=== PATIENT | female | born 1945 | race Caucasian/White ===

== ENCOUNTER 2016-10-05 10:35 | Inpatient (IN) | payer MEDICARE ==
[~2016-10-05] VITALS: Ht 160 cm; Wt 117.1 kg
[~2016-10-05 10:35] MED LIST: /ALEN70TA OR; /PANT40TA OR; /WARF25TA OR; AVAP300T OR; BABY81CH OR; BENADRYL CREAM TOP; CALCIUM OR; DEPA500T OR; DICL25TA OR; LASI40TA OR; LIPI10TA OR; MULTIVIT OR; NORT25CA2 OR; OMEGA OIL OR; PAIN325T OR; PERC5TAB8 OR; PERC7.5T8 OR; SYNT137T OR; VITAMIN D50000 UNT OR; ZINC OR; nasocort; renexa OR; vitamin B 12 OR; vitamin C OR
[2016-10-05] MEDS ORDERED: ACETAMINOPHEN 325 MG TAB As Ordered ONE ×2 (11:28→18:37)
[2016-10-05 11:49] LABS: BASO % 0.3 % (0.0-1.0); EOS % 0.2 % (0.0-3.0); LARGE UNSTAINED CELL # 0.2 K/mm3 (0.0-0.4); LARGE UNSTAINED CELL % 1.8 % (0.0-4.0); LYMPH # 0.8 K/mm3 (1.5-4.5); LYMPH % 5.6 % (24.0-44.0); MEAN CORPUSCULAR HGB CONC 32.8 g/dl (32.0-36.5); MEAN CORPUSCULAR VOLUME 94.4 fl (80.0-96.0); MONO # 0.9 K/mm3 (0.0-0.8); MONO % 8.6 % (0.0-5.0); NEUTROPHILS # 9.1 K/mm3 (1.8-7.7); NEUTROPHILS % 83.5 % (36.0-66.0); PLATELET COUNT, AUTOMATED 195 k/mm3 (150-450); RED CELL DISTRIBUTION WIDTH 14.9 % (11.5-14.5); WHITE BLOOD COUNT 10.9 K/mm3 (4.0-10.0)
[2016-10-05 12:02] LABS: ALBUMIN 3.4 GM/DL (3.2-5.2); ALBUMIN/GLOBULIN RATIO 1.03 (1.00-1.93); BILIRUBIN,DIRECT 0.2 MG/DL (0.0-0.2); BILIRUBIN,TOTAL 0.7 MG/DL (0.2-1.0); CALCIUM LEVEL 8.3 MG/DL (8.8-10.2); CREATININE FOR GFR 1.12 MG/DL (0.55-1.02); GLOMERULAR FILTRATION RATE 50.9 (>39); POTASSIUM SERUM 3.5 MEQ/L (3.5-5.1); TOTAL PROTEIN 6.7 GM/DL (6.4-8.2)
[2016-10-05] MEDS ORDERED: IPRATROPIUM 0.5MG/ALBUTEROL 2.5MG INH SOL UD 3ML (DUONEB)(J7620) As Ordered ONE (12:10)
--- NOTE | 2016-10-05 12:34 | ECGEPIP ---
Stationary ECG Study [facility] - ED Test Date: 2016-10-05 Pat Name: LORE VALERIO Department: Room: - Gender: F Survey Cad Technician: [facility] : 1945 Requested By: ADRIAN Mendez Order Number: [id number] Reading MD: Drew Moreno Measurements Intervals [place] Rate: 89 P: 48 MS: 136 QRS: 132 QRSD: 99 T: 30 QT: 368 QTc: 449 Interpretive Statements SINUS RHYTHM RAD PATTERN CONSISTENT WITH PULMONARY DISEASE RIGHT VENTRICULAR HYPERTROPHY ST DEVIATION AND MODERATE T-WAVE ABNORMALITY, CONSIDER ANTERIOR ISCHEMIA Electronically Signed On 10-05-2016 12:34:37 EST by Drew Moreno
--- NOTE | 2016-10-05 12:36 | REP ---
Clinical: Acute abdominal pain. Comparison: 02/08/2007. Findings: Lung bases suggest cardiomegaly with chronic pulmonary vascular congestion small bilateral atelectasis and nodular consolidations cannot be excluded. Liver, spleen, pancreas, gallbladder, and bilateral adrenal glands are normal for noncontrast evaluation. The kidneys demonstrate symmetric likely chronic perinephric stranding without hydroureternephrosis or nephrolithiasis. The enteric system is without obstruction or acute inflammatory process. Few sigmoid diverticula noted without acute diverticulitis. Pelvis demonstrates normal bladder and evidence for prior hysterectomy. No pelvic fluid or ascites. No free air. No adenopathy. No mass lesion. Atherosclerotic changes of the aorta and branch vessels noted without aneurysm. Musculoskeletal structures demonstrate age-related degenerative changes without focal osseous abnormality. Impression: 1. Lung bases suggest cardiomegaly with chronic pulmonary vascular congestion and subtle basilar atelectasis. 2. Bilateral perinephric stranding likely chronic and less likely pyelonephritis. 3. No acute intra-abdominal or pelvic pathology otherwise noted. Signed by Kalyan Rodriges MD 10/05/2016 12:27 P
--- NOTE | 2016-10-05 12:37 | REP ---
Clinical: Fever and chest pain. Technique: AP and lateral. Comparison: 03/01/2016. Findings: Cardiomegaly and pulmonary vascular congestion appreciated. Bibasilar atelectasis and possible small layering pleural effusions cannot be excluded. No pneumothorax. Skeletal structures intact. Impression: Cardiomegaly and pulmonary vascular congestion. Cannot exclude basilar atelectasis. Signed by Kalyan Rodriges MD 10/05/2016 12:29 P
--- NOTE | 2016-10-05 12:44 | REP ---
CT HEAD WITHOUT CONTRAST: HISTORY: Trauma. Areas of decreased attentuation are present in the periventricular and subcortical white matter. This represents small vessel ischemic disease. There is no intraparenchymal hemorrhage, mass, or midline shift. The ventricular system and cortical sulci are dilated consistent with minimal volume loss. There is no extracerebral collection. There is no fracture. Mucosal thickening is present in the ethmoid, sphenoid, and right maxillary sinuses. IMPRESSION: 1. Small vessel ischemic disease. 2. Minimal volume loss. Signed by Javier Velasquez MD 10/05/2016 12:51 P
--- NOTE | 2016-10-05 12:47 | REP ---
CT CERVICAL SPINE WITHOUT CONTRAST: HISTORY: Trauma. There is no acute fracture or subluxation. Disc bulges are present at the C4-5 and C5-6 levels. A disc bulge with associated osteophyte formation is present at the C6-7 level. There is minimal narrowing of the spinal canal. Uncinate process and/or facet hypertrophy are present at the C5-6 and C6-7 levels. These findings produce minimal narrowing of the neural foramina. The C6-7 intervertebral disc is decreased in height consistent with disc degeneration. Osteophytes are present on C5-7. IMPRESSION: 1. There is no acute fracture or subluxation. 2. There is cervical spondylosis at the C4-5 through C6-7 levels. Signed by Javier Velasquez MD 10/05/2016 12:51 P
[2016-10-05] MEDS ORDERED: ASPIRIN 325 MG TAB As Ordered ONE (13:58)
[2016-10-05] MEDS ORDERED: ASPI1TAB PO (14:43)
[2016-10-05] MEDS ORDERED: IRBE75TA5 PO (14:43)
[2016-10-05] MEDS ORDERED: LIPI10TA PO (14:43)
[2016-10-05] MEDS ORDERED: PANT40TA2 PO (14:43)
[2016-10-05] MEDS ORDERED: FURO40TA2 PO (14:43)
[2016-10-05] MEDS ORDERED: DIVA500T9 PO (14:43)
[2016-10-05] MEDS ORDERED: LEVO137T2 PO (14:43)
[2016-10-05] MEDS ORDERED: CARV6.25 PO (14:43)
[2016-10-05] MEDS ORDERED: ISOS120T4 PO (14:43)
[2016-10-05] MEDS ORDERED: VITMTA PO (14:50)
[2016-10-05] MEDS ORDERED: DRIS50002 PO (14:50)
[2016-10-05] MEDS ORDERED: ACET-654 PO (14:50)
[2016-10-05] MEDS ORDERED: VITA10006 PO (14:50)
[2016-10-05] MEDS ORDERED: OMEG100011 PO (14:50)
[2016-10-05] MEDS ORDERED: RANO5TAB PO (14:50)
[2016-10-05] MEDS ORDERED: POTA10CA PO (14:50)
[2016-10-05] MEDS ORDERED: BUTATAB6 PO (14:50)
[2016-10-05] MEDS ORDERED: PRED5TA PO (14:50)
[2016-10-05] MEDS ORDERED: NASA1SPR (14:50)
[2016-10-05] MEDS ORDERED: TRAM50TA2 PO (14:50)
[2016-10-05] MEDS ORDERED: RANE1000 PO (14:50)
--- NOTE | 2016-10-05 14:57 | HPEPDOC ---
Medical History and Physical Date of Admission 10/05/16 History and Physical ATTENDING: Dr. Pettit PCP: Dr Posada. CC: Found at side of bed. HPI: 71yoF with a past medical history significant for HTN, CAD, pulmonary fibrosis, SOFY who was last known to have spoken to family at 5 PM yesterday. Today she was found beside her bed by her building construction ironworker. She was confused and lethargic. "incoherent" per her family. Per the pt she has had nausea, vomitting and diarrhea on and off since Monday. Was taking her medications until yesterday. felt weak, dizzy, feverish, chills. Not eating or drinking much yesterday. Pt states she fell getting OOB this AM. Pt states she currently feels chest tightness and SOB. Reports abdominal discomfort, nausea. She reports pain in Rt hip and ankle. Denies any DOMINGUEZ, cough, palpitations, or changes in bladder habits. Upon presentation to the hospital the patient was found to have , thus the hospitalist team was consulted. PMHx: CAD- Dr Benjamin HTN hypothyroid Pulmonary fibrosis- Prednisone/Home O2 6L NC. 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 ROS: As noted in HPI, otherwise 11pt ROS of systems reviewed and unremarkable PE: GEN: 71yoF, appears stated age. Well-nourished, well developed. No acute distress. Alert and oriented x 3. lethargic but responsive. HEENT: Normocephalic, atraumatic. Pupils are equal, round, and reactive to light. Extraocular movements are intact. No nystagmus appreciated. Sclera are nonicteric. Conjunctiva without injection. Nose midline. Nasal turbinates without bogginess. EACs both patent BL. TMs both visualized and dickens with good cone of light, no bulging or erythema. No facial asymmetry. Moist mucous membranes. Wears dentures. Pharynx pink and moist, no cobblestoning. Neck supple , trachea midline. No lymphadenopathy or thyromegaly appreciated. CHEST: Regular rate and rhythm, +S1, +S2 LUNGS: Decreased BS bilaterally. No wheezes, rales, or rhonchi. Breathing appears symmetric and easy. Patient is speaking in full sentences. No accessory muscle use. ABD: Round, soft, mild tenderness RUQ/LUQ, non-distended. +Bowel sounds throughout. No rebound or guarding. No costovertebral angle tenderness. EXT: Pulses 2+ bilaterally dorsalis pedis and radial. No lower extremity edema appreciated. Mild TTP over Rt hip joint and Rt ankle joint. SKIN: [place], dry, warm. Capillary refill <2sec. No rashes. NEURO: Alert and oriented x 3. Cranial nerves III-XII are intact. No focal deficits appreciated. CXR:CM, pulmonary vascular congestion, cannot exclude atelectasis CT: C spine no acute fracture. CT Head No acute changes. CT A&P : 1. Lung bases suggest cardiomegaly with chronic pulmonary vascular congestion and subtle basilar atelectasis. 2. Bilateral perinephric stranding likely chronic and less likely pyelonephritis. 3. No acute intra-abdominal or pelvic pathology otherwise noted. EKG: SR/SA possible RVH, ST-T abn 82 bpm. BLOOD CULTURES: x 2 pending UC pending A&P: 71yoF with a past medical history significant for HTN, CAD, pulmonary fibrosis, SOFY who was last known to have spoken to family at 5 PM yesterday. Today she was found beside her bed by her building construction ironworker. She was confused and lethargic. "incoherent" per her family. Per the pt she has had nausea, vomitting and diarrhea on and off since Monday. The patient will be admitted to PCU for at least [address] Pettit's service. Pt is discussed with Dr Mast. Fever/vomiting/diarrhea. BC/UC/Rapid flu/GI panel pending. Recheck LA at 6pm. IVF at 80cc/hr. IV Zofran prn. IV Cipro/Flagyl pending further results. CAD/CP/SOB/Elevated troponin. Dr Benjamin to follow pt. He is aware and will see Pt tonight. ASA/Ranexa BID/Statin/Coreg with hold parameters/Imdur. H/O Fall- Rt hip pain/Rt ankle pain. XR requested Rt hip and ankle. Pending at this time. ASHWIN. SCr baseline 0.6-0.9. 1.12. IVF, monitor. Hold Lasix/KCL/ARB. HTN. As above Hold ARB/Lasix. Coreg with hold parameters. Hypothyroid. supplement. Pulmonary fibrosis. Prednisone/Home O2 6LNC. Currently 8LNC. SOFY/BIPAP with home settings. HLD. Statin. GERD. PPI. DVT prophylaxis. The patient is a Full code. Vital Signs 145/92 86 28 103.1 998LPM Laboratory Data Labs 24H Laboratory Tests 2 10/05/16 11:24: Lactic Acid (Sepsis) 2.7*H 10/05/16 11:25: Aspartate Amino Transf (AST/SGOT) 28, Alanine Aminotransferase (ALT/SGPT) 17, Alkaline Phosphatase 45, Total Bilirubin 0.7, Direct Bilirubin 0.2, Albumin 3.4 , Albumin/Globulin Ratio 1.03, Anion Gap 10, White Blood Count 10.9H, Red Blood Count 5.11, Hemoglobin 15.8, Hematocrit 48.2H, Mean Corpuscular Volume 94.4, Mean Corpuscular Hemoglobin 31.0, Mean Corpuscular Hemoglobin Concent 32.8, Red Cell Distribution Width 14.9H, Platelet Count 195, Neutrophils (%) (Auto) 83.5H , Lymphocytes (%) (Auto) 5.6L, Monocytes (%) (Auto) 8.6H, Eosinophils (%) (Auto ) 0.2, Basophils (%) (Auto) 0.3, Neutrophils # (Auto) 9.1H, Lymphocytes # (Auto ) 0.8L, Monocytes # (Auto) 0.9H, Eosinophils # (Auto) 0.0, Basophils # (Auto) 0.0, Calcium Level 8.3L, Glomerular Filtration Rate 50.9, Large Unclassified Cells # 0.2, Large Unclassified Cells % 1.8, Lipase 98, Total Protein 6.7, Troponin I 1.27H, Valproic Acid (Depakene) Level 11.8L 10/05/16 12:50: Urine Amorphous Sediment , Urine Appearance HAZY, Urine Color RYNE, Urine pH 5.0, Urine Specific [place] 1.022, Urine Protein 3+H, Urine Glucose (UA) NEGATIVE, Urine Ketones TRACEH, Urine Urobilinogen 0.2, Urine Bilirubin NEGATIVE , Urine Leukocyte Esterase NEGATIVE, Urine Bacteria (Auto) NEGATIVE, Urine Blood NEGATIVE, Urine Calcium Carbonate Cryst(Auto) , Urine Calcium Oxalate Cryst (Auto) , Urine Calcium Phosphate Radha (Auto) , Urine Cellular Casts , Urine Cystine Crystals , Urine Granular Casts (Auto) , Urine Hyaline Casts (Auto ) 0, Urine Leucine Crystals , Urine Mucus (Auto) SMALL, Urine Nitrite NEGATIVE, Urine Oval Fat Bodies (Auto) , Urine RBC (Auto) 1, Urine Renal Epithelial Cells , Urine Sperm (Auto) , Urine Squamous Epithelial Cells 0, Urine Transitional Epithelial Cells , Urine Trichomonas (Auto) , Urine Triple Phosphate Cryst (Auto ) , Urine Tyrosine Crystals , Urine Uric Acid Crystals (Auto) , Urine WBC (Auto ) 2, Urine Waxy Casts (Auto) , Urine Yeast-Like Cells (Auto) CBC/BMP Laboratory Tests 10/05/16 11:25 Red Blood Count 5.11, Mean Corpuscular Volume 94.4, Mean Corpuscular Hemoglobin 31.0, Mean Corpuscular Hemoglobin Concent 32.8, Red Cell Distribution Width 14.9 H, Neutrophils (%) (Auto) 83.5 H, Lymphocytes (%) (Auto) 5.6 L, Monocytes ( %) (Auto) 8.6 H, Eosinophils (%) (Auto) 0.2, Basophils (%) (Auto) 0.3, Neutrophils # (Auto) 9.1 H, Lymphocytes # (Auto) 0.8 L, Monocytes # (Auto) 0.9 H , Eosinophils # (Auto) 0.0, Basophils # (Auto) 0.0 Microbiology Microbiology 10/05/16 Blood Culture, Received Pending 10/05/16 Blood Culture, Received Pending 10/05/16 Urine Culture, Received Pending Home Medications Scheduled (Nasacort Allergy 24Hr) 55 Mcg/Act Spr 55 MCG NA DAILY Ascorbic Acid (Vitamin C) 1,000 Mg Tab 1,000 MG PO DAILY Aspirin (Aspirin 81) 81 Mg Tab 81 MG PO DAILY Atorvastatin Calcium (Lipitor) 10 Mg Tab 10 MG PO DAILY Carvedilol (Carvedilol) 6.25 Mg Tab 6.25 MG PO BID Divalproex Sodium (Divalproex Sodium ER) 500 Mg Tab 1,000 MG PO QHS Furosemide (Furosemide) 40 Mg Tab 40 MG PO DAILY Irbesartan (Irbesartan) 75 Mg Tab 75 MG PO DAILY Isosorbide Mononitrate (Isosorbide Mononitrate ER) 120 Mg Tab 120 MG PO DAILY Levothyroxine Sodium (Synthroid) 137 Mcg Tab 137 MCG PO DAILY Multivitamins *[facility] STOCKED* (Thera M Plus *[facility] STOCKED*) 1 Tab Tab 1 TAB PO DAILY Clyde 3 Polyunsat Fatty Acids (Clyde 3 1000 mg) 1 Cap Cap 1 CAP PO DAILY Pantoprazole Sodium (Pantoprazole Sodium) 40 Mg Tab 40 MG PO BID Potassium Chloride (Klor-Con M10) 10 Meq Tabcr 10 MEQ PO DAILY Prednisone (Prednisone) 5 Mg Tab 15 MG PO DAILY Ranolazine (Ranexa) 500 Mg Carol 500 MG PO QPM Ranolazine (Ranexa) 1,000 Mg Tab 1,000 MG PO QAM Vitamin D (Drisdol) 50,000 Unit Cap 50,000 UNIT PO 2XW Scheduled PRN Acetamin/Butalbital/Caffeine (Butalbital/Acetaminophen/ 50-325-40 mg) 1 Ea Tab 1 EA PO PRN MIGRAINE Acetaminophen (Acetaminophen) 325 Mg Tab 650 MG PO Q4H PRN PRN PAIN Tramadol HCl (Tramadol HCl) 50 Mg Tab 50 MG PO Q8H PRN PRN PAIN Allergies Coded Allergies: SEAFOOD (Verified Allergy, Severe, THROAT TINGLES, DYSPNEA, 11/30/11) Celecoxib (Verified Allergy, Intermediate, RASH, 11/26/12) Gabapentin (Verified Allergy, Intermediate, RASH, BLISTERS, 11/26/12) Sulfa Drugs (Verified Allergy, Intermediate, RASH, 11/26/12) Sulfa Drugs Cross Reactors (Verified Allergy, Intermediate, RASH, 11/26/12) Leflunomide (Verified Adverse Reaction, Mild, UPSET STOMACH, 11/26/12) Carolyn Paredes Oct 05, 2016 14:57
[2016-10-05] MEDS: NS 1,000 ML IV SCH ×2 (14:59→23:38)
[2016-10-05] MEDS ORDERED: ONDANSETRON 4MG/2ML VIAL (J2405) IV PRN (15:00)
--- NOTE | 2016-10-05 16:38 | REP ---
Clinical: Pain. Technique: AP, lateral, bilateral oblique views of the right ankle. Findings: Osteopenia and age-related arthritic degenerative changes are appreciated. No acute fracture or dislocation. No significant soft tissue swelling. Impression: Osteopenia and age-related degenerative changes. No acute fracture or dislocation. Signed by Kalyan Rodriges MD 10/05/2016 04:30 P
--- NOTE | 2016-10-05 16:52 | REP ---
RIGHT HIP: Two views of the right hip are performed. There is no acute fracture or dislocation. There is mild joint space narrowing, subchondral sclerosis and spurring. IMPRESSION: Mild degenerative changes. No acute fracture or dislocation. Signed by Riley Rowan MD 10/06/2016 09:51 A
--- NOTE | 2016-10-05 18:19 | ECGEPIP ---
Stationary ECG Study [facility] - ED Test Date: 2016-10-05 Pat Name: LORE VALERIO Department: Room: - Gender: F [employer] Specialist: [facility] : 1945 Requested By: ADRIAN Mendez Order Number: [id number] Reading MD: Drew Moreno Measurements Intervals [place] Rate: 82 P: 32 [place]: 140 QRS: 131 QRSD: 100 T: 26 QT: 389 QTc: 454 Interpretive Statements SINUS RHYTHM WITH SINUS ARRHYTHMIA RAD RIGHT VENTRICULAR HYPERTROPHY PATTERN CONSISTENT WITH PULMONARY DISEASE NSTTW ABNORMALITIES SIMILAR TO 09/25/16 Electronically Signed On 10-05-2016 18:19:20 EST by Drew Moreno
[2016-10-05] MEDS ORDERED: CIPROFLOXACIN/D5W 400 MG/200 ML BAG (J0744) As Ordered ONE (18:31)
[2016-10-05] MEDS: CIPROFLOXACIN 400 MG in APPROPRIATE DILUENT 1 EA IV SCH (19:00)
[2016-10-05] MEDS ORDERED: traMADol 50 MG TAB As Ordered ONE (20:03)
[2016-10-05] MEDS: DIVALPROEX 500MG *ER* TAB PO SCH (21:00)
[2016-10-05 23:15] VITALS: BP 124/77
[2016-10-05] MEDS ORDERED: PANTOPRAZOLE 40MG TAB (PROTONIX) As Ordered ONE (23:20)
[2016-10-05] MEDS ORDERED: DIVALPROEX 250 MG TAB As Ordered ONE (23:21)
[2016-10-05] MEDS ORDERED: CARVedilol 6.25 MG TAB As Ordered ONE (23:21)
[2016-10-05] MEDS ORDERED: metroNIDAZOLE/NACL 500MG(5MG/ML)100 ML BAG (S0030) As Ordered ONE (23:23)
[2016-10-05] MEDS: CARVedilol 6.25 MG TAB PO SCH (23:30)
[2016-10-05] MEDS: PANTOPRAZOLE 40MG TAB (PROTONIX) PO SCH (23:31)
[2016-10-05] MEDS: metroNIDAZOLE 500 MG in APPROPRIATE DILUENT 1 EA IV SCH (23:42)
[2016-10-05 23:54] VITALS: PULSE 77
[2016-10-05] MEDS: RANOLAZINE 500 MG ER TAB PO SCH (23:54)
[2016-10-06] VITALS (7 sets, daily range): BP systolic 100–125; BP diastolic 58–71; O2SAT 97
[2016-10-06] MEDS ORDERED: ACETAMINOPHEN 325 MG TAB As Ordered ONE (03:43)
[2016-10-06] MEDS: ACETAMINOPHEN TAB 650MG DOSE (2X325MG) PO PRN ×2 (03:48→08:51)
[2016-10-06] MEDS ORDERED: traMADol 50 MG TAB As Ordered ONE ×3 (04:21→20:23)
[2016-10-06] MEDS ORDERED: metroNIDAZOLE/NACL 500MG(5MG/ML)100 ML BAG (S0030) As Ordered ONE ×3 (04:21→20:23)
[2016-10-06] MEDS: traMADol 50 MG TAB PO PRN ×3 (04:26→20:45)
[2016-10-06] MEDS: metroNIDAZOLE 500 MG in APPROPRIATE DILUENT 1 EA IV SCH ×3 (04:27→20:45)
[2016-10-06] MEDS ORDERED: CIPROFLOXACIN/D5W 400 MG/200 ML BAG (J0744) As Ordered ONE ×2 (06:31→18:57)
[2016-10-06] MEDS: LEVOTHYROXINE 0.137 MG TAB (137MCG) PO SCH (06:34)
[2016-10-06] MEDS: CIPROFLOXACIN 400 MG in APPROPRIATE DILUENT 1 EA IV SCH ×2 (06:35→18:59)
[2016-10-06 07:42] LABS: BASO % 0.2 % (0.0-1.0); EOS % 0.5 % (0.0-3.0); LARGE UNSTAINED CELL # 0.2 K/mm3 (0.0-0.4); LARGE UNSTAINED CELL % 2.3 % (0.0-4.0); LYMPH # 0.9 K/mm3 (1.5-4.5); LYMPH % 8.2 % (24.0-44.0); MEAN CORPUSCULAR HEMOGLOBIN 31.2 pg (27.0-33.0); MEAN CORPUSCULAR HGB CONC 32.4 g/dl (32.0-36.5); MEAN CORPUSCULAR VOLUME 96.2 fl (80.0-96.0); MONO # 0.8 K/mm3 (0.0-0.8); MONO % 9.6 % (0.0-5.0); NEUTROPHILS # 6.5 K/mm3 (1.8-7.7); NEUTROPHILS % 79.1 % (36.0-66.0); PLATELET COUNT, AUTOMATED 152 k/mm3 (150-450); RED CELL DISTRIBUTION WIDTH 14.8 % (11.5-14.5); WHITE BLOOD COUNT 8.2 K/mm3 (4.0-10.0)
[2016-10-06] MEDS ORDERED: ACETAMINOPHEN TAB 650MG DOSE (2X325MG) As Ordered ONE (08:44)
[2016-10-06] MEDS: RANOLAZINE 500 MG ER TAB PO SCH ×2 (08:49→20:44)
[2016-10-06] MEDS: predniSONE 5 MG TAB PO SCH (08:49)
[2016-10-06] MEDS: ATORVASTATIN 10 MG TAB PO SCH (08:49)
[2016-10-06] MEDS: PANTOPRAZOLE 40MG TAB (PROTONIX) PO SCH ×2 (08:49→20:44)
[2016-10-06] MEDS: ASPIRIN 81 MG ENTERIC TAB PO SCH (08:49)
[2016-10-06] MEDS: ISOSORBIDE MON. (IMDUR) 60 MG XR TAB PO SCH (08:50)
[2016-10-06] MEDS: CARVedilol 6.25 MG TAB PO SCH ×2 (08:50→20:46)
[2016-10-06 08:57] LABS: ALBUMIN 2.7 GM/DL (3.2-5.2); BILIRUBIN,TOTAL 0.6 MG/DL (0.2-1.0); CALCIUM LEVEL 7.8 MG/DL (8.8-10.2); CREATININE FOR GFR 1.22 MG/DL (0.55-1.02); GLOMERULAR FILTRATION RATE 46.1 (>39); POTASSIUM SERUM 3.7 MEQ/L (3.5-5.1); TOTAL PROTEIN 5.4 GM/DL (6.4-8.2)
[2016-10-06] MEDS ORDERED: IPRATROPIUM 0.5MG/ALBUTEROL 2.5MG INH SOL UD 3ML (DUONEB)(J7620) As Ordered ONE ×2 (14:34→20:51)
[2016-10-06] MEDS: IPRATROPIUM 0.5MG/ALBUTEROL 2.5MG INH SOL UD 3ML (DUONEB)(J7620) NEB PRN (14:40)
--- NOTE | 2016-10-06 17:42 | IPN ---
DATE: 10/06/2016 Patient seen and examined. Admitted overnight. Currently comfortable. Denies any chest pain but was having chest pain prior to admission. Respiration at baseline. No further episode of diarrhea. Mild epigastric discomfort. Tolerating oral. Is hungry. Requesting diet to be advanced. VITAL SIGNS: Temperature 98.6, pulse 68, respirations 18, blood pressure 118/67, pulse oximetry 93% on 4 liters nasal cannula. LABORATORY DATA: WBC 8.2, hemoglobin and hematocrit 13.8/42.6, platelets 152. Chemistry: Sodium 140, potassium 3.7, chloride 103, bicarbonate 26, BUN 25, creatinine 1.22. Cardiac enzymes: Initial troponin 1.27, 0.75, 0.44, 0.28. PHYSICAL EXAMINATION: GENERAL: Patient awake, alert, oriented times three, responsive. HEENT: Normocephalic, atraumatic. Pupils equal, round, and reactive to light. Extraocular movements intact. PULMONARY: Decreased breath sounds bilateral. No wheezes, rales, or rhonchi. Speaks in full sentences. CARDIAC: Regular rate and rhythm. Normal S1, S2. ABDOMEN: Soft. Mild epigastric tenderness. Obese. Positive bowel sounds. EXTREMITIES: No edema, bilateral lower extremities. Able to move bilateral upper and lower extremities. NEUROLOGIC: No focal deficit. Cranial nerves II-XII grossly intact. ASSESSMENT AND PLAN: This is a 71-year-old female patient with underlying medical history of hypertension, coronary artery disease, pulmonary fibrosis, chronic hypoxic respiratory failure on oxygen during the day and continuous positive airway pressure (CPAP) at night, obstructive sleep apnea (SOFY), hypothyroidism, gastroesophageal reflux disease (GERD), dyslipidemia, admitted with syncope. Found down on the ground with loss of consciousness with recent nausea, vomiting, diarrhea since Monday. 1. Syncope with metabolic encephalopathy, likely secondary to underlying infection. Patient was febrile. Currently back to baseline. Will get physical therapy and check orthostatic vital signs. Intravenous (IV) hydration has been given. Continue treatment for underlying infection, as mentioned below. 2. Sepsis, likely secondary to gastrointestinal (GI) sources. CT scan of the abdomen appreciated. Patient's nausea, vomiting, and diarrhea have improved. Followup GI panel. Continue Cipro and Flagyl. Iv hydration has been given. Advance diet as tolerated. 3. Full x-rays and imaging have been appreciated. Likely secondary to hypovolemia due to nausea, vomiting, and diarrhea. IV hydration has been given. X-ray has been negative for any fracture. CT head is also done. Will get physical therapy and followup orthostatic vital signs. 4. Elevated cardiac enzymes, likely demand ischemia. Dr. Benjamin from cardiology has been consulted. Given IV hydration, serial cardiac enzymes done. Followup telemetry. Continue aspirin, statin, beta blockers, and Imdur. Followup cardiology recommendations and discuss with Dr. Benjamin in regard to the need for transfer for cardiac catheterization. As per Dr. Benjamin, likely source of elevation troponin is mild cardiac injury due to hypovolemia. Given the current situation, hypovolemia is corrected. Cardiac enzymes improved. No urgency for transfer for cardiac catheterization. 5. Acute kidney injury (ASHWIN). Baseline creatinine 0.6-0.9. Currently mild elevation. IV fluids for hydration. Followup BUN and creatinine. Withholding Lasix, angiotensin receptor blockers (ARBs), and potassium chloride. 6. History of congestive heart failure. Patient currently hypovolemic. Lasix has been on hold. IV hydration has been given overnight. Will stop IV hydration given the patient tolerating oral. Once patient's blood pressure improved, will consider restarting Lasix. 7. Hypertension. Withholding ARBs and Lasix. Continue Coreg and Imdur with holding parameter. 8. Hypothyroidism. Continue current medication. 9. Pulmonary fibrosis. Continue prednisone. On home oxygen. Will continue on 4 liters via nasal cannula right now. 10. SOFY. Continue home bilevel positive airway pressure (BiPAP). Will continue to monitor. 11. Dyslipidemia. Continue statin. 12. GI prophylaxis. Patient on chronic steroid. Will continue proton pump inhibitor (PPI). 13. Deep vein thrombosis (DVT) prophylaxis. Will put the patient on heparin subcutaneous. DISPOSITION: Pending clinical improvement.
[2016-10-06] MEDS ORDERED: PANTOPRAZOLE 40MG TAB (PROTONIX) As Ordered ONE (20:23)
[2016-10-06] MEDS ORDERED: HEPARIN SOD (PORCINE) 5000 UNITS/ML VIAL As Ordered ONE (20:23)
[2016-10-06] MEDS ORDERED: CARVedilol 6.25 MG TAB As Ordered ONE (20:23)
[2016-10-06] MEDS: DIVALPROEX 500MG *ER* TAB PO SCH (20:44)
[2016-10-06] MEDS: HEPARIN SOD (PORCINE) 5000 UNITS/ML VIAL SQ SCH (20:45)
[2016-10-06] MEDS: IPRATROPIUM 0.5MG/ALBUTEROL 2.5MG INH SOL UD 3ML (DUONEB)(J7620) NEB SCH (20:52)
[2016-10-07] VITALS (12 sets, daily range): BP systolic 110–153; BP diastolic 51–81
[2016-10-07] MEDS ORDERED: metroNIDAZOLE/NACL 500MG(5MG/ML)100 ML BAG (S0030) As Ordered ONE ×2 (04:15→11:45)
[2016-10-07] MEDS: metroNIDAZOLE 500 MG in APPROPRIATE DILUENT 1 EA IV SCH ×3 (04:17→19:23)
[2016-10-07] MEDS ORDERED: CIPROFLOXACIN/D5W 400 MG/200 ML BAG (J0744) As Ordered ONE (05:43)
[2016-10-07] MEDS ORDERED: traMADol 50 MG TAB As Ordered ONE (05:43)
[2016-10-07] MEDS: LEVOTHYROXINE 0.137 MG TAB (137MCG) PO SCH (05:50)
[2016-10-07] MEDS: traMADol 50 MG TAB PO PRN ×2 (05:50→16:34)
[2016-10-07] MEDS: CIPROFLOXACIN 400 MG in APPROPRIATE DILUENT 1 EA IV SCH ×2 (06:00→17:56)
[2016-10-07] MEDS ORDERED: IPRATROPIUM 0.5MG/ALBUTEROL 2.5MG INH SOL UD 3ML (DUONEB)(J7620) As Ordered ONE ×2 (06:09→09:35)
[2016-10-07] MEDS: IPRATROPIUM 0.5MG/ALBUTEROL 2.5MG INH SOL UD 3ML (DUONEB)(J7620) NEB SCH ×3 (06:10→21:18)
[2016-10-07 06:36] LABS: ALBUMIN 2.8 GM/DL (3.2-5.2); ALBUMIN/GLOBULIN RATIO 0.9 (1.00-1.93); BILIRUBIN,TOTAL 0.5 MG/DL (0.2-1.0); CALCIUM LEVEL 8.3 MG/DL (8.8-10.2); CREATININE FOR GFR 1.03 MG/DL (0.55-1.02); GLOMERULAR FILTRATION RATE 56.1 (>39); POTASSIUM SERUM 4.4 MEQ/L (3.5-5.1); TOTAL PROTEIN 5.9 GM/DL (6.4-8.2)
[2016-10-07 06:37] LABS: BASO % 0.4 % (0.0-1.0); EOS % 0.4 % (0.0-3.0); LARGE UNSTAINED CELL # 0.4 K/mm3 (0.0-0.4); LARGE UNSTAINED CELL % 5.3 % (0.0-4.0); LYMPH # 1.1 K/mm3 (1.5-4.5); LYMPH % 15.4 % (24.0-44.0); MEAN CORPUSCULAR HEMOGLOBIN 31.3 pg (27.0-33.0); MEAN CORPUSCULAR HGB CONC 32.6 g/dl (32.0-36.5); MEAN CORPUSCULAR VOLUME 96.3 fl (80.0-96.0); MONO # 0.7 K/mm3 (0.0-0.8); MONO % 9.9 % (0.0-5.0); NEUTROPHILS % 68.7 % (36.0-66.0); PLATELET COUNT, AUTOMATED 164 k/mm3 (150-450); RED CELL DISTRIBUTION WIDTH 14.3 % (11.5-14.5); WHITE BLOOD COUNT 7.3 K/mm3 (4.0-10.0)
[2016-10-07] MEDS ORDERED: LR 1,000 ML IV SCH (07:00)
[2016-10-07] MEDS ORDERED: ACETAMINOPHEN TAB 650MG DOSE (2X325MG) As Ordered ONE (09:23)
[2016-10-07] MEDS: RANOLAZINE 500 MG ER TAB PO SCH ×2 (09:31→21:18)
[2016-10-07] MEDS: ATORVASTATIN 10 MG TAB PO SCH (09:31)
[2016-10-07] MEDS: PANTOPRAZOLE 40MG TAB (PROTONIX) PO SCH ×2 (09:31→21:24)
[2016-10-07] MEDS: predniSONE 5 MG TAB PO SCH (09:32)
[2016-10-07] MEDS: ISOSORBIDE MON. (IMDUR) 60 MG XR TAB PO SCH (09:32)
[2016-10-07] MEDS: CARVedilol 6.25 MG TAB PO SCH ×2 (09:32→21:19)
[2016-10-07] MEDS: ASPIRIN 81 MG ENTERIC TAB PO SCH (09:32)
[2016-10-07] MEDS: HEPARIN SOD (PORCINE) 5000 UNITS/ML VIAL SQ SCH ×2 (09:33→21:18)
[2016-10-07] MEDS: ACETAMINOPHEN TAB 650MG DOSE (2X325MG) PO PRN ×2 (09:34→21:24)
[2016-10-07] MEDS: IPRATROPIUM 0.5MG/ALBUTEROL 2.5MG INH SOL UD 3ML (DUONEB)(J7620) NEB PRN ×2 (09:38→16:32)
--- NOTE | 2016-10-07 12:23 | EDDOCDS ---
Physician Documentation [facility] Name: Sandrine Franco Age: 71 yrs Sex: Female : 1945 Arrival Date: 10/05/2016 Time: 10:35 Bed Admit Hold Private MD: Gaurav Posada H. Disposition: 10/05/16 14:00 Hospitalization ordered by Ani Mast for Inpatient Admission. Preliminary diagnosis are Non-ST elevation (NSTEMI) myocardial infarction, Fever, unspecified, Vomiting, Diarrhea, unspecified. - Bed requested for PCU. - Status is Inpatient Admission. dy - Condition is Stable. - Problem is new. - Symptoms are unchanged. Historical: - Allergies: SULFA (SULFONAMIDES); SHELLFISH; - Home Meds: 1. home O2 6 L 2. isosorbide mononitrate 60 mg Oral Tb24 1 tab once daily 3. carvedilol 6.25 mg oral tab 1 tab 2 times per day 4. amlodipine 5 mg Oral tab 1 tab once daily 5. Lipitor 10 mg Oral tab 1 tab once daily 6. Avapro 300 mg Oral tab 1 tab once daily 7. Protonix 40 mg Oral grps 1 packet once daily 8. levothyroxine 137 mcg Oral tab 1 tab once daily 9. Lasix 80 mg Oral tab 1 tab once daily 10. diclofenac sodium 50 mg oral TbEC 1 tab 2 times per day 11. nortriptyline 50 mg Oral cap 1 cap nightly 12. divalproex 500 mg oral TbEC 2 tabs once daily 13. aspirin 81 mg Oral chew 1 tab once daily 14. benzonatate 100 mg oral cap 1 cap as needed 15. Nasacort 55 mcg Nasal spra 16. Butalbital Compound 50-325-40 mg Oral cap 1 cap as needed 17. Tylenol 325 mg Oral tab as needed 18. Vitamin C 1,000 mg Oral cpER 19. multivitamin Oral cap 20. CoQ-10 30 mg oral cap 21. omega-3 fatty acids 300 mg oral cap - PMHx: pulmonary fibrosis; Hypercholesterolemia; Hypertension; CAD; - PSHx: Hysterectomy; Knee surgery- Left; Knee surgery- Right; Cataract Surgery- Bilateral; Shoulder Arthroscopy- Right; - Social history: Smoking status: Patient states was never smoker of tobacco. No barriers to communication noted, The patient speaks fluent [place], Speaks appropriately for age. - Family history: No immediate family members are acutely ill. - : The pt / caregiver states he / she is not on anticoagulants. Home medication list is obtained from the patient. - Exposure Risk Screening:: None identified. Vital Signs: 10/05 11:02 BP 129 / 79 (auto/); hs1 11:02 Pulse 92 MON; Resp 30; Pulse Ox 90% 6 lpm ; hs1 11:15 Temp 103.1(R); tmm1 11:16 Pulse 92 MON; Pulse Ox 95% 8 lpm ; hs1 11:17 BP 147 / 66 (auto/); hs1 11:31 Pulse 88 MON; Pulse Ox 99% ; hs1 11:32 BP 164 / 81 (auto/); hs1 11:46 Pulse 86 MON; Resp 28; Pulse Ox 99% 8 lpm ; hs1 11:47 BP 145 / 92 (auto/); hs1 12:47 BP 156 / 75 (auto/); hs1 12:47 Pulse 82 MON; Resp 28; Pulse Ox 94% ; hs1 13:40 Temp 101.8(R); hs1 14:05 Pulse 80 MON; Resp 20; Pulse Ox 95% 4 lpm ; hs1 14:06 BP 125 / 94 (auto/); hs1 14:23 Pulse 80 MON; Pulse Ox 93% ; hs1 14:23 BP 123 / 59 (auto/); hs1 14:53 BP 134 / 70 (auto/); hs1 14:53 Pulse 86 MON; Pulse Ox 94% ; hs1 15:10 BP 157 / 65 (auto/); hs1 15:11 Pulse 78 MON; Pulse Ox 90% ; hs1 15:45 Pulse 78 MON; Pulse Ox 99% ; cf2 15:47 Pulse 78 MON; Pulse Ox 99% ; cf2 16:10 BP 117 / 65 (auto/); hs1 16:11 Pulse 78 MON; Pulse Ox 94% ; hs1 16:14 BP 117 / 65; Pulse 80; Resp 28; Temp 97.7(O); Pulse Ox 95% 4 lpm ; Pain 9/10; hs1 16:40 BP 126 / 64 (auto/); hs1 16:41 Pulse 78 MON; Pulse Ox 92% ; hs1 17:10 BP 133 / 81 (auto/); hs1 17:11 Pulse 78 MON; Pulse Ox 94% ; hs1 17:40 BP 124 / 71 (auto/); hs1 17:41 Pulse 78 MON; Pulse Ox 96% ; hs1 18:10 BP 122 / 61 (auto/); hs1 18:10 Pulse 80 MON; Resp 18; Pulse Ox 95% ; hs1 21:00 Pulse 70 MON; Pulse Ox 94% ; cf2 21:12 Pulse 64 MON; Pulse Ox 96% ; cf2 21:21 Pulse 64 MON; Pulse Ox 96% ; cf2 21:26 Pulse 68 MON; Pulse Ox 97% ; cf2 21:32 Pulse 66 MON; Pulse Ox 96% ; cf2 21:47 BP 158 / 78 (auto/); cf2 21:48 Pulse 62 MON; Pulse Ox 96% ; cf2 21:52 Pulse 62 MON; Pulse Ox 95% ; cf2 21:55 Pulse 62 MON; Pulse Ox 95% ; cf2 21:59 Pulse 62 MON; Pulse Ox 96% ; cf2 22:03 Pulse 64 MON; Pulse Ox 97% ; cf2 MDM: 11:02 IV Saline Lock ordered. br1 11:02 Orthostatic VS ordered. br1 11:02 Operations Support Specialist/Pulse Ox/q 30 min VS ordered. br1 11:03 CBC with Diff Ordered. EDMS 11:03 BMP Ordered. EDMS 11:03 Liver Profile Ordered. EDMS 11:03 Lipase Ordered. EDMS 11:03 Troponin Ordered. EDMS 11:03 ECG WITH READING ER PHYS+CARDIAG ordered. EDMS 11:25 -Blood Culture (Adults Only), peripheral from different site, or from device/port/PICC br1 etc. if present ordered. 11:26 Acetaminophen Tablet 650 mg PO once ordered. br1 11:26 Lactic Acid (Rowan tube on ice) Ordered. EDMS 11:26 -Blood Culture Ordered. EDMS 11:30 VALPROIC ACID (DEPAKOTE) Ordered. EDMS 11:50 -Blood Culture (Adults Only), peripheral from different site, or from device/port/PICC lbd etc. if present complete. 11:52 BLOOD CULTURES Ordered. EDMS 11:59 NS 0.9% 1000 ml IV at 150 mL/hr continuous ordered. br1 11:59 Albuterol-Ipratropium 3 ml Inhalation once ordered. br1 11:59 Call Respiratory ordered. br1 12:00 CBC with Diff Reviewed. br1 12:01 Call Respiratory complete. lbd 12:01 CT Head Without Contrast Ordered. EDMS 12:01 CT Spine,Cervical W/o Contrast Ordered. EDMS 12:01 Chest, 2 View (pa\E\lat) Ordered. EDMS 12:01 Straight cath ordered. br1 12:01 CT ABD & PELVIS: No Contrast Ordered. EDMS 12:02 Oxygen at 4L/Min NC or Home dosage ordered. br1 12:02 Urinalysis Ordered. EDMS 12:02 Urine Culture Ordered. EDMS 12:33 Financial registration complete. mm15 13:11 BMP Reviewed. br1 13:11 Troponin Reviewed. br1 13:11 Lactic Acid (Rowan tube on ice) Reviewed. br1 13:11 VALPROIC ACID (DEPAKOTE) Reviewed. br1 13:11 Urinalysis Reviewed. br1 13:11 Liver Profile Reviewed. br1 13:11 Lipase Reviewed. br1 13:11 EKG-ADULT Reviewed. br1 13:11 CT Head Without Contrast Reviewed. br1 13:11 CT Spine,Cervical W/o Contrast Reviewed. br1 13:11 Chest, 2 View (pa\E\lat) Reviewed. br1 13:11 CT ABD & PELVIS: No Contrast Reviewed. br1 13:13 Misc. Nursing Order ordered. br1 13:13 ECG WITH READING ER PHYS+CARDIAG ordered. EDMS 13:13 BED REQUEST+ADM ordered. EDMS 13:56 Aspirin 325 mg PO once ordered. br1 14:30 [facility] Payment Agreement was scanned into [employer] and attached to record. mm15 14:34 Admission / Observation Status ordered. EDMS 14:52 Hip, Ap,Lat Ordered. EDMS 14:52 Ankle, complete Ordered. EDMS 14:54 INFLUENZA A&B RAPID ANTIGEN Ordered. EDMS 14:54 GASTROINTESTINAL (GI) PANEL Ordered. EDMS 15:01 CARDIAC MARKER PANEL Ordered. EDMS 15:14 T-Sheet-- Draft Copy was scanned into [employer] and attached to record. gb 19:05 NS 0.9% 1000 ml IV at 80 mL/hr continuous ordered. hs1 19:05 Ciprofloxacin 400 mg IVPB at 200 mL/hr once over 60 mins ordered. hs1 19:05 Acetaminophen Tablet 650 mg PO once ordered. hs1 19:32 CBC WITH DIFFERENTIAL Ordered. EDMS 19:32 COMPLETE COMPHRENSIVE METABOLI Ordered. EDMS 19:32 CARDIAC MARKER PANEL Ordered. EDMS 19:32 CARDIAC MARKER PANEL Ordered. EDMS 20:12 traMADol 50 mg PO once; admission orders ordered. cf2 10/06 10:51 CARDIAC DIET - DASH ordered. EDMS 14:52 PCR was scanned into [employer] and attached to record. gb 17:13 PHYSICAL THERAPY EVAL & TREAT ordered. EDMS 19:30 CBC WITH DIFFERENTIAL Ordered. EDMS 19:31 COMPLETE COMPHRENSIVE METABOLI Ordered. EDMS 21:34 MAGNESIUM LEVEL Ordered. EDMS 10/07 06:58 ECHOCARD,DOPPLER/COLOR FLOW ordered. EDMS Administered Medications: 10/05 11:31 Drug: Acetaminophen 650 mg [acetaminophen 325 mg tablet (2 tabs)] Route: PO; hs1 12:22 Drug: Albuterol-Ipratropium 3 ml [ipratropium-albuterol 0.5 mg-3 mg(2.5 mg base)/3 mL kt1 nebulization soln (3 mL)] Route: Inhalation; 12:30 Drug: NS 0.9% 1000 ml [sodium chloride 0.9 % intravenous solution] Route: IV; Rate: 150 hs1 mL/hr; Site: left antecubital; 14:04 Drug: Aspirin 325 mg [aspirin 325 mg tablet (1 tabs)] Route: PO; hs1 19:06 Drug: NS 0.9% 1000 ml [sodium chloride 0.9 % intravenous solution] Route: IV; Rate: 80 hs1 mL/hr; Site: left antecubital; 19:06 Drug: Ciprofloxacin 400 mg [ciprofloxacin 400 mg/200 mL in 5 % dextrose intravenous hs1 piggyback] Route: IVPB; Rate: 200 mL/hr; Infused Over: 60 mins; Site: left antecubital; 19:06 Drug: Acetaminophen 650 mg [acetaminophen 325 mg tablet (2 tabs)] Route: PO; hs1 20:12 Drug: traMADol 50 mg [tramadol 50 mg tablet (1 tabs)] Route: PO; cf2 Signatures: Dispatcher [employer] EDMS Promise Jackman, Ekg Monitor Tech Unit Ericka Velásquez, Ekg Monitor Tech Unit deg Prabha Connors RN RN mcp Barnhardt, Gloria, Franklin Garcia RN RN dy Roggie, Brian, MD MD br1 Bita Roberts RN RN hs1 Erick Virk mm15 Mable Hooper,RN RN cf2 Daina Higginbotham kt1 The chart was reviewed and I authenticate all verbal orders and agree with the evaluation and treatment provided.Corrections: (The following items were deleted from the chart) 11:30 11:26 VALPROIC ACID (DEPAKOTE)+LAB ordered. EDMS EDMS 13:52 13:51 GASTROINTESTINAL (GI) PANEL+RUBEN ordered. EDMS EDMS 14:54 14:54 GASTROINTESTINAL (GI) PANEL ordered. EDMS EDMS 14:54 14:54 GASTROINTESTINAL (GI) PANEL ordered. EDMS EDMS 17:48 15:01 LACTIC ACID LEVEL, LACTATE ordered. EDMS EDMS 10/06 10:51 10/05 15:10 OTHER CUSTOM DIETS ordered. EDMS EDMS 10/06 21:34 19:31 MAGNESIUM LEVEL ordered. EDMS EDMS 10/07 07:54 10/06 09:53 ECHOCARD,DOPPLER/COLOR FLOW ordered. EDMS EDMS 10/07 10:33 10/05 13:53 GASTROINTESTINAL (GI) PANEL ordered. EDMS EDMS Attachments: 14:30 [facility] Payment Agreement mm15 15:14 T-Sheet-- Draft Copy gb MTDD
--- NOTE | 2016-10-07 12:24 | EDDOCDS ---
Nurse's Notes [facility] Name: Lore Franco Age: 71 yrs Sex: Female : 1945 Arrival Date: 10/05/2016 Time: 10:35 Bed Admit Hold Private MD: Gaurav Posada H. Diagnosis: Non-ST elevation (NSTEMI) myocardial infarction;Fever, unspecified;Vomiting;Diarrhea, unspecified Presentation: 10/05 10:44 Presenting complaint: EMS states: found after fallen out of bed. Unknown down time. hs1 Patient states to EMS she also has been having diarrhea. Patient states no control over bowels. Patient covered in fecal matter and currently is being cleaned at this time. Adult Sepsis Screening: The patient does not have new or worsening altered mentation. Patient has a respiratory rate of greater than or equal to 22 (1 point). Systolic blood pressure is greater than 100. Patient has a qSOFA score of 1- Negative Sepsis Screen. Suicide/Homicide risk assessment- the patient denies having any suicidal and/or homicidal ideations and does not present with any other emotional, behavioral or mental health complaints. Status: Patient is not a office services representative or dependent. Transition of care: patient was not received from another setting of care. 10:44 Method Of Arrival: Walkin/Carried/Asstd hs1 10:44 Acuity: YIN Level 2 hs1 10:57 Care prior to arrival: See EMS report. Medications administered prior to arrival: hs1 Zofran 4 mg, IV fluids 200 mL IV initiated. Oxygen administered by EMS. Triage Assessment: 10:52 General: Appears in no apparent distress, Behavior is cooperative. Pain: Location: hs1 everywhere. Neurological: Level of Consciousness is awake, confused. Cardiovascular: Rhythm is sinus rhythm. Respiratory: Airway is patent Respiratory effort is even, labored. GI: Abdomen is non- distended obese, Stools are reported to be loose, Last BM was October 05, 2016. Derm: Skin is pink, warm & dry. normal. Historical: - Allergies: SULFA (SULFONAMIDES); SHELLFISH; - Home Meds: 1. home O2 6 L 2. isosorbide mononitrate 60 mg Oral Tb24 1 tab once daily 3. carvedilol 6.25 mg oral tab 1 tab 2 times per day 4. amlodipine 5 mg Oral tab 1 tab once daily 5. Lipitor 10 mg Oral tab 1 tab once daily 6. Avapro 300 mg Oral tab 1 tab once daily 7. Protonix 40 mg Oral grps 1 packet once daily 8. levothyroxine 137 mcg Oral tab 1 tab once daily 9. Lasix 80 mg Oral tab 1 tab once daily 10. diclofenac sodium 50 mg oral TbEC 1 tab 2 times per day 11. nortriptyline 50 mg Oral cap 1 cap nightly 12. divalproex 500 mg oral TbEC 2 tabs once daily 13. aspirin 81 mg Oral chew 1 tab once daily 14. benzonatate 100 mg oral cap 1 cap as needed 15. Nasacort 55 mcg Nasal spra 16. Butalbital Compound 50-325-40 mg Oral cap 1 cap as needed 17. Tylenol 325 mg Oral tab as needed 18. Vitamin C 1,000 mg Oral cpER 19. multivitamin Oral cap 20. CoQ-10 30 mg oral cap 21. omega-3 fatty acids 300 mg oral cap - PMHx: pulmonary fibrosis; Hypercholesterolemia; Hypertension; CAD; - PSHx: Hysterectomy; Knee surgery- Left; Knee surgery- Right; Cataract Surgery- Bilateral; Shoulder Arthroscopy- Right; - Social history: Smoking status: Patient states was never smoker of tobacco. No barriers to communication noted, The patient speaks fluent Pashto, Speaks appropriately for age. - Family history: No immediate family members are acutely ill. - : The pt / caregiver states he / she is not on anticoagulants. Home medication list is obtained from the patient. - Exposure Risk Screening:: None identified. Screenin:54 Screening information is obtained from the patient. Fall risk: At risk due to prior hs1 history of falls, The following interventions are performed due to a positive Fall Risk Screen: Fall Risk is added to Special Handling on the patient Summary Screen. A Fall Risk Bracelet was applied to the patient. Side Rails are placed in the up position. A Call [place] is given with instruction to call for help when getting out of bed. Assistance ADL's: requires no assistance with activities of daily living. Abuse/DV Screen: The patient / caregiver reports he/she is: not in a situation that causes fear, pain or injury. Nutritional screening: No deficits noted. Advance Directives: There is no active DNR order. home support is adequate. Assessment: 10:58 General: Appears uncomfortable, Behavior is appropriate for age, cooperative. Pain: hs1 Location: back, buttocks and abdomen. Neurological: Level of Consciousness is awake, alert, obeys commands. Respiratory: Airway is patent Respiratory effort is labored, Respiratory pattern is regular, symmetrical. GI: Abdomen is non- distended obese. Derm: excoriated bottom and abdominal folds. Patient has bruising noted to right hip area. 11:50 General: Appears in no apparent distress, Behavior is cooperative. Neurological: Level hs1 of Consciousness is awake, alert, obeys commands. Cardiovascular: Rhythm is sinus rhythm. Respiratory: Airway is patent Respiratory effort is labored, Respiratory pattern is regular, symmetrical. Derm: Skin is normal. 12:30 General: Appears ill, Behavior is cooperative. Neurological: Level of Consciousness is hs1 obeys commands. Respiratory: Airway is patent Respiratory effort is labored, Respiratory pattern is regular, symmetrical. GI: Abdomen is non- distended obese. Derm: Skin is pink, warm & dry. normal. 13:28 General: Appears ill, Behavior is cooperative, quiet. General: Appears Behavior is hs1 drowsy. Neurological: Level of Consciousness is obeys commands. Respiratory: Respiratory effort is labored, Respiratory pattern is regular. Derm: Skin is pink, warm & dry. normal. 14:04 General: Appears in no apparent distress, Behavior is appropriate for age, cooperative. hs1 Neurological: Level of Consciousness is awake, alert. Respiratory: Airway is patent Respiratory effort is even, labored, Respiratory pattern is regular, symmetrical. GI: Abdomen is non- distended obese. Derm: Skin is pink, warm & dry. normal. 15:20 General: Patient assisted with bedpan at this time. Patient unable to urinate and hs1 states uncomfortable sitting on cabrera. Family present with patient and comforting to her. No other needs known at present. . 16:15 Pain: Location: back Pain currently is 9 out of 10 on a pain scale. Quality of pain is hs1 described as aching, dull. Neurological: Level of Consciousness is awake, alert, obeys commands. Cardiovascular: Rhythm is sinus rhythm No ectopy. Respiratory: Airway is patent Respiratory effort is labored, Respiratory pattern is regular, symmetrical. Derm: Skin is pink, warm & dry. normal. 16:48 General: Appears in no apparent distress, Behavior is cooperative, drowsy. hs1 Neurological: Level of Consciousness is alert, obeys commands. GI: Abdomen is non- distended obese. Derm: Skin is normal. 17:50 General: Appears in no apparent distress, Behavior is appropriate for age, cooperative. hs1 Pain: Location: back Pain currently is 6 out of 10 on a pain scale. Respiratory: Airway is patent Respiratory effort is labored, Respiratory pattern is regular, symmetrical. Derm: Skin is pink, warm & dry. normal. 18:58 General: Appears in no apparent distress, Behavior is appropriate for age, cooperative. hs1 Pain: Location: back Pain currently is 8 out of 10 on a pain scale. Respiratory: Airway is patent Respiratory effort is even, unlabored, Respiratory pattern is regular, symmetrical, Breath sounds are diminished bilaterally. Derm: Skin is pink, warm & dry. normal. Vital Signs: 11:02 BP 129 / 79 (auto/); hs1 11:02 Pulse 92 MON; Resp 30; Pulse Ox 90% 6 lpm ; hs1 11:15 Temp 103.1(R); tmm1 11:16 Pulse 92 MON; Pulse Ox 95% 8 lpm ; hs1 11:17 BP 147 / 66 (auto/); hs1 11:31 Pulse 88 MON; Pulse Ox 99% ; hs1 11:32 BP 164 / 81 (auto/); hs1 11:46 Pulse 86 MON; Resp 28; Pulse Ox 99% 8 lpm ; hs1 11:47 BP 145 / 92 (auto/); hs1 12:47 BP 156 / 75 (auto/); hs1 12:47 Pulse 82 MON; Resp 28; Pulse Ox 94% ; hs1 13:40 Temp 101.8(R); hs1 14:05 Pulse 80 MON; Resp 20; Pulse Ox 95% 4 lpm ; hs1 14:06 BP 125 / 94 (auto/); hs1 14:23 Pulse 80 MON; Pulse Ox 93% ; hs1 14:23 BP 123 / 59 (auto/); hs1 14:53 BP 134 / 70 (auto/); hs1 14:53 Pulse 86 MON; Pulse Ox 94% ; hs1 15:10 BP 157 / 65 (auto/); hs1 15:11 Pulse 78 MON; Pulse Ox 90% ; hs1 15:45 Pulse 78 MON; Pulse Ox 99% ; cf2 15:47 Pulse 78 MON; Pulse Ox 99% ; cf2 16:10 BP 117 / 65 (auto/); hs1 16:11 Pulse 78 MON; Pulse Ox 94% ; hs1 16:14 BP 117 / 65; Pulse 80; Resp 28; Temp 97.7(O); Pulse Ox 95% 4 lpm ; Pain 9/10; hs1 16:40 BP 126 / 64 (auto/); hs1 16:41 Pulse 78 MON; Pulse Ox 92% ; hs1 17:10 BP 133 / 81 (auto/); hs1 17:11 Pulse 78 MON; Pulse Ox 94% ; hs1 17:40 BP 124 / 71 (auto/); hs1 17:41 Pulse 78 MON; Pulse Ox 96% ; hs1 18:10 BP 122 / 61 (auto/); hs1 18:10 Pulse 80 MON; Resp 18; Pulse Ox 95% ; hs1 21:00 Pulse 70 MON; Pulse Ox 94% ; cf2 21:12 Pulse 64 MON; Pulse Ox 96% ; cf2 21:21 Pulse 64 MON; Pulse Ox 96% ; cf2 21:26 Pulse 68 MON; Pulse Ox 97% ; cf2 21:32 Pulse 66 MON; Pulse Ox 96% ; cf2 21:47 BP 158 / 78 (auto/); cf2 21:48 Pulse 62 MON; Pulse Ox 96% ; cf2 21:52 Pulse 62 MON; Pulse Ox 95% ; cf2 21:55 Pulse 62 MON; Pulse Ox 95% ; cf2 21:59 Pulse 62 MON; Pulse Ox 96% ; cf2 22:03 Pulse 64 MON; Pulse Ox 97% ; cf2 Vitals: 11:49 Log In Time N/A - ambulance arrival. hs1 ED Course: 10:36 Patient visited by Katie Joseph Reg. lg 10:36 Gaurav Posada is Private Physician. lg 10:36 Patient moved to Waiting lg 10:38 Patient moved to [facility] 10:40 Patient visited by Wesley Angeles PCA. jrd 10:45 Triage Initiated hs1 10:57 Maintain field IV. Dressing intact. Gauge & site: 20 gauge in right hand. hs1 10:59 The patient / caregiver is instructed regarding the plan of care and ED course. Patient hs1 has correct armband on for positive identification. Placed in gown. Bed in low position. Call light in reach. Side rails up X2. sail lay out worker on. Pulse ox on. NIBP on. Cleaned of incontinence. Linen changed. Patients excoriated areas cleaned and cream placed on at this time. Patient very sore in her folds of her buttocks. 11:15 Patient visited by Bita Roberts RN. hs1 11:27 Lactic Acid (Rowan tube on ice) Sent. hs1 11:27 Troponin Sent. hs1 11:27 Lipase Sent. hs1 11:27 Liver Profile Sent. hs1 11:27 CBC with Diff Sent. hs1 11:27 -Blood Culture Sent. hs1 11:32 EKG done. (by ED staff). Reviewed by Adrian Early MD. tmm1 11:41 Adrian Early MD is Attending Physician. br1 11:47 Patient visited by Bita Roberts RN. hs1 11:59 Patient visited by Adrian Early MD. br1 12:47 EKG-ADULT Returned. EDMS 12:52 CT ABD & PELVIS: No Contrast Returned. EDMS 12:52 Chest, 2 View (pa\E\lat) Returned. EDMS 12:52 CT Head Without Contrast Returned. EDMS 12:52 CT Spine,Cervical W/o Contrast Returned. EDMS 12:57 Patient visited by Bita Roberts RN. hs1 12:57 Urine Culture Sent. hs1 12:57 Urinalysis Sent. hs1 13:28 Patient visited by Bita Roberts RN. hs1 13:34 CT Head Without Contrast Returned. EDMS 13:34 CT Spine,Cervical W/o Contrast Returned. EDMS 14:00 Ani Mast is Hospitalizing Provider. br1 14:06 Patient visited by Bita Roberts RN. hs1 14:30 [facility] [place] Agreement was scanned into Playteau and attached to record. mm15 15:14 T-Sheet-- Draft Copy was scanned into Playteau and attached to record. gb 17:25 Ankle, complete Returned. EDMS 17:25 Hip, Ap,Lat Returned. EDMS 19:02 EKG-ADULT Returned. EDMS 19:34 Patient moved to Admit Hold sls1 20:09 Mable Hooper,RN is Primary Nurse. cf2 20:09 Patient visited by Mable Hooper,IMELDA. cf2 20:15 Patient visited by Mable Hooper,IMELDA. cf2 20:48 Missed attempts: 20 gauge right upper arm x2. mb9 20:49 Inserted saline lock: 22 gauge in left forearm and blood collected. The patient mb9 tolerated the procedure well. 20:51 Inserted saline lock: 20 gauge in right antecubital area. jo3 21:45 Patient visited by Mable Hooper,IMELDA. cf2 22:05 Patient moved to 20 sls1 22:05 Patient moved to Admit Hold sls1 22:37 Patient visited by Mable Hooper,IMELDA. cf2 22:38 Patient visited by Mable Hooper,IMELDA. cf2 10/06 14:52 PCR was scanned into Playteau and attached to record. gb Administered Medications: 10/05 11:31 Drug: Acetaminophen 650 mg [acetaminophen 325 mg tablet (2 tabs)] Route: PO; hs1 12:22 Drug: Albuterol-Ipratropium 3 ml [ipratropium-albuterol 0.5 mg-3 mg(2.5 mg base)/3 mL kt1 nebulization soln (3 mL)] Route: Inhalation; 12:30 Drug: NS 0.9% 1000 ml [sodium chloride 0.9 % intravenous solution] Route: IV; Rate: 150 hs1 mL/hr; Site: left antecubital; 14:04 Drug: Aspirin 325 mg [aspirin 325 mg tablet (1 tabs)] Route: PO; hs1 19:06 Drug: NS 0.9% 1000 ml [sodium chloride 0.9 % intravenous solution] Route: IV; Rate: 80 hs1 mL/hr; Site: left antecubital; 19:06 Drug: Ciprofloxacin 400 mg [ciprofloxacin 400 mg/200 mL in 5 % dextrose intravenous hs1 piggyback] Route: IVPB; Rate: 200 mL/hr; Infused Over: 60 mins; Site: left antecubital; 19:06 Drug: Acetaminophen 650 mg [acetaminophen 325 mg tablet (2 tabs)] Route: PO; hs1 20:12 Drug: traMADol 50 mg [tramadol 50 mg tablet (1 tabs)] Route: PO; cf2 RT: 12:31 Initial Med Neb Given as ordered Patient was instructed and evaluated on procedure kt1 Patient tolerated procedure well without adverse effect. Respiratory: Breath sounds are diminished bilaterally. Order Results: Lab Order: CBC with Diff; SPEC'M 10/05/16 11:25 Test: WHITE BLOOD COUNT; Value: 10.9; Range: 4.0-10.0; Abnormal: Above high normal; Units: K/mm3; Status: F Test: RED BLOOD COUNT; Value: 5.11; Range: 4.00-5.40; Units: M/mm3; Status: F Test: HEMOGLOBIN; Value: 15.8; Range: 12.0-16.0; Units: g/dl; Status: F Test: HEMATOCRIT; Value: 48.2; Range: 36.0-47.0; Abnormal: Above high normal; Units: %; Status: F Test: MEAN CORPUSCULAR VOLUME; Value: 94.4; Range: 80.0-96.0; Units: fl; Status: F Test: MEAN CORPUSCULAR HEMOGLOBIN; Value: 31.0; Range: 27.0-33.0; Units: pg; Status: F Test: MEAN CORPUSCULAR HGB CONC; Value: 32.8; Range: 32.0-36.5; Units: g/dl; Status: F Test: RED CELL DISTRIBUTION WIDTH; Value: 14.9; Range: 11.5-14.5; Abnormal: Above high normal; Units: %; Status: F Test: PLATELET COUNT, AUTOMATED; Value: 195; Range: 150-450; Units: k/mm3; Status: F Test: NEUTROPHILS %; Value: 83.5; Range: 36.0-66.0; Abnormal: Above high normal; Units: %; Status: F Test: LYMPH %; Value: 5.6; Range: 24.0-44.0; Abnormal: Below low normal; Units: %; Status: F Test: MONO %; Value: 8.6; Range: 0.0-5.0; Abnormal: Above high normal; Units: %; Status: F Test: EOS %; Value: 0.2; Range: 0.0-3.0; Units: %; Status: F Test: BASO %; Value: 0.3; Range: 0.0-1.0; Units: %; Status: F Test: LARGE UNSTAINED CELL %; Value: 1.8; Range: 0.0-4.0; Units: %; Status: F Test: NEUTROPHILS #; Value: 9.1; Range: 1.8-7.7; Abnormal: Above high normal; Units: K/mm3; Status: F Test: LYMPH #; Value: 0.8; Range: 1.5-4.5; Abnormal: Below low normal; Units: K/mm3; Status: F Test: MONO #; Value: 0.9; Range: 0.0-0.8; Abnormal: Above high normal; Units: K/mm3; Status: F Test: EOS #; Value: 0.0; Range: 0.0-0.50; Units: K/mm3; Status: F Test: BASO #; Value: 0.0; Range: 0.0-0.2; Units: K/mm3; Status: F Test: LARGE UNSTAINED CELL #; Value: 0.2; Range: 0.0-0.4; Units: K/mm3; Status: F Lab Order: [facility]; [facility] 10/05/16 11:25 Test: GLUCOSE, FASTING; Value: 121; Range: 83-110; Abnormal: Above high normal; Units: MG/DL; Status: F Test: BLOOD UREA NITROGEN; Value: 18; Range: 7-18; Units: MG/DL; Status: F Test: CREATININE FOR GFR; Value: 1.12; Range: 0.55-1.02; Abnormal: Above high normal; Units: MG/DL; Status: F Test: GLOMERULAR FILTRATION RATE; Value: 50.9; Range: >39; Status: F Test: SODIUM LEVEL; Value: 140; Range: 136-145; Units: MEQ/L; Status: F Test: POTASSIUM SERUM; Value: 3.5; Range: 3.5-5.1; Units: MEQ/L; Status: F Test: CHLORIDE LEVEL; Value: 100; Range: 98-107; Units: MEQ/L; Status: F Test: CARBON DIOXIDE LEVEL; Value: 30; Range: 21-32; Units: MEQ/L; Status: F Test: ANION GAP; Value: 10; Range: 8-16; Units: MEQ/L; Status: F Test: CALCIUM LEVEL; Value: 8.3; Range: 8.8-10.2; Abnormal: Below low normal; Units: MG/DL; Status: F Test Note: ; Units are mL/min/1.73 m2 Chronic Kidney Disease Staging per NKF: Stage I & II GFR >=60 Normal to Mildly Decreased Stage III GFR 30-59 Moderately Decreased Stage IV GFR 15-29 Severely Decreased Stage V GFR <15 Very Little GFR Left ESRD GFR <15 on PAN HELPER Lab Order: Liver Profile; [facility]' 10/05/16 11:25 Test: AST/SGOT; Value: 28; Range: 15-37; Units: U/L; Status: F Test: ALT/SGPT; Value: 17; Range: 12-78; Units: U/L; Status: F Test: ALKALINE PHOSPHATASE; Value: 45; Range: 45-117; Units: U/L; Status: F Test: BILIRUBIN,TOTAL; Value: 0.7; Range: 0.2-1.0; Units: MG/DL; Status: F Test: BILIRUBIN,DIRECT; Value: 0.2; Range: 0.0-0.2; Units: MG/DL; Status: F Test: TOTAL PROTEIN; Value: 6.7; Range: 6.4-8.2; Units: GM/DL; Status: F Test: ALBUMIN; Value: 3.4; Range: 3.2-5.2; Units: GM/DL; Status: F Test: ALBUMIN/GLOBULIN RATIO; Value: 1.03; Range: 1.00-1.93; Status: F Lab Order: Lipase; [facility] 10/05/16 11:25 Test: LIPASE; Value: 98; Range: 73-393; Units: U/L; Status: F Lab Order: Troponin; [facility] 10/05/16 11:25 Test: TROPONIN I; Value: 1.27; Range: < 0.10; Abnormal: Above high normal; Units: NG/ML; Status: F Test Note: ; Troponin I Reference Interval for [employer] LOCI: 99th Percentile= 0.00-0.045 ng/ml Risk Stratification: <= 0.10 ng/ml Decreased Risk for Adverse Clinical Events. 0.10-1.50 ng/ml Increased Risk for Adverse Clinical Events. Evaluation of additional criterion and/or repeat testing in 2-6 hours is suggested to rule out myocardial damage. >= 1.50 ng/ml Indicative of Myocardial Injury. Lab Order: -Blood Culture; SPEC'M 10/05/16 11:24 Test: BLOOD CULTURE; Value: No growth after 24 hours . All specimens observed; Status: F Test: BLOOD CULTURE; Value: for 5 days. Results final at that time.; Status: F Test: BLOOD CULTURE; Value: No Growth after 48 hours. All Specimens observed; Status: F Test: BLOOD CULTURE; Value: for 7 days. Results final at that time.; Status: F Lab Order: Lactic Acid (Rowan tube on ice); SPEC'M 10/05/16 11:24 Test: LACTIC ACID SEPSIS PROTOCOL; Value: 2.7; Range: 0.4-2.0; Abnormal: Above upper panic limits; Units: MMOL/L; Status: F Lab Order: VALPROIC ACID (DEPAKOTE); SPEC'M 10/05/16 11:25 Test: VALPROIC ACID (DEPAKOTE); Value: 11.8; Range: 50.0-100.0; Abnormal: Below low normal; Units: UG/ML; Status: F Lab Order: BLOOD CULTURES; SPEC'M 10/05/16 12:50 Test: BLOOD CULTURE; Value: No growth after 24 hours . All specimens observed; Status: F Test: BLOOD CULTURE; Value: for 7 days. Results final at that time.; Status: F Lab Order: Urinalysis; SPEC'M 10/05/16 12:50 Test: APPEARANCE, URINE; Value: HAZY; Range: CLEAR; Status: F Test: COLOR, URINE; Value: RYNE; Range: YELLOW; Status: F Test: PH,URINE; Value: 5.0; Range: 5.0-9.0; Units: UNITS; Status: F Test: SPECIFIC GRAVITY URINE AUTO; Value: 1.022; Range: 1.002-1.035; Status: F Test: PROTEIN, URINE AUTO; Value: 3+; Range: NEGATIVE; Abnormal: Above high normal; Units: mg/dL; Status: F Test: GLUCOSE, URINE (UA) AUTO; Value: NEGATIVE; Range: NEGATIVE; Units: mg/dL; Status: F Test: KETONE, URINE AUTO; Value: TRACE; Range: NEGATIVE; Abnormal: Above high normal; Units: mg/dL; Status: F Test: UROBILINOGEN, URINE AUTO; Value: 0.2; Range: 0.0-2.0; Units: mg/dL; Status: F Test: BILIRUBIN, URINE AUTO; Value: NEGATIVE; Range: NEGATIVE; Status: F Test: NITRITE, URINE AUTO; Value: NEGATIVE; Range: NEGATIVE; Status: F Test: LEUKOCYTE ESTERASE, URINE AUTO; Value: NEGATIVE; Range: NEGATIVE; Status: F Test: BLOOD, URINE BLOOD; Value: NEGATIVE; Range: NEGATIVE; Status: F Test: WBC, URINE AUTO; Value: 2; Range: 0-3; Units: /HPF; Status: F Test: RBC, URINE AUTO; Value: 1; Range: 0-3; Units: /HPF; Status: F Test: BACTERIA, URINE AUTO; Value: NEGATIVE; Range: NEGATIVE; Status: F Test: SQUAMOUS EPITHELIAL CELL UR AU; Value: 0; Range: 0-6; Units: /HPF; Status: F Test: MUCUS, URINE; Value: SMALL; Range: NEGATIVE; Status: F Test: HYALINE CAST, URINE AUTO; Value: 0; Range: 0-1; Units: /LPF; Status: F Lab Order: Urine Culture; SPEC'M 10/05/16 12:50 Test: URINE CULTURE; Value: <EXTERNAL COMMENT eCWMed> FULL REPORT IN LAB NOTES (eCW and Medent).; Status: F Test: URINE CULTURE; Value: URINE CULTURE RESULT NO GROWTH; Status: F Lab Order: INFLUENZA A&B RAPID ANTIGEN; SPEC'M 10/05/16 20:21 Test: INFLUENZA A RAPID SCR by ICA; Value: INFLUENZA A RESULTS NEGATIVE; Status: F Test: INFLUENZA A RAPID SCR by ICA; Value: Comments:; Status: F Test: INFLUENZA B RAPID SCR by ICA; Value: INFLUENZA B RESULTS NEGATIVE; Status: F Test Note: ; The Influenza test is a direct rapid immunoassay for the qualitative detection of Influenza viral antigen. Cell culture (Viral Culture) testing should be considered to confirm NEGATIVE results and to assist in detecting other viruses that can provide similar clinical symptoms. Please contact the lab within 24 hours ([phone] if confirmatory testing is desired. Lab Order: CARDIAC MARKER PANEL; SPEC'M 10/05/16 17:55 Test: CPK CREATINE PHOSPHOKINASE; Value: 439; Range: 26-192; Abnormal: Above high normal; Units: U/L; Status: F Test: CK-MB VALUE MASS; Value: 3.6; Range: 0.0-3.6; Units: NG/ML; Status: F Test: MB/CK RELATIVE INDEX; Value: 0.82; Range: < OR =4; Status: F Test: TROPONIN I; Value: 0.75; Range: < 0.10; Abnormal: High; Units: NG/ML; Status: F Test Note: ; DIAGNOSIS CRITERIA MMB ng/ml Relative Index (RI) NON-AMI < or = 5 N/A [place]AN [place]ONE > 5 < or = 4 AMI > 5 > 4 Lab Order: CBC WITH DIFFERENTIAL; [facility] 07:22 Test: WHITE BLOOD COUNT; Value: 8.2; Range: 4.0-10.0; Units: K/mm3; Status: F Test: RED BLOOD COUNT; Value: 4.43; Range: 4.00-5.40; Units: M/mm3; Status: F Test: HEMOGLOBIN; Value: 13.8; Range: 12.0-16.0; Abnormal: Delta; Units: g/dl; Status: F Test: HEMATOCRIT; Value: 42.6; Range: 36.0-47.0; Units: %; Status: F Test: MEAN CORPUSCULAR VOLUME; Value: 96.2; Range: 80.0-96.0; Abnormal: Above high normal; Units: fl; Status: F Test: MEAN CORPUSCULAR HEMOGLOBIN; Value: 31.2; Range: 27.0-33.0; Units: pg; Status: F Test: MEAN CORPUSCULAR HGB CONC; Value: 32.4; Range: 32.0-36.5; Units: g/dl; Status: F Test: RED CELL DISTRIBUTION WIDTH; Value: 14.8; Range: 11.5-14.5; Abnormal: Above high normal; Units: %; Status: F Test: PLATELET COUNT, AUTOMATED; Value: 152; Range: 150-450; Units: k/mm3; Status: F Test: NEUTROPHILS %; Value: 79.1; Range: 36.0-66.0; Abnormal: Above high normal; Units: %; Status: F Test: LYMPH %; Value: 8.2; Range: 24.0-44.0; Abnormal: Below low normal; Units: %; Status: F Test: MONO %; Value: 9.6; Range: 0.0-5.0; Abnormal: Above high normal; Units: %; Status: F Test: EOS %; Value: 0.5; Range: 0.0-3.0; Units: %; Status: F Test: BASO %; Value: 0.2; Range: 0.0-1.0; Units: %; Status: F Test: LARGE UNSTAINED CELL %; Value: 2.3; Range: 0.0-4.0; Units: %; Status: F Test: NEUTROPHILS #; Value: 6.5; Range: 1.8-7.7; Units: K/mm3; Status: F Test: LYMPH #; Value: 0.9; Range: 1.5-4.5; Abnormal: Below low normal; Units: K/mm3; Status: F Test: MONO #; Value: 0.8; Range: 0.0-0.8; Units: K/mm3; Status: F Test: EOS #; Value: 0.0; Range: 0.0-0.50; Units: K/mm3; Status: F Test: BASO #; Value: 0.0; Range: 0.0-0.2; Units: K/mm3; Status: F Test: LARGE UNSTAINED CELL #; Value: 0.2; Range: 0.0-0.4; Units: K/mm3; Status: F Lab Order: COMPLETE COMPHRENSIVE METABOLI; SPEC'M 10/06/16 07:22 Test: GLUCOSE, FASTING; Value: 135; Range: 83-110; Abnormal: Above high normal; Units: MG/DL; Status: F Test: BLOOD UREA NITROGEN; Value: 25; Range: 7-18; Abnormal: Above high normal; Units: MG/DL; Status: F Test: CREATININE FOR GFR; Value: 1.22; Range: 0.55-1.02; Abnormal: Above high normal; Units: MG/DL; Status: F Test: GLOMERULAR FILTRATION RATE; Value: 46.1; Range: >39; Status: F Test: SODIUM LEVEL; Value: 140; Range: 136-145; Units: MEQ/L; Status: F Test: POTASSIUM SERUM; Value: 3.7; Range: 3.5-5.1; Units: MEQ/L; Status: F Test: CHLORIDE LEVEL; Value: 103; Range: 98-107; Units: MEQ/L; Status: F Test: CARBON DIOXIDE LEVEL; Value: 26; Range: 21-32; Units: MEQ/L; Status: F Test: ANION GAP; Value: 11; Range: 8-16; Units: MEQ/L; Status: F Test: CALCIUM LEVEL; Value: 7.8; Range: 8.8-10.2; Abnormal: Below low normal; Units: MG/DL; Status: F Test: AST/SGOT; Value: 23; Range: 15-37; Units: U/L; Status: F Test: ALT/SGPT; Value: 17; Range: 12-78; Units: U/L; Status: F Test: ALKALINE PHOSPHATASE; Value: 40; Range: 45-117; Abnormal: Below low normal; Units: U/L; Status: F Test: BILIRUBIN,TOTAL; Value: 0.6; Range: 0.2-1.0; Units: MG/DL; Status: F Test: TOTAL PROTEIN; Value: 5.4; Range: 6.4-8.2; Abnormal: Below low normal; Units: GM/DL; Status: F Test: ALBUMIN; Value: 2.7; Range: 3.2-5.2; Units: GM/DL; Status: F Test: ALBUMIN/GLOBULIN RATIO; Value: 1.00; Range: 1.00-1.93; Status: F Test Note: ; Units are mL/min/1.73 m2 Chronic Kidney Disease Staging per NKF: Stage I & II GFR >=60 Normal to Mildly Decreased Stage III GFR 30-59 Moderately Decreased Stage IV GFR 15-29 Severely Decreased Stage V GFR <15 Very Little GFR Left ESRD GFR <15 on PAN HELPER Lab Order: CARDIAC MARKER PANEL; SPEC10/06/16 02:06 Test: CPK CREATINE PHOSPHOKINASE; Value: 411; Range: 26-192; Abnormal: Above high normal; Units: U/L; Status: F Test: CK-MB VALUE MASS; Value: 3.8; Range: 0.0-3.6; Abnormal: Above high normal; Units: NG/ML; Status: F Test: MB/CK RELATIVE INDEX; Value: 0.92; Range: < OR =4; Status: F Test: TROPONIN I; Value: 0.44; Range: < 0.10; Abnormal: High; Units: NG/ML; Status: F Test Note: ; DIAGNOSIS CRITERIA MMB ng/ml Relative Index (RI) NON-AMI < or = 5 N/A [place] > 5 < or = 4 AMI > 5 > 4 Lab Order: CARDIAC MARKER PANEL; [facility]10/06/16 10:30 Test: CPK CREATINE PHOSPHOKINASE; Value: 339; Range: 26-192; Abnormal: Above high normal; Units: U/L; Status: F Test: CK-MB VALUE MASS; Value: 2.4; Range: 0.0-3.6; Units: NG/ML; Status: F Test: MB/CK RELATIVE INDEX; Value: 0.70; Range: < OR =4; Status: F Test: TROPONIN I; Value: 0.28; Range: < 0.10; Abnormal: High; Units: NG/ML; Status: F Test Note: ; DIAGNOSIS CRITERIA MMB ng/ml Relative Index (RI) NON-AMI < or = 5 N/A [place] > 5 < or = 4 AMI > 5 > 4 Lab Order: CBC WITH DIFFERENTIAL; [facility]10/07/16 06:10 Test: WHITE BLOOD COUNT; Value: 7.3; Range: 4.0-10.0; Units: K/mm3; Status: F Test: RED BLOOD COUNT; Value: 4.45; Range: 4.00-5.40; Units: M/mm3; Status: F Test: HEMOGLOBIN; Value: 13.9; Range: 12.0-16.0; Units: g/dl; Status: F Test: HEMATOCRIT; Value: 42.8; Range: 36.0-47.0; Units: %; Status: F Test: MEAN CORPUSCULAR VOLUME; Value: 96.3; Range: 80.0-96.0; Abnormal: Above high normal; Units: fl; Status: F Test: MEAN CORPUSCULAR HEMOGLOBIN; Value: 31.3; Range: 27.0-33.0; Units: pg; Status: F Test: MEAN CORPUSCULAR HGB CONC; Value: 32.6; Range: 32.0-36.5; Units: g/dl; Status: F Test: RED CELL DISTRIBUTION WIDTH; Value: 14.3; Range: 11.5-14.5; Units: %; Status: F Test: PLATELET COUNT, AUTOMATED; Value: 164; Range: 150-450; Units: k/mm3; Status: F Test: NEUTROPHILS %; Value: 68.7; Range: 36.0-66.0; Abnormal: Above high normal; Units: %; Status: F Test: LYMPH %; Value: 15.4; Range: 24.0-44.0; Abnormal: Below low normal; Units: %; Status: F Test: MONO %; Value: 9.9; Range: 0.0-5.0; Abnormal: Above high normal; Units: %; Status: F Test: EOS %; Value: 0.4; Range: 0.0-3.0; Units: %; Status: F Test: BASO %; Value: 0.4; Range: 0.0-1.0; Units: %; Status: F Test: LARGE UNSTAINED CELL %; Value: 5.3; Range: 0.0-4.0; Abnormal: Above high normal; Units: %; Status: F Test: NEUTROPHILS #; Value: 5.0; Range: 1.8-7.7; Units: K/mm3; Status: F Test: LYMPH #; Value: 1.1; Range: 1.5-4.5; Abnormal: Below low normal; Units: K/mm3; Status: F Test: MONO #; Value: 0.7; Range: 0.0-0.8; Units: K/mm3; Status: F Test: EOS #; Value: 0.0; Range: 0.0-0.50; Units: K/mm3; Status: F Test: BASO #; Value: 0.0; Range: 0.0-0.2; Units: K/mm3; Status: F Test: LARGE UNSTAINED CELL #; Value: 0.4; Range: 0.0-0.4; Units: K/mm3; Status: F Lab Order: COMPLETE COMPHRENSIVE METABOLI; SPEC'M 10/07/16 06:10 Test: GLUCOSE, FASTING; Value: 123; Range: 83-110; Abnormal: Above high normal; Units: MG/DL; Status: F Test: BLOOD UREA NITROGEN; Value: 22; Range: 7-18; Abnormal: Above high normal; Units: MG/DL; Status: F Test: CREATININE FOR GFR; Value: 1.03; Range: 0.55-1.02; Abnormal: Above high normal; Units: MG/DL; Status: F Test: GLOMERULAR FILTRATION RATE; Value: 56.1; Range: >39; Status: F Test: SODIUM LEVEL; Value: 140; Range: 136-145; Units: MEQ/L; Status: F Test: POTASSIUM SERUM; Value: 4.4; Range: 3.5-5.1; Units: MEQ/L; Status: F Test: CHLORIDE LEVEL; Value: 103; Range: 98-107; Units: MEQ/L; Status: F Test: CARBON DIOXIDE LEVEL; Value: 26; Range: 21-32; Units: MEQ/L; Status: F Test: ANION GAP; Value: 11; Range: 8-16; Units: MEQ/L; Status: F Test: CALCIUM LEVEL; Value: 8.3; Range: 8.8-10.2; Abnormal: Below low normal; Units: MG/DL; Status: F Test: AST/SGOT; Value: 19; Range: 15-37; Units: U/L; Status: F Test: ALT/SGPT; Value: 17; Range: 12-78; Units: U/L; Status: F Test: ALKALINE PHOSPHATASE; Value: 41; Range: 45-117; Abnormal: Below low normal; Units: U/L; Status: F Test: BILIRUBIN,TOTAL; Value: 0.5; Range: 0.2-1.0; Units: MG/DL; Status: F Test: TOTAL PROTEIN; Value: 5.9; Range: 6.4-8.2; Abnormal: Below low normal; Units: GM/DL; Status: F Test: ALBUMIN; Value: 2.8; Range: 3.2-5.2; Abnormal: Below low normal; Units: GM/DL; Status: F Test: ALBUMIN/GLOBULIN RATIO; Value: 0.90; Range: 1.00-1.93; Abnormal: Below low normal; Status: F Test Note: ; Units are mL/min/1.73 m2 Chronic Kidney Disease Staging per NKF: Stage I & II GFR >=60 Normal to Mildly Decreased Stage III GFR 30-59 Moderately Decreased Stage IV GFR 15-29 Severely Decreased Stage V GFR <15 Very Little GFR Left ESRD GFR <15 on PAN HELPER Lab Order: MAGNESIUM LEVEL; [facility] 10/07/16 06:10 Test: MAGNESIUM LEVEL; Value: 2.0; Range: 1.8-2.4; Units: MG/DL; Status: F Radiology Order: EKG-ADULT Test: EKG-ADULT REASON FOR EXAMINATION: dysrhythmia; Stationary ECG Study; [facility] - ED; ; Test Date: 2016-10-05; Pat Name: LORE FRANCO Department:; Room: -; Gender: F 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; : 1945 Requested By: ADRIAN Mendez; Order Number: [id number] Reading MD: Drew Moreno; Measurements; Intervals [place]; Rate: 89 P: 48; IN: 136 QRS: 132; QRSD: 99 T: 30; QT: 368; QTc: 449; Interpretive Statements; SINUS RHYTHM; RAD; PATTERN CONSISTENT WITH PULMONARY DISEASE; RIGHT VENTRICULAR HYPERTROPHY; ST DEVIATION AND MODERATE T-WAVE ABNORMALITY, CONSIDER ANTERIOR ISCHEMIA; ; Electronically Signed On 10-05-2016 12:34:37 EST by Drew Moreno; Radiology Order: CT Head Without Contrast Test: CT Head Without Contrast REASON FOR EXAMINATION: Trauma; CT HEAD WITHOUT CONTRAST:; ; HISTORY: Trauma.; ; Areas of decreased attentuation are present in the periventricular and; subcortical white matter. This represents small vessel ischemic disease. There; is no intraparenchymal hemorrhage, mass, or midline shift. The ventricular; system and cortical sulci are dilated consistent with minimal volume loss. There; is no extracerebral collection. There is no fracture. Mucosal thickening is; present in the ethmoid, sphenoid, and right maxillary sinuses.; ; IMPRESSION:; ; 1. Small vessel ischemic disease.; ; 2. Minimal volume loss.; ; ; Signed by; Javier Velasquez MD 10/05/2016 12:51 P; Radiology Order: CT Spine,Cervical W/o Contrast Test: CT Spine,Cervical W/o Contrast REASON FOR EXAMINATION: Trauma; CT CERVICAL SPINE WITHOUT CONTRAST:; ; HISTORY: Trauma.; ; There is no acute fracture or subluxation. Disc bulges are present at the C4-5; and C5-6 levels. A disc bulge with associated osteophyte formation is present at; the C6-7 level. There is minimal narrowing of the spinal canal. Uncinate; process and/or facet hypertrophy are present at the C5-6 and C6-7 levels. These; findings produce minimal narrowing of the neural foramina. The C6-7; intervertebral disc is decreased in height consistent with disc degeneration.; Osteophytes are present on C5-7.; ; IMPRESSION:; ; 1. There is no acute fracture or subluxation.; ; 2. There is cervical spondylosis at the C4-5 through C6-7 levels.; ; ; Signed by; Javier Velasquez MD 10/05/2016 12:51 P; Radiology Order: Chest, 2 View (pa\E\lat) Test: Chest, 2 View (pa\E\lat) REASON FOR EXAMINATION: fever;Chest Pain; Clinical: Fever and chest pain.; ; Technique: AP and lateral.; ; Comparison: 03/01/2016.; ; Findings:; Cardiomegaly and pulmonary vascular congestion appreciated. Bibasilar; atelectasis and possible small layering pleural effusions cannot be excluded. No; pneumothorax. Skeletal structures intact.; ; Impression:; Cardiomegaly and pulmonary vascular congestion.; Cannot exclude basilar atelectasis.; ; ; Signed by; Kalyan Rodriges MD 10/05/2016 12:29 P; Radiology Order: CT ABD & PELVIS: No Contrast Test: CT ABD & PELVIS: No Contrast REASON FOR EXAMINATION: Abdomen Pain; Clinical: Acute abdominal pain.; ; Comparison: 02/08/2007.; ; Findings:; Lung bases suggest cardiomegaly with chronic pulmonary vascular congestion small; bilateral atelectasis and nodular consolidations cannot be excluded.; ; Liver, spleen, pancreas, gallbladder, and bilateral adrenal glands are normal for; noncontrast evaluation. The kidneys demonstrate symmetric likely chronic; perinephric stranding without hydroureternephrosis or nephrolithiasis. The; enteric system is without obstruction or acute inflammatory process. Few sigmoid; diverticula noted without acute diverticulitis. Pelvis demonstrates normal; bladder and evidence for prior hysterectomy. No pelvic fluid or ascites. No; free air. No adenopathy. No mass lesion. Atherosclerotic changes of the aorta; and branch vessels noted without aneurysm. Musculoskeletal structures; demonstrate age-related degenerative changes without focal osseous abnormality.; ; Impression:; 1. Lung bases suggest cardiomegaly with chronic pulmonary vascular congestion; and subtle basilar atelectasis.; 2. Bilateral perinephric stranding likely chronic and less likely; pyelonephritis.; 3. 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[employer]; : 1945 Requested By: ADRIAN Mendez; Order Number: [id number] Reading MD: Drew Moreno; Measurements; Intervals [place]; Rate: 82 P: 32; IN: 140 QRS: 131; QRSD: 100 T: 26; QT: 389; QTc: 454; Interpretive Statements; SINUS RHYTHM WITH SINUS ARRHYTHMIA; RAD; RIGHT VENTRICULAR HYPERTROPHY; PATTERN CONSISTENT WITH PULMONARY DISEASE; NSTTW ABNORMALITIES; SIMILAR TO 09/25/16; Electronically Signed On 10-05-2016 18:19:20 EST by Drew Moreno; Radiology Order: Hip, Ap,Lat Test: Hip, Ap,Lat REASON FOR EXAMINATION: Rt hip pain; RIGHT HIP:; ; Two views of the right hip are performed. There is no acute fracture or; dislocation. There is mild joint space narrowing, subchondral sclerosis and; spurring.; ; IMPRESSION:; ; Mild degenerative changes. No acute fracture or dislocation.; ; ; Signed by; Riley Rowan MD 10/06/2016 09:51 A; Radiology Order: Ankle, complete Test: Ankle, complete REASON FOR EXAMINATION: ankle pain; Clinical: Pain.; ; Technique: AP, lateral, bilateral oblique views of the right ankle.; ; Findings:; Osteopenia and age-related arthritic degenerative changes are appreciated. No; acute fracture or dislocation. No significant soft tissue swelling.; ; Impression:; Osteopenia and age-related degenerative changes. No acute fracture or; dislocation.; ; ; Signed by; Kalyan Rodriges MD 10/05/2016 04:30 P; Outcome: 14:00 Decision to Hospitalize by Provider. br1 16:14 CT Study completed. hs1 10/07 12:22 Patient left the ED. dy Signatures: Dispatcher [employer] EDMS Prabha Connors, RN RN mcp Aleta Gooden, Reg Reg gb Katie Joseph, Reg Reg lg Franklin Duarte RN RN dy [place], Kristin kt1 Radha Julian RN RN Adrian Krueger MD MD br1 Bita Roberts RN RN hs1 Kathrin Hill RN RN sls1 Radha Ashton, PHARMACY TECHNICIAN PER DIEM PHARMACY TECHNICIAN PER DIEM tmm1 Erick Virk mm15 Wesley Angeles, PHARMACY TECHNICIAN PER DIEM PHARMACY TECHNICIAN PER DIEM jrd Glenn Carpio,RN RN mb9 Mable HooperRN RN cf2 Corrections: (The following items were deleted from the chart) 10/05 10:54 10:47 General: Appears in no apparent distress, Behavior is appropriate for age, hs1 cooperative, hs1 11:07 10:38 BP 151 / 77 Sitting Auto R Arm Regular; Pulse 75bpm; Resp 18bpm; Pulse Ox 97% RA; hs1 Temp 97.0F Oral; 90.72 kg Reported; Height 5 ft. 10 in. Reported; BMI: 28.7; Pain 8/10; jrd 11:07 10:44 Adult Sepsis Screening: The patient does not have new or worsening altered hs1 mentation. Patient's respiratory rate is less than 22. Systolic blood pressure is greater than 100. Patient has a qSOFA score of 0- Negative Sepsis Screen. hs1 11: 10:38 Log In Time: October 05, 2016 at 10:34 jrd jrd 11: 10:44 Acuity: YIN Level 3 hs1 hs1 11:27 VALPROIC ACID (DEPAKOTE)+LAB sent. hs1 EDMS MTDD
--- NOTE | 2016-10-07 15:25 | CR ---
DATE OF CONSULTATION: 10/05/2016 CARDIOLOGY CONSULTATION: REASON FOR THE CONSULTATION: Abnormal serum troponin. REFERRING PROVIDER: Dr. Mast/RIANNA Morgan FAMILY PROVIDER: Dr. Gaurav Posada CRM CONSULTANT: Dr. Vishnu Sánchez HISTORY OF PRESENT ILLNESS: 71-year-old woman, well known by the office, has been doing well from a cardiac point of view, with a history of nonrestrictive coronary artery disease (CAD), hypertension, hyperlipidemia, obesity and sleep apnea, hypothyroidism, pulmonary fibrosis, gastroesophageal reflux disease (GERD). For about 2 days prior to coming into the hospital, she developed gastrointestinal (GI) symptoms with nausea, vomiting, diarrhea, and abdominal discomfort. Last night, she woke up during the night and she could not remember when and she passed out. This morning, Brittany was delivering a medication for her and, upon checking, she was not responding. For this reason, the manager of loss prevention operations of her building was called and she was found to be on the floor, incoherent and confused, and also lethargic. She stated that she has not been drinking or eating for about 2 days. She also has not been taking her medications. She was brought to the emergency room (ER) for further evaluation. Upon arrival, her vital signs were stable. She was found to have an abnormal serum troponin, and a cardiology consult was called. When I saw Mrs. Sandrine Franco in the ER, she was in supine in bed in no acute distress at rest. She stated she feels better but she continued to have abdominal discomfort. She was started on intravenous (IV) fluids. Her blood pressure has been stable. She denies any chest pain. She has no cough or hemoptysis or fever. She has no focal manifestation. She has a past medical history positive, as mentioned above, for coronary artery disease, nonrestrictive; hypertension; hyperlipidemia; obesity and sleep apnea; pulmonary fibrosis; hypothyroidism; GERD. There is no history of atrial fibrillation, CVA, cardiomyopathy, sudden cardiac . There is no history of kidney disease. PAST SURGICAL HISTORY: Is positive for bilateral knee surgery, bilateral cataract extraction, right shoulder surgery, and hysterectomy. CURRENT MEDICATIONS: - aspirin 81 mg by mouth daily - atorvastatin 10 mg by mouth daily - isosorbide mononitrate 120 mg by mouth daily - prednisone 15 mg by mouth daily - Ranexa 1000 mg in the morning and 500 mg in the evening - levothyroxine 137 mcg by mouth daily - carvedilol 6.25 mg by mouth twice a day - Depakote ER 1000 mg by mouth at hour of sleep - Protonix 40 mg by mouth twice a day - metronidazole 500 mg IV every 8 hours - tramadol as needed for pain 50 mg every 8 hours - ciprofloxacin 400 mg IV every 12 hours - Tylenol 650 mg every 4 hours as needed for mild pain or fever - ondansetron 4 mg IV every 6 hours as needed for nausea or vomiting - normal saline at 80 mL an hour FAMILY HISTORY: Noncontributory. SOCIAL HISTORY: Patient is a , and she lives currently alone. 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 She does not smoke. There is no report of ethyl alcohol (EtOH) abuse. She has two grown-up children, and they are very supportive. ALLERGIES: Patient allergic to CELECOXIB, GABAPENTIN, LEFLUNOMIDE, SEAFOOD, SULFA DRUGS. ADVANCE DIRECTIVES: Patient is a FULL CODE. ON PHYSICAL EXAMINATION: Patient is alert and oriented, in no acute distress at rest. Earlier today in the ER, her vital signs revealed blood pressure reported to be 145/92; and the last blood pressure reported in the ER was 124/77 with a pulse of 84, respirations 18, and her temperature is 98.9 degrees Fahrenheit with an oxygen saturation of 94% on 4 liters nasal cannula. EXAMINATION OF THE HEAD, EARS, EYES, NOSE, AND THROAT: Atraumatic. NECK: Is supple. No jugular venous distention (JVD). The lungs were clear bilaterally on auscultation without any wheezing, rhonchi, or rales. The heart examination revealed normal S1 and S2 without gallops. The point of maximal impulse (PMI) is not displaced. There is no rub. I could not appreciate any murmurs. ABDOMEN: Is soft but tender at deep palpation. EXTREMITIES: Revealed no pedal edema. NEUROLOGICAL: Examination grossly is negative for focal deficit. LABS: Her BMP revealed a sodium of 140, potassium 3.5, chloride 100, CO2 of 30, BUN 18, creatinine 1.12, GFR 50.9, fasting glucose 121, calcium 8.3. Liver enzymes revealed a total bilirubin of 0.7, direct bilirubin 0.2, AST 28, ALT 17, alkaline phosphatase 45, total protein 6.7, albumin 3.4, and serum lipase 98. Troponin I was 1.27, then decreased to 0.75. Serum lactic acid was 2.7 and upon repeating it about 4 hours later, it was 1.7. Serum valproic acid was 11.8. CBC revealed a WBC of 10.9, hemoglobin of 15.8, hematocrit of 48.2, and platelets 195,000. CT of the head revealed small vessel ischemic disease and minimal volume loss; otherwise, unremarkable. Chest x-ray revealed cardiomegaly and pulmonary vascular congestion and possible minimal pleural effusion. Cervical spine CT revealed no acute fracture or subluxation but cervical spondylosis at the level of C4-C5 to C6-C7. Abdominal and pelvic CT revealed cardiomegaly, chronic pulmonary vascular congestion, and subtle basilar atelectasis. No acute intra-abdominal pathology noted. X-ray of the right hip revealed mild degenerative disease but no fracture or dislocation. X-ray of the right ankle revealed osteopenia but no fracture or dislocation. EKG on admission revealed normal sinus rhythm at 89 beats per minute, right axis deviation, nonspecific ST-T abnormalities, incomplete right bundle branch block. Pattern consistent with pulmonary disease. Repeat EKG done about 2 hours later did not reveal any significant changes. IMPRESSION: Abnormal serum troponin in this 71-year-old woman with above medical problems. This is probably related to demand ischemia. Patient was probably hypotensive and was feeling dizzy when she passed out. I do not believe there was any tachy- or bradyarrhythmias. Her serum troponin was mildly elevated but is trending down. We will continue current management. Her blood pressure remains stable in the hospital. Currently, on IV fluids and stool workup as well as septic workup is pending. Her gastrointestinal symptoms are most likely related to the gastroenteritis. She does have other family members with the same problem and, according to some of them present in the room, her case was more severe. It was a pleasure to participate in the care of Mrs. Sandrine Franco for her underlying cardiac condition. I will continue to monitor along with you while in the hospital. Please do not hesitate to call if any question. MANAN
[2016-10-07] MEDS: ADVAIR DISKUS 500/50 INH PWD INH SCH ×2 (21:00→22:15)
[2016-10-07] MEDS: DIVALPROEX 500MG *ER* TAB PO SCH (21:24)
[2016-10-08] VITALS (7 sets, daily range): BP systolic 122–158; BP diastolic 67–84
[2016-10-08] MEDS: IPRATROPIUM 0.5MG/ALBUTEROL 2.5MG INH SOL UD 3ML (DUONEB)(J7620) NEB SCH ×4 (02:19→19:55)
[2016-10-08] MEDS: metroNIDAZOLE 500 MG in APPROPRIATE DILUENT 1 EA IV SCH (04:54)
[2016-10-08] MEDS: LEVOTHYROXINE 0.137 MG TAB (137MCG) PO SCH (05:00)
[2016-10-08 05:20] LABS: BASO % 0.5 % (0.0-1.0); EOS % 0.7 % (0.0-3.0); LARGE UNSTAINED CELL # 0.2 K/mm3 (0.0-0.4); LARGE UNSTAINED CELL % 3.2 % (0.0-4.0); LYMPH # 1.7 K/mm3 (1.5-4.5); LYMPH % 26.4 % (24.0-44.0); MEAN CORPUSCULAR HGB CONC 32.3 g/dl (32.0-36.5); MEAN CORPUSCULAR VOLUME 96.1 fl (80.0-96.0); MONO # 0.6 K/mm3 (0.0-0.8); MONO % 9.4 % (0.0-5.0); NEUTROPHILS # 3.5 K/mm3 (1.8-7.7); NEUTROPHILS % 59.8 % (36.0-66.0); PLATELET COUNT, AUTOMATED 169 k/mm3 (150-450); RED CELL DISTRIBUTION WIDTH 14.3 % (11.5-14.5); WHITE BLOOD COUNT 5.8 K/mm3 (4.0-10.0)
[2016-10-08 05:29] LABS: ALBUMIN 2.7 GM/DL (3.2-5.2); ALBUMIN/GLOBULIN RATIO 0.96 (1.00-1.93); ALKALINE PHOSPHATASE 42 U/L (45-117); ALT/SGPT 19 U/L (12-78); ANION GAP 8 MEQ/L (8-16); AST/SGOT 16 U/L (15-37); BILIRUBIN,TOTAL 0.4 MG/DL (0.2-1.0); BLOOD UREA NITROGEN 19 MG/DL (7-18); CALCIUM LEVEL 8.1 MG/DL (8.8-10.2); CARBON DIOXIDE LEVEL 31 MEQ/L (21-32); CHLORIDE LEVEL 101 MEQ/L (98-107); CREATININE FOR GFR 0.91 MG/DL (0.55-1.02); GLOMERULAR FILTRATION RATE > 60.0 (>39); GLUCOSE, FASTING 107 MG/DL (83-110); MAGNESIUM LEVEL 1.9 MG/DL (1.8-2.4); POTASSIUM SERUM 4.3 MEQ/L (3.5-5.1); SODIUM LEVEL 140 MEQ/L (136-145); TOTAL PROTEIN 5.5 GM/DL (6.4-8.2)
[2016-10-08] MEDS: CIPROFLOXACIN 400 MG in APPROPRIATE DILUENT 1 EA IV SCH (06:20)
[2016-10-08] MEDS: ADVAIR DISKUS 500/50 INH PWD INH SCH ×2 (08:07→19:55)
[2016-10-08] MEDS: RANOLAZINE 500 MG ER TAB PO SCH ×2 (08:31→22:08)
[2016-10-08] MEDS: predniSONE 5 MG TAB PO SCH (08:32)
[2016-10-08] MEDS: ISOSORBIDE MON. (IMDUR) 60 MG XR TAB PO SCH (08:32)
[2016-10-08] MEDS: ASPIRIN 81 MG ENTERIC TAB PO SCH (08:32)
[2016-10-08] MEDS: traMADol 50 MG TAB PO PRN ×2 (08:33→17:19)
[2016-10-08] MEDS: FUROSEMIDE 40 MG TAB PO SCH (08:33)
[2016-10-08] MEDS: PANTOPRAZOLE 40MG TAB (PROTONIX) PO SCH ×2 (08:33→20:18)
[2016-10-08] MEDS: CARVedilol 6.25 MG TAB PO SCH ×2 (08:33→20:18)
[2016-10-08] MEDS: ATORVASTATIN 10 MG TAB PO SCH (08:33)
[2016-10-08] MEDS: HEPARIN SOD (PORCINE) 5000 UNITS/ML VIAL SQ SCH ×2 (08:34→20:18)
--- NOTE | 2016-10-08 09:21 | IPN ---
DATE OF SERVICE: 10/07/2016 The patient seen and examined. Denies any chest pain, pressure, discomfort. Denies no further diarrhea, nausea, or vomiting. Tolerating oral. Mild dyspnea. Mild wheeze. VITAL SIGNS: Temperature 97, pulse 76, respiration 22, blood pressure 140/70, pulse oximetry 96% on 4 liters nasal cannula. Initially, this morning, orthostatic positive. Currently, orthostatic negative. LABORATORY: WBC 7.3, hemoglobin and hematocrit 13.9/42.8, platelets 164. Sodium 140, potassium 4.4, chloride 103, bicarbonate 26, BUN 22, creatinine 1.02. PHYSICAL EXAMINATION: GENERAL: The patient awake, alert, oriented times three, responsive. HEENT: Normocephalic, atraumatic. Pupils equal, round, and reactive to light. PULMONARY: Decreasing breath sounds bilateral. Bilateral wheeze. No rales or rhonchi. Speaks in full sentences. CARDIAC: Regular rate and rhythm. Normal S1, S2. ABDOMEN: Soft. Nontender. Obese. Positive bowel sounds. EXTREMITIES: No edema bilateral lower extremities. Able to move bilateral upper and lower extremities. NEUROLOGIC: No focal deficits. Cranial nerves II-XII grossly intact. ASSESSMENT AND PLAN: This is a 71-year-old female patient with underlying medical history of hypertension, coronary arterial disease, pulmonary fibrosis, chronic hypoxic respiratory failure on oxygen at home during the day and continuous positive airway pressure (CPAP) at night, obstructive sleep apnea (SOFY), hypothyroidism, gastroesophageal reflux disease (GERD), dyslipidemia, admitted with syncope. Found down on the ground with loss of consciousness with recent nausea, vomiting, diarrhea since Monday on the day of admission. PROBLEMS: 1. Syncope with metabolic encephalopathy, likely secondary to underlying infection. The patient was febrile. Currently, back to baseline. Will get physical therapy. Physical therapy (PT). Orthostatic initially was positive. Currently, negative. Intravenous (IV) hydration was initially given. Treatment for underlying infection, as mentioned below. 2. Sepsis, likely secondary to gastrointestinal (GI) source . CT scan of the abdomen appreciated. The patient's nausea, vomiting, and diarrhea has resolved. Followup GI panel. The patient is not having much bowel movement. Continue Cipro and Flagyl. IV hydration initially provided. Advance diet as tolerating diet. Imaging studies appreciated. Likely, the patient hypovolemic due to nausea, vomiting, and diarrhea. 3. Fall. Radiological image appreciated. Likely secondary to hypovolemia due to nausea, vomiting, and diarrhea. IV hydration provided. Orthostatic initially positive. Currently, negative. No fractures appreciated. Head CT negative. Will get physical therapy. 4. Elevated cardiac enzymes, likely demand ischemia. Dr. Benjamin, cardiology, has been consulted. Cardiac enzymes trending down. Telemetry monitoring. IV fluids initially given. Continue aspirin, statin, beta blockers, and Imdur, given the patient's pressure has stabilized. Followup cardiology recommendation, as per Dr. Benjamin. No need for transfer for cardiac catheterization. Followup cardiology recommendation. 5. Acute kidney injury. Baseline creatinine 0.6-0.9. Currently, returning to baseline. IV fluids initially given. Withholding angiotensin receptor blockers (ARBs). Lasix initially on hold. Currently, continue Lasix. 6. History of congestive heart failure. The patient currently euvolemic. Lasix restarted. . IV hydration initially provided. Currently, stopped. Monitor blood pressure. 7. Hypertension. Withholding ARBs. Continue Lasix, Coreg, and Imdur. Will restart ARBs once the patient's condition improves. 8. Hypothyroidism. Continue current medication. 9. Pulmonary fibrosis. Continue prednisone. Oxygen (O2) supplementation 4 liters via nasal cannula. 10. Obstructive sleep apnea (SOFY). Bilateral positive airway pressure (BiPAP) at night. Continue to monitor. 11. Dyslipidemia. Continue statin. 12. Gastrointestinal (GI) prophylaxis. Continue proton pump inhibitor (PPI). 13. Deep vein thrombosis (DVT) prophylaxis. Heparin subcutaneous. DISPOSITION PLANNING: Pending physical therapy, echocardiogram, clinical improvement.
[2016-10-08] MEDS ORDERED: MIRALAX *UNIT DOSE* 17GM PACKET PO ONE (11:00)
--- NOTE | 2016-10-08 11:17 | REP ---
Clinical: Shortness of breath. Technique: PA and lateral. Comparison: 10/05/2016. Findings: Stable cardiomegaly. CHF and pulmonary vascular congestion with bibasilar infiltrates and small pleural reactions noted. No pneumothorax. Skeletal structures stable. Impression: Cardiomegaly with pulmonary venous congestion including bibasilar infiltrate/atelectasis and small pleural reactions. Findings appears similar to prior examination. Signed by Kalyan Rodriges MD 10/08/2016 11:09 A
[2016-10-08] MEDS ORDERED: FUROSEMIDE 20 MG/2 ML VIAL (J1940) IV ONE (11:30)
[2016-10-08] MEDS: SENOKOT S TAB PO SCH ×2 (11:30→20:18)
[2016-10-08] MEDS: metroNIDAZOLE (FLAGYL) 500 MG TAB PO SCH ×2 (14:18→22:08)
[2016-10-08] MEDS: CIPROFLOXACIN 500 MG TAB PO SCH (17:52)
[2016-10-08] MEDS: DIVALPROEX 500MG *ER* TAB PO SCH (20:18)
[2016-10-08] MEDS: guaiFENesin ER 600 MG TAB PO SCH (20:18)
[2016-10-09] MEDS: IPRATROPIUM 0.5MG/ALBUTEROL 2.5MG INH SOL UD 3ML (DUONEB)(J7620) NEB SCH ×4 (00:33→19:44)
[2016-10-09 05:30] LABS: BASO % 0.4 % (0.0-1.0); EOS % 0.7 % (0.0-3.0); LARGE UNSTAINED CELL # 0.2 K/mm3 (0.0-0.4); LARGE UNSTAINED CELL % 3.4 % (0.0-4.0); LYMPH # 1.8 K/mm3 (1.5-4.5); LYMPH % 27.3 % (24.0-44.0); MEAN CORPUSCULAR HEMOGLOBIN 31.2 pg (27.0-33.0); MEAN CORPUSCULAR HGB CONC 32.7 g/dl (32.0-36.5); MEAN CORPUSCULAR VOLUME 95.2 fl (80.0-96.0); MONO # 0.6 K/mm3 (0.0-0.8); MONO % 10.2 % (0.0-5.0); NEUTROPHILS # 3.4 K/mm3 (1.8-7.7); PLATELET COUNT, AUTOMATED 189 k/mm3 (150-450); RED CELL DISTRIBUTION WIDTH 14.3 % (11.5-14.5); WHITE BLOOD COUNT 5.8 K/mm3 (4.0-10.0)
[2016-10-09 05:44] LABS: ALBUMIN 2.8 GM/DL (3.2-5.2); ALBUMIN/GLOBULIN RATIO 0.97 (1.00-1.93); ALKALINE PHOSPHATASE 42 U/L (45-117); ALT/SGPT 19 U/L (12-78); ANION GAP 8 MEQ/L (8-16); AST/SGOT 19 U/L (15-37); BILIRUBIN,TOTAL 0.4 MG/DL (0.2-1.0); BLOOD UREA NITROGEN 19 MG/DL (7-18); CALCIUM LEVEL 8.5 MG/DL (8.8-10.2); CARBON DIOXIDE LEVEL 35 MEQ/L (21-32); CHLORIDE LEVEL 100 MEQ/L (98-107); CREATININE FOR GFR 0.93 MG/DL (0.55-1.02); GLOMERULAR FILTRATION RATE > 60.0 (>39); GLUCOSE, FASTING 91 MG/DL (83-110); MAGNESIUM LEVEL 1.7 MG/DL (1.8-2.4); POTASSIUM SERUM 4.1 MEQ/L (3.5-5.1); SODIUM LEVEL 143 MEQ/L (136-145); TOTAL PROTEIN 5.7 GM/DL (6.4-8.2)
[2016-10-09 06:03] VITALS: BP 148/76
[2016-10-09] MEDS: LEVOTHYROXINE 0.137 MG TAB (137MCG) PO SCH (06:22)
[2016-10-09] MEDS: metroNIDAZOLE (FLAGYL) 500 MG TAB PO SCH ×3 (06:22→21:04)
[2016-10-09] MEDS: CIPROFLOXACIN 500 MG TAB PO SCH ×2 (06:22→16:53)
[2016-10-09] MEDS: traMADol 50 MG TAB PO PRN ×2 (06:26→16:53)
[2016-10-09 07:59] VITALS: BP 155/83
[2016-10-09] MEDS: IRBESARTAN 75MG TABLET PO SCH (09:00)
[2016-10-09] MEDS: ADVAIR DISKUS 500/50 INH PWD INH SCH ×2 (09:23→19:44)
[2016-10-09] MEDS: HEPARIN SOD (PORCINE) 5000 UNITS/ML VIAL SQ SCH ×2 (09:57→21:05)
[2016-10-09] MEDS: predniSONE 5 MG TAB PO SCH (09:57)
[2016-10-09] MEDS: ASPIRIN 81 MG ENTERIC TAB PO SCH (09:58)
[2016-10-09] MEDS: SENOKOT S TAB PO SCH ×3 (09:58→21:05)
[2016-10-09] MEDS: guaiFENesin ER 600 MG TAB PO SCH ×2 (09:58→21:05)
[2016-10-09] MEDS: ATORVASTATIN 10 MG TAB PO SCH (09:58)
[2016-10-09] MEDS: FUROSEMIDE 40 MG TAB PO SCH (09:58)
[2016-10-09] MEDS: PANTOPRAZOLE 40MG TAB (PROTONIX) PO SCH ×2 (09:58→21:05)
[2016-10-09] MEDS: CARVedilol 6.25 MG TAB PO SCH ×2 (09:58→21:05)
[2016-10-09] MEDS: ISOSORBIDE MON. (IMDUR) 60 MG XR TAB PO SCH (09:58)
[2016-10-09] MEDS: RANOLAZINE 500 MG ER TAB PO SCH ×2 (10:01→21:04)
[2016-10-09 12:00] VITALS: BP 113/67
--- NOTE | 2016-10-09 13:23 | EDDOCDS ---
Nurse's Notes [facility] Name: Lore Franco Age: 71 yrs Sex: Female : 1945 Arrival Date: 10/05/2016 Time: 10:35 Bed Admit Hold Private MD: Gaurav Posada H. Diagnosis: Non-ST elevation (NSTEMI) myocardial infarction;Fever, unspecified;Vomiting;Diarrhea, unspecified Presentation: 10/05 10:44 Presenting complaint: EMS states: found after fallen out of bed. Unknown down time. hs1 Patient states to EMS she also has been having diarrhea. Patient states no control over bowels. Patient covered in fecal matter and currently is being cleaned at this time. Adult Sepsis Screening: The patient does not have new or worsening altered mentation. Patient has a respiratory rate of greater than or equal to 22 (1 point). Systolic blood pressure is greater than 100. Patient has a qSOFA score of 1- Negative Sepsis Screen. Suicide/Homicide risk assessment- the patient denies having any suicidal and/or homicidal ideations and does not present with any other emotional, behavioral or mental health complaints. Status: Patient is not a director of employer services or dependent. Transition of care: patient was not received from another setting of care. 10:44 Method Of Arrival: Walkin/Carried/Asstd hs1 10:44 Acuity: YIN Level 2 hs1 10:57 Care prior to arrival: See EMS report. Medications administered prior to arrival: hs1 Zofran 4 mg, IV fluids 200 mL IV initiated. Oxygen administered by EMS. Triage Assessment: 10:52 General: Appears in no apparent distress, Behavior is cooperative. Pain: Location: hs1 everywhere. Neurological: Level of Consciousness is awake, confused. Cardiovascular: Rhythm is sinus rhythm. Respiratory: Airway is patent Respiratory effort is even, labored. GI: Abdomen is non- distended obese, Stools are reported to be loose, Last BM was October 05, 2016. Derm: Skin is pink, warm & dry. normal. Historical: - Allergies: SULFA (SULFONAMIDES); SHELLFISH; - Home Meds: 1. home O2 6 L 2. isosorbide mononitrate 60 mg Oral Tb24 1 tab once daily 3. carvedilol 6.25 mg oral tab 1 tab 2 times per day 4. amlodipine 5 mg Oral tab 1 tab once daily 5. Lipitor 10 mg Oral tab 1 tab once daily 6. Avapro 300 mg Oral tab 1 tab once daily 7. Protonix 40 mg Oral grps 1 packet once daily 8. levothyroxine 137 mcg Oral tab 1 tab once daily 9. Lasix 80 mg Oral tab 1 tab once daily 10. diclofenac sodium 50 mg oral TbEC 1 tab 2 times per day 11. nortriptyline 50 mg Oral cap 1 cap nightly 12. divalproex 500 mg oral TbEC 2 tabs once daily 13. aspirin 81 mg Oral chew 1 tab once daily 14. benzonatate 100 mg oral cap 1 cap as needed 15. Nasacort 55 mcg Nasal spra 16. Butalbital Compound 50-325-40 mg Oral cap 1 cap as needed 17. Tylenol 325 mg Oral tab as needed 18. Vitamin C 1,000 mg Oral cpER 19. multivitamin Oral cap 20. CoQ-10 30 mg oral cap 21. omega-3 fatty acids 300 mg oral cap - PMHx: pulmonary fibrosis; Hypercholesterolemia; Hypertension; CAD; - PSHx: Hysterectomy; Knee surgery- Left; Knee surgery- Right; Cataract Surgery- Bilateral; Shoulder Arthroscopy- Right; - Social history: Smoking status: Patient states was never smoker of tobacco. No barriers to communication noted, The patient speaks fluent [place], Speaks appropriately for age. - Family history: No immediate family members are acutely ill. - : The pt / caregiver states he / she is not on anticoagulants. Home medication list is obtained from the patient. - Exposure Risk Screening:: None identified. Screenin:54 Screening information is obtained from the patient. Fall risk: At risk due to prior hs1 history of falls, The following interventions are performed due to a positive Fall Risk Screen: Fall Risk is added to Special Handling on the patient Summary Screen. A Fall Risk Bracelet was applied to the patient. Side Rails are placed in the up position. A Call [place] is given with instruction to call for help when getting out of bed. Assistance ADL's: requires no assistance with activities of daily living. Abuse/DV Screen: The patient / caregiver reports he/she is: not in a situation that causes fear, pain or injury. Nutritional screening: No deficits noted. Advance Directives: There is no active DNR order. home support is adequate. Assessment: 10:58 General: Appears uncomfortable, Behavior is appropriate for age, cooperative. Pain: hs1 Location: back, buttocks and abdomen. Neurological: Level of Consciousness is awake, alert, obeys commands. Respiratory: Airway is patent Respiratory effort is labored, Respiratory pattern is regular, symmetrical. GI: Abdomen is non- distended obese. Derm: excoriated bottom and abdominal folds. Patient has bruising noted to right hip area. 11:50 General: Appears in no apparent distress, Behavior is cooperative. Neurological: Level hs1 of Consciousness is awake, alert, obeys commands. Cardiovascular: Rhythm is sinus rhythm. Respiratory: Airway is patent Respiratory effort is labored, Respiratory pattern is regular, symmetrical. Derm: Skin is normal. 12:30 General: Appears ill, Behavior is cooperative. Neurological: Level of Consciousness is hs1 obeys commands. Respiratory: Airway is patent Respiratory effort is labored, Respiratory pattern is regular, symmetrical. GI: Abdomen is non- distended obese. Derm: Skin is pink, warm & dry. normal. 13:28 General: Appears ill, Behavior is cooperative, quiet. General: Appears Behavior is hs1 drowsy. Neurological: Level of Consciousness is obeys commands. Respiratory: Respiratory effort is labored, Respiratory pattern is regular. Derm: Skin is pink, warm & dry. normal. 14:04 General: Appears in no apparent distress, Behavior is appropriate for age, cooperative. hs1 Neurological: Level of Consciousness is awake, alert. Respiratory: Airway is patent Respiratory effort is even, labored, Respiratory pattern is regular, symmetrical. GI: Abdomen is non- distended obese. Derm: Skin is pink, warm & dry. normal. 15:20 General: Patient assisted with bedpan at this time. Patient unable to urinate and hs1 states uncomfortable sitting on cabrera. Family present with patient and comforting to her. No other needs known at present. . 16:15 Pain: Location: back Pain currently is 9 out of 10 on a pain scale. Quality of pain is hs1 described as aching, dull. Neurological: Level of Consciousness is awake, alert, obeys commands. Cardiovascular: Rhythm is sinus rhythm No ectopy. Respiratory: Airway is patent Respiratory effort is labored, Respiratory pattern is regular, symmetrical. Derm: Skin is pink, warm & dry. normal. 16:48 General: Appears in no apparent distress, Behavior is cooperative, drowsy. hs1 Neurological: Level of Consciousness is alert, obeys commands. GI: Abdomen is non- distended obese. Derm: Skin is normal. 17:50 General: Appears in no apparent distress, Behavior is appropriate for age, cooperative. hs1 Pain: Location: back Pain currently is 6 out of 10 on a pain scale. Respiratory: Airway is patent Respiratory effort is labored, Respiratory pattern is regular, symmetrical. Derm: Skin is pink, warm & dry. normal. 18:58 General: Appears in no apparent distress, Behavior is appropriate for age, cooperative. hs1 Pain: Location: back Pain currently is 8 out of 10 on a pain scale. Respiratory: Airway is patent Respiratory effort is even, unlabored, Respiratory pattern is regular, symmetrical, Breath sounds are diminished bilaterally. Derm: Skin is pink, warm & dry. normal. Vital Signs: 11:02 BP 129 / 79 (auto/); hs1 11:02 Pulse 92 MON; Resp 30; Pulse Ox 90% 6 lpm ; hs1 11:15 Temp 103.1(R); tmm1 11:16 Pulse 92 MON; Pulse Ox 95% 8 lpm ; hs1 11:17 BP 147 / 66 (auto/); hs1 11:31 Pulse 88 MON; Pulse Ox 99% ; hs1 11:32 BP 164 / 81 (auto/); hs1 11:46 Pulse 86 MON; Resp 28; Pulse Ox 99% 8 lpm ; hs1 11:47 BP 145 / 92 (auto/); hs1 12:47 BP 156 / 75 (auto/); hs1 12:47 Pulse 82 MON; Resp 28; Pulse Ox 94% ; hs1 13:40 Temp 101.8(R); hs1 14:05 Pulse 80 MON; Resp 20; Pulse Ox 95% 4 lpm ; hs1 14:06 BP 125 / 94 (auto/); hs1 14:23 Pulse 80 MON; Pulse Ox 93% ; hs1 14:23 BP 123 / 59 (auto/); hs1 14:53 BP 134 / 70 (auto/); hs1 14:53 Pulse 86 MON; Pulse Ox 94% ; hs1 15:10 BP 157 / 65 (auto/); hs1 15:11 Pulse 78 MON; Pulse Ox 90% ; hs1 15:45 Pulse 78 MON; Pulse Ox 99% ; cf2 15:47 Pulse 78 MON; Pulse Ox 99% ; cf2 16:10 BP 117 / 65 (auto/); hs1 16:11 Pulse 78 MON; Pulse Ox 94% ; hs1 16:14 BP 117 / 65; Pulse 80; Resp 28; Temp 97.7(O); Pulse Ox 95% 4 lpm ; Pain 9/10; hs1 16:40 BP 126 / 64 (auto/); hs1 16:41 Pulse 78 MON; Pulse Ox 92% ; hs1 17:10 BP 133 / 81 (auto/); hs1 17:11 Pulse 78 MON; Pulse Ox 94% ; hs1 17:40 BP 124 / 71 (auto/); hs1 17:41 Pulse 78 MON; Pulse Ox 96% ; hs1 18:10 BP 122 / 61 (auto/); hs1 18:10 Pulse 80 MON; Resp 18; Pulse Ox 95% ; hs1 21:00 Pulse 70 MON; Pulse Ox 94% ; cf2 21:12 Pulse 64 MON; Pulse Ox 96% ; cf2 21:21 Pulse 64 MON; Pulse Ox 96% ; cf2 21:26 Pulse 68 MON; Pulse Ox 97% ; cf2 21:32 Pulse 66 MON; Pulse Ox 96% ; cf2 21:47 BP 158 / 78 (auto/); cf2 21:48 Pulse 62 MON; Pulse Ox 96% ; cf2 21:52 Pulse 62 MON; Pulse Ox 95% ; cf2 21:55 Pulse 62 MON; Pulse Ox 95% ; cf2 21:59 Pulse 62 MON; Pulse Ox 96% ; cf2 22:03 Pulse 64 MON; Pulse Ox 97% ; cf2 Vitals: 11:49 Log In Time N/A - ambulance arrival. hs1 ED Course: 10:36 Patient visited by Katie Joseph Reg. lg 10:36 Gaurav Posada is Private Physician. lg 10:36 Patient moved to Waiting lg 10:38 Patient moved to [facility] 10:40 Patient visited by Wesley Angeles PCA. jrd 10:45 Triage Initiated hs1 10:57 Maintain field IV. Dressing intact. Gauge & site: 20 gauge in right hand. hs1 10:59 The patient / caregiver is instructed regarding the plan of care and ED course. Patient hs1 has correct armband on for positive identification. Placed in gown. Bed in low position. Call light in reach. Side rails up X2. groundwater monitoring technician on. Pulse ox on. NIBP on. Cleaned of incontinence. Linen changed. Patients excoriated areas cleaned and cream placed on at this time. Patient very sore in her folds of her buttocks. 11:15 Patient visited by Bita Roberts RN. hs1 11:27 Lactic Acid (Rowan tube on ice) Sent. hs1 11:27 Troponin Sent. hs1 11:27 Lipase Sent. hs1 11:27 Liver Profile Sent. hs1 11:27 CBC with Diff Sent. hs1 11:27 -Blood Culture Sent. hs1 11:32 EKG done. (by ED staff). Reviewed by Adrian Early MD. tmm1 11:41 Adrian Early MD is Attending Physician. br1 11:47 Patient visited by Bita Roberts RN. hs1 11:59 Patient visited by Adrian Early MD. br1 12:47 EKG-ADULT Returned. EDMS 12:52 CT ABD & PELVIS: No Contrast Returned. EDMS 12:52 Chest, 2 View (pa\E\lat) Returned. EDMS 12:52 CT Head Without Contrast Returned. EDMS 12:52 CT Spine,Cervical W/o Contrast Returned. EDMS 12:57 Patient visited by Bita Roberts RN. hs1 12:57 Urine Culture Sent. hs1 12:57 Urinalysis Sent. hs1 13:28 Patient visited by Bita Roberts RN. hs1 13:34 CT Head Without Contrast Returned. EDMS 13:34 CT Spine,Cervical W/o Contrast Returned. EDMS 14:00 Ani Mast is Hospitalizing Provider. br1 14:06 Patient visited by Bita Roberts RN. hs1 14:30 [facility] was scanned into IForem and attached to record. mm15 15:14 T-Sheet-- Draft Copy was scanned into IForem and attached to record. gb 17:25 Ankle, complete Returned. EDMS 17:25 Hip, Ap,Lat Returned. EDMS 19:02 EKG-ADULT Returned. EDMS 19:34 Patient moved to Admit Hold sls1 20:09 Mable Hooper,RN is Primary Nurse. cf2 20:09 Patient visited by Mable Hooper,IMELDA. cf2 20:15 Patient visited by Mable Hooper,IMELDA. cf2 20:48 Missed attempts: 20 gauge right upper arm x2. mb9 20:49 Inserted saline lock: 22 gauge in left forearm and blood collected. The patient mb9 tolerated the procedure well. 20:51 Inserted saline lock: 20 gauge in right antecubital area. jo3 21:45 Patient visited by Mable Hooper,IMELDA. cf2 22:05 Patient moved to 20 sls1 22:05 Patient moved to Admit Hold sls1 22:37 Patient visited by Mable Hooper,IMELDA. cf2 22:38 Patient visited by Mable Hooper,IMELDA. cf2 10/06 14:52 PCR was scanned into IForem and attached to record. gb 10/07 13:33 ECG/EKG was scanned into IForem and attached to record. gb 13:33 Radiology Report was scanned into IForem and attached to record. gb 13:34 Trend VS was scanned into IForem and attached to record. gb Administered Medications: 10/05 11:31 Drug: Acetaminophen 650 mg [acetaminophen 325 mg tablet (2 tabs)] Route: PO; hs1 12:22 Drug: Albuterol-Ipratropium 3 ml [ipratropium-albuterol 0.5 mg-3 mg(2.5 mg base)/3 mL kt1 nebulization soln (3 mL)] Route: Inhalation; 12:30 Drug: NS 0.9% 1000 ml [sodium chloride 0.9 % intravenous solution] Route: IV; Rate: 150 hs1 mL/hr; Site: left antecubital; 14:04 Drug: Aspirin 325 mg [aspirin 325 mg tablet (1 tabs)] Route: PO; hs1 19:06 Drug: NS 0.9% 1000 ml [sodium chloride 0.9 % intravenous solution] Route: IV; Rate: 80 hs1 mL/hr; Site: left antecubital; 19:06 Drug: Ciprofloxacin 400 mg [ciprofloxacin 400 mg/200 mL in 5 % dextrose intravenous hs1 piggyback] Route: IVPB; Rate: 200 mL/hr; Infused Over: 60 mins; Site: left antecubital; 19:06 Drug: Acetaminophen 650 mg [acetaminophen 325 mg tablet (2 tabs)] Route: PO; hs1 20:12 Drug: traMADol 50 mg [tramadol 50 mg tablet (1 tabs)] Route: PO; cf2 Attachments: 13:34 Trend VS gb RT: 10/05 12:31 Initial Med Neb Given as ordered Patient was instructed and evaluated on procedure kt1 Patient tolerated procedure well without adverse effect. Respiratory: Breath sounds are diminished bilaterally. Order Results: Lab Order: CBC with Diff; SPEC'M 10/05/16 11:25 Test: WHITE BLOOD COUNT; Value: 10.9; Range: 4.0-10.0; Abnormal: Above high normal; Units: K/mm3; Status: F Test: RED BLOOD COUNT; Value: 5.11; Range: 4.00-5.40; Units: M/mm3; Status: F Test: HEMOGLOBIN; Value: 15.8; Range: 12.0-16.0; Units: g/dl; Status: F Test: HEMATOCRIT; Value: 48.2; Range: 36.0-47.0; Abnormal: Above high normal; Units: %; Status: F Test: MEAN CORPUSCULAR VOLUME; Value: 94.4; Range: 80.0-96.0; Units: fl; Status: F Test: MEAN CORPUSCULAR HEMOGLOBIN; Value: 31.0; Range: 27.0-33.0; Units: pg; Status: F Test: MEAN CORPUSCULAR HGB CONC; Value: 32.8; Range: 32.0-36.5; Units: g/dl; Status: F Test: RED CELL DISTRIBUTION WIDTH; Value: 14.9; Range: 11.5-14.5; Abnormal: Above high normal; Units: %; Status: F Test: PLATELET COUNT, AUTOMATED; Value: 195; Range: 150-450; Units: k/mm3; Status: F Test: NEUTROPHILS %; Value: 83.5; Range: 36.0-66.0; Abnormal: Above high normal; Units: %; Status: F Test: LYMPH %; Value: 5.6; Range: 24.0-44.0; Abnormal: Below low normal; Units: %; Status: F Test: MONO %; Value: 8.6; Range: 0.0-5.0; Abnormal: Above high normal; Units: %; Status: F Test: EOS %; Value: 0.2; Range: 0.0-3.0; Units: %; Status: F Test: BASO %; Value: 0.3; Range: 0.0-1.0; Units: %; Status: F Test: LARGE UNSTAINED CELL %; Value: 1.8; Range: 0.0-4.0; Units: %; Status: F Test: NEUTROPHILS #; Value: 9.1; Range: 1.8-7.7; Abnormal: Above high normal; Units: K/mm3; Status: F Test: LYMPH #; Value: 0.8; Range: 1.5-4.5; Abnormal: Below low normal; Units: K/mm3; Status: F Test: MONO #; Value: 0.9; Range: 0.0-0.8; Abnormal: Above high normal; Units: K/mm3; Status: F Test: EOS #; Value: 0.0; Range: 0.0-0.50; Units: K/mm3; Status: F Test: BASO #; Value: 0.0; Range: 0.0-0.2; Units: K/mm3; Status: F Test: LARGE UNSTAINED CELL #; Value: 0.2; Range: 0.0-0.4; Units: K/mm3; Status: F Lab Order: [facility]; [facility] 10/05/16 11:25 Test: GLUCOSE, FASTING; Value: 121; Range: 83-110; Abnormal: Above high normal; Units: MG/DL; Status: F Test: BLOOD UREA NITROGEN; Value: 18; Range: 7-18; Units: MG/DL; Status: F Test: CREATININE FOR GFR; Value: 1.12; Range: 0.55-1.02; Abnormal: Above high normal; Units: MG/DL; Status: F Test: GLOMERULAR FILTRATION RATE; Value: 50.9; Range: >39; Status: F Test: SODIUM LEVEL; Value: 140; Range: 136-145; Units: MEQ/L; Status: F Test: POTASSIUM SERUM; Value: 3.5; Range: 3.5-5.1; Units: MEQ/L; Status: F Test: CHLORIDE LEVEL; Value: 100; Range: 98-107; Units: MEQ/L; Status: F Test: CARBON DIOXIDE LEVEL; Value: 30; Range: 21-32; Units: MEQ/L; Status: F Test: ANION GAP; Value: 10; Range: 8-16; Units: MEQ/L; Status: F Test: CALCIUM LEVEL; Value: 8.3; Range: 8.8-10.2; Abnormal: Below low normal; Units: MG/DL; Status: F Test Note: ; Units are mL/min/1.73 m2 Chronic Kidney Disease Staging per NKF: Stage I & II GFR >=60 Normal to Mildly Decreased Stage III GFR 30-59 Moderately Decreased Stage IV GFR 15-29 Severely Decreased Stage V GFR <15 Very Little GFR Left ESRD GFR <15 on ACCESS MANAGER Lab Order: Liver Profile; 10/05/16 11:25 Test: AST/SGOT; Value: 28; Range: 15-37; Units: U/L; Status: F Test: ALT/SGPT; Value: 17; Range: 12-78; Units: U/L; Status: F Test: ALKALINE PHOSPHATASE; Value: 45; Range: 45-117; Units: U/L; Status: F Test: BILIRUBIN,TOTAL; Value: 0.7; Range: 0.2-1.0; Units: MG/DL; Status: F Test: BILIRUBIN,DIRECT; Value: 0.2; Range: 0.0-0.2; Units: MG/DL; Status: F Test: TOTAL PROTEIN; Value: 6.7; Range: 6.4-8.2; Units: GM/DL; Status: F Test: ALBUMIN; Value: 3.4; Range: 3.2-5.2; Units: GM/DL; Status: F Test: ALBUMIN/GLOBULIN RATIO; Value: 1.03; Range: 1.00-1.93; Status: F Lab Order: Lipase; 10/05/16 11:25 Test: LIPASE; Value: 98; Range: 73-393; Units: U/L; Status: F Lab Order: Troponin; 10/05/16 11:25 Test: TROPONIN I; Value: 1.27; Range: < 0.10; Abnormal: Above high normal; Units: NG/ML; Status: F Test Note: ; Troponin I Reference Interval for Siemens Sherman LOCI: 99th Percentile= 0.00-0.045 ng/ml Risk Stratification: <= 0.10 ng/ml Decreased Risk for Adverse Clinical Events. 0.10-1.50 ng/ml Increased Risk for Adverse Clinical Events. Evaluation of additional criterion and/or repeat testing in 2-6 hours is suggested to rule out myocardial damage. >= 1.50 ng/ml Indicative of Myocardial Injury. Lab Order: -Blood Culture; [facility] 10/05/16 11:24 Test: BLOOD CULTURE; Value: No growth after 24 hours . All specimens observed; Status: F Test: BLOOD CULTURE; Value: for 5 days. Results final at that time.; Status: F Test: BLOOD CULTURE; Value: No Growth after 48 hours. All Specimens observed; Status: F Test: BLOOD CULTURE; Value: for 7 days. Results final at that time.; Status: F Lab Order: Lactic Acid (Rowan tube on ice); [facility] 10/05/16 11:24 Test: LACTIC ACID SEPSIS PROTOCOL; Value: 2.7; Range: 0.4-2.0; Abnormal: Above upper panic limits; Units: MMOL/L; Status: F Lab Order: VALPROIC ACID (DEPAKOTE); [facility] 10/05/16 11:25 Test: VALPROIC ACID (DEPAKOTE); Value: 11.8; Range: 50.0-100.0; Abnormal: Below low normal; Units: UG/ML; Status: F Lab Order: BLOOD CULTURES; [facility]' 10/05/16 12:50 Test: BLOOD CULTURE; Value: No growth after 24 hours . All specimens observed; Status: F Test: BLOOD CULTURE; Value: for 7 days. Results final at that time.; Status: F Lab Order: Urinalysis; [facility] 10/05/16 12:50 Test: APPEARANCE, URINE; Value: HAZY; Range: CLEAR; Status: F Test: COLOR, URINE; Value: RYNE; Range: YELLOW; Status: F Test: PH,URINE; Value: 5.0; Range: 5.0-9.0; Units: UNITS; Status: F Test: SPECIFIC GRAVITY URINE AUTO; Value: 1.022; Range: 1.002-1.035; Status: F Test: PROTEIN, URINE AUTO; Value: 3+; Range: NEGATIVE; Abnormal: Above high normal; Units: mg/dL; Status: F Test: GLUCOSE, URINE (UA) AUTO; Value: NEGATIVE; Range: NEGATIVE; Units: mg/dL; Status: F Test: KETONE, URINE AUTO; Value: TRACE; Range: NEGATIVE; Abnormal: Above high normal; Units: mg/dL; Status: F Test: UROBILINOGEN, URINE AUTO; Value: 0.2; Range: 0.0-2.0; Units: mg/dL; Status: F Test: BILIRUBIN, URINE AUTO; Value: NEGATIVE; Range: NEGATIVE; Status: F Test: NITRITE, URINE AUTO; Value: NEGATIVE; Range: NEGATIVE; Status: F Test: LEUKOCYTE ESTERASE, URINE AUTO; Value: NEGATIVE; Range: NEGATIVE; Status: F Test: BLOOD, URINE BLOOD; Value: NEGATIVE; Range: NEGATIVE; Status: F Test: WBC, URINE AUTO; Value: 2; Range: 0-3; Units: /HPF; Status: F Test: RBC, URINE AUTO; Value: 1; Range: 0-3; Units: /HPF; Status: F Test: BACTERIA, URINE AUTO; Value: NEGATIVE; Range: NEGATIVE; Status: F Test: SQUAMOUS EPITHELIAL CELL UR AU; Value: 0; Range: 0-6; Units: /HPF; Status: F Test: MUCUS, URINE; Value: SMALL; Range: NEGATIVE; Status: F Test: HYALINE CAST, URINE AUTO; Value: 0; Range: 0-1; Units: /LPF; Status: F Lab Order: Urine Culture; SPEC'M 10/05/16 12:50 Test: URINE CULTURE; Value: <EXTERNAL COMMENT eCWMed> FULL REPORT IN LAB NOTES (eCW and Medent).; Status: F Test: URINE CULTURE; Value: URINE CULTURE RESULT NO GROWTH; Status: F Lab Order: INFLUENZA A&B RAPID ANTIGEN; SPEC'M 10/05/16 20:21 Test: INFLUENZA A RAPID SCR by ICA; Value: INFLUENZA A RESULTS NEGATIVE; Status: F Test: INFLUENZA A RAPID SCR by ICA; Value: Comments:; Status: F Test: INFLUENZA B RAPID SCR by ICA; Value: INFLUENZA B RESULTS NEGATIVE; Status: F Test Note: ; The Influenza test is a direct rapid immunoassay for the qualitative detection of Influenza viral antigen. Cell culture (Viral Culture) testing should be considered to confirm NEGATIVE results and to assist in detecting other viruses that can provide similar clinical symptoms. Please contact the lab within 24 hours [phone] if confirmatory testing is desired. Lab Order: CARDIAC MARKER PANEL; [facility] 10/05/16 17:55 Test: CPK CREATINE PHOSPHOKINASE; Value: 439; Range: 26-192; Abnormal: Above high normal; Units: U/L; Status: F Test: CK-MB VALUE MASS; Value: 3.6; Range: 0.0-3.6; Units: NG/ML; Status: F Test: MB/CK RELATIVE INDEX; Value: 0.82; Range: < OR =4; Status: F Test: TROPONIN I; Value: 0.75; Range: < 0.10; Abnormal: High; Units: NG/ML; Status: F Test Note: ; DIAGNOSIS CRITERIA MMB ng/ml Relative Index (RI) NON-AMI < or = 5 N/A ROWAN ZONE > 5 < or = 4 AMI > 5 > 4 Lab Order: CBC WITH DIFFERENTIAL; [facility] 10/06/16 07:22 Test: WHITE BLOOD COUNT; Value: 8.2; Range: 4.0-10.0; Units: K/mm3; Status: F Test: RED BLOOD COUNT; Value: 4.43; Range: 4.00-5.40; Units: M/mm3; Status: F Test: HEMOGLOBIN; Value: 13.8; Range: 12.0-16.0; Abnormal: Delta; Units: g/dl; Status: F Test: HEMATOCRIT; Value: 42.6; Range: 36.0-47.0; Units: %; Status: F Test: MEAN CORPUSCULAR VOLUME; Value: 96.2; Range: 80.0-96.0; Abnormal: Above high normal; Units: fl; Status: F Test: MEAN CORPUSCULAR HEMOGLOBIN; Value: 31.2; Range: 27.0-33.0; Units: pg; Status: F Test: MEAN CORPUSCULAR HGB CONC; Value: 32.4; Range: 32.0-36.5; Units: g/dl; Status: F Test: RED CELL DISTRIBUTION WIDTH; Value: 14.8; Range: 11.5-14.5; Abnormal: Above high normal; Units: %; Status: F Test: PLATELET COUNT, AUTOMATED; Value: 152; Range: 150-450; Units: k/mm3; Status: F Test: NEUTROPHILS %; Value: 79.1; Range: 36.0-66.0; Abnormal: Above high normal; Units: %; Status: F Test: LYMPH %; Value: 8.2; Range: 24.0-44.0; Abnormal: Below low normal; Units: %; Status: F Test: MONO %; Value: 9.6; Range: 0.0-5.0; Abnormal: Above high normal; Units: %; Status: F Test: EOS %; Value: 0.5; Range: 0.0-3.0; Units: %; Status: F Test: BASO %; Value: 0.2; Range: 0.0-1.0; Units: %; Status: F Test: LARGE UNSTAINED CELL %; Value: 2.3; Range: 0.0-4.0; Units: %; Status: F Test: NEUTROPHILS #; Value: 6.5; Range: 1.8-7.7; Units: K/mm3; Status: F Test: LYMPH #; Value: 0.9; Range: 1.5-4.5; Abnormal: Below low normal; Units: K/mm3; Status: F Test: MONO #; Value: 0.8; Range: 0.0-0.8; Units: K/mm3; Status: F Test: EOS #; Value: 0.0; Range: 0.0-0.50; Units: K/mm3; Status: F Test: BASO #; Value: 0.0; Range: 0.0-0.2; Units: K/mm3; Status: F Test: LARGE UNSTAINED CELL #; Value: 0.2; Range: 0.0-0.4; Units: K/mm3; Status: F Lab Order: COMPLETE COMPHRENSIVE METABOLI; SPEC'M 10/06/16 07:22 Test: GLUCOSE, FASTING; Value: 135; Range: 83-110; Abnormal: Above high normal; Units: MG/DL; Status: F Test: BLOOD UREA NITROGEN; Value: 25; Range: 7-18; Abnormal: Above high normal; Units: MG/DL; Status: F Test: CREATININE FOR GFR; Value: 1.22; Range: 0.55-1.02; Abnormal: Above high normal; Units: MG/DL; Status: F Test: GLOMERULAR FILTRATION RATE; Value: 46.1; Range: >39; Status: F Test: SODIUM LEVEL; Value: 140; Range: 136-145; Units: MEQ/L; Status: F Test: POTASSIUM SERUM; Value: 3.7; Range: 3.5-5.1; Units: MEQ/L; Status: F Test: CHLORIDE LEVEL; Value: 103; Range: 98-107; Units: MEQ/L; Status: F Test: CARBON DIOXIDE LEVEL; Value: 26; Range: 21-32; Units: MEQ/L; Status: F Test: ANION GAP; Value: 11; Range: 8-16; Units: MEQ/L; Status: F Test: CALCIUM LEVEL; Value: 7.8; Range: 8.8-10.2; Abnormal: Below low normal; Units: MG/DL; Status: F Test: AST/SGOT; Value: 23; Range: 15-37; Units: U/L; Status: F Test: ALT/SGPT; Value: 17; Range: 12-78; Units: U/L; Status: F Test: ALKALINE PHOSPHATASE; Value: 40; Range: 45-117; Abnormal: Below low normal; Units: U/L; Status: F Test: BILIRUBIN,TOTAL; Value: 0.6; Range: 0.2-1.0; Units: MG/DL; Status: F Test: TOTAL PROTEIN; Value: 5.4; Range: 6.4-8.2; Abnormal: Below low normal; Units: GM/DL; Status: F Test: ALBUMIN; Value: 2.7; Range: 3.2-5.2; Units: GM/DL; Status: F Test: ALBUMIN/GLOBULIN RATIO; Value: 1.00; Range: 1.00-1.93; Status: F Test Note: ; Units are mL/min/1.73 m2 Chronic Kidney Disease Staging per NKF: Stage I & II GFR >=60 Normal to Mildly Decreased Stage III GFR 30-59 Moderately Decreased Stage IV GFR 15-29 Severely Decreased Stage V GFR <15 Very Little GFR Left ESRD GFR <15 on ACCESS MANAGER Lab Order: CARDIAC MARKER PANEL; SPEC'M 10/06/16 02:06 Test: CPK CREATINE PHOSPHOKINASE; Value: 411; Range: 26-192; Abnormal: Above high normal; Units: U/L; Status: F Test: CK-MB VALUE MASS; Value: 3.8; Range: 0.0-3.6; Abnormal: Above high normal; Units: NG/ML; Status: F Test: MB/CK RELATIVE INDEX; Value: 0.92; Range: < OR =4; Status: F Test: TROPONIN I; Value: 0.44; Range: < 0.10; Abnormal: High; Units: NG/ML; Status: F Test Note: ; DIAGNOSIS CRITERIA MMB ng/ml Relative Index (RI) NON-AMI < or = 5 N/A [place] > 5 < or = 4 AMI > 5 > 4 Lab Order: CARDIAC MARKER PANEL; [facility]10[facility]06[facility]16 10:30 Test: CPK CREATINE PHOSPHOKINASE; Value: 339; Range: 26-192; Abnormal: Above high normal; Units: U/L; Status: F Test: CK-MB VALUE MASS; Value: 2.4; Range: 0.0-3.6; Units: NG/ML; Status: F Test: MB/CK RELATIVE INDEX; Value: 0.70; Range: < OR =4; Status: F Test: TROPONIN I; Value: 0.28; Range: < 0.10; Abnormal: High; Units: NG/ML; Status: F Test Note: ; DIAGNOSIS CRITERIA MMB ng/ml Relative Index (RI) NON-AMI < or = 5 N/A [place] > 5 < or = 4 AMI > 5 > 4 Lab Order: CBC WITH DIFFERENTIAL; SPEC10/07/16 06:10 Test: WHITE BLOOD COUNT; Value: 7.3; Range: 4.0-10.0; Units: K/mm3; Status: F Test: RED BLOOD COUNT; Value: 4.45; Range: 4.00-5.40; Units: M/mm3; Status: F Test: HEMOGLOBIN; Value: 13.9; Range: 12.0-16.0; Units: g/dl; Status: F Test: HEMATOCRIT; Value: 42.8; Range: 36.0-47.0; Units: %; Status: F Test: MEAN CORPUSCULAR VOLUME; Value: 96.3; Range: 80.0-96.0; Abnormal: Above high normal; Units: fl; Status: F Test: MEAN CORPUSCULAR HEMOGLOBIN; Value: 31.3; Range: 27.0-33.0; Units: pg; Status: F Test: MEAN CORPUSCULAR HGB CONC; Value: 32.6; Range: 32.0-36.5; Units: g/dl; Status: F Test: RED CELL DISTRIBUTION WIDTH; Value: 14.3; Range: 11.5-14.5; Units: %; Status: F Test: PLATELET COUNT, AUTOMATED; Value: 164; Range: 150-450; Units: k/mm3; Status: F Test: NEUTROPHILS %; Value: 68.7; Range: 36.0-66.0; Abnormal: Above high normal; Units: %; Status: F Test: LYMPH %; Value: 15.4; Range: 24.0-44.0; Abnormal: Below low normal; Units: %; Status: F Test: MONO %; Value: 9.9; Range: 0.0-5.0; Abnormal: Above high normal; Units: %; Status: F Test: EOS %; Value: 0.4; Range: 0.0-3.0; Units: %; Status: F Test: BASO %; Value: 0.4; Range: 0.0-1.0; Units: %; Status: F Test: LARGE UNSTAINED CELL %; Value: 5.3; Range: 0.0-4.0; Abnormal: Above high normal; Units: %; Status: F Test: NEUTROPHILS #; Value: 5.0; Range: 1.8-7.7; Units: K/mm3; Status: F Test: LYMPH #; Value: 1.1; Range: 1.5-4.5; Abnormal: Below low normal; Units: K/mm3; Status: F Test: MONO #; Value: 0.7; Range: 0.0-0.8; Units: K/mm3; Status: F Test: EOS #; Value: 0.0; Range: 0.0-0.50; Units: K/mm3; Status: F Test: BASO #; Value: 0.0; Range: 0.0-0.2; Units: K/mm3; Status: F Test: LARGE UNSTAINED CELL #; Value: 0.4; Range: 0.0-0.4; Units: K/mm3; Status: F Lab Order: COMPLETE COMPHRENSIVE METABOLI; SPEC'M 10/07/16 06:10 Test: GLUCOSE, FASTING; Value: 123; Range: 83-110; Abnormal: Above high normal; Units: MG/DL; Status: F Test: BLOOD UREA NITROGEN; Value: 22; Range: 7-18; Abnormal: Above high normal; Units: MG/DL; Status: F Test: CREATININE FOR GFR; Value: 1.03; Range: 0.55-1.02; Abnormal: Above high normal; Units: MG/DL; Status: F Test: GLOMERULAR FILTRATION RATE; Value: 56.1; Range: >39; Status: F Test: SODIUM LEVEL; Value: 140; Range: 136-145; Units: MEQ/L; Status: F Test: POTASSIUM SERUM; Value: 4.4; Range: 3.5-5.1; Units: MEQ/L; Status: F Test: CHLORIDE LEVEL; Value: 103; Range: 98-107; Units: MEQ/L; Status: F Test: CARBON DIOXIDE LEVEL; Value: 26; Range: 21-32; Units: MEQ/L; Status: F Test: ANION GAP; Value: 11; Range: 8-16; Units: MEQ/L; Status: F Test: CALCIUM LEVEL; Value: 8.3; Range: 8.8-10.2; Abnormal: Below low normal; Units: MG/DL; Status: F Test: AST/SGOT; Value: 19; Range: 15-37; Units: U/L; Status: F Test: ALT/SGPT; Value: 17; Range: 12-78; Units: U/L; Status: F Test: ALKALINE PHOSPHATASE; Value: 41; Range: 45-117; Abnormal: Below low normal; Units: U/L; Status: F Test: BILIRUBIN,TOTAL; Value: 0.5; Range: 0.2-1.0; Units: MG/DL; Status: F Test: TOTAL PROTEIN; Value: 5.9; Range: 6.4-8.2; Abnormal: Below low normal; Units: GM/DL; Status: F Test: ALBUMIN; Value: 2.8; Range: 3.2-5.2; Abnormal: Below low normal; Units: GM/DL; Status: F Test: ALBUMIN/GLOBULIN RATIO; Value: 0.90; Range: 1.00-1.93; Abnormal: Below low normal; Status: F Test Note: ; Units are mL/min/1.73 m2 Chronic Kidney Disease Staging per NKF: Stage I & II GFR >=60 Normal to Mildly Decreased Stage III GFR 30-59 Moderately Decreased Stage IV GFR 15-29 Severely Decreased Stage V GFR <15 Very Little GFR Left ESRD GFR <15 on ACCESS MANAGER Lab Order: MAGNESIUM LEVEL; SPEC'M 10/07/16 06:10 Test: MAGNESIUM LEVEL; Value: 2.0; Range: 1.8-2.4; Units: MG/DL; Status: F Radiology Order: EKG-ADULT Test: EKG-ADULT REASON FOR EXAMINATION: dysrhythmia; Stationary ECG Study; [facility] - ED; ; Test Date: 2016-10-05; Pat Name: LORE FRANCO Department:; Room: -; 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; : 1945 Requested By: ADRIAN Mendez; Order Number: [id number] Reading MD: Drew Moreno; Measurements; Intervals [place]; Rate: 89 P: 48; NC: 136 QRS: 132; QRSD: 99 T: 30; QT: 368; QTc: 449; Interpretive Statements; SINUS RHYTHM; RAD; PATTERN CONSISTENT WITH PULMONARY DISEASE; RIGHT VENTRICULAR HYPERTROPHY; ST DEVIATION AND MODERATE T-WAVE ABNORMALITY, CONSIDER ANTERIOR ISCHEMIA; ; Electronically Signed On 10-05-2016 12:34:37 EST by Drew Moreno; Radiology Order: CT Head Without Contrast Test: CT Head Without Contrast REASON FOR EXAMINATION: Trauma; CT HEAD WITHOUT CONTRAST:; ; HISTORY: Trauma.; ; Areas of decreased attentuation are present in the periventricular and; subcortical white matter. This represents small vessel ischemic disease. There; is no intraparenchymal hemorrhage, mass, or midline shift. The ventricular; system and cortical sulci are dilated consistent with minimal volume loss. There; is no extracerebral collection. There is no fracture. Mucosal thickening is; present in the ethmoid, sphenoid, and right maxillary sinuses.; ; IMPRESSION:; ; 1. Small vessel ischemic disease.; ; 2. Minimal volume loss.; ; ; Signed by; Javier Velasquez MD 10/05/2016 12:51 P; Radiology Order: CT Spine,Cervical W/o Contrast Test: CT Spine,Cervical W/o Contrast REASON FOR EXAMINATION: Trauma; CT CERVICAL SPINE WITHOUT CONTRAST:; ; HISTORY: Trauma.; ; There is no acute fracture or subluxation. Disc bulges are present at the C4-5; and C5-6 levels. A disc bulge with associated osteophyte formation is present at; the C6-7 level. There is minimal narrowing of the spinal canal. Uncinate; process and/or facet hypertrophy are present at the C5-6 and C6-7 levels. These; findings produce minimal narrowing of the neural foramina. The C6-7; intervertebral disc is decreased in height consistent with disc degeneration.; Osteophytes are present on C5-7.; ; IMPRESSION:; ; 1. There is no acute fracture or subluxation.; ; 2. There is cervical spondylosis at the C4-5 through C6-7 levels.; ; ; Signed by; Javier Velasquez MD 10/05/2016 12:51 P; Radiology Order: Chest, 2 View (pa\E\lat) Test: Chest, 2 View (pa\E\lat) REASON FOR EXAMINATION: fever;Chest Pain; Clinical: Fever and chest pain.; ; Technique: AP and lateral.; ; Comparison: 03/01/2016.; ; Findings:; Cardiomegaly and pulmonary vascular congestion appreciated. Bibasilar; atelectasis and possible small layering pleural effusions cannot be excluded. No; pneumothorax. Skeletal structures intact.; ; Impression:; Cardiomegaly and pulmonary vascular congestion.; Cannot exclude basilar atelectasis.; ; ; Signed by; Kalyan Rodriges MD 10/05/2016 12:29 P; Radiology Order: CT ABD & PELVIS: No Contrast Test: CT ABD & PELVIS: No Contrast REASON FOR EXAMINATION: Abdomen Pain; Clinical: Acute abdominal pain.; ; Comparison: 02/08/2007.; ; Findings:; Lung bases suggest cardiomegaly with chronic pulmonary vascular congestion small; bilateral atelectasis and nodular consolidations cannot be excluded.; ; Liver, spleen, pancreas, gallbladder, and bilateral adrenal glands are normal for; noncontrast evaluation. The kidneys demonstrate symmetric likely chronic; perinephric stranding without hydroureternephrosis or nephrolithiasis. The; enteric system is without obstruction or acute inflammatory process. Few sigmoid; diverticula noted without acute diverticulitis. Pelvis demonstrates normal; bladder and evidence for prior hysterectomy. No pelvic fluid or ascites. No; free air. No adenopathy. No mass lesion. Atherosclerotic changes of the aorta; and branch vessels noted without aneurysm. Musculoskeletal structures; demonstrate age-related degenerative changes without focal osseous abnormality.; ; Impression:; 1. Lung bases suggest cardiomegaly with chronic pulmonary vascular congestion; and subtle basilar atelectasis.; 2. Bilateral perinephric stranding likely chronic and less likely; pyelonephritis.; 3. 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 There is no acute fracture or; dislocation. There is mild joint space narrowing, subchondral sclerosis and; spurring.; ; IMPRESSION:; ; Mild degenerative changes. No acute fracture or dislocation.; ; ; Signed by; Riley Rowan MD 10/06/2016 09:51 A; Radiology Order: Ankle, complete Test: Ankle, complete REASON FOR EXAMINATION: ankle pain; Clinical: Pain.; ; Technique: AP, lateral, bilateral oblique views of the right ankle.; ; Findings:; Osteopenia and age-related arthritic degenerative changes are appreciated. No; acute fracture or dislocation. No significant soft tissue swelling.; ; Impression:; Osteopenia and age-related degenerative changes. No acute fracture or; dislocation.; ; ; Signed by; Kalyan Rodriges MD 10/05/2016 04:30 P; Outcome: 14:00 Decision to Hospitalize by Provider. br1 16:14 CT Study completed. hs1 10/07 12:22 Patient left the ED. dy Signatures: Dispatcher [employer] EDMS Prabha Connors, RN RN mcp Aleta Gooden, Reg Reg gb Katie Joseph, Reg Reg lg Franklin Duarte, RN RN Daina Hand kt1 Radha JulianRN RN jo3 Adrian Early MD MD br1 Bita Roberts RN IMELDA hs1 Kathrin Hill RN RN sls1 Radha Ashton, HIDE CLEANER HIDE CLEANER tmm1 Erick Virk mm15 Wesley Angeles, HIDE CLEANER HIDE CLEANER jrd Glenn Carpio,RN RN mb9 Mable Hooper,RN RN cf2 Corrections: (The following items were deleted from the chart) 10/05 10:54 10:47 General: Appears in no apparent distress, Behavior is appropriate for age, hs1 cooperative, hs1 11:07 10:38 BP 151 / 77 Sitting Auto R Arm Regular; Pulse 75bpm; Resp 18bpm; Pulse Ox 97% RA; hs1 Temp 97.0F Oral; 90.72 kg Reported; Height 5 ft. 10 in. Reported; BMI: 28.7; Pain 8/10; jrd 11:07 10:44 Adult Sepsis Screening: The patient does not have new or worsening altered hs1 mentation. Patient's respiratory rate is less than 22. Systolic blood pressure is greater than 100. Patient has a qSOFA score of 0- Negative Sepsis Screen. hs1 11:08 10:38 Log In Time: October 05, 2016 at 10:34 jrd jrd 11: 10:44 Acuity: YIN Level 3 hs1 hs1 11:30 11:27 VALPROIC ACID (DEPAKOTE)+LAB sent. hs1 EDMS Chart Complete MTDD
--- NOTE | 2016-10-09 13:23 | EDDOCDS ---
Physician Documentation [facility] Name: Sandrine Franco Age: 71 yrs Sex: Female : 1945 Arrival Date: 10/05/2016 Time: 10:35 Bed Admit Hold Private MD: Gaurav Posada H. Disposition: 10/05/16 14:00 Hospitalization ordered by Ani Mast for Inpatient Admission. Preliminary diagnosis are Non-ST elevation (NSTEMI) myocardial infarction, Fever, unspecified, Vomiting, Diarrhea, unspecified. - Bed requested for PCU. - Status is Inpatient Admission. dy - Condition is Stable. - Problem is new. - Symptoms are unchanged. Historical: - Allergies: SULFA (SULFONAMIDES); SHELLFISH; - Home Meds: 1. home O2 6 L 2. isosorbide mononitrate 60 mg Oral Tb24 1 tab once daily 3. carvedilol 6.25 mg oral tab 1 tab 2 times per day 4. amlodipine 5 mg Oral tab 1 tab once daily 5. Lipitor 10 mg Oral tab 1 tab once daily 6. Avapro 300 mg Oral tab 1 tab once daily 7. Protonix 40 mg Oral grps 1 packet once daily 8. levothyroxine 137 mcg Oral tab 1 tab once daily 9. Lasix 80 mg Oral tab 1 tab once daily 10. diclofenac sodium 50 mg oral TbEC 1 tab 2 times per day 11. nortriptyline 50 mg Oral cap 1 cap nightly 12. divalproex 500 mg oral TbEC 2 tabs once daily 13. aspirin 81 mg Oral chew 1 tab once daily 14. benzonatate 100 mg oral cap 1 cap as needed 15. Nasacort 55 mcg Nasal spra 16. Butalbital Compound 50-325-40 mg Oral cap 1 cap as needed 17. Tylenol 325 mg Oral tab as needed 18. Vitamin C 1,000 mg Oral cpER 19. multivitamin Oral cap 20. CoQ-10 30 mg oral cap 21. omega-3 fatty acids 300 mg oral cap - PMHx: pulmonary fibrosis; Hypercholesterolemia; Hypertension; CAD; - PSHx: Hysterectomy; Knee surgery- Left; Knee surgery- Right; Cataract Surgery- Bilateral; Shoulder Arthroscopy- Right; - Social history: Smoking status: Patient states was never smoker of tobacco. No barriers to communication noted, The patient speaks fluent Belgian, Speaks appropriately for age. - Family history: No immediate family members are acutely ill. - : The pt / caregiver states he / she is not on anticoagulants. Home medication list is obtained from the patient. - Exposure Risk Screening:: None identified. Vital Signs: 10/05 11:02 BP 129 / 79 (auto/); hs1 11:02 Pulse 92 MON; Resp 30; Pulse Ox 90% 6 lpm ; hs1 11:15 Temp 103.1(R); tmm1 11:16 Pulse 92 MON; Pulse Ox 95% 8 lpm ; hs1 11:17 BP 147 / 66 (auto/); hs1 11:31 Pulse 88 MON; Pulse Ox 99% ; hs1 11:32 BP 164 / 81 (auto/); hs1 11:46 Pulse 86 MON; Resp 28; Pulse Ox 99% 8 lpm ; hs1 11:47 BP 145 / 92 (auto/); hs1 12:47 BP 156 / 75 (auto/); hs1 12:47 Pulse 82 MON; Resp 28; Pulse Ox 94% ; hs1 13:40 Temp 101.8(R); hs1 14:05 Pulse 80 MON; Resp 20; Pulse Ox 95% 4 lpm ; hs1 14:06 BP 125 / 94 (auto/); hs1 14:23 Pulse 80 MON; Pulse Ox 93% ; hs1 14:23 BP 123 / 59 (auto/); hs1 14:53 BP 134 / 70 (auto/); hs1 14:53 Pulse 86 MON; Pulse Ox 94% ; hs1 15:10 BP 157 / 65 (auto/); hs1 15:11 Pulse 78 MON; Pulse Ox 90% ; hs1 15:45 Pulse 78 MON; Pulse Ox 99% ; cf2 15:47 Pulse 78 MON; Pulse Ox 99% ; cf2 16:10 BP 117 / 65 (auto/); hs1 16:11 Pulse 78 MON; Pulse Ox 94% ; hs1 16:14 BP 117 / 65; Pulse 80; Resp 28; Temp 97.7(O); Pulse Ox 95% 4 lpm ; Pain 9/10; hs1 16:40 BP 126 / 64 (auto/); hs1 16:41 Pulse 78 MON; Pulse Ox 92% ; hs1 17:10 BP 133 / 81 (auto/); hs1 17:11 Pulse 78 MON; Pulse Ox 94% ; hs1 17:40 BP 124 / 71 (auto/); hs1 17:41 Pulse 78 MON; Pulse Ox 96% ; hs1 18:10 BP 122 / 61 (auto/); hs1 18:10 Pulse 80 MON; Resp 18; Pulse Ox 95% ; hs1 21:00 Pulse 70 MON; Pulse Ox 94% ; cf2 21:12 Pulse 64 MON; Pulse Ox 96% ; cf2 21:21 Pulse 64 MON; Pulse Ox 96% ; cf2 21:26 Pulse 68 MON; Pulse Ox 97% ; cf2 21:32 Pulse 66 MON; Pulse Ox 96% ; cf2 21:47 BP 158 / 78 (auto/); cf2 21:48 Pulse 62 MON; Pulse Ox 96% ; cf2 21:52 Pulse 62 MON; Pulse Ox 95% ; cf2 21:55 Pulse 62 MON; Pulse Ox 95% ; cf2 21:59 Pulse 62 MON; Pulse Ox 96% ; cf2 22:03 Pulse 64 MON; Pulse Ox 97% ; cf2 MDM: 11:02 IV Saline Lock ordered. br1 11:02 Orthostatic VS ordered. br1 11:02 Copyright Clerk/Pulse Ox/q 30 min VS ordered. br1 11:03 CBC with Diff Ordered. EDMS 11:03 BMP Ordered. EDMS 11:03 Liver Profile Ordered. EDMS 11:03 Lipase Ordered. EDMS 11:03 Troponin Ordered. EDMS 11:03 ECG WITH READING ER PHYS+CARDIAG ordered. EDMS 11:25 -Blood Culture (Adults Only), peripheral from different site, or from device/port/PICC br1 etc. if present ordered. 11:26 Acetaminophen Tablet 650 mg PO once ordered. br1 11:26 Lactic Acid (Rowan tube on ice) Ordered. EDMS 11:26 -Blood Culture Ordered. EDMS 11:30 VALPROIC ACID (DEPAKOTE) Ordered. EDMS 11:50 -Blood Culture (Adults Only), peripheral from different site, or from device/port/PICC lbd etc. if present complete. 11:52 BLOOD CULTURES Ordered. EDMS 11:59 NS 0.9% 1000 ml IV at 150 mL/hr continuous ordered. br1 11:59 Albuterol-Ipratropium 3 ml Inhalation once ordered. br1 11:59 Call Respiratory ordered. br1 12:00 CBC with Diff Reviewed. br1 12:01 Call Respiratory complete. lbd 12:01 CT Head Without Contrast Ordered. EDMS 12:01 CT Spine,Cervical W/o Contrast Ordered. EDMS 12:01 Chest, 2 View (pa\E\lat) Ordered. EDMS 12:01 Straight cath ordered. br1 12:01 CT ABD & PELVIS: No Contrast Ordered. EDMS 12:02 Oxygen at 4L/Min NC or Home dosage ordered. br1 12:02 Urinalysis Ordered. EDMS 12:02 Urine Culture Ordered. EDMS 12:33 Financial registration complete. mm15 13:11 BMP Reviewed. br1 13:11 Troponin Reviewed. br1 13:11 Lactic Acid (Rowan tube on ice) Reviewed. br1 13:11 VALPROIC ACID (DEPAKOTE) Reviewed. br1 13:11 Urinalysis Reviewed. br1 13:11 Liver Profile Reviewed. br1 13:11 Lipase Reviewed. br1 13:11 EKG-ADULT Reviewed. br1 13:11 CT Head Without Contrast Reviewed. br1 13:11 CT Spine,Cervical W/o Contrast Reviewed. br1 13:11 Chest, 2 View (pa\E\lat) Reviewed. br1 13:11 CT ABD & PELVIS: No Contrast Reviewed. br1 13:13 Misc. Nursing Order ordered. br1 13:13 ECG WITH READING ER PHYS+CARDIAG ordered. EDMS 13:13 BED REQUEST+ADM ordered. EDMS 13:56 Aspirin 325 mg PO once ordered. br1 14:30 [facility] [place] Payment Agreement was scanned into [employer] and attached to record. mm15 14:34 Admission / Observation Status ordered. EDMS 14:52 Hip, Ap,Lat Ordered. EDMS 14:52 Ankle, complete Ordered. EDMS 14:54 INFLUENZA A&B RAPID ANTIGEN Ordered. EDMS 14:54 GASTROINTESTINAL (GI) PANEL Ordered. EDMS 15:01 CARDIAC MARKER PANEL Ordered. EDMS 15:14 T-Sheet-- Draft Copy was scanned into [employer] and attached to record. gb 19:05 NS 0.9% 1000 ml IV at 80 mL/hr continuous ordered. hs1 19:05 Ciprofloxacin 400 mg IVPB at 200 mL/hr once over 60 mins ordered. hs1 19:05 Acetaminophen Tablet 650 mg PO once ordered. hs1 19:32 CBC WITH DIFFERENTIAL Ordered. EDMS 19:32 COMPLETE COMPHRENSIVE METABOLI Ordered. EDMS 19:32 CARDIAC MARKER PANEL Ordered. EDMS 19:32 CARDIAC MARKER PANEL Ordered. EDMS 20:12 traMADol 50 mg PO once; admission orders ordered. cf2 10/06 10:51 CARDIAC DIET - DASH ordered. EDMS 14:52 PCR was scanned into [employer] and attached to record. gb 17:13 PHYSICAL THERAPY EVAL & TREAT ordered. EDMS 19:30 CBC WITH DIFFERENTIAL Ordered. EDMS 19:31 COMPLETE COMPHRENSIVE METABOLI Ordered. EDMS 21:34 MAGNESIUM LEVEL Ordered. EDMS 02 06:58 ECHOCARD,DOPPLER/COLOR FLOW ordered. EDMS 13:33 ECG/EKG was scanned into [employer] and attached to record. gb 13:33 Radiology Report was scanned into [employer] and attached to record. gb 13:34 Trend VS was scanned into [employer] and attached to record. gb Administered Medications: 10/05 11:31 Drug: Acetaminophen 650 mg [acetaminophen 325 mg tablet (2 tabs)] Route: PO; hs1 12:22 Drug: Albuterol-Ipratropium 3 ml [ipratropium-albuterol 0.5 mg-3 mg(2.5 mg base)/3 mL kt1 nebulization soln (3 mL)] Route: Inhalation; 12:30 Drug: NS 0.9% 1000 ml [sodium chloride 0.9 % intravenous solution] Route: IV; Rate: 150 hs1 mL/hr; Site: left antecubital; 14:04 Drug: Aspirin 325 mg [aspirin 325 mg tablet (1 tabs)] Route: PO; hs1 19:06 Drug: NS 0.9% 1000 ml [sodium chloride 0.9 % intravenous solution] Route: IV; Rate: 80 hs1 mL/hr; Site: left antecubital; 19:06 Drug: Ciprofloxacin 400 mg [ciprofloxacin 400 mg/200 mL in 5 % dextrose intravenous hs1 piggyback] Route: IVPB; Rate: 200 mL/hr; Infused Over: 60 mins; Site: left antecubital; 19:06 Drug: Acetaminophen 650 mg [acetaminophen 325 mg tablet (2 tabs)] Route: PO; hs1 20:12 Drug: traMADol 50 mg [tramadol 50 mg tablet (1 tabs)] Route: PO; cf2 Signatures: Dispatcher [employer] EDMS Promise Jackman, [employer] lbd Ericka Aceves, [employer] deg Prabha Connors, RN RN Aleta Steele, Binu Reg gb Franklin Duarte, RN RN Duane Nunez MD MD br1 Bita Roberts RN RN hs1 Erick Virk mm15 Mable Hooper,RN RN cf2 Daina Higginbotham kt1 The chart was reviewed and I authenticate all verbal orders and agree with the evaluation and treatment provided.Corrections: (The following items were deleted from the chart) 11:30 11:26 VALPROIC ACID (DEPAKOTE)+LAB ordered. EDMS EDMS 13:52 13:51 GASTROINTESTINAL (GI) PANEL+RUBEN ordered. EDMS EDMS 14:54 14:54 GASTROINTESTINAL (GI) PANEL ordered. EDMS EDMS 14:54 14:54 GASTROINTESTINAL (GI) PANEL ordered. EDMS EDMS 17:48 15:01 LACTIC ACID LEVEL, LACTATE ordered. EDMS EDMS 10/06 10:51 10/05 15:10 OTHER CUSTOM DIETS ordered. EDMS EDMS 10/06 21:34 19:31 MAGNESIUM LEVEL ordered. EDMS EDMS 10/07 07:54 10/06 09:53 ECHOCARD,DOPPLER/COLOR FLOW ordered. EDMS EDMS 10/07 10:33 10/05 13:53 GASTROINTESTINAL (GI) PANEL ordered. EDMS EDMS Attachments: 14:30 [facility] Payment Agreement mm15 15:14 T-Sheet-- Draft Copy gb 10/07 13:33 ECG/EKG gb Chart Complete MTDD
--- NOTE | 2016-10-09 15:28 | ECHO ---
DATE OF SERVICE: 10/07/2016 REFERRING PROVIDER: Dr. Pettit PATIENT LOCATION: Room 3215 REASON FOR ECHOCARDIOGRAM: Syncope. 2D MEASUREMENTS: IVS: 1.3 cm LV: 3.1 cm LVPW: 1.3 cm LA: 3.9 cm Aorta: 2.8 cm DOPPLER MEASUREMENTS: Peak velocity across the aortic valve: 1.3 m/s Peak velocity across the LVOT: 0.91 m/s Mitral E: 0.59 Mitral A: 0.7 with a ratio of 0.8 Maximum tricuspid valve velocity: 4.5 m/s 2D COMMENTS: 1. Normal left ventricular size, with mildly increased left ventricular wall thickness. Left ventricular systolic function is normal with a left ventricular ejection fraction (LVEF) estimated at 60-65%. 2. Subjectively, the left atrium appeared to be mildly enlarged. The right atrium and the right ventricle also appeared to be enlarged. The right ventricular free wall was hypokinetic. 3. The atrial septum appeared to be normal without evidence of defect or shunt. 4. Normal aortic root. 5. Trace pericardial effusion noted posteriorly, no evidence of cardiac tamponade. 6. Mildly calcified aortic valve with normal leaflet excursion. Mildly calcified mitral annulus with normal anterior mitral valve leaflet motion. Normal tricuspid valve and pulmonic valve. The proximal pulmonary artery branches appeared to be mildly enlarged. DOPPLER: It detects mild mitral regurgitation and severe tricuspid regurgitation as well as moderate pulmonic regurgitation. The calculated pulmonary artery systolic pressure was more than 18 mmHg. Abnormal relaxation pattern was noted across the mitral valve leaflets as well as the mitral valve annulus, consistent with a delayed relaxation. IMPRESSION: 1. Normal global left ventricular systolic function with mild concentric left ventricular hypertrophy. There are features of left ventricular diastolic dysfunction, grade 1. 2. Aortic valve sclerosis without stenosis or aortic regurgitation. 3. Mitral annulus calcification with probably mildly enlarged left atrium. Mild mitral regurgitation was detected. 4. Severe tricuspid regurgitation with severe pulmonary artery hypertension and dilated right heart chambers. Not mentioned above, a D-shaped ventricular septum was noted in both systole and diastole, consistent with severe pulmonary hypertension. 5. Moderate pulmonic regurgitation. 6. Trace pericardial effusion noted posteriorly. [facility]
[2016-10-09 15:47] VITALS: BP 150/71
[2016-10-09 19:38] VITALS: BP 135/75
[2016-10-09] MEDS: DIVALPROEX 500MG *ER* TAB PO SCH (21:04)
[2016-10-09 23:22] VITALS: BP 113/57
[2016-10-10] MEDS: IPRATROPIUM 0.5MG/ALBUTEROL 2.5MG INH SOL UD 3ML (DUONEB)(J7620) NEB SCH ×2 (01:28→07:46)
[2016-10-10 05:23] VITALS: BP 116/56
[2016-10-10] MEDS: metroNIDAZOLE (FLAGYL) 500 MG TAB PO SCH (05:29)
[2016-10-10] MEDS: CIPROFLOXACIN 500 MG TAB PO SCH (05:29)
[2016-10-10] MEDS: LEVOTHYROXINE 0.137 MG TAB (137MCG) PO SCH (05:29)
[2016-10-10 05:32] LABS: BASO % 0.6 % (0.0-1.0); EOS % 0.8 % (0.0-3.0); LARGE UNSTAINED CELL # 0.3 K/mm3 (0.0-0.4); LARGE UNSTAINED CELL % 4.8 % (0.0-4.0); LYMPH # 2.3 K/mm3 (1.5-4.5); LYMPH % 28.8 % (24.0-44.0); MEAN CORPUSCULAR HEMOGLOBIN 31.8 pg (27.0-33.0); MEAN CORPUSCULAR HGB CONC 33.3 g/dl (32.0-36.5); MEAN CORPUSCULAR VOLUME 95.6 fl (80.0-96.0); MONO # 0.6 K/mm3 (0.0-0.8); MONO % 9.4 % (0.0-5.0); NEUTROPHILS # 3.8 K/mm3 (1.8-7.7); NEUTROPHILS % 55.7 % (36.0-66.0); PLATELET COUNT, AUTOMATED 196 k/mm3 (150-450); RED CELL DISTRIBUTION WIDTH 14.4 % (11.5-14.5); WHITE BLOOD COUNT 6.8 K/mm3 (4.0-10.0)
[2016-10-10 05:54] LABS: ALBUMIN 2.9 GM/DL (3.2-5.2); ALBUMIN/GLOBULIN RATIO 1.12 (1.00-1.93); ALKALINE PHOSPHATASE 39 U/L (45-117); ALT/SGPT 18 U/L (12-78); ANION GAP 9 MEQ/L (8-16); AST/SGOT 14 U/L (15-37); BILIRUBIN,TOTAL 0.4 MG/DL (0.2-1.0); BLOOD UREA NITROGEN 18 MG/DL (7-18); CALCIUM LEVEL 8.3 MG/DL (8.8-10.2); CARBON DIOXIDE LEVEL 36 MEQ/L (21-32); CHLORIDE LEVEL 99 MEQ/L (98-107); CREATININE FOR GFR 0.95 MG/DL (0.55-1.02); GLOMERULAR FILTRATION RATE > 60.0 (>39); GLUCOSE, FASTING 91 MG/DL (83-110); MAGNESIUM LEVEL 1.6 MG/DL (1.8-2.4); POTASSIUM SERUM 3.8 MEQ/L (3.5-5.1); SODIUM LEVEL 144 MEQ/L (136-145); TOTAL PROTEIN 5.5 GM/DL (6.4-8.2)
[2016-10-10] MEDS: ADVAIR DISKUS 500/50 INH PWD INH SCH (07:46)
[2016-10-10 08:00] VITALS: BP 120/55
[2016-10-10] MEDS: HEPARIN SOD (PORCINE) 5000 UNITS/ML VIAL SQ SCH (08:29)
[2016-10-10] MEDS: ISOSORBIDE MON. (IMDUR) 60 MG XR TAB PO SCH (08:30)
[2016-10-10] MEDS: guaiFENesin ER 600 MG TAB PO SCH (08:31)
[2016-10-10] MEDS: ASPIRIN 81 MG ENTERIC TAB PO SCH (08:31)
[2016-10-10] MEDS: ATORVASTATIN 10 MG TAB PO SCH (08:31)
[2016-10-10] MEDS: traMADol 50 MG TAB PO PRN (08:31)
[2016-10-10] MEDS: PANTOPRAZOLE 40MG TAB (PROTONIX) PO SCH (08:31)
[2016-10-10] MEDS: predniSONE 5 MG TAB PO SCH (08:31)
[2016-10-10] MEDS: CARVedilol 6.25 MG TAB PO SCH (08:32)
[2016-10-10] MEDS: FUROSEMIDE 40 MG TAB PO SCH (08:32)
[2016-10-10 08:35] VITALS: BP 120/55
[2016-10-10] MEDS: RANOLAZINE 500 MG ER TAB PO SCH (08:35)
[2016-10-10] MEDS: IRBESARTAN 75MG TABLET PO SCH (08:35)
[2016-10-10] MEDS: SENOKOT S TAB PO SCH (08:36)
--- NOTE | 2016-10-10 09:05 | IPN ---
DATE: 10/08/2016 The patient seen and examined. No acute events overnight. Does report mild dyspnea. Denies any fevers, chills, chest pain, pressure, or discomfort. No further episodes of diarrhea, nausea, or vomiting. VITAL SIGNS: Temperature 97.5, pulse 68, respiration 20, blood pressure 131/69, pulse oximetry 93% on two liters nasal cannula. LABORATORY: WBC 5.8, hemoglobin and hematocrit 12.8/39.6, platelets 169. Chemistry: Sodium 140, potassium 4.3, chloride 101, bicarbonate 31, BUN 19, creatinine 0.91. Chest x-ray: Cardiomegaly with pulmonary vascular venous congestion, bibasilar infiltrates versus atelectasis with small pleural reaction. Findings appear to be similar to prior exams. PHYSICAL EXAMINATION: GENERAL: The patient awake, alert, oriented times three, responsive, ambulating with walker. HEENT: Normocephalic, atraumatic. Pupils equal, round, and reactive. PULMONARY: Bilateral rhonchi, minimal wheeze, diminished breath sounds bilateral. Speaks in full sentences. CARDIAC: Regular rate and rhythm, normal S1, S2. ABDOMEN: Soft, nontender, obese. Positive bowel sounds. EXTREMITIES: No edema bilateral lower extremities, able to move bilateral upper and lower extremities. NEUROLOGIC: No focal deficits. Cranial nerves II-XII grossly intact. ASSESSMENT AND PLAN: This is a 71-year-old female patient with underlying medical history of hypertension, coronary arterial disease, pulmonary fibrosis, chronic hypoxic respiratory failure on oxygen at home during the day, chronic hypoxic respiratory failure on oxygen at home during the day and continuous positive airway pressure (CPAP) at night, obstructive sleep apnea (SOFY), hypothyroidism, gastroesophageal reflux disease (GERD), dyslipidemia, admitted with syncope, found down on the ground with loss of consciousness, recent nausea, vomiting, diarrhea for a couple days since Monday before admission. PROBLEMS: 1. Syncope with metabolic encephalopathy, likely secondary to underlying infection. Patient was febrile initially, currently back to baseline. Appreciate physical therapy's assistance. Orthostatic initially was positive, currently negative. Intravenous (IV) fluids initially provided, currently stopped. Treatment for infection, as mentioned below. 2. Sepsis, secondary to gastrointestinal (GI) source, likely gastroenteritis. CT scan of the abdomen appreciated. The patient with nausea, vomiting, and diarrhea has resolved. Unable to get GI panel given patient is quite constipated at this time. Patient continue Cipro and Flagyl, switched to oral hydration, IV hydration initially given. Tolerating diet. Imaging studies appreciated. 3. Constipation. Bowel regimen is provided. Patient passing gas. 4. Fall. Radiological image appreciated. Likely secondary to hypovolemia due to nausea, vomiting, and diarrhea. IV hydration provided. Orthostatic initially positive, currently negative. No fractures appreciated on imaging. CT head negative. Physical therapy appreciated. 5. Elevated cardiac enzymes, likely demand ischemia. Dr. Benjamin, cardiology, has been consulted. Cardiac enzymes trending down. Telemetry appreciated. IV fluids. Echocardiogram appreciated with severe pulmonary hypertension. Continue aspirin, beta blockers, and Imdur. Lasix has been added. Followup cardiology recommendation. No need for transfer for catheterization as per Dr. Benjamin. 6. Acute kidney injury. Baseline creatinine 0.6-0.9, currently returning to baseline. IV fluids initially given. Holding angiotensin receptor blockers (ARBs). Lasix has been restarted. 7. History of congestive heart failure (CHF). The patient currently is mildly fluid overloaded. Lasix restarted. IV hydration initially provided, currently stopped. Monitor blood pressure. 8. Hypertension. Holding ARBs. Continue Lasix, Coreg, and Imdur. Will restart ARBs prior to discharge. 9. Hypothyroidism. Continue home medication. 10. Pulmonary fibrosis. Continue prednisone, oxygen (O2) supplementation via nasal cannula. 11. Obstructive sleep apnea (SOFY). Continue bilateral positive airway pressure (BiPAP) at night. Continue to monitor. 12. Dyslipidemia. Continue statin. 13. Gastrointestinal (GI) prophylaxis. Continue proton pump inhibitor (PPI). Gastrointestinal prophylaxis given patient is on chronic steroids. 14. Deep vein thrombosis (DVT) prophylaxis. Heparin subcutaneous. DISPOSITION PLANNING: Pending clinical improvement, likely to discharge over the next two days, and physical therapy.
[2016-10-10] MEDS ORDERED: CIPR500T89 PO (10:18)
[2016-10-10] MEDS ORDERED: SENN1TAB2 PO (10:18)
[2016-10-10] MEDS ORDERED: MUCI600T34 PO (10:18)
[2016-10-10] MEDS ORDERED: FLAG500T PO (10:18)
[2016-10-10] MEDS ORDERED: MAG SULF 1GM/100ML (MAG RUN) 1 GM in APPROPRIATE DILUENT 1 EA IV ONE (11:00)
[2016-10-10 12:00] VITALS: BP 104/86
--- NOTE | 2016-10-10 17:27 | IPN ---
DATE: 10/09/2016 SUBJECTIVE: The patient is seen and examined. Reported improved respiration. Denies any chest pain, pressure, discomfort. Denies any nausea, vomiting or diarrhea. VITAL SIGNS: Temperature 97, pulse 63, respirations 20, blood pressure 150/71, pulse oximetry 97% on four liters nasal cannula. LABORATORY DATA: WBC 5.8, hemoglobin and hematocrit 13.1 over 40, platelets 189. Chemistry: Sodium 143, potassium 4.1, chloride 100, bicarbonate 35, BUN 19, creatinine 0.93, magnesium 1.7. OBJECTIVE: GENERAL: Patient awake, alert, and oriented times three, in no acute distress. HEENT: Normocephalic, atraumatic. Pupils equal, round, and reactive to light. PULMONARY: Decreased breath sounds bilaterally. Mild wheeze. No rales, rhonchi. Speaks in full sentences. Able to ambulate with a walker. CARDIAC: Regular rate and rhythm. Normal S1, S2. ABDOMEN: Soft, nontender, obese. Positive bowel sounds. EXTREMITIES: No edema bilateral lower extremities. Able to move bilateral upper and lower extremities. NEUROLOGIC: No focal deficit. ASSESSMENT AND PLAN: This is a 71-year-old female patient with underlying medical history of hypertension, coronary arterial disease, pulmonary fibrosis, chronic hypoxic respiratory failure on oxygen at home during the day and continuous positive airway pressure (CPAP) at night, obstructive sleep apnea, hypothyroidism, gastroesophageal reflux disease (GERD), dyslipidemia, admitted for syncope, found to be down on the floor with loss of consciousness, with recent nausea, vomiting, diarrhea that started the Monday before the day of admission. 1. Syncope with metabolic encephalopathy, likely secondary to underlying infection. Patient was febrile. Currently back to baseline. Physical therapy (PT) appreciated. Orthostatic was initially positive, currently negative. Intravenous (IV) fluid hydration initially provided. Treatment for underlying infection as mentioned below. 2. Sepsis likely secondary to gastroenteritis. CT scan of the abdomen appreciated. The patient's nausea, vomiting and diarrhea has resolved already. Gastrointestinal (GI) panel unable to obtain given the patient has no more diarrhea. Cipro and Flagyl, IV hydration initially provided. Tolerating diet. Likely hypovolemic due to nausea and vomiting and diarrhea. Currently euvolemic. 3. Fall. Radiological imaging appreciated. Likely secondary to hypovolemia. PT, IV hydration initially provided. Orthostatic initially positive, currently negative. No fracture. Continue physical therapy. 4. Elevated cardiac enzymes, likely demand ischemia. Dr. Benjamin, cardiology, has been consulted. Cardiac enzymes trending down. Telemetry, echocardiograms appreciated. IV fluids initially given. Continue aspirin, statin, beta mark, Imdur, and Lasix has been restarted given the patient is currently euvolemic. Followup cardiology recommendation. 5. Acute kidney injury. Baseline creatinine 0.6 to 0.9. Currently returning to baseline. IV fluids initially given. Angiotensin II receptor blockers (ARB) have been on hold. Lasix is restarted. 6. History of congestive heart failure. Patient currently euvolemic. Lasix restarted. Given additional dose of Lasix yesterday, given patient mildly fluid overloaded. Continue to monitor. Strict intake and output, daily weight. 7. Hypertension. Withholding ARB. Continue Coreg, Lasix, Imdur. Will restart ARB. 8. Hypothyroidism. Continue current medication. 9. Pulmonary fibrosis. Prednisone, oxygen supplementation four liters via nasal cannula. 10. Obstructive sleep apnea. Continue bilevel positive airway pressure (BiPAP) at night. Continue to monitor. 11. Dyslipidemia. Continue statin. 12. Gastrointestinal (GI) prophylaxis. Proton pump inhibitor (PPI) given patient on chronic steroids. 13. Deep venous thrombosis (DVT) prophylaxis. Heparin subcutaneous. DISPOSITION PLANNING: Pending physical therapy, clinical improvement, likely discharge within the next 24 hours.
--- NOTE | 2016-10-11 14:51 | DSES ---
DATE OF ADMISSION: 10/05/2016 DATE OF DISCHARGE: 10/10/2016 CARDIOLOGY: Dr. Benjamin PRIMARY CARE PROVIDER: Dr. Posada FINAL DIAGNOSES: 1. Syncope with metabolic encephalopathy, orthostatic positive. 2. Sepsis secondary to gastroenteritis. 3. Elevated cardiac enzymes due to demand ischemia. 4. Acute kidney injury (ASHWIN). 5. History of congestive heart failure. 6. Hypertension. 7. Hypothyroidism. 8. Pulmonary fibrosis. 9. Obstructive sleep apnea. 10. Dyslipidemia. HISTORY OF PRESENT ILLNESS: This is a 71-year-old female patient with underlying medical history of hypertension, coronary artery disease, pulmonary fibrosis, obstructive sleep apnea, was last known to have spoke to family at around 5:00 p.m. the day prior to admission. Today, the patient was found at the bedside of her bed by the commercial green building architect and she was confused, lethargic, and incoherent as per family. Per patient, she was having nausea, vomiting, and diarrhea on-and-off since Monday on the week of admission and was taking her medications up until yesterday. The patient felt weak, dizzy, feverish and chilled, not eating or drinking much. Patient stated that she fell getting out of bed in the morning of admission. She did report right hip and ankle pain. Denies any headache, coughing, palpitations, change in bowel habits. Patient was subsequently admitted for further workup which included syncope workup. Patient was admitted to the hospital. CT scan of the head, abdomen, cervical spine, x-ray of the hip and ankles were done as well as the chest. Cultures were sent. Respiratory panel was sent. Influenza was sent. Sputum culture was sent. The patient was started on Cipro an Flagyl for possible gastroenteritis. Cardiac enzymes were done. Telemetry monitoring was done. Orthostatic initially was mildly positive. Cardiac enzymes and troponin mildly elevated with mild lactic acidosis. Patient was given IV hydration. Cardiology, Dr. Benjamin, has been consulted. Echocardiogram was done. As per Dr. Benjamin, likely elevated troponin secondary to demand ischemia and hypotension. Patient does not have any chest pain. Kidney function progressively improved with IV hydration. IV hydration was initially stopped. The patient's diet was advanced. The patient's home blood pressure medication was restarted. Additional Lasix was given for positive fluid overload. Physical therapy was done. Patient's home oxygen and bilevel positive airway pressure (BiPAP) was continued. The patient's condition progressively improved, currently feels comfortable, tolerating oral, almost back to baseline, ready for discharge for further care as outpatient. VITAL SIGNS: Temperature 96.8, pulse 60, respiratory rate 20, blood pressure 104/86, pulse oximetry 96% on three liters nasal cannula. LABORATORY DATA: WBC 6.8, hemoglobin and hematocrit 13.2/39.8, platelets 196. Chemistry: Sodium 144, potassium 3.8, chloride 99, bicarbonate 36, BUN 18, creatinine 0.95. DISCHARGE MEDICATIONS: - Cipro 500 mg by mouth twice a day for two more days - Mucinex 600 mg by mouth twice a day, #30 tablets were prescribed - Flagyl 500 mg by mouth every eight hours, #6 tablets prescribed - Senna 8.6/50 mg one tablet by mouth daily The patient's home medication that were continued: - acetaminophen butalbital and caffeine as needed - acetaminophen 650 mg by mouth every four hours as needed - vitamin C 1000 mg by mouth daily - aspirin 81 mg by mouth daily - Lipitor 10 mg by mouth daily - Coreg 6.25 mg by mouth twice a day - Depakote 1000 mg by mouth at bedtime - Lasix 40 mg by mouth daily - irbesartan 75 mg by mouth daily - isosorbide mononitrate 120 mg by mouth daily - Synthroid 137 mcg by mouth daily - multivitamin one tablet by mouth daily - Nasacort 55 mcg intranasal daily - omega-3 fatty acid one tablet by mouth daily - Protonix 40 mg by mouth twice a day - potassium chloride 10 mEq by mouth daily - prednisone 50 mg by mouth daily - Ranexa 500 mg by mouth every evening and 1000 mg by mouth every morning - tramadol 50 mg by mouth every eight hours as needed - vitamin D 50,000 units by mouth every two weeks DISCHARGE INSTRUCTIONS: The patient is instructed to followup with primary care provider in seven days and launch engineer in 1-2 weeks. Return to the hospital if symptoms return. Home healthcare referral offered but patient refused.
== END 2016-10-10 12:59 | disposition home or self-care (01) | DRG 871 ==
LOC: M ED 10:35 → M ED INP 14:31 → M PCU 10-07 12:07
PROVIDERS: ADMIT Internal Medicine; ATTEND Hospitalist
DX: A41.9 Sepsis, unspecified organism (principal); G93.41 Metabolic encephalopathy; N17.9 Acute kidney failure, unspecified; J96.11 Chronic respiratory failure with hypoxia; I24.8 Other forms of acute ischemic heart disease; R11.10 Vomiting, unspecified; R07.9 Chest pain, unspecified; I25.10 Atherosclerotic heart disease of native coronary artery without angina pectoris; K52.9 Noninfective gastroenteritis and colitis, unspecified; E66.9 Obesity, unspecified; Z90.710 Acquired absence of both cervix and uterus; I10 Essential (primary) hypertension; K21.9 Gastro-esophageal reflux disease without esophagitis; G47.33 Obstructive sleep apnea (adult) (pediatric); E78.5 Hyperlipidemia, unspecified; E03.9 Hypothyroidism, unspecified; J84.10 Pulmonary fibrosis, unspecified; Z79.899 Other long term (current) drug therapy; Z79.82 Long term (current) use of aspirin; Z79.52 Long term (current) use of systemic steroids; Z99.89 Dependence on other enabling machines and devices; Z81.8 Family history of other mental and behavioral disorders; Z82.49 Family history of ischemic heart disease and other diseases of the circulatory system; Z99.81 Dependence on supplemental oxygen; Z88.2 Allergy status to sulfonamides; Z91.013 Allergy to seafood; Z88.8 Allergy status to other drugs, medicaments and biological substances

== ENCOUNTER → 2016-10-26 | Outpatient (REF) | payer MEDICARE ==
[~2016-10-26] MED LIST changes: +ACET-654 PO; +ASPI1TAB PO; +BUTATAB6 PO; +CARV6.25 PO; +CIPR500T89 PO; +DIVA500T9 PO; +DRIS50002 PO; +FLAG500T PO; +FURO40TA2 PO; +IRBE75TA5 PO; +ISOS120T4 PO; +LEVO137T2 PO; +LIPI10TA PO; +MUCI600T34 PO; +NASA1SPR; +OMEG100011 PO; +PANT40TA2 PO; +POTA10CA PO; +PRED5TA PO; +RANE1000 PO; +RANO5TAB PO; +SENN1TAB2 PO; +TRAM50TA2 PO; +VITA10006 PO; +VITMTA PO
[2016-10-26 13:27] LABS: MEAN CORPUSCULAR HEMOGLOBIN 31.4 pg (27.0-33.0); MEAN CORPUSCULAR HGB CONC 31.5 g/dl (32.0-36.5); MEAN CORPUSCULAR VOLUME 99.4 fl (80.0-96.0); RED CELL DISTRIBUTION WIDTH 14.1 % (11.5-14.5); WHITE BLOOD COUNT 10.3 K/mm3 (4.0-10.0)
[2016-10-26 13:39] LABS: ALBUMIN 3.6 GM/DL (3.2-5.2); ALBUMIN/GLOBULIN RATIO 1.57 (1.00-1.93); BILIRUBIN,TOTAL 0.6 MG/DL (0.2-1.0); CALCIUM LEVEL 8.4 MG/DL (8.8-10.2); CREATININE FOR GFR 1.02 MG/DL (0.55-1.02); GLOMERULAR FILTRATION RATE 56.7 (>39); POTASSIUM SERUM 4.8 MEQ/L (3.5-5.1); TOTAL PROTEIN 5.9 GM/DL (6.4-8.2)
== END ==
LOC: M LABDRWAD 12:23
PROVIDERS: ATTEND Internal Medicine
DX: J84.10 Pulmonary fibrosis, unspecified (principal); A09 Infectious gastroenteritis and colitis, unspecified; E03.9 Hypothyroidism, unspecified

== ENCOUNTER → 2016-11-16 | Outpatient (REF) | payer MEDICARE ==
[2016-11-16 19:12] LABS: CREATININE FOR GFR 1.06 MG/DL (0.55-1.02); GLOMERULAR FILTRATION RATE 54.2 (>39)
== END ==
LOC: M LAB REF 16:56
PROVIDERS: ATTEND Internal Medicine Pulmonary Disease
DX: J84.112 Idiopathic pulmonary fibrosis (principal)

== ENCOUNTER 2016-12-15 13:37 | Inpatient (IN) | payer MEDICARE ==
[~2016-12-15] VITALS: Ht 157.5 cm; Wt 125.0 kg
[2016-12-15] MEDS ORDERED: HYDR-3713 PO ×2 (13:55→19:11)
[2016-12-15] MEDS ORDERED: MORPHINE 4 MG/ML 1ML SYRINGE IV ONE (14:45)
[2016-12-15 15:31] LABS: BASO % 0.2 % (0.0-1.0); EOS % 0.3 % (0.0-3.0); LARGE UNSTAINED CELL # 0.2 K/mm3 (0.0-0.4); LARGE UNSTAINED CELL % 1.8 % (0.0-4.0); LYMPH # 1.3 K/mm3 (1.5-4.5); LYMPH % 14.1 % (24.0-44.0); MEAN CORPUSCULAR HEMOGLOBIN 31.6 pg (27.0-33.0); MEAN CORPUSCULAR HGB CONC 32.1 g/dl (32.0-36.5); MEAN CORPUSCULAR VOLUME 98.3 fl (80.0-96.0); MONO # 0.6 K/mm3 (0.0-0.8); MONO % 6.5 % (0.0-5.0); NEUTROPHILS % 77.2 % (36.0-66.0); PLATELET COUNT, AUTOMATED 247 k/mm3 (150-450); RED CELL DISTRIBUTION WIDTH 14.9 % (11.5-14.5)
[2016-12-15 15:56] LABS: ANION GAP 9 MEQ/L (8-16); BLOOD UREA NITROGEN 19 MG/DL (7-18); CALCIUM LEVEL 8.4 MG/DL (8.8-10.2); CARBON DIOXIDE LEVEL 32 MEQ/L (21-32); CHLORIDE LEVEL 99 MEQ/L (98-107); CREATININE FOR GFR 0.99 MG/DL (0.55-1.02); GLOMERULAR FILTRATION RATE 58.7 (>39); GLUCOSE, FASTING 118 MG/DL (83-110); POTASSIUM SERUM 4.9 MEQ/L (3.5-5.1); SODIUM LEVEL 140 MEQ/L (136-145)
[2016-12-15] MEDS ORDERED: fentaNYL 100 MCG/2 ML INJECTION (J3010) IV ONE (16:45)
[2016-12-15] MEDS ORDERED: KETOROLAC 30 MG/ML VIAL (J1885) IV ONE (16:45)
[2016-12-15] MEDS ORDERED: TYLE500T78 PO (19:11)
[2016-12-15] MEDS ORDERED: LEVO150T42 PO (19:11)
[2016-12-15] MEDS ORDERED: TRAM50TA2 PO (19:11)
[2016-12-15] MEDS ORDERED: PRED10TA PO (19:11)
[2016-12-15] MEDS ORDERED: RANO5TAB PO ×2 (19:11)
[2016-12-15] MEDS ORDERED: BENZ200C44 PO (19:11)
[2016-12-15] MEDS ORDERED: ALBU17IN INH (19:11)
[2016-12-15] MEDS ORDERED: METO25TA PO (19:11)
[2016-12-15] MEDS ORDERED: FIORICET TAB PO PRN (19:15)
[2016-12-15] MEDS ORDERED: ACETAMINOPHEN TAB 650MG DOSE (2X325MG) PO PRN (19:15)
[2016-12-15] MEDS ORDERED: ALBUTEROL 90 MCG/ACT 8GM HFA INHALER INH PRN (19:15)
[2016-12-15] MEDS ORDERED: BENZONATATE 100 MG CAP PO PRN (19:15)
[2016-12-15] MEDS ORDERED: FUROSEMIDE 40 MG/4 ML VIAL (J1940) IV ONE (20:00)
--- NOTE | 2016-12-15 20:40 | HPEPDOC ---
General Date of Admission Dec 15, 2016 at 19:12 Chief Complaint The patient is a 71-year-old female Presented to the ER with complaints of generalized weakness and fatigue after she had fallen 10 days ago. History of Present Illness Patient is a 71 year old female with a PMHx of Pulmonary fibrosis (on prednisone), CHF CAD, HTN, DLP, Hypothyroidism, SOFY on BIPAP, GERD, Chronic Headache, Allergic Rhinitis, Obesity and Osteoarthritis who presented to the ER after she had fallen 10 days ago. Patient came into the ER now because she had been feeling generalized weakness / fatigue and inability to ambulate. Patient noted that over the course of 3 months she has syncopized 3 times. She noted that this first time was on 09/2016 and she was found to be dehydrated. On 10/2016 she had lightheadedness and fell at home, but never sought medical attention. 10 days ago she was ambulating when she began to have lightheadedness / dizziness and had collapsed. She awoke on the ground and was not sure how long she was down for. There was no other witnesses to the event. She denies any loss of control of her bowel or bladder. Denied any tongue biting. She denied any chest pain, shortness of breath, cough, nausea / vomiting or pain. She did report having a head trauma, but no pain after that. Patient denies any fever / chills, dysuria or focal neurological deficits Home Medications Scheduled Ascorbic Acid (Vitamin C) 1,000 Mg Tab, 1,000 MG PO DAILY, (Reported) Aspirin (Aspirin 81) 81 Mg Tab, 81 MG PO QHS, (Reported) Atorvastatin Calcium (Lipitor) 10 Mg Tab, 10 MG PO DAILY, (Reported) Carvedilol (Carvedilol) 6.25 Mg Tab, 6.25 MG PO BID, (Reported) Divalproex Sodium (Divalproex Sodium ER) 500 Mg Tab, 1,000 MG PO QHS, (Reported) Irbesartan (Irbesartan) 75 Mg Tab, 75 MG PO DAILY, (Reported) Isosorbide Mononitrate (Isosorbide Mononitrate ER) 120 Mg Tab, 60 MG PO DAILY, ( Reported) PATIENT STATES HER MD TOLD HER SHE DOESN'T NEED TO TAKE ANYMORE BUT SHE IS TAPERING DOWN Levothyroxine Sodium (Levoxyl) 150 Mcg Tab, 150 MCG PO DAILY, (Reported) Multivitamins *[facility] STOCKED* (Thera M Plus *[facility] STOCKED*) 1 Tab Tab, 1 TAB PO DAILY, (Reported) [place] 3 Polyunsat Fatty Acids ([place] 3 1000 mg) 1 Cap Cap, 1 CAP PO DAILY, ( Reported) Pantoprazole Sodium (Pantoprazole Sodium) 40 Mg Tab, 40 MG PO BID, (Reported) Prednisone (Prednisone) 10 Mg Tab, 10 MG PO DAILY, (Reported) Ranolazine (Ranexa) 500 Mg Carol, 1,000 MG PO QAM, (Reported) Ranolazine (Ranexa) 500 Mg Carol, 500 MG PO QHS, (Reported) Vitamin D (Drisdol) 50,000 Unit Cap, 50,000 UNIT PO 2XW, (Reported) SUN & THURS Scheduled PRN (Nasacort Allergy 24Hr) 55 Mcg/Act Spr, 2 SPRAYS NA DAILY PRN for ALLERGIES, ( Reported) Acetamin/Butalbital/Caffeine (Butalbital/Acetaminophen/ 50-325-40 mg) 1 Ea Tab, 1 EA PO PRN PRN for MIGRAINE, (Reported) Acetaminophen (Tylenol Extra Strength) 500 Mg Tab, 1,000 MG PO Q6H PRN for PAIN, (Reported) Acetaminophen/Hydrocodone (Hydrocodone/Acetaminophen 5-325 mg) 1 Tab Tab, 1 TAB PO TID PRN for PAIN, (Reported) Albuterol Sulfate (Ventolin Hfa) 200 Puff/8 Gm Aers, 2 PUFF INH QID PRN for SHORTNESS OF BREATH, (Reported) Benzonatate (Benzonatate) 200 Mg Cap, 200 MG PO TID PRN for COUGH, (Reported) Furosemide (Furosemide) 40 Mg Tab, 40 MG PO DAILY PRN for SWELLING, (Reported) Metolazone (Metolazone) 2.5 Mg Tab, 2.5 MG PO DAILY PRN for WITH LASIX, ( Reported) Potassium Chloride (Klor-Con M10) 10 Meq Tabcr, 10 MEQ PO DAILY PRN for WITH LASIX, (Reported) Tramadol HCl (Tramadol HCl) 50 Mg Tab, 50 MG PO Q8H PRN for PAIN, (Reported) Allergies Coded Allergies: SEAFOOD (Verified Allergy, Severe, THROAT TINGLES, DYSPNEA, 11/30/11) Celecoxib (Verified Allergy, Intermediate, RASH, 11/26/12) Gabapentin (Verified Allergy, Intermediate, RASH, BLISTERS, 11/26/12) Sulfa Drugs (Verified Allergy, Intermediate, RASH, 11/26/12) Sulfa Drugs Cross Reactors (Verified Allergy, Intermediate, RASH, 11/26/12) Leflunomide (Verified Adverse Reaction, Mild, UPSET STOMACH, 11/26/12) Past Medical History Medical History Pulmonary fibrosis (on prednisone), CHF, CAD, HTN, DLP, Hypothyroidism, SOFY on BIPAP, GERD, Chronic Headache, Allergic Rhinitis, Obesity and Osteoarthritis Surgical History Right shoulder rotator cuff injury Bilateral knee replacement Family History - Non-contributory Social History - Denies the use of alcohol, tobacco or illicit drugs - Denies recent travel or sick contacts - 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; 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 Review of Symptoms Other systems Constitutional: Denies weight loss, change in appetite, or recent trauma Eyes: No visual changes or eye pain Ears, Nose, Throat: Denies nose bleeds, or difficulty swallowing Cardiovascular: Denies chest pain, sweating, or orthopnea Respiratory: Denies cough, wheezing, or shortness of breath GI: Ganesh nausea, vomiting, abdominal pain, diarrhea or constipation : Denies pain with urination or frequency Musculoskeletal: Denies joint pain or swelling Neuro / Psych: Generalized muscle weakness / inability to keep strength Skin: No skin rashes noted All other review of systems negative; otherwise stated in history of present illness Vital Signs - Vitals: BP 149/88, HR 66, RR 20, Sat 95%RA, Temp 97.6F - General: Lying in bed, No acute distress, Speaking in full sentences, AAOx3 - HEENT: NC, AT, PERRLA, EOMI - CVS: RRR, +S1S2, - Murmurs / rubs / gallops - Lungs: Fair air entry bilaterally, Positive crackles at bilateral lung harrington - Abdomen: Soft, Non-distended, Non-tender, + Bowel sounds x 4 - Extremities: + PPx4, No lower extremity edema, No calf tenderness - Neuro: No focal motor or sensory deficit - Skin: No visible rashes Laboratory Data Labs 24H Laboratory Tests 2 12/15/16 15:17: White Blood Count 9.0, Red Blood Count 4.02, Hemoglobin 12.7, Hematocrit 39.5, Mean Corpuscular Volume 98.3H, Mean Corpuscular Hemoglobin 31.6, Mean Corpuscular Hemoglobin Concent 32.1, Red Cell Distribution Width 14.9H, Platelet Count 247, Neutrophils (%) (Auto) 77.2H, Lymphocytes (%) (Auto) 14.1L, Monocytes (%) (Auto) 6.5H, Eosinophils (%) (Auto) 0.3, Basophils (%) (Auto) 0.2 , Neutrophils # (Auto) 7.0, Lymphocytes # (Auto) 1.3L, Monocytes # (Auto) 0.6, Eosinophils # (Auto) 0.0, Basophils # (Auto) 0.0, Large Unclassified Cells % 1.8 , Large Unclassified Cells # 0.2, Anion Gap 9, Glomerular Filtration Rate 58.7, Blood Urea Nitrogen 19H, Creatinine 0.99, Sodium Level 140, Potassium Level 4.9 , Chloride Level 99, Carbon Dioxide Level 32, Calcium Level 8.4L, Total Creatine Kinase 31, Creatine Kinase MB 1.0, Creatine Kinase MB Relative Index 3.22, Troponin I < 0.02 12/15/16 15:18: B-Type Natriuretic Peptide 678H CBC/BMP Laboratory Tests 12/15/16 15:17 Red Blood Count 4.02, Mean Corpuscular Volume 98.3 H, Mean Corpuscular Hemoglobin 31.6, Mean Corpuscular Hemoglobin Concent 32.1, Red Cell Distribution Width 14.9 H, Neutrophils (%) (Auto) 77.2 H, Lymphocytes (%) (Auto ) 14.1 L, Monocytes (%) (Auto) 6.5 H, Eosinophils (%) (Auto) 0.3, Basophils (%) (Auto) 0.2, Neutrophils # (Auto) 7.0, Lymphocytes # (Auto) 1.3 L, Monocytes # ( Auto) 0.6, Eosinophils # (Auto) 0.0, Basophils # (Auto) 0.0, Calcium Level 8.4 L , Total Creatine Kinase 31 Plan / VTE VTE Prophylaxis Ordered?: Yes Plan Plan Syncope possibly 2/2 vasovagal, possibly cardiogenic, possibly neurogenic - Presented to the ER with complaints of a fall 10 days ago; history of this happening multiple times - Reports that she is light headed with ambulation - Physical unrevealing - Labs unrevealing - Imaging without any evidence of fractures - Will check orthostatic, keep on telemetry, will trend cardiac enzymes - Will check CT head and ECHO - Was planned to have MRI / MRA head as an outpatient on Monday; will perform that imaging at this time - Will check urinalysis Crackles at bilateral lung harrington likely 2/2 acute decompensated diastolic CHF - ECHO 09/2016: Normal LV EF, Stage 1 DD, Severe TR and Severe Pulmonary HTN - Physical reveals bilateral crackles, no change in baseline LE edema - BNP elevated - Strict ins/outs, daily weights, head of bed elevation - Will continue with Home Lasix dose and Metolazone - Will give additional Lasix dose by IV today Pulmonary fibrosis - c/w inhaled therapy from home - c/w prednisone (home dose) CAD - c/w Aspirin HTN - c/w irbesartan and carvedilol DLP - c/w atorvastatin Hypothyroidism - c/w levothyroxine SOFY on BIPAP - allow home CPAP use Chronic Headache - c/w divalproex Allergic Rhinitis - c/w Osteoarthritis - c/w Tylenol Obesity GERD - c/w PPI DVT prophylaxis - Will start SCDs NADINE GUEVARA MD Dec 15, 2016 20:40
--- NOTE | 2016-12-15 21:14 | REP ---
Clinical: Trauma. Fall. Comparison: 10/05/2016. Findings: Age-related atrophy, periventricular leukomalacia and microvascular ischemic changes are appreciated. The ventricles and sulci are symmetric. Rowan-white differentiation is maintained. There is no evidence for acute intracranial hemorrhage, mass/mass effect, pathology or infarction. No extra-axial fluid collection. Calvarium is intact. Paranasal sinuses and mastoid air cells are clear. Impression: Age related atrophy and microvascular ischemic changes. No acute intracranial hemorrhage, infarction, or mass/mass effect. Signed by Kalyan Rodriges MD 12/15/2016 09:05 P
--- NOTE | 2016-12-15 21:45 | REP ---
CT CERVICAL SPINE WITHOUT CONTRAST: HISTORY: Neck pain. COMPARISON: 10/05/2016. There is no acute fracture or subluxation. Disc bulges are present at the C4-5 and C5-6 levels. A disc bulge with associated osteophyte formation is present at the C6-7 level. There is minimal narrowing of the spinal canal. Uncinate process and/or facet hypertrophy are present at the C5-6 and C6-7 levels. These findings produce minimal narrowing of the neural foramina. The C6-7 intervertebral disc is decreased in height consistent with disc degeneration. Osteophytes are present on C5 through C7. A 6 mm calcified density is present in the right lateral aspect of the spinal canal at the T2-3 level. This most likely represents calcification of the ligamenta flava. IMPRESSION: 1. There is no acute fracture or subluxation. 2. There is cervical spondylosis at the C4-5 through C6-7 levels. Signed by Javier Velasquez MD 12/16/2016 07:49 A
[2016-12-15 21:55] LABS: THYROXINE (T4) 9.6 UG/DL (4.5-12.0)
[2016-12-15 22:01] LABS: T UPTAKE 36 % (30-39)
[2016-12-15] MEDS: ASPIRIN 81 MG ENTERIC TAB PO SCH (22:10)
[2016-12-15] MEDS: PANTOPRAZOLE 40MG TAB (PROTONIX) PO SCH (22:10)
[2016-12-15] MEDS: CARVedilol 6.25 MG TAB PO SCH (22:11)
[2016-12-15] MEDS: DIVALPROEX 500MG *ER* TAB PO SCH (22:12)
[2016-12-15] MEDS: RANOLAZINE 500 MG ER TAB PO SCH (22:12)
[2016-12-15] MEDS: NORCO, ANEXSIA 5/325MG TABLET (HYDROcodone/ACETAMINOPHEN) PO PRN (22:17)
--- NOTE | 2016-12-15 23:10 | REP ---
PELVIS AND RIGHT HIP: AP view of the pelvis and two views of the right hip are performed and demonstrate no fracture, dislocation or intrinsic bone disease. There are mild degenerative changes at the hips. IMPRESSION: No acute fracture or dislocation. Signed by Riley Rowan MD 12/16/2016 04:33 P
--- NOTE | 2016-12-15 23:13 | REP ---
CHEST, TWO VIEWS: HISTORY: Dyspnea. COMPARISON: 10/08/2016 AP, supine and lateral views were obtained. There is global cardiomegaly accentuated by technique. There is diffuse interstitial fibrotic change accentuated by technique. There is a left basilar patchy opacity which appears unchanged. There is chronic CP angle blunting. The osseous structures are stable. IMPRESSION: Global cardiomegaly and chronic fibrotic changes as described above. Certainly, I cannot exclude the possibility of acute disease, superimposed upon chronic change. Clinical correlation is recommended. Signed by Joseph Wen DO 12/16/2016 11:20 A
[2016-12-15 23:22] VITALS: O2SAT 94
[2016-12-16] VITALS (8 sets, daily range): BP systolic 115–165; BP diastolic 55–80
[2016-12-16] MEDS ORDERED: ALBUTEROL SULFATE 2.5 MG/0.5 ML INH NEB SOLN INH PRN (02:15)
[2016-12-16] MEDS: traMADol 50 MG TAB PO PRN ×3 (04:13→21:02)
[2016-12-16] MEDS: LEVOTHYROXINE 0.15 MG TAB (150 MCG) PO SCH (06:15)
[2016-12-16 07:24] LABS: BASO % 0.3 % (0.0-1.0); EOS # 0.2 K/mm3 (0.0-0.50); EOS % 1.4 % (0.0-3.0); LARGE UNSTAINED CELL # 0.3 K/mm3 (0.0-0.4); LARGE UNSTAINED CELL % 2.7 % (0.0-4.0); LYMPH % 36.8 % (24.0-44.0); MEAN CORPUSCULAR HEMOGLOBIN 31.8 pg (27.0-33.0); MEAN CORPUSCULAR HGB CONC 32.1 g/dl (32.0-36.5); MEAN CORPUSCULAR VOLUME 98.9 fl (80.0-96.0); MONO # 0.8 K/mm3 (0.0-0.8); MONO % 7.4 % (0.0-5.0); NEUTROPHILS # 5.6 K/mm3 (1.8-7.7); NEUTROPHILS % 51.4 % (36.0-66.0); PLATELET COUNT, AUTOMATED 308 k/mm3 (150-450); RED CELL DISTRIBUTION WIDTH 15.1 % (11.5-14.5); WHITE BLOOD COUNT 10.9 K/mm3 (4.0-10.0)
[2016-12-16 07:50] LABS: ALBUMIN 3.3 GM/DL (3.2-5.2); ALBUMIN/GLOBULIN RATIO 1.03 (1.00-1.93); BILIRUBIN,TOTAL 0.4 MG/DL (0.2-1.0); CALCIUM LEVEL 8.3 MG/DL (8.8-10.2); CREATININE FOR GFR 1.41 MG/DL (0.55-1.02); MAGNESIUM LEVEL 2.2 MG/DL (1.8-2.4); POTASSIUM SERUM 4.6 MEQ/L (3.5-5.1); TOTAL PROTEIN 6.5 GM/DL (6.4-8.2)
[2016-12-16] MEDS: NORCO, ANEXSIA 5/325MG TABLET (HYDROcodone/ACETAMINOPHEN) PO PRN ×2 (08:56→19:13)
[2016-12-16] MEDS: ASCORBIC ACID 500 MG TAB PO SCH (11:05)
[2016-12-16] MEDS: RANOLAZINE 500 MG ER TAB PO SCH ×2 (11:05→21:01)
[2016-12-16] MEDS: FUROSEMIDE 40 MG TAB PO SCH (11:05)
[2016-12-16] MEDS: MULTIVITAMINS/MINERALS THERAP 1 TAB PO SCH (11:06)
[2016-12-16] MEDS: POTASSIUM CHLORIDE 10 MEQ SR TABLET PO PRN (11:06)
[2016-12-16] MEDS: OMEGA-3 1050MG CAPSULE PO SCH (11:06)
[2016-12-16] MEDS: IRBESARTAN 75MG TABLET PO SCH (11:06)
[2016-12-16] MEDS: ATORVASTATIN 10 MG TAB PO SCH (11:06)
[2016-12-16] MEDS: metOLazone 2.5 MG TAB PO SCH (11:07)
[2016-12-16] MEDS: predniSONE 10 MG TAB PO SCH (11:07)
[2016-12-16] MEDS: PANTOPRAZOLE 40MG TAB (PROTONIX) PO SCH ×2 (11:07→21:01)
[2016-12-16] MEDS: CARVedilol 6.25 MG TAB PO SCH ×2 (11:08→21:03)
--- NOTE | 2016-12-16 11:14 | REP ---
MRI BRAIN WITHOUT CONTRAST: HISTORY: Syncope. COMPARISON: 02/18/2013. Areas of increased signal intensity on T2-weighted images are present in the periventricular and subcortical white matter and nidia. This represents small vessel ischemic disease. There is no intraparenchymal hemorrhage, infarct, mass or midline shift. The ventricular system and cortical sulci are dilated consistent with minimal volume loss. There is no extracerebral collection. Mucosal thickening is present in the right maxillary and sphenoid sinuses. IMPRESSION: 1. Small vessel ischemic disease. 2. Minimal volume loss. Signed by Javier Velasquez MD 12/16/2016 11:17 A
--- NOTE | 2016-12-16 11:19 | REP ---
MRA BRAIN WITHOUT CONTRAST: HISTORY: Syncope. 3D [id number] MR angiography was performed at the level of the false pass of [place]. There is no aneurysm or arteriovenous malformation. Mild atherosclerotic disease involves the cavernous internal carotid arteries. The P1 segment of the right posterior cerebral artery is hypoplastic. Major intracranial vessels are patent. The vertebral arteries are equal in size. IMPRESSION: 1. There is no aneurysm or arteriovenous malformation. 2. Atherosclerotic disease as described above. Signed by Javier Velasquez MD 12/16/2016 11:20 A
[2016-12-16] MEDS: ASPIRIN 81 MG ENTERIC TAB PO SCH (21:01)
[2016-12-16] MEDS: DIVALPROEX 500MG *ER* TAB PO SCH (21:01)
[2016-12-17] VITALS (12 sets, daily range): BP systolic 83–169; BP diastolic 50–84
[2016-12-17] MEDS: NORCO, ANEXSIA 5/325MG TABLET (HYDROcodone/ACETAMINOPHEN) PO PRN ×3 (03:36→21:25)
[2016-12-17] MEDS: LEVOTHYROXINE 0.15 MG TAB (150 MCG) PO SCH (06:11)
[2016-12-17] MEDS: traMADol 50 MG TAB PO PRN ×2 (06:12→17:25)
[2016-12-17 07:38] LABS: BASO % 0.4 % (0.0-1.0); EOS # 0.1 K/mm3 (0.0-0.50); EOS % 1.5 % (0.0-3.0); LARGE UNSTAINED CELL # 0.2 K/mm3 (0.0-0.4); LARGE UNSTAINED CELL % 2.4 % (0.0-4.0); LYMPH # 3.3 K/mm3 (1.5-4.5); LYMPH % 35.2 % (24.0-44.0); MEAN CORPUSCULAR HEMOGLOBIN 30.5 pg (27.0-33.0); MEAN CORPUSCULAR HGB CONC 31.3 g/dl (32.0-36.5); MEAN CORPUSCULAR VOLUME 97.3 fl (80.0-96.0); MONO # 0.7 K/mm3 (0.0-0.8); MONO % 8.4 % (0.0-5.0); NEUTROPHILS # 4.6 K/mm3 (1.8-7.7); NEUTROPHILS % 52.1 % (36.0-66.0); PLATELET COUNT, AUTOMATED 260 k/mm3 (150-450); RED CELL DISTRIBUTION WIDTH 15.3 % (11.5-14.5); WHITE BLOOD COUNT 8.9 K/mm3 (4.0-10.0)
[2016-12-17 08:00] LABS: ALBUMIN/GLOBULIN RATIO 1.2 (1.00-1.93); BILIRUBIN,TOTAL 0.4 MG/DL (0.2-1.0); CREATININE FOR GFR 1.19 MG/DL (0.55-1.02); GLOMERULAR FILTRATION RATE 47.5 (>39); MAGNESIUM LEVEL 1.9 MG/DL (1.8-2.4); POTASSIUM SERUM 3.8 MEQ/L (3.5-5.1); TOTAL PROTEIN 5.5 GM/DL (6.4-8.2)
[2016-12-17] MEDS: CARVedilol 6.25 MG TAB PO SCH (08:56)
[2016-12-17] MEDS: POTASSIUM CHLORIDE 10 MEQ SR TABLET PO PRN (08:57)
[2016-12-17] MEDS: PANTOPRAZOLE 40MG TAB (PROTONIX) PO SCH ×2 (08:58→20:34)
[2016-12-17] MEDS: FUROSEMIDE 40 MG TAB PO SCH (08:58)
[2016-12-17] MEDS: predniSONE 10 MG TAB PO SCH (08:58)
[2016-12-17] MEDS: OMEGA-3 1050MG CAPSULE PO SCH (08:58)
[2016-12-17] MEDS: MULTIVITAMINS/MINERALS THERAP 1 TAB PO SCH (08:58)
[2016-12-17] MEDS: ATORVASTATIN 10 MG TAB PO SCH (08:59)
[2016-12-17] MEDS: IRBESARTAN 75MG TABLET PO SCH (08:59)
[2016-12-17] MEDS: ASCORBIC ACID 500 MG TAB PO SCH (09:00)
[2016-12-17] MEDS: RANOLAZINE 500 MG ER TAB PO SCH ×2 (09:00→20:34)
[2016-12-17] MEDS: metOLazone 2.5 MG TAB PO SCH (09:00)
--- NOTE | 2016-12-17 13:57 | IPNPDOC ---
Subjective Date Seen The patient was seen on 12/17/16. Subjective Chief Complaint/HPI The patient is a 71-year-old female admitted with a reason for visit of Syncope. Events since last encounter pt seen and examined, states she had a difficult night last night stating that she felt short of breath even though she was using her cpap machine with 4L of oxygen, there were no documentation of desaturation no events on tele Objective Physical Examination General Exam: Positive: No Acute Distress Eye Exam: Positive: PERRLA, Conjunctiva & lids normal, EOMI, Negative: Sclera icteric Chest Exam: Positive: Clear to auscultation, Normal air movement Heart Exam: Positive: Rate Normal, Regular Rhythm, Normal S1, Normal S2, Negative: Murmurs, Rubs Abdomen Exam: Positive: Normal bowel sounds, Soft, Negative: Tenderness, Hepatospenomegaly Assessment /Plan Problems (1) Syncope Status: Acute Problem Text: * no events on tele * pt had multiple episodes of syncope resulting in falls * will recommend pt follows up with cardiology for possible loop recorder * will order Pt/OT and continue orthostatic vitals (2) Shortness of breath Status: Acute Problem Text: * continue oxygen * continuous pulse ox * nocturnal oxygen (3) Sleep apnea Status: Chronic Response to Treatment: Stable (4) Acute exacerbation of chronic low back pain Status: Chronic Response to Treatment: Stable Plan/VTE VTE Prophylaxis Ordered?: Yes VS, I&O, 24H, [facility] Vital Signs/I&O Vital Signs Date Time Temp Pulse Resp B/P (MAP) Pulse Ox O2 Delivery O2 Flow Rate FiO2 12/17/16 13:27 96.4 74 20 113/54 (73) 94 Nasal Cannula 4.0 I&O- Last 24 Hours up to 6 AM 12/17/16 05:59 Intake Total 720 ml Output Total 0 ml Balance 720 ml Laboratory Data 24H LABS Laboratory Tests 2 12/17/16 07:15: White Blood Count 8.9, Red Blood Count 4.01, Hemoglobin 12.2, Hematocrit 39.0, Mean Corpuscular Volume 97.3H, Mean Corpuscular Hemoglobin 30.5, Mean Corpuscular Hemoglobin Concent 31.3L, Red Cell Distribution Width 15.3H, Platelet Count 260, Neutrophils (%) (Auto) 52.1, Lymphocytes (%) (Auto) 35.2, Monocytes (%) (Auto) 8.4H, Eosinophils (%) (Auto) 1.5, Basophils (%) (Auto) 0.4 , Neutrophils # (Auto) 4.6, Lymphocytes # (Auto) 3.3, Monocytes # (Auto) 0.7, Eosinophils # (Auto) 0.1, Basophils # (Auto) 0.0, Large Unclassified Cells % 2.4 , Large Unclassified Cells # 0.2, Anion Gap 9, Glomerular Filtration Rate 47.5, Blood Urea Nitrogen 29H, Creatinine 1.19H, Sodium Level 140, Potassium Level 3.8 , Chloride Level 99, Carbon Dioxide Level 32, Calcium Level 8.0L, Aspartate Amino Transf (AST/SGOT) 6L, Alanine Aminotransferase (ALT/SGPT) 12, Alkaline Phosphatase 52, Total Bilirubin 0.4, Total Protein 5.5L, Albumin 3.0L, Magnesium Level 1.9, Albumin/Globulin Ratio 1.20 CBC/BMP Laboratory Tests 12/17/16 07:15 Red Blood Count 4.01, Mean Corpuscular Volume 97.3 H, Mean Corpuscular Hemoglobin 30.5, Mean Corpuscular Hemoglobin Concent 31.3 L, Red Cell Distribution Width 15.3 H, Neutrophils (%) (Auto) 52.1, Lymphocytes (%) (Auto) 35.2, Monocytes (%) (Auto) 8.4 H, Eosinophils (%) (Auto) 1.5, Basophils (%) ( Auto) 0.4, Neutrophils # (Auto) 4.6, Lymphocytes # (Auto) 3.3, Monocytes # (Auto ) 0.7, Eosinophils # (Auto) 0.1, Basophils # (Auto) 0.0, Calcium Level 8.0 L, Aspartate Amino Transf (AST/SGOT) 6 L, Alanine Aminotransferase (ALT/SGPT) 12, Alkaline Phosphatase 52, Total Bilirubin 0.4, Total Protein 5.5 L, Albumin 3.0 L Microbiology Microbiology 12/17/16 Urine Culture, Received Pending PRISCILA HERMAN DO Dec 17, 2016 13:57
--- NOTE | 2016-12-17 15:09 | ECHO ---
DATE OF SERVICE: 12/16/2016 REFERRING PROVIDER: Dr. Regina Morris PATIENT LOCATION: Room 13 in the emergency room. REASON FOR THE ECHOCARDIOGRAM: Syncope. 2D MEASUREMENTS: IVS: 1.4 cm LV: 3.8 cm LVPW: 1.2 cm LA: 3.6 cm Aorta: 2.8 cm IVC: 2.2 cm DOPPLER MEASUREMENTS: Peak velocity across the aortic valve: 1.2 m/s Peak velocity across the LVOT: 0.76 m/s Mitral E: 0.6 Mitral A: 0.71 with a ratio of 0.9 Maximum tricuspid valve velocity: 4.5 m/s 2D COMMENTS: 1. Technically limited study due to poor acoustic window. 2. The left ventricular size is normal with mildly increased left ventricular wall thickness and a normal global left ventricular systolic function. The estimated left ventricular systolic ejection fraction is 60-65%. 3. Normal left atrium. Dilated right atrium and right ventricle. The right ventricular free boo appear to be hypokinetic, right ventricular systolic function is probably depressed. 4. The atrial septum appeared to be normal without evidence of defect or shunt. 5. Normal aortic root. 6. Small pericardial effusion noted, no evidence of cardiac tamponade. 7. Minimally calcified aortic valve with normal leaflet excursion. Mildly calcified mitral annulus with normal anterior mitral valve leaflet motion. Normal tricuspid valve and pulmonic valve. The proximal pulmonary artery branches were not well visualized. 8. The inferior vena cava was mildly enlarged, central venous pressure is most likely elevated. DOPPLER: It detects severe tricuspid regurgitation and mild to moderate pulmonic regurgitation. The calculated pulmonary artery systolic pressure is over 80 mmHg. IMPRESSION: 1. Normal global left ventricular systolic function. There are features of left ventricular diastolic dysfunction, grade 1. 2. Aortic valve sclerosis without stenosis or aortic regurgitation. 3. Mitral annulus calcification, no significant mitral regurgitation. 4. Severe tricuspid regurgitation with severe pulmonary hypertension and dilated right heart chambers. 5. Small pericardial effusion noted, no evidence of cardiac tamponade. 6. This was compared with last echocardiogram on 10/07/2016, no remarkable changes. MTDD
[2016-12-17] MEDS: NS 1,000 ML IV SCH (16:41)
[2016-12-17] MEDS: DIVALPROEX 500MG *ER* TAB PO SCH (20:33)
[2016-12-17] MEDS: ASPIRIN 81 MG ENTERIC TAB PO SCH (20:34)
[2016-12-18 06:00] VITALS: BP 139/71
[2016-12-18] MEDS: LEVOTHYROXINE 0.15 MG TAB (150 MCG) PO SCH (06:06)
[2016-12-18] MEDS: NORCO, ANEXSIA 5/325MG TABLET (HYDROcodone/ACETAMINOPHEN) PO PRN ×2 (06:07→15:27)
[2016-12-18] MEDS: NS 1,000 ML IV SCH (06:07)
[2016-12-18 07:02] LABS: BASO % 0.2 % (0.0-1.0); EOS # 0.1 K/mm3 (0.0-0.50); EOS % 1.3 % (0.0-3.0); LARGE UNSTAINED CELL # 0.3 K/mm3 (0.0-0.4); LYMPH # 3.6 K/mm3 (1.5-4.5); LYMPH % 36.6 % (24.0-44.0); MEAN CORPUSCULAR HEMOGLOBIN 31.8 pg (27.0-33.0); MEAN CORPUSCULAR HGB CONC 32.2 g/dl (32.0-36.5); MEAN CORPUSCULAR VOLUME 98.9 fl (80.0-96.0); MONO # 0.7 K/mm3 (0.0-0.8); NEUTROPHILS # 4.7 K/mm3 (1.8-7.7); NEUTROPHILS % 50.9 % (36.0-66.0); PLATELET COUNT, AUTOMATED 235 k/mm3 (150-450); RED CELL DISTRIBUTION WIDTH 15.4 % (11.5-14.5); WHITE BLOOD COUNT 9.2 K/mm3 (4.0-10.0)
[2016-12-18 07:16] LABS: ALBUMIN/GLOBULIN RATIO 0.97 (1.00-1.93); BILIRUBIN,TOTAL 0.4 MG/DL (0.2-1.0); CALCIUM LEVEL 7.9 MG/DL (8.8-10.2); CREATININE FOR GFR 1.19 MG/DL (0.55-1.02); GLOMERULAR FILTRATION RATE 47.5 (>39); POTASSIUM SERUM 3.8 MEQ/L (3.5-5.1); TOTAL PROTEIN 6.1 GM/DL (6.4-8.2)
--- NOTE | 2016-12-18 07:46 | IPNPDOC ---
Subjective Date Seen The patient was seen on 12/18/16. Subjective Chief Complaint/HPI The patient is a 71-year-old female admitted with a reason for visit of Syncope. Events since last encounter pt seen and examined, was just waking up, per nursing staff she underwent the nocturnal pulse ox but for the first part of the study she didn't have her 4 L of oxygen that she normally uses at night so she desaturated. other johansen no other events overnight, no shortness of breath no chest pain Constitutional: Denies: Chills, Fever, Night Sweats Objective Physical Examination General Exam: Positive: No Acute Distress Eye Exam: Positive: PERRLA, Conjunctiva & lids normal, EOMI, Negative: Sclera icteric ENT Exam: Positive: Atraumatic Chest Exam: Positive: Clear to auscultation, Normal air movement Heart Exam: Positive: Rate Normal, Regular Rhythm, Normal S1, Normal S2, Murmurs, Negative: Rubs Abdomen Exam: Positive: Normal bowel sounds, Soft, Negative: Tenderness, Hepatospenomegaly Extremity Exam: Positive: Edema, Swelling, Negative: Clubbing, Cyanosis, Normal pulses, Tenderness, Other Assessment /Plan Problems (1) Syncope Status: Acute Problem Text: * no events on tele * pt had multiple episodes of syncope resulting in falls * will recommend pt follows up with cardiology for possible loop recorder * will order Pt/OT and continue orthostatic vitals * no syncopal episodes during the hospitalization (2) Shortness of breath Status: Acute Response to Treatment: Improving Problem Text: * continue oxygen pt normally uses 4L of oxygen continuously * continuous pulse ox * nocturnal oxygen, during the first part of the test she didn't have the oxygen with the bipap so she had some desaturations (3) Sleep apnea Status: Chronic Response to Treatment: Stable Problem Text: * on bipap with 4L of oxygen (4) Acute exacerbation of chronic low back pain Status: Chronic Response to Treatment: Stable (5) CHF (congestive heart failure) Status: Chronic Response to Treatment: Stable Problem Text: * grade 1 diastolic dysfunction, unchanged from previous echo per Dr Benjamin report * sever tricuspid regur on echo * continue lasix * doesn't appear to be fluid overloaded at this time (6) Pulmonary fibrosis Status: Chronic Response to Treatment: Stable Problem Text: on home prednisone (7) Pulmonary hypertension Status: Chronic Response to Treatment: Stable (8) Tricuspid regurgitation Status: Chronic Response to Treatment: Stable (9) CAD (coronary artery disease) Status: Chronic Response to Treatment: Stable (10) HTN (hypertension) Status: Chronic Response to Treatment: Stable Problem Text: * pt was slightly hypotensive last night requiring fluids * will discontinue that this morning * bp this morning is 130's systolic (11) HLD (hyperlipidemia) Status: Chronic Response to Treatment: Stable (12) GERD (gastroesophageal reflux disease) Status: Chronic Response to Treatment: Stable (13) Hypothyroidism Status: Chronic Response to Treatment: Stable (14) Abdominal obesity Status: Chronic Response to Treatment: Stable Plan/VTE VTE Prophylaxis Ordered?: Yes VS, I&O, 24H, Fishbone Vital Signs/I&O Vital Signs Date Time Temp Pulse Resp B/P (MAP) Pulse Ox O2 Delivery O2 Flow Rate FiO2 12/18/16 06:53 98 Bi-pap 4.0 12/18/16 06:46 20 12/18/16 06:00 96.1 63 139/71 (93) 12/17/16 22:00 98 I&O- Last 24 Hours up to 6 AM 12/18/16 06:00 Intake Total 480 ml Output Total 750 ml Balance -270 ml Laboratory Data 24H LABS Laboratory Tests 2 12/18/16 06:45: White Blood Count 9.2, Red Blood Count 3.95L, Hemoglobin 12.6, Hematocrit 39.1, Mean Corpuscular Volume 98.9H, Mean Corpuscular Hemoglobin 31.8, Mean Corpuscular Hemoglobin Concent 32.2, Red Cell Distribution Width 15.4H, Platelet Count 235, Neutrophils (%) (Auto) 50.9, Lymphocytes (%) (Auto) 36.6, Monocytes (%) (Auto) 8.0H, Eosinophils (%) (Auto) 1.3, Basophils (%) (Auto) 0.2 , Neutrophils # (Auto) 4.7, Lymphocytes # (Auto) 3.6, Monocytes # (Auto) 0.7, Eosinophils # (Auto) 0.1, Basophils # (Auto) 0.0, Large Unclassified Cells % 3.0 , Large Unclassified Cells # 0.3, Anion Gap 9, Glomerular Filtration Rate 47.5, Blood Urea Nitrogen 31H, Creatinine 1.19H, Sodium Level 138, Potassium Level 3.8 , Chloride Level 98, Carbon Dioxide Level 31, Calcium Level 7.9L, Aspartate Amino Transf (AST/SGOT) 9L, Alanine Aminotransferase (ALT/SGPT) 12, Alkaline Phosphatase 53, Total Bilirubin 0.4, Total Protein 6.1L, Albumin 3.0L, Magnesium Level 2.0, Albumin/Globulin Ratio 0.97L CBC/BMP Laboratory Tests 12/18/16 06:45 Red Blood Count 3.95 L, Mean Corpuscular Volume 98.9 H, Mean Corpuscular Hemoglobin 31.8, Mean Corpuscular Hemoglobin Concent 32.2, Red Cell Distribution Width 15.4 H, Neutrophils (%) (Auto) 50.9, Lymphocytes (%) (Auto) 36.6, Monocytes (%) (Auto) 8.0 H, Eosinophils (%) (Auto) 1.3, Basophils (%) ( Auto) 0.2, Neutrophils # (Auto) 4.7, Lymphocytes # (Auto) 3.6, Monocytes # (Auto ) 0.7, Eosinophils # (Auto) 0.1, Basophils # (Auto) 0.0, Calcium Level 7.9 L, Aspartate Amino Transf (AST/SGOT) 9 L, Alanine Aminotransferase (ALT/SGPT) 12, Alkaline Phosphatase 53, Total Bilirubin 0.4, Total Protein 6.1 L, Albumin 3.0 L Microbiology Microbiology 12/17/16 Urine Culture, Received Pending PRISCILA HERMAN DO Dec 18, 2016 07:45
[2016-12-18] MEDS: MULTIVITAMINS/MINERALS THERAP 1 TAB PO SCH (10:11)
[2016-12-18] MEDS: PANTOPRAZOLE 40MG TAB (PROTONIX) PO SCH ×2 (10:11→20:02)
[2016-12-18] MEDS: ASCORBIC ACID 500 MG TAB PO SCH (10:11)
[2016-12-18] MEDS: FUROSEMIDE 40 MG TAB PO SCH (10:11)
[2016-12-18] MEDS: POTASSIUM CHLORIDE 10 MEQ SR TABLET PO SCH (10:12)
[2016-12-18] MEDS: OMEGA-3 1050MG CAPSULE PO SCH (10:13)
[2016-12-18] MEDS: ATORVASTATIN 10 MG TAB PO SCH (10:14)
[2016-12-18] MEDS: RANOLAZINE 500 MG ER TAB PO SCH ×2 (10:14→20:01)
[2016-12-18] MEDS: predniSONE 10 MG TAB PO SCH (10:14)
[2016-12-18] MEDS: traMADol 50 MG TAB PO PRN ×2 (10:25→20:02)
[2016-12-18 13:58] VITALS: BP 124/67
[2016-12-18] MEDS: ASPIRIN 81 MG ENTERIC TAB PO SCH (20:01)
[2016-12-18] MEDS: DIVALPROEX 500MG *ER* TAB PO SCH (20:02)
[2016-12-18 22:00] VITALS: BP 185/72
--- NOTE | 2016-12-19 05:43 | ECGEPIP ---
Stationary ECG Study [facility] - ED Test Date: 2016-12-15 Pat Name: LORE VALERIO Department: Room: - Gender: F [employer]: joesph : [id number] Requested By: FAHEEM HAMPTON Order Number: [id number] Reading MD: Drew Moreno Measurements Intervals [place] Rate: 100 P: 103 NM: 255 QRS: 114 QRSD: 101 T: -6 QT: 393 QTc: 509 Interpretive Statements SINUS TACHYCARDIA WITH SINUS ARRHYTHMIA, FIRST DEGREE AV BLOCK AND OCCASIOPNAL PAC POSSIBLE RIGHT ATRIAL ENLARGEMENT RAD RIGHT VENTRICULAR HYPERTROPHY AND ST-T CHANGE SIMILAR TO 10/05/16 Electronically Signed On 12-19-2016 5:42:36 EDT by Drew Moreno
[2016-12-19] MEDS: NORCO, ANEXSIA 5/325MG TABLET (HYDROcodone/ACETAMINOPHEN) PO PRN ×3 (05:59→20:21)
[2016-12-19] MEDS: LEVOTHYROXINE 0.15 MG TAB (150 MCG) PO SCH (05:59)
[2016-12-19 06:00] VITALS: BP 145/70
[2016-12-19 06:49] LABS: BASO % 0.3 % (0.0-1.0); EOS # 0.1 K/mm3 (0.0-0.50); EOS % 1.4 % (0.0-3.0); LARGE UNSTAINED CELL # 0.2 K/mm3 (0.0-0.4); LARGE UNSTAINED CELL % 2.3 % (0.0-4.0); LYMPH # 2.9 K/mm3 (1.5-4.5); LYMPH % 31.8 % (24.0-44.0); MEAN CORPUSCULAR HEMOGLOBIN 30.8 pg (27.0-33.0); MEAN CORPUSCULAR HGB CONC 31.7 g/dl (32.0-36.5); MEAN CORPUSCULAR VOLUME 97.3 fl (80.0-96.0); MONO # 0.7 K/mm3 (0.0-0.8); NEUTROPHILS # 4.8 K/mm3 (1.8-7.7); NEUTROPHILS % 56.3 % (36.0-66.0); PLATELET COUNT, AUTOMATED 276 k/mm3 (150-450); RED CELL DISTRIBUTION WIDTH 15.5 % (11.5-14.5); WHITE BLOOD COUNT 8.6 K/mm3 (4.0-10.0)
[2016-12-19 07:12] LABS: ALBUMIN 3.1 GM/DL (3.2-5.2); ALBUMIN/GLOBULIN RATIO 1.03 (1.00-1.93); BILIRUBIN,TOTAL 0.4 MG/DL (0.2-1.0); CALCIUM LEVEL 8.3 MG/DL (8.8-10.2); CREATININE FOR GFR 1.03 MG/DL (0.55-1.02); GLOMERULAR FILTRATION RATE 56.1 (>39); POTASSIUM SERUM 3.8 MEQ/L (3.5-5.1); TOTAL PROTEIN 6.1 GM/DL (6.4-8.2)
[2016-12-19] MEDS: ASCORBIC ACID 500 MG TAB PO SCH (07:52)
[2016-12-19] MEDS: RANOLAZINE 500 MG ER TAB PO SCH ×2 (07:52→20:20)
[2016-12-19] MEDS: ATORVASTATIN 10 MG TAB PO SCH (07:52)
[2016-12-19] MEDS: MULTIVITAMINS/MINERALS THERAP 1 TAB PO SCH (07:52)
[2016-12-19] MEDS: OMEGA-3 1050MG CAPSULE PO SCH (07:53)
[2016-12-19] MEDS: FUROSEMIDE 40 MG TAB PO SCH (07:53)
[2016-12-19] MEDS: PANTOPRAZOLE 40MG TAB (PROTONIX) PO SCH ×2 (07:53→20:20)
[2016-12-19] MEDS: predniSONE 10 MG TAB PO SCH (07:53)
[2016-12-19] MEDS: POTASSIUM CHLORIDE 10 MEQ SR TABLET PO SCH (07:53)
--- NOTE | 2016-12-19 08:04 | NOCOX ---
DATE OF PROCEDURE: 12/18/2016 INTERPRETATION: Nocturnal recording oximetry was performed on bilevel pressure therapy [id number] over expiratory 12 with 4 liters of oxygen bled through the system. The patient's baseline oxygen saturation was 98%. Lowest oxygen saturations was 84%. There was a pattern showing some artifact, but no variable desaturations were seen. IMPRESSION Abnormal nocturnal recording oximetry with hypoventilatory oxygen desaturations to 84%. RECOMMENDATIONS Consider increasing oxygen bleed through to 5 liters.
[2016-12-19] MEDS: traMADol 50 MG TAB PO PRN ×2 (10:15→18:42)
--- NOTE | 2016-12-19 10:23 | IPNPDOC ---
Subjective Date Seen The patient was seen on 12/19/16. Subjective Chief Complaint/HPI The patient is a 71-year-old female admitted with a reason for visit of Syncope. Events since last encounter Patient was seen this morning at bedside. No acute overnight issues. She does report some back pain since her fall, more on the right side. No neurological changes or bowel/bladder dysfunction. No other complaints. Denies any chest pain. Has chronic shortness of breath, not increased from baseline. No nausea, vomiting, diarrhea, abdominal pain, dysuria or hematuria. No fevers or chills. Objective Physical Examination General Exam: Positive: Alert, Cooperative, No Acute Distress Eye Exam: Positive: PERRLA, Conjunctiva & lids normal, EOMI, Negative: Sclera icteric ENT Exam: Positive: Atraumatic, Mucous membr. moist/pink, Pharynx Normal Neck Exam: Positive: Supple, Negative: thyromegaly Chest Exam: Positive: Clear to auscultation, Normal air movement Heart Exam: Positive: Rate Normal, Regular Rhythm, Normal S1, Normal S2 Abdomen Exam: Positive: Normal bowel sounds, Soft, Negative: Tenderness Extremity Exam: Positive: Edema, Normal pulses, Negative: Tenderness Skin Exam: Positive: Nl turgor and temperature, Negative: Rash, Breakdown Neuro Exam: Positive: Normal Speech, Cranial Nerves 3-12 NL Psych Exam: Positive: Mental status NL, Mood NL, Oriented x 3 Assessment /Plan Problems (1) Syncope Status: Acute Problem Text: * No events on tele * Patient had multiple episodes of syncope resulting in falls * Recommend that patient follows up with cardiology for possible loop recorder * Continue P/OT, not yet cleared with transfers * Continue orthostatic vitals * No syncopal episodes during hospitalization (2) Shortness of breath Status: Acute Response to Treatment: Stable Problem Text: * Continue oxygen pt normally uses 4L of oxygen continuously * Continuous pulse ox * Nocturnal oximetry - during the first part of the test she didn't have the oxygen with the bipap so she had some desaturations * Due to desaturations, pulmonary is recommending increasing oxygen to 5L * Has history of pulmonary hypertension, pulmonary fibrosis and obstructive sleep apnea (3) Sleep apnea Status: Chronic Response to Treatment: Stable Problem Text: * Currently on bipap with 4L of oxygen (4) Acute exacerbation of chronic low back pain Status: Acute Problem Text: * Will obtain CT of the lumbar spine, given history of fall * Pain medication as needed (5) Acute on chronic diastolic CHF (congestive heart failure) Status: Resolved Problem Text: * Grade 1 diastolic dysfunction, unchanged from previous echo per Dr Benjamin report * Severe tricuspid regurg on echo * On oral lasix, treated with IV lasix on admission * Doesn't appear to be fluid overloaded at this time (6) Pulmonary fibrosis Status: Chronic Response to Treatment: Stable Problem Text: * On home prednisone (7) Pulmonary hypertension Status: Chronic Response to Treatment: Stable (8) Tricuspid regurgitation Status: Chronic Response to Treatment: Stable (9) CAD (coronary artery disease) Status: Chronic Response to Treatment: Stable Problem Text: * Currently on Ranexa. She is asymptomatic (10) HTN (hypertension) Status: Chronic Response to Treatment: Stable Problem Text: * BP stable * Currently on Lasix (11) HLD (hyperlipidemia) Status: Chronic Response to Treatment: Stable Problem Text: * Continue Lipitor (12) GERD (gastroesophageal reflux disease) Status: Chronic Response to Treatment: Stable Problem Text: * On Protonix (13) Hypothyroidism Status: Chronic Response to Treatment: Stable Problem Text: * On Synthroid (14) Abdominal obesity Status: Chronic Response to Treatment: Stable Plan/VTE VTE Prophylaxis Ordered?: Yes (teds and sequentials) Plan Anticipated Discharge: Home (upon PT clearance) VS, I&O, 24H, Fishbone Vital Signs/I&O Vital Signs Date Time Temp Pulse Resp B/P (MAP) Pulse Ox O2 Delivery O2 Flow Rate FiO2 12/19/16 06:29 15 12/19/16 06:00 97.5 65 145/70 (95) 90 Room Air 12/18/16 21:00 4.0 12/17/16 22:00 98 I&O- Last 24 Hours up to 6 AM 12/19/16 05:59 Intake Total 2060 ml Output Total 650 ml Balance 1410 ml Laboratory Data CBC/BMP Laboratory Tests 12/19/16 06:23 Red Blood Count 3.98 L, Mean Corpuscular Volume 97.3 H, Mean Corpuscular Hemoglobin 30.8, Mean Corpuscular Hemoglobin Concent 31.7 L, Red Cell Distribution Width 15.5 H, Neutrophils (%) (Auto) 56.3, Lymphocytes (%) (Auto) 31.8, Monocytes (%) (Auto) 8.0 H, Eosinophils (%) (Auto) 1.4, Basophils (%) ( Auto) 0.3, Neutrophils # (Auto) 4.8, Lymphocytes # (Auto) 2.9, Monocytes # (Auto ) 0.7, Eosinophils # (Auto) 0.1, Basophils # (Auto) 0.0, Calcium Level 8.3 L, Aspartate Amino Transf (AST/SGOT) 10 L, Alanine Aminotransferase (ALT/SGPT) 14, Alkaline Phosphatase 56, Total Bilirubin 0.4, Total Protein 6.1 L, Albumin 3.1 L Microbiology Microbiology 12/17/16 Urine Culture - Final, Complete RIGOBERTO MOSES DO December 19, 2016 10:23
[2016-12-19 14:00] VITALS: BP_SYST 134; BP_SYST 150; BP_DIAS 66; BP_DIAS 71; BP_DIAS 74
--- NOTE | 2016-12-19 15:02 | REP ---
CT LUMBAR SPINE WITHOUT CONTRAST: HISTORY: Back pain. There is no disc bulge or herniation at the L1-2 level. The L1 nerves exit the neural foramina without compression. A diffuse disc bulge is present at the L2-3 level. There is minimal compression of the thecal sac. There is hypertrophy of the posterior articulating facets. The L2 nerves exit the neural foramina without compression. A diffuse disc bulge is present at the L3-4 level. There is hypertrophy of the ligamenta flava and posterior articulating facets. These findings produce mild central canal stenosis. The L3 nerves exit the neural foramina without compression. A diffuse disc bulge is present at the L4-5 level. There is hypertrophy of the ligamenta flava and posterior articulating facets. These findings produce minimal central canal stenosis. The L4 nerves exit the neural foramina without compression. A diffuse disc bulge is present at the L5-S1 level. There is minimal compression of the thecal sac. There is hypertrophy of the posterior articulating facets. The L5 nerves exit the neural foramina without compression. The L3-4 and L4-5 intervertebral discs are decreased in height. Vacuum phenomenon is present at the L4-5 level. These findings are consistent with disc degeneration. There is an acute compression fracture of the superior endplate of the L3 vertebral body with very minimal height loss. There is no subluxation. IMPRESSION: 1. Diffuse disc bulges at the L2-3 and L5-S1 levels with minimal thecal sac compression. 2. Mild central canal stenosis at the L3-4 level secondary to disc bulge, ligamentous, and facet hypertrophy. 3. Minimal central canal stenosis at the L4-5 level secondary to disc bulge, ligamentous, and facet hypertrophy. 4. Acute superior endplate fracture of the L3 vertebral body with minimal height loss. Signed by Javier Velasquez MD 12/19/2016 03:04 P
[2016-12-19] MEDS: ASPIRIN 81 MG ENTERIC TAB PO SCH (20:20)
[2016-12-19] MEDS: DIVALPROEX 500MG *ER* TAB PO SCH (20:20)
[2016-12-19 22:00] VITALS: BP 135/70
[2016-12-20] MEDS: traMADol 50 MG TAB PO PRN ×2 (03:05→14:24)
[2016-12-20 06:00] VITALS: BP 143/67
[2016-12-20] MEDS: LEVOTHYROXINE 0.15 MG TAB (150 MCG) PO SCH (06:34)
[2016-12-20 07:45] LABS: BASO % 0.3 % (0.0-1.0); EOS # 0.1 K/mm3 (0.0-0.50); EOS % 1.2 % (0.0-3.0); LARGE UNSTAINED CELL # 0.2 K/mm3 (0.0-0.4); LARGE UNSTAINED CELL % 2.6 % (0.0-4.0); LYMPH # 3.6 K/mm3 (1.5-4.5); LYMPH % 36.8 % (24.0-44.0); MEAN CORPUSCULAR HEMOGLOBIN 31.2 pg (27.0-33.0); MEAN CORPUSCULAR HGB CONC 31.9 g/dl (32.0-36.5); MEAN CORPUSCULAR VOLUME 97.8 fl (80.0-96.0); MONO # 0.8 K/mm3 (0.0-0.8); MONO % 8.2 % (0.0-5.0); NEUTROPHILS # 4.7 K/mm3 (1.8-7.7); NEUTROPHILS % 50.8 % (36.0-66.0); PLATELET COUNT, AUTOMATED 263 k/mm3 (150-450); RED CELL DISTRIBUTION WIDTH 15.5 % (11.5-14.5); WHITE BLOOD COUNT 9.2 K/mm3 (4.0-10.0)
[2016-12-20 08:18] LABS: ALBUMIN 3.1 GM/DL (3.2-5.2); ALBUMIN/GLOBULIN RATIO 1.11 (1.00-1.93); BILIRUBIN,TOTAL 0.4 MG/DL (0.2-1.0); CREATININE FOR GFR 1.01 MG/DL (0.55-1.02); GLOMERULAR FILTRATION RATE 57.4 (>39); MAGNESIUM LEVEL 1.9 MG/DL (1.8-2.4); POTASSIUM SERUM 3.8 MEQ/L (3.5-5.1); TOTAL PROTEIN 5.9 GM/DL (6.4-8.2)
[2016-12-20] MEDS: NORCO, ANEXSIA 5/325MG TABLET (HYDROcodone/ACETAMINOPHEN) PO PRN ×3 (09:24→20:29)
[2016-12-20] MEDS: RANOLAZINE 500 MG ER TAB PO SCH ×2 (09:35→20:26)
[2016-12-20] MEDS: predniSONE 10 MG TAB PO SCH (09:35)
[2016-12-20] MEDS: POTASSIUM CHLORIDE 10 MEQ SR TABLET PO SCH (09:36)
[2016-12-20] MEDS: OMEGA-3 1050MG CAPSULE PO SCH (09:36)
[2016-12-20] MEDS: ASCORBIC ACID 500 MG TAB PO SCH (09:36)
[2016-12-20] MEDS: ATORVASTATIN 10 MG TAB PO SCH (09:36)
[2016-12-20] MEDS: MULTIVITAMINS/MINERALS THERAP 1 TAB PO SCH (09:36)
[2016-12-20] MEDS: PANTOPRAZOLE 40MG TAB (PROTONIX) PO SCH ×2 (09:36→20:27)
[2016-12-20] MEDS: FUROSEMIDE 40 MG TAB PO SCH (09:37)
[2016-12-20 09:43] VITALS: BP 130/64
[2016-12-20 10:31] VITALS: BP 130/64
--- NOTE | 2016-12-20 10:39 | IPNPDOC ---
Subjective Date Seen The patient was seen on 12/20/16. Subjective Chief Complaint/HPI The patient is a 71-year-old female admitted with a reason for visit of Syncope. Events since last encounter Patient was seen this morning at bedside. She reports that her oxygen decreased overnight and she tried to take deep breaths to bring it back up, but every time she tried to do that, she would have increased back pain. Still difficult to move with back pain. Still have SOB, not increased from prior. No chest pain , nausea, vomiting, diarrhea, abd pain. Bowel habits and urinary are within her normal. No neuro changes. Objective Physical Examination General Exam: Positive: Alert, Cooperative, No Acute Distress Eye Exam: Positive: PERRLA, Conjunctiva & lids normal, EOMI, Negative: Sclera icteric ENT Exam: Positive: Atraumatic, Mucous membr. moist/pink, Pharynx Normal Neck Exam: Positive: Supple, Negative: thyromegaly Chest Exam: Positive: Clear to auscultation, Diminished Heart Exam: Positive: Rate Normal, Regular Rhythm, Normal S1, Normal S2 Abdomen Exam: Positive: Normal bowel sounds, Soft, Negative: Tenderness Extremity Exam: Positive: Normal pulses, Negative: Edema, Tenderness Skin Exam: Positive: Nl turgor and temperature, Negative: Rash, Breakdown Neuro Exam: Positive: Normal Speech, Cranial Nerves 3-12 NL Psych Exam: Positive: Mental status NL, Mood NL, Oriented x 3 Assessment /Plan Problems (1) Syncope Status: Acute Problem Text: * No events on tele * Patient had multiple episodes of syncope resulting in falls * Recommend that patient follows up with cardiology for possible loop recorder * May be secondary to severe pulm HTN. She should dc Coreg and Imdur * Continue P/OT, not yet cleared * No syncopal episodes during hospitalization (2) Shortness of breath Status: Acute Response to Treatment: Stable Problem Text: * Patient normally uses 4L of oxygen continuously * Continuous pulse ox * Due to desaturations, pulmonary is recommending increasing oxygen to 5L * Multifactorial w/ history of heart failure, advanced pulmonary hypertension, pulmonary fibrosis, chronic hypoxic respiratory failure and obstructive sleep apnea (3) Acute exacerbation of chronic low back pain Status: Acute Problem Text: * CT of the lumbar spine revealed acute L3 superior endplate compression fracture * Orthopedics and pain management consulted * Continue pain medication as needed (4) Acute on chronic diastolic CHF (congestive heart failure) Status: Resolved Problem Text: * Grade 1 diastolic dysfunction, unchanged from previous echo per Dr Benjamin report * Severe tricuspid regurg on echo * On oral lasix, treated with IV lasix on admission * Doesn't appear to be fluid overloaded at this time (5) Pulmonary hypertension Status: Chronic Response to Treatment: Stable Problem Text: * [facility] * Seen by Dr. Sánchez today, recommending increasing O2 on Bipap, discontinuing Coreg and Imdur which she takes at home to prevent hypotension given severe pulm HTN * Patient has advanced pulm HTN and high risk surgical candidate, continue with conservative management (6) Pulmonary fibrosis Status: Chronic Response to Treatment: Stable Problem Text: * On home prednisone (7) Sleep apnea Status: Chronic Response to Treatment: Stable Problem Text: * Currently on bipap with 4L of oxygen * Increase O2 as needed for desaturations (8) Tricuspid regurgitation Status: Chronic Response to Treatment: Stable (9) CAD (coronary artery disease) Status: Chronic Response to Treatment: Stable Problem Text: * Currently on Ranexa. She is asymptomatic (10) HTN (hypertension) Status: Chronic Response to Treatment: Stable Problem Text: * BP stable * Currently on Lasix (11) HLD (hyperlipidemia) Status: Chronic Response to Treatment: Stable Problem Text: * Continue Lipitor (12) GERD (gastroesophageal reflux disease) Status: Chronic Response to Treatment: Stable Problem Text: * On Protonix (13) Hypothyroidism Status: Chronic Response to Treatment: Stable Problem Text: * On Synthroid (14) Abdominal obesity Status: Chronic Response to Treatment: Stable Plan/VTE VTE Prophylaxis Ordered?: Yes (heparin) Plan Anticipated Discharge: Home (upon PT clearance) Patient requires head of the bed to be elevated given history of heart failure, advanced pulmonary hypertension, pulmonary fibrosis, chronic hypoxic respiratory failure and obstructive sleep apnea. She also requires body positioning that is not feasible with an ordinary bed given her heart and lung conditions. In addition to that, she has a L3 compression fracture and hospital bed is beneficial to assist with alleviation of pain VS, I&O, 24H, Fishbone Vital Signs/I&O Vital Signs Date Time Temp Pulse Resp B/P (MAP) Pulse Ox O2 Delivery O2 Flow Rate FiO2 12/20/16 10:12 16 12/20/16 09:43 96.7 76 130/64 (86) 94 Nasal Cannula 4.0 12/17/16 22:00 98 I&O- Last 24 Hours up to 6 AM 12/20/16 06:00 Intake Total 1500 ml Output Total 0 ml Balance 1500 ml Laboratory Data 24H LABS Laboratory Tests 2 12/20/16 07:22: White Blood Count 9.2, Red Blood Count 4.03, Hemoglobin 12.6, Hematocrit 39.4, Mean Corpuscular Volume 97.8H, Mean Corpuscular Hemoglobin 31.2, Mean Corpuscular Hemoglobin Concent 31.9L, Red Cell Distribution Width 15.5H, Platelet Count 263, Neutrophils (%) (Auto) 50.8, Lymphocytes (%) (Auto) 36.8, Monocytes (%) (Auto) 8.2H, Eosinophils (%) (Auto) 1.2, Basophils (%) (Auto) 0.3 , Neutrophils # (Auto) 4.7, Lymphocytes # (Auto) 3.6, Monocytes # (Auto) 0.8, Eosinophils # (Auto) 0.1, Basophils # (Auto) 0.0, Large Unclassified Cells % 2.6 , Large Unclassified Cells # 0.2, Anion Gap 5L, Glomerular Filtration Rate 57.4 , Blood Urea Nitrogen 23H, Creatinine 1.01, Sodium Level 139, Potassium Level 3.8, Chloride Level 96L, Carbon Dioxide Level 38H, Calcium Level 8.0L, Aspartate Amino Transf (AST/SGOT) 7L, Alanine Aminotransferase (ALT/SGPT) 13, Alkaline Phosphatase 59, Total Bilirubin 0.4, Total Protein 5.9L, Albumin 3.1L, Magnesium Level 1.9, Albumin/Globulin Ratio 1.11 CBC/BMP Laboratory Tests 12/20/16 07:22 Red Blood Count 4.03, Mean Corpuscular Volume 97.8 H, Mean Corpuscular Hemoglobin 31.2, Mean Corpuscular Hemoglobin Concent 31.9 L, Red Cell Distribution Width 15.5 H, Neutrophils (%) (Auto) 50.8, Lymphocytes (%) (Auto) 36.8, Monocytes (%) (Auto) 8.2 H, Eosinophils (%) (Auto) 1.2, Basophils (%) ( Auto) 0.3, Neutrophils # (Auto) 4.7, Lymphocytes # (Auto) 3.6, Monocytes # (Auto ) 0.8, Eosinophils # (Auto) 0.1, Basophils # (Auto) 0.0, Calcium Level 8.0 L, Aspartate Amino Transf (AST/SGOT) 7 L, Alanine Aminotransferase (ALT/SGPT) 13, Alkaline Phosphatase 59, Total Bilirubin 0.4, Total Protein 5.9 L, Albumin 3.1 L Microbiology Microbiology 12/17/16 Urine Culture - Final, Complete RIGOBERTO MOSES DO December 20, 2016 10:39
[2016-12-20 12:34] VITALS: BP 130/64
[2016-12-20] MEDS: HEPARIN SOD (PORCINE) 5000 UNITS/ML VIAL SQ SCH ×2 (13:30→20:27)
--- NOTE | 2016-12-20 17:36 | CR ---
DATE OF CONSULTATION: 12/20/2016 CHIEF COMPLAINT: Low back pain. HISTORY OF THE PRESENT ILLNESS: Sandrine is a 71-year-old female with multiple respiratory and cardiac comorbidities who fell a few weeks ago at home after a syncopal episode and had severe generalized pain. The patient is seen per request of Dr. Keira DO. The patient is seen at bedside today, and she is complaining of low back pain. Pain is aggravated with any movement. She is on 24/7 five liter oxygen nasal cannula. Attempts at going from supine to sitting cause significant respiratory distress. Describes pain as muscle spasm type pain across the lower back. CT of the lumbar spine without contrast done on 12/19/2016 is showing acute compression fracture of the superior endplate of L3 vertebral body. Today, we discussed interventional therapy to include a trial of trigger point injections. The patient is somewhat receptive. We would need pulmonary clearance in order to bring her over to the pain center for trigger point injections. She also could be considered for trigger point injections and/or other interventional therapy based on a referral from primary care from the home. Currently using tramadol which she finds is somewhat effective. PAST MEDICAL HISTORY: Pulmonary fibrosis (on prednisone). Congestive heart failure (CHF). Coronary artery disease. Hypertension. Hypothyroidism. Obstructive sleep apnea (SOFY), on bilevel positive airway pressure (BiPAP) Gastroesophageal reflux disease (GERD). Chronic headache. Allergic rhinitis. Obesit. Osteoarthritis. SURGICAL HISTORY: Right shoulder rotator cuff injury. Bilateral knee replacement. SOCIAL HISTORY: Denies use of alcohol, tobacco or illicit drugs. The patient lives alone. REVIEW OF SYSTEMS: 11-point review of systems is positive only for complaint of low back pain and shortness of breath. PHYSICAL EXAMINATION: Awake, alert, pleasant, in no acute distress. Vital Signs: Temperature 96.2, pulse 75, respiratory rate 18, blood pressure 130/64, oxygen saturation is 97% on nasal cannula at 4 liters. Cardiac: S1, S2. Normal rate and rhythm. Respiratory: Lung sounds are diminished bilaterally. Respiratory rate nonlabored. Musculoskeletal: LS spine - tenderness and trigger points elicited over the upper and mid lumbar paraspinal musculature. Extremities: Warm to touch. Normal sensation to light touch all four extremities. No significant swelling noted. DIAGNOSTIC DATA: CT of the spine without contrast 12/19/2016: Multilevel facet arthropathy. Acute superior endplate fracture of the of L3 vertebral body with minimal height loss. ASSESSMENT: 1. Low back pain. 2. Lumbar compression fracture. 3. Morbid obesity/multiple comorbidities. PLAN: Discussed a trial of trigger point injections. Potential risks and benefits were reviewed. We would have to have pulmonary clearance to bring her over to the pain center, possibly , for trigger point injections. Of course, physical therapy and rehabilitation services are mandatory for her in combination with any interventional therapy that we may offer. I would recommend continuing with use of tramadol or hydrocodone 5-325 every 8 hours as needed for chronic pain on discharge. We will await notation from pulmonary in regards to going ahead with trigger point injections. Thank you for allowing us to participate in the care of your patient. Should you have any questions or concerns, please do not hesitate to contact me. Sincerely, Stephanie Hayward, Family Nurse Practitioner [facility], [facility]. Copy To: Dr. Keira HINKLE
[2016-12-20] MEDS: DIVALPROEX 500MG *ER* TAB PO SCH (20:27)
[2016-12-20] MEDS: ASPIRIN 81 MG ENTERIC TAB PO SCH (20:27)
[2016-12-20 22:00] VITALS: BP 130/76
[2016-12-21 06:00] VITALS: BP 140/80
[2016-12-21] MEDS: HEPARIN SOD (PORCINE) 5000 UNITS/ML VIAL SQ SCH ×2 (06:18→14:40)
[2016-12-21] MEDS: LEVOTHYROXINE 0.15 MG TAB (150 MCG) PO SCH (06:18)
[2016-12-21] MEDS: traMADol 50 MG TAB PO PRN ×3 (06:23→23:07)
[2016-12-21 07:06] LABS: BASO % 0.4 % (0.0-1.0); EOS # 0.1 K/mm3 (0.0-0.50); EOS % 1.6 % (0.0-3.0); LARGE UNSTAINED CELL # 0.2 K/mm3 (0.0-0.4); LARGE UNSTAINED CELL % 2.7 % (0.0-4.0); LYMPH # 3.4 K/mm3 (1.5-4.5); LYMPH % 36.7 % (24.0-44.0); MEAN CORPUSCULAR HEMOGLOBIN 31.6 pg (27.0-33.0); MEAN CORPUSCULAR HGB CONC 32.1 g/dl (32.0-36.5); MEAN CORPUSCULAR VOLUME 98.6 fl (80.0-96.0); MONO # 0.6 K/mm3 (0.0-0.8); MONO % 7.5 % (0.0-5.0); NEUTROPHILS # 4.4 K/mm3 (1.8-7.7); NEUTROPHILS % 51.1 % (36.0-66.0); PLATELET COUNT, AUTOMATED 258 k/mm3 (150-450); RED CELL DISTRIBUTION WIDTH 15.4 % (11.5-14.5); WHITE BLOOD COUNT 8.6 K/mm3 (4.0-10.0)
[2016-12-21 07:29] LABS: BILIRUBIN,TOTAL 0.4 MG/DL (0.2-1.0); CALCIUM LEVEL 8.2 MG/DL (8.8-10.2); CREATININE FOR GFR 1.06 MG/DL (0.55-1.02); GLOMERULAR FILTRATION RATE 54.2 (>39); POTASSIUM SERUM 3.7 MEQ/L (3.5-5.1)
[2016-12-21] MEDS: FUROSEMIDE 40 MG TAB PO SCH (09:45)
[2016-12-21] MEDS: PANTOPRAZOLE 40MG TAB (PROTONIX) PO SCH ×2 (09:45→21:04)
[2016-12-21] MEDS: OMEGA-3 1050MG CAPSULE PO SCH (09:45)
[2016-12-21] MEDS: predniSONE 10 MG TAB PO SCH (09:45)
[2016-12-21] MEDS: MULTIVITAMINS/MINERALS THERAP 1 TAB PO SCH (09:45)
[2016-12-21] MEDS: ATORVASTATIN 10 MG TAB PO SCH (09:46)
[2016-12-21] MEDS: POTASSIUM CHLORIDE 10 MEQ SR TABLET PO SCH (09:46)
[2016-12-21] MEDS: ASCORBIC ACID 500 MG TAB PO SCH (09:46)
[2016-12-21] MEDS: RANOLAZINE 500 MG ER TAB PO SCH ×2 (09:46→21:04)
[2016-12-21] MEDS: NORCO, ANEXSIA 5/325MG TABLET (HYDROcodone/ACETAMINOPHEN) PO PRN ×2 (09:47→17:34)
--- NOTE | 2016-12-21 10:38 | IPNPDOC ---
Subjective Date Seen The patient was seen on 12/21/16. Subjective Chief Complaint/HPI The patient is a 71-year-old female admitted with a reason for visit of Syncope. Events since last encounter Patient was seen this morning at bedside. Her O2 was increased to 5L overnight and she reports that she slept fine. She does continue to have back pain. She was seen by pain management and will likely have trigger point injections. She denies any increased SOB, chest pain/pressure, nausea, vomiting, abd pain, diarrhea. No fevers or chills. She is urinating normally. States bowel function is normal. had a BM yesterday. No paresthesia or increased weakness. Objective Physical Examination General Exam: Positive: Alert, Cooperative, No Acute Distress Eye Exam: Positive: PERRLA, Conjunctiva & lids normal, EOMI, Negative: Sclera icteric ENT Exam: Positive: Atraumatic, Mucous membr. moist/pink, Pharynx Normal Neck Exam: Positive: Supple, Negative: thyromegaly Chest Exam: Positive: Clear to auscultation, Normal air movement Heart Exam: Positive: Rate Normal, Regular Rhythm, Normal S1, Normal S2 Abdomen Exam: Positive: Normal bowel sounds, Soft, Negative: Tenderness Extremity Exam: Positive: Normal pulses, Negative: Cyanosis, Edema Skin Exam: Positive: Nl turgor and temperature, Negative: Rash, Breakdown Neuro Exam: Positive: Normal Speech, Cranial Nerves 3-12 NL Psych Exam: Positive: Mental status NL, Mood NL, Oriented x 3 Assessment /Plan Problems (1) Syncope Status: Acute Response to Treatment: Stable Problem Text: * No events on tele * Patient had multiple episodes of syncope resulting in falls * Recommend that patient follows up with cardiology for possible loop recorder * May be secondary to severe pulm HTN. She should dc Coreg and Imdur * Continue PT, will need as outpatient PT as well * No syncopal episodes during hospitalization (2) Shortness of breath Status: Acute Response to Treatment: Stable Problem Text: * Patient normally uses 4L of oxygen continuously * Continuous pulse ox * Due to desaturations, pulmonary recommended increasing oxygen to 5L at night * Multifactorial w/ history advanced pulmonary hypertension, pulmonary fibrosis , chronic hypoxic respiratory failure, obstructive sleep apnea and heart failure (3) Acute exacerbation of chronic low back pain Status: Acute Problem Text: * CT of the lumbar spine revealed acute L3 superior endplate compression fracture * Orthopedics and pain management was consulted * Will likely have trigger point injections from pain center * Will need brace per ortho recommendations * Continue pain medication as needed * She is cleared to proceed with trigger point injections from pulmonary standpoint (4) Pulmonary hypertension Status: Chronic Response to Treatment: Stable Problem Text: * [facility] * Seen by Dr. Sánchez, recommended increasing O2 on Bipap, discontinuing Coreg and Imdur which she takes at home to prevent hypotension given severe pulm HTN * Patient has advanced pulm HTN, continue with conservative management (5) Acute on chronic diastolic CHF (congestive heart failure) Status: Resolved Problem Text: * Grade 1 diastolic dysfunction, unchanged from previous echo per Dr Benjamin report * Severe tricuspid regurg on echo * On oral lasix, treated with IV lasix on admission * Doesn't appear to be fluid overloaded at this time (6) Pulmonary fibrosis Status: Chronic Response to Treatment: Stable Problem Text: * On home prednisone (7) Sleep apnea Status: Chronic Response to Treatment: Stable Problem Text: * Currently on bipap with supplemental oxygen * Increase O2 as needed for desaturations (8) Tricuspid regurgitation Status: Chronic Response to Treatment: Stable (9) CAD (coronary artery disease) Status: Chronic Response to Treatment: Stable Problem Text: * Currently on Ranexa. She is asymptomatic (10) HTN (hypertension) Status: Chronic Response to Treatment: Stable Problem Text: * BP stable * Currently on Lasix (11) HLD (hyperlipidemia) Status: Chronic Response to Treatment: Stable Problem Text: * Continue Lipitor (12) GERD (gastroesophageal reflux disease) Status: Chronic Response to Treatment: Stable Problem Text: * On Protonix (13) Hypothyroidism Status: Chronic Response to Treatment: Stable Problem Text: * On Synthroid (14) Abdominal obesity Status: Chronic Response to Treatment: Stable Plan/VTE VTE Prophylaxis Ordered?: Yes (heparin) Plan Anticipated Discharge: Home With Services VS, I&O, 24H, Fishbone Vital Signs/I&O Vital Signs Date Time Temp Pulse Resp B/P (MAP) Pulse Ox O2 Delivery O2 Flow Rate FiO2 12/21/16 09:47 16 12/21/16 09:00 Nasal Cannula 4.0 12/21/16 06:00 97.2 63 140/80 (100) 100 12/17/16 22:00 98 I&O- Last 24 Hours up to 6 AM 12/21/16 05:59 Intake Total 1560 ml Balance 1560 ml Laboratory Data CBC/BMP Laboratory Tests 12/21/16 06:40 Red Blood Count 4.12, Mean Corpuscular Volume 98.6 H, Mean Corpuscular Hemoglobin 31.6, Mean Corpuscular Hemoglobin Concent 32.1, Red Cell Distribution Width 15.4 H, Neutrophils (%) (Auto) 51.1, Lymphocytes (%) (Auto) 36.7, Monocytes (%) (Auto) 7.5 H, Eosinophils (%) (Auto) 1.6, Basophils (%) ( Auto) 0.4, Neutrophils # (Auto) 4.4, Lymphocytes # (Auto) 3.4, Monocytes # (Auto ) 0.6, Eosinophils # (Auto) 0.1, Basophils # (Auto) 0.0, Calcium Level 8.2 L, Aspartate Amino Transf (AST/SGOT) 11 L, Alanine Aminotransferase (ALT/SGPT) 14, Alkaline Phosphatase 59, Total Bilirubin 0.4, Total Protein 6.0 L, Albumin 3.0 L Microbiology Microbiology 12/17/16 Urine Culture - Final, Complete RIGOBERTO MOSES DO December 21, 2016 10:38
[2016-12-21 14:00] VITALS: BP 152/77
[2016-12-21] MEDS: ASPIRIN 81 MG ENTERIC TAB PO SCH (21:04)
[2016-12-21] MEDS: DIVALPROEX 500MG *ER* TAB PO SCH (21:04)
[2016-12-21 22:00] VITALS: BP 140/90
[2016-12-22] MEDS: LEVOTHYROXINE 0.15 MG TAB (150 MCG) PO SCH (05:59)
[2016-12-22 06:00] VITALS: BP 165/80
[2016-12-22] MEDS: NORCO, ANEXSIA 5/325MG TABLET (HYDROcodone/ACETAMINOPHEN) PO PRN ×3 (06:00→21:07)
[2016-12-22 06:55] LABS: BASO % 0.4 % (0.0-1.0); EOS # 0.2 K/mm3 (0.0-0.50); EOS % 1.6 % (0.0-3.0); LARGE UNSTAINED CELL # 0.3 K/mm3 (0.0-0.4); LARGE UNSTAINED CELL % 3.1 % (0.0-4.0); LYMPH # 3.5 K/mm3 (1.5-4.5); LYMPH % 33.2 % (24.0-44.0); MEAN CORPUSCULAR HEMOGLOBIN 31.5 pg (27.0-33.0); MEAN CORPUSCULAR HGB CONC 32.1 g/dl (32.0-36.5); MONO # 0.9 K/mm3 (0.0-0.8); MONO % 8.9 % (0.0-5.0); NEUTROPHILS % 52.8 % (36.0-66.0); PLATELET COUNT, AUTOMATED 265 k/mm3 (150-450); RED CELL DISTRIBUTION WIDTH 15.4 % (11.5-14.5); WHITE BLOOD COUNT 9.5 K/mm3 (4.0-10.0)
[2016-12-22 07:30] LABS: ALBUMIN 3.1 GM/DL (3.2-5.2); ALBUMIN/GLOBULIN RATIO 1.11 (1.00-1.93); BILIRUBIN,TOTAL 0.4 MG/DL (0.2-1.0); CALCIUM LEVEL 8.3 MG/DL (8.8-10.2); CREATININE FOR GFR 1.08 MG/DL (0.55-1.02); GLOMERULAR FILTRATION RATE 53.1 (>39); MAGNESIUM LEVEL 1.9 MG/DL (1.8-2.4); POTASSIUM SERUM 3.5 MEQ/L (3.5-5.1); TOTAL PROTEIN 5.9 GM/DL (6.4-8.2)
--- NOTE | 2016-12-22 07:50 | IPNPDOC ---
Subjective Date Seen The patient was seen on 12/22/16. Subjective Chief Complaint/HPI The patient is a 71-year-old female admitted with a reason for visit of Syncope. Events since last encounter Patient was seen this morning at bedside. Reports having a good night. No increased SOB, chest pain, nausea, vomiting, diarrhea, abd pain. She has not had a bowel movement and reports that she drunk some prune juice yesterday and that has worked well for her in the past. She does not want any stool softeners , states that when she gets concerned she will then take a stool softener. Objective Physical Examination General Exam: Positive: Alert, Cooperative, No Acute Distress Eye Exam: Positive: PERRLA, Conjunctiva & lids normal, EOMI, Negative: Sclera icteric ENT Exam: Positive: Atraumatic, Mucous membr. moist/pink, Pharynx Normal Neck Exam: Positive: Supple, Negative: thyromegaly Chest Exam: Positive: Clear to auscultation, Normal air movement Heart Exam: Positive: Rate Normal, Regular Rhythm, Normal S1, Normal S2 Abdomen Exam: Positive: Normal bowel sounds, Soft, Negative: Tenderness Extremity Exam: Positive: Edema (trace), Normal pulses, Negative: Cyanosis Skin Exam: Positive: Nl turgor and temperature, Negative: Rash, Breakdown Neuro Exam: Positive: Normal Speech, Cranial Nerves 3-12 NL Psych Exam: Positive: Mental status NL, Mood NL, Oriented x 3 Assessment /Plan Problems (1) Syncope Status: Acute Response to Treatment: Stable Problem Text: * No events on tele * Patient had multiple episodes of syncope resulting in falls * Recommend that patient follows up with cardiology for possible loop recorder * May be secondary to severe pulm HTN. She should dc Coreg and Imdur * Continue PT, will need as outpatient PT as well * No syncopal episodes during hospitalization (2) Shortness of breath Status: Acute Response to Treatment: Stable Problem Text: * Patient normally uses 4L of oxygen continuously * Continuous pulse ox * Due to desaturations, pulmonary recommended increasing oxygen to 5L at night * Multifactorial w/ history advanced pulmonary hypertension, pulmonary fibrosis , chronic hypoxic respiratory failure, obstructive sleep apnea and heart failure (3) Acute exacerbation of chronic low back pain Status: Acute Problem Text: * CT of the lumbar spine revealed acute L3 superior endplate compression fracture * Orthopedics and pain management were consulted * Due to have trigger point injections from pain center this afternoon * Will need brace per ortho recommendations, awaiting arrival * Continue pain medication as needed * She is cleared to proceed with trigger point injections from pulmonary standpoint (4) Pulmonary hypertension Status: Chronic Response to Treatment: Stable Problem Text: * [facility] * Seen by Dr. Sánchez while inpatient, recommended increasing O2 on Bipap, discontinuing Coreg and Imdur which she takes at home to prevent hypotension given severe pulm HTN * Patient has advanced pulm HTN, continue with conservative management (5) Acute on chronic diastolic CHF (congestive heart failure) Status: Resolved Problem Text: * Grade 1 diastolic dysfunction, unchanged from previous echo per Dr Benjamin report * Severe tricuspid regurg on echo * On oral lasix, treated with IV lasix on admission * Doesn't appear to be fluid overloaded at this time (6) Pulmonary fibrosis Status: Chronic Response to Treatment: Stable Problem Text: * On home prednisone (7) Sleep apnea Status: Chronic Response to Treatment: Stable Problem Text: * Currently on bipap with supplemental oxygen * Increase O2 as needed for desaturations (8) Tricuspid regurgitation Status: Chronic Response to Treatment: Stable (9) CAD (coronary artery disease) Status: Chronic Response to Treatment: Stable Problem Text: * Currently on Ranexa. She is asymptomatic (10) HTN (hypertension) Status: Chronic Response to Treatment: Stable Problem Text: * BP stable * Currently on Lasix (11) HLD (hyperlipidemia) Status: Chronic Response to Treatment: Stable Problem Text: * Continue Lipitor (12) GERD (gastroesophageal reflux disease) Status: Chronic Response to Treatment: Stable Problem Text: * On Protonix (13) Hypothyroidism Status: Chronic Response to Treatment: Stable Problem Text: * On Synthroid (14) Abdominal obesity Status: Chronic Response to Treatment: Stable Plan/VTE VTE Prophylaxis Ordered?: Yes (heparin) Plan Anticipated Discharge: Home With Services Disposition Anticipate discharge home with home PT, awaiting arrival of brace VS, I&O, 24H, Jie Vital Signs/I&O Vital Signs Date Time Temp Pulse Resp B/P (MAP) Pulse Ox O2 Delivery O2 Flow Rate FiO2 12/22/16 06:30 16 12/22/16 06:00 97.0 69 165/80 (108) 94 Nasal Cannula 4.0 12/17/16 22:00 98 I&O- Last 24 Hours up to 6 AM 12/22/16 06:00 Intake Total 1560 ml Balance 1560 ml Laboratory Data CBC/BMP Laboratory Tests 12/22/16 06:41 Red Blood Count 4.19, Mean Corpuscular Volume 98.0 H, Mean Corpuscular Hemoglobin 31.5, Mean Corpuscular Hemoglobin Concent 32.1, Red Cell Distribution Width 15.4 H, Neutrophils (%) (Auto) 52.8, Lymphocytes (%) (Auto) 33.2, Monocytes (%) (Auto) 8.9 H, Eosinophils (%) (Auto) 1.6, Basophils (%) ( Auto) 0.4, Neutrophils # (Auto) 5.0, Lymphocytes # (Auto) 3.5, Monocytes # (Auto ) 0.9 H, Eosinophils # (Auto) 0.2, Basophils # (Auto) 0.0, Calcium Level 8.3 L, Aspartate Amino Transf (AST/SGOT) 7 L, Alanine Aminotransferase (ALT/SGPT) 15, Alkaline Phosphatase 64, Total Bilirubin 0.4, Total Protein 5.9 L, Albumin 3.1 L Microbiology Microbiology 12/17/16 Urine Culture - Final, Complete RIGOBERTO MOSES DO December 22, 2016 07:50
[2016-12-22] MEDS: RANOLAZINE 500 MG ER TAB PO SCH ×2 (08:18→21:06)
[2016-12-22] MEDS: traMADol 50 MG TAB PO PRN (08:19)
[2016-12-22] MEDS: ASCORBIC ACID 500 MG TAB PO SCH (08:19)
[2016-12-22] MEDS: predniSONE 10 MG TAB PO SCH (08:19)
[2016-12-22] MEDS: MULTIVITAMINS/MINERALS THERAP 1 TAB PO SCH (08:19)
[2016-12-22] MEDS: PANTOPRAZOLE 40MG TAB (PROTONIX) PO SCH ×2 (08:20→21:07)
[2016-12-22] MEDS: OMEGA-3 1050MG CAPSULE PO SCH (08:20)
[2016-12-22] MEDS: POTASSIUM CHLORIDE 10 MEQ SR TABLET PO SCH (08:20)
[2016-12-22] MEDS: ATORVASTATIN 10 MG TAB PO SCH (08:20)
[2016-12-22] MEDS: FUROSEMIDE 40 MG TAB PO SCH (08:20)
[2016-12-22] MEDS: HEPARIN SOD (PORCINE) 5000 UNITS/ML VIAL SQ SCH ×2 (13:12→21:07)
[2016-12-22] MEDS ORDERED: TRIAMCINOLONE ACETONIDE SUSP 40 MG/ML VIAL (J3301) As Ordered ONE (15:47)
[2016-12-22] MEDS ORDERED: BUPIVACAINE HCL 0.25% 10 ML VIAL As Ordered ONE (15:47)
[2016-12-22] MEDS ORDERED: BUPIVACAINE HCL 0.25% 30 ML VIAL As Ordered ONE (15:47)
[2016-12-22 18:00] VITALS: BP 198/86
[2016-12-22 18:54] VITALS: BP 158/78
--- NOTE | 2016-12-22 20:11 | NOCOX ---
DATE OF PROCEDURE: 12/21/2016 Nocturnal oximetry was performed on 12/21/2016. The study was initiated on bilevel 07/08 with a 5 liter bleed in. The patient attempted to use a mask, however, was unable to sleep with the mask that was provided - it was going into her eyes. Her resting oxygen saturation on this while awake was 98% with a heart rate of 84. She was unable to fall asleep but had adequate oxygen saturations. After switching to a nasal mask, the patient was able to fall asleep, however, had variable desaturations in a pattern suspicious for recurring apneas. Oxygen desaturations were seen to 73%, heart rate ranged from 54 to 109. The longest continuous time with an oxygen saturation less than 88% was 10 minutes and 54 seconds. Total time spent with an oxygen saturation less than 88% was 2 hours and 6 seconds. IMPRESSION: Variable desaturations consistent with obstructive sleep apnea. Recommend in-lab titration versus a trial of face mask, full face mask with good fitting.
[2016-12-22] MEDS: ASPIRIN 81 MG ENTERIC TAB PO SCH (21:07)
[2016-12-22] MEDS: DIVALPROEX 500MG *ER* TAB PO SCH (21:07)
[2016-12-22 22:00] VITALS: BP 128/61
[2016-12-23] MEDS: HEPARIN SOD (PORCINE) 5000 UNITS/ML VIAL SQ SCH ×3 (06:12→20:17)
[2016-12-23] MEDS: LEVOTHYROXINE 0.15 MG TAB (150 MCG) PO SCH (06:12)
[2016-12-23] MEDS: traMADol 50 MG TAB PO PRN ×2 (06:13→16:09)
[2016-12-23 08:29] VITALS: BP 163/77
--- NOTE | 2016-12-23 08:46 | CCN ---
DATE: 12/23/2016 Disregard this note.
--- NOTE | 2016-12-23 08:56 | CR ---
DATE OF CONSULTATION: 12/23/2016 Consultation for her low back. I saw the patient on December 23 to evaluate superior endplate compression fracture at L3. We had also discussed the patient over the telephone previously with the hospitalist to get her brace ordered. This 71-year-old female tells me that she was at home. She was having some problems with pulmonary hypertension and had a syncopal episode in her living room, fell to the floor and injured her back. Her back hurts. She denies any numbness or tingling. She has had a CT scan of the lumbar spine that reflects an acute superior endplate compression fracture at L3 vertebral body with minimal kyphosis, some loss of height. The patient also had a cervical spine CT scan reflecting degenerative changes, but no fracture and a hip x-ray reflecting no acute fracture, and had a pain service consultation with Stephanie Hayward. MEDICAL HISTORY: Includes: Pulmonary fibrosis. Congestive heart failure. Coronary artery disease. Hypotension. Hypothyroidism. Obstructive sleep apnea. Reflux. Headaches. Rhinitis. Morbid obesity. Osteoarthritis. SURGICAL HISTORY: Includes: Rotator cuff surgery. Bilateral knee replacement. SOCIAL HISTORY: Does not smoke or drink. REVIEW OF SYSTEMS: 11 point review of systems she is complaining only of low back pain today and she is not complaining today of shortness of breath, chest pain, headache, nauseousness, endocrine problems, that are not controlled, skin problems, numbness, tingling or urinary problems. CLINICAL EXAMINATION: She is awake, alert, oriented, no distress. No shortness of breath. Abdomen is obese and not distended. Extremities are sensate, nonedematous. Calves soft. Pain localized to mid lumbar spine. IMPRESSION: Low back discomfort secondary to L3 compression fracture. RECOMMENDATIONS: Recommend a lumbosacral type orthosis. I talked to the patient about her condition and reassured the patient that these do heal over time, but they do take some time especially in older patients with comorbidities. We would expect her to improve over the next 8-10 weeks with nonoperative care, potentially physical therapy after a month. Follow up in the office in 1-2 weeks.
[2016-12-23] MEDS: RANOLAZINE 500 MG ER TAB PO SCH ×2 (09:50→20:15)
[2016-12-23] MEDS: predniSONE 10 MG TAB PO SCH (09:51)
[2016-12-23] MEDS: ASCORBIC ACID 500 MG TAB PO SCH (09:51)
[2016-12-23] MEDS: ATORVASTATIN 10 MG TAB PO SCH (09:51)
[2016-12-23] MEDS: FUROSEMIDE 40 MG TAB PO SCH (09:51)
[2016-12-23] MEDS: MULTIVITAMINS/MINERALS THERAP 1 TAB PO SCH (09:52)
[2016-12-23] MEDS: POTASSIUM CHLORIDE 10 MEQ SR TABLET PO SCH (09:52)
[2016-12-23] MEDS: OMEGA-3 1050MG CAPSULE PO SCH (09:52)
[2016-12-23] MEDS: PANTOPRAZOLE 40MG TAB (PROTONIX) PO SCH ×2 (09:52→20:15)
--- NOTE | 2016-12-23 11:00 | IPNPDOC ---
Subjective Date Seen The patient was seen on 12/23/16. Subjective Chief Complaint/HPI The patient is a 71-year-old female admitted with a reason for visit of Syncope. Events since last encounter Patient was seen this morning at bedside. Used face mask with bipap and tolerated it fine. Had an issue with the pulse ox sensor, but once that was corrected, she reports that she was able to fall asleep. She denies any increased SOB. No chest pain. No nausea, vomiting, diarrhea, abd pain. Had a BM this morning. Still have back pain and waiting for the brace. No new neurologically deficits. Moving extremities, without increased weakness. No paresthesias. No bladder dysfunction. No incontinence. Objective Physical Examination General Exam: Positive: Alert, Cooperative, No Acute Distress Eye Exam: Positive: PERRLA, Conjunctiva & lids normal, EOMI, Negative: Sclera icteric ENT Exam: Positive: Atraumatic, Mucous membr. moist/pink, Pharynx Normal Neck Exam: Positive: Supple, Negative: thyromegaly Chest Exam: Positive: Normal air movement Heart Exam: Positive: Rate Normal, Regular Rhythm, Normal S1, Normal S2 Abdomen Exam: Positive: Normal bowel sounds, Soft, Negative: Tenderness Extremity Exam: Positive: Edema, Normal pulses, Negative: Cyanosis Skin Exam: Positive: Nl turgor and temperature, Negative: Rash, Breakdown Neuro Exam: Positive: Normal Speech, Cranial Nerves 3-12 NL Psych Exam: Positive: Mental status NL, Mood NL, Oriented x 3 Assessment /Plan Problems (1) Syncope Status: Acute Response to Treatment: Stable Problem Specific Plan: Monitor Clinically Problem Text: * No events on tele * Patient had multiple episodes of syncope resulting in falls * Recommend that patient follows up with cardiology for possible loop recorder * May be secondary to severe pulm HTN. She should dc Coreg and Imdur * Continue PT, will need as outpatient PT as well * No syncopal episodes during hospitalization (2) Shortness of breath Status: Acute Response to Treatment: Stable Problem Specific Plan: Monitor Clinically Problem Text: * Patient normally uses 4L of oxygen continuously * Continuous pulse ox * Due to desaturations, pulmonary recommended increasing oxygen to 5L at night * Multifactorial w/ history advanced pulmonary hypertension, pulmonary fibrosis , chronic hypoxic respiratory failure, obstructive sleep apnea and heart failure (3) Acute exacerbation of chronic low back pain Status: Acute Problem Specific Plan: Monitor Clinically Problem Text: * CT of the lumbar spine revealed acute L3 superior endplate compression fracture * Orthopedics and pain management were consulted * Had trigger point injections from pain center on 12/22. * Brace arrived today, PT is working with her to get her comfortable with brace * Continue pain medication as needed (4) Pulmonary hypertension Status: Chronic Response to Treatment: Stable Problem Specific Plan: Monitor Clinically Problem Text: * [facility] * Seen by Dr. Sánchez while inpatient, recommended increasing O2 on Bipap, discontinuing Coreg and Imdur which she takes at home to prevent hypotension given severe pulm HTN (5) Acute on chronic diastolic CHF (congestive heart failure) Status: Resolved Problem Specific Plan: Monitor Clinically Problem Text: * Grade 1 diastolic dysfunction, unchanged from previous echo per Dr Benjamin report * Severe tricuspid regurg on echo * On oral lasix, treated with IV lasix on admission * Doesn't appear to be fluid overloaded at this time (6) Pulmonary fibrosis Status: Chronic Response to Treatment: Stable Problem Specific Plan: Monitor Clinically Problem Text: * On home prednisone (7) Sleep apnea Status: Chronic Response to Treatment: Stable Problem Specific Plan: Monitor Clinically Problem Text: * Currently on bipap with supplemental oxygen * Increase O2 as needed for desaturations (8) Tricuspid regurgitation Status: Chronic Response to Treatment: Stable Problem Specific Plan: Monitor Clinically (9) CAD (coronary artery disease) Status: Chronic Response to Treatment: Stable Problem Specific Plan: Monitor Clinically Problem Text: * Currently on Ranexa. She is asymptomatic (10) HTN (hypertension) Status: Chronic Response to Treatment: Stable Problem Specific Plan: Monitor Clinically Problem Text: * BP stable * Currently on Lasix (11) HLD (hyperlipidemia) Status: Chronic Response to Treatment: Stable Problem Text: * Continue Lipitor (12) GERD (gastroesophageal reflux disease) Status: Chronic Response to Treatment: Stable Problem Text: * On Protonix (13) Hypothyroidism Status: Chronic Response to Treatment: Stable Problem Text: * On Synthroid (14) Abdominal obesity Status: Chronic Response to Treatment: Stable Plan/VTE VTE Prophylaxis Ordered?: Yes (heparin) Plan Anticipated Discharge: Home With Services Disposition Patient will be discharged once cleared with physical therapy, status is being changed to ALC VS, I&O, 24H, Fishbone Vital Signs/I&O Vital Signs Date Time Temp Pulse Resp B/P (MAP) Pulse Ox O2 Delivery O2 Flow Rate FiO2 12/23/16 09:00 Nasal Cannula 4.0 12/23/16 08:29 97.4 66 14 163/77 (105) 99 12/17/16 22:00 98 I&O- Last 24 Hours up to 6 AM 12/23/16 06:00 Intake Total 360 ml Output Total 1800 ml Balance -1440 ml Laboratory Data Microbiology Microbiology 12/17/16 Urine Culture - Final, Complete RIGOBERTO MOSES DO December 23, 2016 11:00
--- NOTE | 2016-12-23 11:12 | NOCOX ---
DATE OF PROCEDURE: 12/22/2016 to 12/23/2016. Nocturnal oximetry and to light and a nocturnal oximetry was performed on 12/22/2016 to 12/23/2016the. Patient was on her usual bilevel settings with a 5 liters bleed in, however, she was switched to a full face mask from her nasal mask. INTERPRETATION: Heart rate ranged from 55 to 109. Pulse oximetry ranged from 76 to 98%. The longest continuous time with an oxygen saturation less than 88% was 56 seconds. The total time was spent with an oxygen saturation less than 88% was 1 minute 30 seconds. The average oxygen saturation was 93.7%. There was minimal variable desaturations mostly in the beginning of the study. After the mask was secured, there were no significant desaturations. IMPRESSION: Much improved nocturnal oximetry with minimal variable desaturations. Recommend use of full face mask with BiPAP.
[2016-12-23] MEDS: NORCO, ANEXSIA 5/325MG TABLET (HYDROcodone/ACETAMINOPHEN) PO PRN ×2 (12:06→20:17)
[2016-12-23 14:00] VITALS: BP 122/58
[2016-12-23] MEDS: ASPIRIN 81 MG ENTERIC TAB PO SCH (20:15)
[2016-12-23] MEDS: DIVALPROEX 500MG *ER* TAB PO SCH (20:15)
[2016-12-24] MEDS: traMADol 50 MG TAB PO PRN ×3 (00:09→16:21)
[2016-12-24] MEDS: NORCO, ANEXSIA 5/325MG TABLET (HYDROcodone/ACETAMINOPHEN) PO PRN ×3 (04:17→20:36)
[2016-12-24 06:00] VITALS: BP 138/84
[2016-12-24] MEDS: HEPARIN SOD (PORCINE) 5000 UNITS/ML VIAL SQ SCH ×3 (06:00→20:36)
[2016-12-24] MEDS: LEVOTHYROXINE 0.15 MG TAB (150 MCG) PO SCH (06:00)
[2016-12-24] MEDS: MULTIVITAMINS/MINERALS THERAP 1 TAB PO SCH (09:10)
[2016-12-24] MEDS: predniSONE 10 MG TAB PO SCH (09:10)
[2016-12-24] MEDS: OMEGA-3 1050MG CAPSULE PO SCH (09:10)
[2016-12-24] MEDS: FUROSEMIDE 40 MG TAB PO SCH (09:10)
[2016-12-24] MEDS: POTASSIUM CHLORIDE 10 MEQ SR TABLET PO SCH (09:10)
[2016-12-24] MEDS: PANTOPRAZOLE 40MG TAB (PROTONIX) PO SCH ×2 (09:11→20:35)
[2016-12-24] MEDS: ASCORBIC ACID 500 MG TAB PO SCH (09:11)
[2016-12-24] MEDS: ATORVASTATIN 10 MG TAB PO SCH (09:11)
[2016-12-24] MEDS: RANOLAZINE 500 MG ER TAB PO SCH ×2 (09:18→20:35)
[2016-12-24 14:00] VITALS: BP 118/61
[2016-12-24] MEDS: DIVALPROEX 500MG *ER* TAB PO SCH (20:35)
[2016-12-24] MEDS: ASPIRIN 81 MG ENTERIC TAB PO SCH (20:35)
[2016-12-24 22:00] VITALS: BP 138/72
[2016-12-25] MEDS: traMADol 50 MG TAB PO PRN ×3 (00:23→18:15)
[2016-12-25] MEDS: NORCO, ANEXSIA 5/325MG TABLET (HYDROcodone/ACETAMINOPHEN) PO PRN ×3 (05:27→22:47)
[2016-12-25] MEDS: LEVOTHYROXINE 0.15 MG TAB (150 MCG) PO SCH (05:27)
[2016-12-25] MEDS: HEPARIN SOD (PORCINE) 5000 UNITS/ML VIAL SQ SCH ×3 (05:27→21:45)
[2016-12-25 06:00] VITALS: BP 155/72
[2016-12-25 06:05] LABS: MEAN CORPUSCULAR HEMOGLOBIN 31.8 pg (27.0-33.0); MEAN CORPUSCULAR HGB CONC 31.5 g/dl (32.0-36.5); RED CELL DISTRIBUTION WIDTH 15.4 % (11.5-14.5)
[2016-12-25 06:28] LABS: CALCIUM LEVEL 8.4 MG/DL (8.8-10.2); CREATININE FOR GFR 1.08 MG/DL (0.55-1.02); GLOMERULAR FILTRATION RATE 53.1 (>39); POTASSIUM SERUM 3.8 MEQ/L (3.5-5.1)
[2016-12-25] MEDS: ASCORBIC ACID 500 MG TAB PO SCH (08:24)
[2016-12-25] MEDS: ATORVASTATIN 10 MG TAB PO SCH (08:25)
[2016-12-25] MEDS: OMEGA-3 1050MG CAPSULE PO SCH (08:25)
[2016-12-25] MEDS: predniSONE 10 MG TAB PO SCH (08:25)
[2016-12-25] MEDS: MULTIVITAMINS/MINERALS THERAP 1 TAB PO SCH (08:25)
[2016-12-25] MEDS: PANTOPRAZOLE 40MG TAB (PROTONIX) PO SCH ×2 (08:25→21:45)
[2016-12-25] MEDS: POTASSIUM CHLORIDE 10 MEQ SR TABLET PO SCH (08:27)
[2016-12-25] MEDS: FUROSEMIDE 40 MG TAB PO SCH (08:27)
[2016-12-25] MEDS: RANOLAZINE 500 MG ER TAB PO SCH ×2 (08:27→21:44)
[2016-12-25] MEDS: DIVALPROEX 500MG *ER* TAB PO SCH (21:45)
[2016-12-25] MEDS: ASPIRIN 81 MG ENTERIC TAB PO SCH (21:45)
[2016-12-25 22:00] VITALS: BP 135/84
[2016-12-26 06:00] VITALS: BP 152/73
[2016-12-26] MEDS: HEPARIN SOD (PORCINE) 5000 UNITS/ML VIAL SQ SCH (06:07)
[2016-12-26] MEDS: LEVOTHYROXINE 0.15 MG TAB (150 MCG) PO SCH (06:07)
[2016-12-26] MEDS: OMEGA-3 1050MG CAPSULE PO SCH (08:35)
[2016-12-26] MEDS: RANOLAZINE 500 MG ER TAB PO SCH (08:35)
[2016-12-26] MEDS: predniSONE 10 MG TAB PO SCH (08:36)
[2016-12-26] MEDS: ATORVASTATIN 10 MG TAB PO SCH (08:36)
[2016-12-26] MEDS: FUROSEMIDE 40 MG TAB PO SCH (08:36)
[2016-12-26] MEDS: NORCO, ANEXSIA 5/325MG TABLET (HYDROcodone/ACETAMINOPHEN) PO PRN ×2 (08:36→14:34)
[2016-12-26] MEDS: PANTOPRAZOLE 40MG TAB (PROTONIX) PO SCH (08:36)
[2016-12-26] MEDS: POTASSIUM CHLORIDE 10 MEQ SR TABLET PO SCH (08:37)
[2016-12-26] MEDS: MULTIVITAMINS/MINERALS THERAP 1 TAB PO SCH (08:37)
[2016-12-26] MEDS: ASCORBIC ACID 500 MG TAB PO SCH (08:37)
--- NOTE | 2016-12-26 14:26 | DSES ---
DATE OF ADMISSION: 12/15/2016 DATE OF DISCHARGE: DISCHARGE DIAGNOSES 1. Syncope. 2. Acute diastolic heart failure, now compensated. 3. Severe pulmonary hypertension. 4. Pulmonary fibrosis. 5. Obstructive sleep apnea on bilevel positive airway pressure (BIPAP). 6. Coronary artery disease. 7. Hypertension. 8. Dyslipidemia. 9. Hypothyroidism. 10. Allergic rhinitis. 11. Osteoarthritis. 12. L3 compression fracture. 13. Morbid obesity. 14. Chronic headaches. 15. Allergic rhinitis. 16. Tricuspid regurgitation. DISCHARGE MEDICATIONS: - acetaminophen 1000 mg by mouth every 6 hours as needed - Ventolin inhaler 2 puffs inhaled four times a day as needed - vitamin C 1000 mg by mouth daily - aspirin 81 mg daily - Lipitor 10 mg daily - benzonatate 200 mg by mouth three times daily as needed - divalproex sodium 1000 mg at night - furosemide 40 mg daily - Levoxyl 150 mcg by mouth daily - multivitamin one tablet by mouth daily - Nasacort two sprays daily as needed - [place] fatty acids one capsule by mouth daily - Protonix 40 mg twice daily - potassium chloride 10 mEq daily - prednisone 10 mg by mouth daily - Ranexa 1000 mg by mouth in the morning - Ranexa 500 mg by mouth at night - tramadol 50 mg every 8 hours as needed - vitamin D 50,000 units by mouth two times a weeks - [place] one tablet by mouth three times daily as needed - acetaminophen/butalbital/caffeine one tablet by mouth as needed Discontinue medications: - carvedilol 6.25 mg by mouth twice daily - irbesartan 75 mg by mouth daily - isosorbide mononitrate 60 mg by mouth daily - metolazone 2.5 mg by mouth daily CONSULTANTS: 1. Dr. Sánchez, pulmonary. 2. Stephanie Hayward, pain management. 3. Dr. Sterling Brown, orthopedics. BRIEF HOSPITAL COURSE: The patient originally presented with complaints of a syncopal episode. She had a history of multiple falls. She had reported that she was lightheaded with ambulation. She had orthostatics checked on admission, which were negative. No events on telemetry. Cardiac markers were negative. CT of the head was negative. She had an echocardiogram done, which revealed grade 1 diastolic dysfunction, severe tricuspid regurgitation with severe pulmonary hypertension with small pericardial effusion. She was also found to be in decompensated heart failure for which she received IV Lasix. She was then compensated and placed back on oral Lasix. The patient has obstructive sleep apnea and was using her BiPap machine at night; however, there was some difficulty with her oxygenation. She had multiple episodes of desaturations for which she required a new mask. Once she was switched to a full face mask, her nocturnal oximetry was within normal and oxygenation was no longer an issue as long as she remained compliant with the face mask. She did complain of back pain during hospitalization. She had a CT of the lumbar spine, which revealed acute superior endplate fracture of the L3 vertebral body with minimal height loss, as well as multiple disc bulging with minimal central canal stenosis. She was evaluated by orthopedics who recommended a lumbosacral type orthosis. The patient received her brace several days before discharge and continued to work with physical therapy to be better acquainted with taking on and off the brace, as well as transfers on the hospital bed. During hospitalization, she was taken over to the pain center for trigger point injections, which did help with her pain. After working with physical therapy, she was subsequently stable to be discharged with home services along with the hospital bed. Her hospital bed arrived several days ago and it was set up in the home. Brace was fitting her well and was adjusted today by Cristal Jones. All other chronic medical conditions remained stable during hospitalization and she was subsequently stable for discharge. LABORATORY DATA: WBC 8.0, hemoglobin 12.9, hematocrit 41.1, platelet count 236. Sodium 139, potassium 3.8, chloride 97, carbon dioxide 35, anion gap 7, BUN 28, creatinine 1.08, GFR 53.1, fasting glucose 131, calcium 8.4. Microbiology during hospitalization: The patient had a urine culture which was contaminated. IMAGING STUDIES: In addition to the aforementioned, she had a hip x-ray, which revealed no acute fracture or dislocation. Chest x-ray on 12/15 showed global cardiomegaly and chronic fibrotic changes. Cervical spine CT showed no acute fracture or subluxation, cervical spondylosis at the C4-C5 through C6-C7 levels. Brain MRI revealed small vessel ischemic disease, minimal volume loss. MRA showed no aneurysm or AVM. Atherosclerotic disease was present. Head CT showed age-related atrophy and microvascular ischemic changes, nothing acute. PHYSICAL EXAMINATION ON DISCHARGE: Vital signs: Temperature 97.3, pulse 65, respiratory rate 18, blood pressure 152/73, pulse oximetry 90% on 4 liters. GENERAL: The patient is alert and oriented times three, in no acute distress. HEENT: Normocephalic, atraumatic. Extraocular muscles are intact. Pupils are equally round and reactive to light. No scleral icterus. Moist mucosa. NECK: Supple. No cervical lymphadenopathy. No thyromegaly. No jugular venous distension appreciated. HEART: Normal S1, S2, regular rate and rhythm. LUNGS: Normal air movement. No rales, rhonchi or wheezing appreciated. ABDOMEN: Soft, nontender, nondistended. Positive bowel sounds. No rebound, guarding or rigidity. EXTREMITIES: Trace lower extremity edema. Normal pulses. No cyanosis. SKIN: Warm and dry. No rashes noted. NEUROLOGIC: No focal deficits. Cranial nerves II through XII are grossly intact. Motor sensation intact. DISCHARGE INSTRUCTIONS: The patient discharged in stable condition. She should followup with her measuring clerk, Dr. Benjamin. She reports that she has an appointment on December 28. Followup with Dr. Sánchez in 1 week, Dr. Brown in 1 week. She should also followup with her primary care physician in 7-10 days. Activity as tolerated per orthopedics. Chronic obstructive pulmonary disease (COPD) diet. She has an appointment with Dr. Brown on January 11, Dr. Posada on January 02 and pain clinic on January 10. Return to emergency department with any worsening or recurring symptoms. Time spent on discharge: Greater than 40 minutes. My preceptor for this patient encounter was Dr. Mtz. The preceptor was physically present in the building during the encounter and was fully available. As needed, all aspects of the patient interview, examination, medical decision making process, and medical care plan development were reviewed and approved by the preceptor. The preceptor is aware and concurs with the plan as stated in the body of this note and will attest to such by his/her cosignature.
--- NOTE | 2016-12-29 08:47 | ECWPNPC ---
PATIENT NAME: LORE VALERIO : 1945 GENDER: FEMALE MRN: [id number] DATE: 12/22/2016 DISCHARGE DATE: 12/22/16 0000 VISIT LOCKED DATE TIME: PHYSICIAN: MIRIAM CORTEZ RESOURCE: MIRIAM CORTEZ REASON FOR APPOINTMENT 1. TPI INPATIENT HISTORY OF PRESENT ILLNESS HISTORY OF PRESENT ILLNESS: PAIN THE PATIENT DESCRIBES THE PAIN... FALL RISK SCREENING: SCREENING :NO FALLS IN THE PAST YEAR CURRENT MEDICATIONS TAKING ASCORBIC ACID ER 1000 MG TABLET EXTENDED RELEASE 1 TABLET ORALLY ONCE A DAY, NOTES: 12/22 8AM TAKING ASPIR-81 81 MG TABLET DELAYED RELEASE 1 TABLET ORALLY ONCE A DAY, NOTES: 12/21 9PM TAKING ATORVASTATIN CALCIUM 10 MG TABLET 1 TABLET ORALLY ONCE A DAY, NOTES: 12/22 8AM TAKING DIVALPROEX SODIUM 500 MG TABLET DELAYED RELEASE ORALLY , NOTES: 9PM TAKING LEVOTHYROXINE SODIUM 150 MCG TABLET 1 TABLET ON AN EMPTY STOMACH IN THE MORNING ORALLY ONCE A DAY, NOTES: 12/22 6AM TAKING MULTIVITAMIN - TABLET CHEWABLE ORALLY , NOTES: 12/22 8AM TAKING FISH OIL 1000 MG CAPSULE 1 CAPSULE ORALLY ONCE A DAY, NOTES: 12/22 8AM TAKING PANTOPRAZOLE SODIUM 40 MG TABLET DELAYED RELEASE 1 TABLET ORALLY BID, NOTES: 12/22 8AM TAKING PREDNISONE 1 TAB ORAL , NOTES: 12/22 8AM TAKING RANOLAZINE ER 1000 MG TABLET EXTENDED RELEASE 12 HOUR 1 TABLET ORALLY DAILY, NOTES: 12/22 8AM TAKING RANOLAZINE ER 500 MG TABLET EXTENDED RELEASE 12 HOUR 1 TABLET ORALLY QHS, NOTES: 12/21 9PM TAKING FUROSEMIDE 40 MG TABLET 1 TABLET ORALLY ONCE A DAY, NOTES: 12/21 10AM TAKING POTASSIUM CHLORIDE 20 MEQ PACKET ORALLY DAILY, NOTES: 12/21 10AM TAKING HEPARIN SODIUM (PORCINE) 5000 UNIT/ML SOLUTION INJECTION , NOTES: 12/21 2PM TAKING ACETAMINOPHEN ER 650 MG TABLET EXTENDED RELEASE 2 TABLETS NEEDED ORALLY EVERY 8 HRS, NOTES: 12/18 10AM TAKING ACETAMINOPHEN-CAFFEINE 500-65 MG TABLET ORALLY TAKING BENZONATATE 200 MG CAPSULE 1 CAPSULE ORALLY THREE TIMES A DAY TAKING TRAMADOL HCL 50 MG TABLET 1 TABLET NEEDED ORALLY EVERY 6 HRS, NOTES: 12/22 8AM TAKING HYDROCODONE BITARTRATE ER 20 MG TABLET ER 24 HOUR ABUSE-DETERRENT 1 TABLET ORALLY ONCE A DAY, NOTES: 12/22 11AM MEDICATION LIST REVIEWED AND RECONCILED WITH THE PATIENT PAST MEDICAL HISTORY PULOMONARY FIBROSIS CHF CAD HYPERTENSION HYPOTHROIDISM SOFY ON BIPAP DLP GERD CHRONIC HEADACHES ALLERGIC RHINITIS OBESITY OSTEOARTHRITIS ALLERGIES GABAPENTIN: RASH: ALLERGY SULFA (FOR ALLERGY USE ONLY): RASH: ALLERGY CELECOXIB: RASH: ALLERGY LEFLUNOMIDE: NAUSEA/VOMITING: ALLERGY SEAFOOD: ANAPHYLAXIS: ALLERGY SURGICAL HISTORY RIGHT SHOULDER ROTATOR CUFF SURGERY BILATERAL KNEE REPLACEMENT HOSPITALIZATION/MAJOR DIAGNOSTIC PROCEDURE SYNCOPE 11/2016 REVIEW OF SYSTEMS CONSTITUTIONAL: ANY CHANGE IN YOUR MEDICAL CONDITION? NO . CHILLS NO . FEVER NO . INFECTION: DO YOU HAVE NEW INFECTIONS? NO . DO YOU HAVE HISTORY OF MRSA? NO . MUSCULOSKELETAL: ANY NEW PATTERNS OF PAIN OR NUMBNESS? YES . GASTROENTEROLOGY: ANY NEW CHANGE IN BOWEL CONTROL? NO . GENITOURINARY: ANY NEW CHANGE IN BLADDER CONTROL? NO . IS THERE A CHANCE YOU COULD BE ? NO . HEMATOLOGY/LYMPH: DO YOU TAKE ANY BLOOD THINNERS? (FOR EXAMPLE- COUMADIN, PLAVIX, AGGRENOX, PLATEL, PRADAXA, OR XARELTO) NO . WHEN WAS YOUR LAST DOSE? DATE: TIME: . NEUROLOGY: HAVE YOU FALLEN IN THE PAST 6 MONTHS? YES, DECEMBER 05, 2016, PT STATES THAT SHE BECAME LIGHT-HEADED AND DIZZY WHILE AT HOME, WOKE UP ON THE GROUND, NOT SURE HOW LONG SHE HAD BEEN ON THE GROUND. NO OTHER PERSON WITNESSED EVENT. PT STATES THAT SHE DID HIT HER HEAD WHEN SHE FELL. PT STATES THAT SHE DID NOT HAVE PAIN WHEN SHE WOKE UP AFTER FALLING. PT DID NOT REPORT TO ED UNTIL 12/15/2016. . ANY NEW EXTREMITY NUMBNESS OR WEAKNESS? NO . CARDIOLOGY: DO YOU HAVE A PACEMAKER OR DEFIBRILLATOR? NO . RESPIRATORY: HAVE YOU BEEN SICK IN THE PAST WEEK? NO . FEVER NO . FLU LIKE SYMPTOMS? NO . COUGH NO . INTEGUMENTARY: DO YOU HAVE ANY RASHES OR OPEN SORES? NO . ALLERGIC/IMMUNO: ARE YOU ALLERGIC TO SHELLFISH OR IV DYE? YES . ANY NEW ALLERGIES? NO . PSYCHIATRIC: DO YOU HAVE THOUGHTS OF HURTING YOURSELF OR SOMEONE ELSE? NO . ARE YOU ABUSED, NEGLECTED, OR IN AN UNSAFE ENVIRONMENT? NO . ENDOCRINOLOGY: ARE YOU DIABETIC? NO . OTHER: DO YOU NEED ANY PRESCRIPTIONS? NO . IF YES, PLEASE LIST: ____ . ANY NEW PROBLEMS WITH YOUR MEDICATIONS? NO . WHEN DID YOU LAST EAT? 12/21 5PM . WHEN DID YOU LAST DRINK? 12/22 6AM . WHAT DID YOU LAST DRINK? APPLE JUICE . NAME OF PERSON DRIVING YOU HOME? INPATIENT . DO YOU HAVE ANY OTHER QUESTIONS OR CONCERNS NO . REVIEWED BY: PROVIDER: . VITAL SIGNS WT 260 LBS, HT 62 IN, BMI 47.55 INDEX, BP 124/56 MM HG, HR 69 /MIN, RR 16 /MIN, TEMP 97.7 F, OXYGEN SAT % 94%, NA INITIALS SC 13:43. ASSESSMENTS MYALGIA - M79.1 (PRIMARY) PROCEDURES PN TRIGGER POINT INJECTION WITH STEROIDS PRE PROCEDURE DIAGNOSIS 1. MYALGIA 2. PAIN AT BILATERAL LOW BACK AREA POST PROCEDURE DIAGNOSIS 1. MYALGIA 2. PAIN AT BILATERAL LOW BACK AREA PROCEDURE TRIGGER POINT INJECTION AT BILATERAL LOW BACK AREA SURGEON DR. MIRIAM CORTEZ FOIL OPERATOR NONE ANESTHESIA LOCAL PRE PROCEDURE NOTE THE PATIENT HAS A HISTORY OF CHRONIC PAIN AT THE RIGHT AND LEFT LOW BACK AREA. I EVALUATE THE PATIENT AND REVIEWED THE CHART. THERE IS EVIDENCE OF BANDS OF TISSUE WITH RESTRICTION OF MOVEMENT AND PRESENCE OF TRIGGER POINT AT THE AFFECTED AREA. I WENT OVER THE RISKS, ALTERNATIVES, AND BENEFITS ASSOCIATED WITH THIS PROCEDURE. THE PATIENT WOULD LIKE TO PROCEED AND GIVE CONSENT TO PERFORMED THE PROCEDURE. THE PATIENT DENIES UNEXPLAINABLE WEIGHT LOSS, FEVER, CHILLS, OR NEW CHANGES IN URINARY OR BOWEL CONTROL DESCRIPTION OF PROCEDURE THE PATIENT WAS BROUGHT TO THE PROCEDURE ROOM AND PLACED IN THE SITTING POSITION. THE AREA WAS CLEANED WITH ALCOHOL. THE PROCEDURE WAS DONE USING ASEPTIC STERILE TECHNIQUE. I CHECKED LATERALITY AND THE LEVEL WHERE THE PROCEDURE WAS GOING TO BE PERFORMED WITH THE PATIENT AND THE SUPPORTING STAFF AT THE MOMENT OF THE TIME OUT IN THE PROCEDURE ROOM. USING A 25-GAUGE NEEDLE, TRIGGER POINTS WERE INJECTED AT THE RIGHT AND LEFT LOW BACK AREA WITH A TOTAL OF 40 ML OF BUPIVACAINE 0.25% AND KENALOG 40 MG. THERE WAS NO EVIDENCE OF BLOOD, PARESTHESIA OR CEREBROSPINAL FLUID DURING THE PROCEDURE. THE PATIENT WAS SENT TO THE RECOVERY ROOM. THE PATIENT WAS MOVING THE EXTREMITIES AND DOING WELL. THERE WAS NO COMPLICATION DURING THE PROCEDURE POST PROCEDURE NOTE THE PATIENT WILL BE SEEN IN A FOLLOW UP IN THE NEXT FEW WEEKS. INSTRUCTIONS WERE GIVEN, QUESTIONS WERE ANSWERED, AND THE PATIENT EXPRESSED UNDERSTANDING AND AGREES WITH THE PLAN. I, ISAI ZAIDI, DOCUMENTED THE ABOVE INFORMATION ACTING A SCRIBE FOR DR. CORTEZ. I HAVE REVIEWED THE ABOVE DOCUMENT, WRITTEN BY ISAI GAUTHIER AND I VERIFY THAT IT IS ACCURATE PROCEDURE CODES 45795 INJ TRIGGER POINT 1/2 MUSCL DISPOSITION & COMMUNICATION FOLLOW UP 3 WEEKS ELECTRONICALLY SIGNED BY MIRIAM CORTEZ MD ON 12/26/2016 AT 08:35 PM EDT DISCLAIMER : THIS IS A VISIT SUMMARY EXTRACTED FROM THE [employer] CHART. IT IS NOT A COPY OF THE [employer] PROGRESS NOTE. [facility]
== END 2016-12-26 15:45 | disposition home health service (06) | DRG 551 ==
LOC: M ED 15:06 → M ED INP 19:12 → M MS5PR 12-17 13:16
PROVIDERS: ADMIT Internal Medicine; ATTEND Internal Medicine
DX: S32.030A Wedge compression fracture of third lumbar vertebra, initial encounter for closed fracture (principal); I50.33 Acute on chronic diastolic (congestive) heart failure; Z68.42 Body mass index [BMI] 45.0-49.9, adult; J96.11 Chronic respiratory failure with hypoxia; R55 Syncope and collapse; I11.0 Hypertensive heart disease with heart failure; E66.01 Morbid (severe) obesity due to excess calories; I25.10 Atherosclerotic heart disease of native coronary artery without angina pectoris; M54.5 Low back pain; E78.5 Hyperlipidemia, unspecified; J84.10 Pulmonary fibrosis, unspecified; K21.9 Gastro-esophageal reflux disease without esophagitis; I36.1 Nonrheumatic tricuspid (valve) insufficiency; E03.9 Hypothyroidism, unspecified; I27.2 Other secondary pulmonary hypertension; J30.9 Allergic rhinitis, unspecified; M19.90 Unspecified osteoarthritis, unspecified site; R51 Headache; G47.33 Obstructive sleep apnea (adult) (pediatric); Z99.89 Dependence on other enabling machines and devices; Z79.82 Long term (current) use of aspirin; Z79.899 Other long term (current) drug therapy; Z79.52 Long term (current) use of systemic steroids; Z91.81 History of falling; Z91.013 Allergy to seafood; Z88.2 Allergy status to sulfonamides; Z88.8 Allergy status to other drugs, medicaments and biological substances; Z96.653 Presence of artificial knee joint, bilateral; Y92.018 Other place in single-family (private) house as the place of occurrence of the external cause; Y93.01 Activity, walking, marching and hiking; W01.0XXA Fall on same level from slipping, tripping and stumbling without subsequent striking against object, initial encounter; Y99.9 Unspecified external cause status

== ENCOUNTER → 2017-01-12 | Outpatient (CLI) | payer MEDICARE ==
[~2017-01-12] MED LIST changes: +ALBU17IN INH; +BENZ200C44 PO; +HYDR-3713 PO; +LEVO150T42 PO; +METO25TA PO; +PRED10TA PO; +TYLE500T78 PO
--- NOTE | 2017-01-12 23:37 | ECWPNPC ---
PATIENT NAME: LORE VALERIO : 1945 GENDER: FEMALE VISIT DATE: 01/12/2017 DISCHARGE DATE: 01/12/17 164 VISIT LOCKED DATE TIME: PHYSICIAN: DAVEY RAMÍREZ RESOURCE: DAVEY RAMÍREZ REASON FOR APPOINTMENT 1. LOW BACK HISTORY OF PRESENT ILLNESS HISTORY OF PRESENT ILLNESS: HERE FOR F/U AFTER IN PATIENT TPI OF LOW BACK.SHE DOES THINK IT HAS HELPED.SHE IS RECIEVING HOME PT AND FINDS THAT THIS HAS IMPROVED HER ACTIVITY TOLERANCE.RATING PAIN VAS 9/10.PAIN IS ACROSS LOW BACK AND OVER LEFT SHOULDER.CURRENTLY TAKING HYDROCODONE 5/325 3X PER DAY WHICH SHE FINDS HELPFUL AND THIS HELPS HER TOLERATE PT.REVIEWED MRI L/S SPINE AND C-SPINE.DISCUSSED INTERVENTIONAL TREATMENT OPTIONS TO INCLUDE BILATERAL THERAPEUTIC FACET BLOCK.SHE WOULD LIKE TO HOLD OFF ON ANY PROCEDURES NOW AND SEE HOW SHE DOES WITH PT. PAIN THE PATIENT DESCRIBES THE PAIN... FALL RISK SCREENING: SCREENING :NO FALLS IN THE PAST YEAR CURRENT MEDICATIONS TAKING ASCORBIC ACID ER 1000 MG TABLET EXTENDED RELEASE 1 TABLET ORALLY ONCE A DAY, NOTES: 12/22 8AM TAKING ASPIR-81 81 MG TABLET DELAYED RELEASE 1 TABLET ORALLY ONCE A DAY, NOTES: 12/21 9PM TAKING ATORVASTATIN CALCIUM 10 MG TABLET 1 TABLET ORALLY ONCE A DAY, NOTES: 12/22 8AM TAKING DIVALPROEX SODIUM 500 MG TABLET DELAYED RELEASE ORALLY , NOTES: 9PM TAKING LEVOTHYROXINE SODIUM 150 MCG TABLET 1 TABLET ON AN EMPTY STOMACH IN THE MORNING ORALLY ONCE A DAY, NOTES: 12/22 6AM TAKING MULTIVITAMIN - TABLET CHEWABLE ORALLY , NOTES: 12/22 8AM TAKING FISH OIL 1000 MG CAPSULE 1 CAPSULE ORALLY ONCE A DAY, NOTES: 12/22 8AM TAKING PANTOPRAZOLE SODIUM 40 MG TABLET DELAYED RELEASE 1 TABLET ORALLY BID, NOTES: 12/22 8AM TAKING PREDNISONE 1 TAB ORAL , NOTES: 12/22 8AM TAKING RANOLAZINE ER 1000 MG TABLET EXTENDED RELEASE 12 HOUR 1 TABLET ORALLY DAILY, NOTES: 12/22 8AM TAKING RANOLAZINE ER 500 MG TABLET EXTENDED RELEASE 12 HOUR 1 TABLET ORALLY QHS, NOTES: 12/21 9PM TAKING FUROSEMIDE 40 MG TABLET 1 TABLET ORALLY ONCE A DAY, NOTES: 12/21 10AM TAKING POTASSIUM CHLORIDE 20 MEQ PACKET ORALLY DAILY, NOTES: 12/21 10AM TAKING ACETAMINOPHEN ER 650 MG TABLET EXTENDED RELEASE 2 TABLETS NEEDED ORALLY EVERY 8 HRS, NOTES: 12/18 10AM TAKING ACETAMINOPHEN-CAFFEINE 500-65 MG TABLET ORALLY TAKING BENZONATATE 200 MG CAPSULE 1 CAPSULE ORALLY THREE TIMES A DAY TAKING HYDROCODONE-ACETAMINOPHEN 5-325 MG TABLET 1 TABLET NEEDED ORALLY EVERY 6 HRS NOT-TAKING TRAMADOL HCL 50 MG TABLET 1 TABLET NEEDED ORALLY EVERY 6 HRS, NOTES: 12/22 8AM NOT-TAKING HYDROCODONE BITARTRATE ER 20 MG TABLET ER 24 HOUR ABUSE-DETERRENT 1 TABLET ORALLY ONCE A DAY, NOTES: 12/22 11AM NOT-TAKING HEPARIN SODIUM (PORCINE) 5000 UNIT/ML SOLUTION INJECTION , NOTES: 12/21 2PM MEDICATION LIST REVIEWED AND RECONCILED WITH THE PATIENT PAST MEDICAL HISTORY PULOMONARY FIBROSIS CHF CAD HYPERTENSION HYPOTHROIDISM SOFY ON BIPAP DLP GERD CHRONIC HEADACHES ALLERGIC RHINITIS OBESITY OSTEOARTHRITIS ALLERGIES GABAPENTIN: RASH: ALLERGY SULFA (FOR ALLERGY USE ONLY): RASH: ALLERGY CELECOXIB: RASH: ALLERGY LEFLUNOMIDE: NAUSEA/VOMITING: ALLERGY SEAFOOD: ANAPHYLAXIS: ALLERGY SURGICAL HISTORY RIGHT SHOULDER ROTATOR CUFF SURGERY BILATERAL KNEE REPLACEMENT HOSPITALIZATION/MAJOR DIAGNOSTIC PROCEDURE SYNCOPE 11/2016 REVIEW OF SYSTEMS CONSTITUTIONAL: ANY CHANGE IN YOUR MEDICAL CONDITION? YES, PT STATES SHE FELL AT HOME FROM WEAKNESS, PT WAS BROUGHT TO HOSPITAL BY AMBULANCE WHERE SHE WAS ADMITTED AND DX WITH FX OF L3. PT CAME TO PAIN CLINIC DURING HOSPITALIZATION FOR TPI. PT STATES HER MOBILITY IS MUCH LESS NOW THAN BEFORE HER FALL. PT STATES PT COMES TO HER HOME. . CHILLS NO . FEVER NO . INFECTION: DO YOU HAVE NEW INFECTIONS? NO . DO YOU HAVE HISTORY OF MRSA? NO . MUSCULOSKELETAL: ANY NEW PATTERNS OF PAIN OR NUMBNESS? YES, LEFT SHOULDER PAIN, PT STATES PAIN IS 9/10 . GASTROENTEROLOGY: ANY NEW CHANGE IN BOWEL CONTROL? NO . GENITOURINARY: ANY NEW CHANGE IN BLADDER CONTROL? NO . IS THERE A CHANCE YOU COULD BE ? NO . HEMATOLOGY/LYMPH: DO YOU TAKE ANY BLOOD THINNERS? (FOR EXAMPLE- COUMADIN, PLAVIX, AGGRENOX, PLATEL, PRADAXA, OR XARELTO) NO . WHEN WAS YOUR LAST DOSE? DATE: TIME: . NEUROLOGY: HAVE YOU FALLEN IN THE PAST 6 MONTHS? YES, PT STATES 3 FALLS SINCE 2017. 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 . ANY NEW EXTREMITY NUMBNESS OR WEAKNESS? NO . CARDIOLOGY: DO YOU HAVE A PACEMAKER OR DEFIBRILLATOR? NO . RESPIRATORY: HAVE YOU BEEN SICK IN THE PAST WEEK? NO . FEVER NO . FLU LIKE SYMPTOMS? NO . COUGH NO . INTEGUMENTARY: DO YOU HAVE ANY RASHES OR OPEN SORES? NO . ALLERGIC/IMMUNO: ARE YOU ALLERGIC TO SHELLFISH OR IV DYE? NO . ANY NEW ALLERGIES? NO . PSYCHIATRIC: DO YOU HAVE THOUGHTS OF HURTING YOURSELF OR SOMEONE ELSE? NO . ARE YOU ABUSED, NEGLECTED, OR IN AN UNSAFE ENVIRONMENT? NO . ENDOCRINOLOGY: ARE YOU DIABETIC? NO . OTHER: DO YOU NEED ANY PRESCRIPTIONS? NO . IF YES, PLEASE LIST: ____ . ANY NEW PROBLEMS WITH YOUR MEDICATIONS? NO . WHEN DID YOU LAST EAT? ____ . WHEN DID YOU LAST DRINK? ____ . WHAT DID YOU LAST DRINK? ____ . NAME OF PERSON DRIVING YOU HOME? ____ . DO YOU HAVE ANY OTHER QUESTIONS OR CONCERNS NO . REVIEWED BY: PROVIDER: DAVEY HAMPTON . VITAL SIGNS WT 260 LBS, HT 62 IN, BMI 47.55 INDEX, BP 141/68 MM HG, HR 71 /MIN, RR 16 /MIN, TEMP 97.5 F, OXYGEN SAT % 96. EXAMINATION GENERAL EXAMINATION: LUNGS:LUNG PETERSEN ARE CLEAR TO AUSCULTATION BILATERALLY. GOOD MOVEMENT OF AIR. HEART:S1, S2 IN A REGULAR RATE AND RHYTHM. NO SIGNIFICANT MURMURS, RUBS OR GALLOPS NOTED. LUMBAR SPINE/LOWER BACK: PALPATION:VERTEBRAL SPINE TENDERNESS.RIGHT SIJ WITH MARKED TENDERNESS WITH PALPATION. MOTOR SYSTEM:5/5 BLE. SENSORY EXAM:NORMAL BILATERAL LE. DIAGNOSTIC DATA-CT C SPINE AND L/S SPINE -REVIEWED. 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 IT IS NOT A COPY OF THE [employer] PROGRESS NOTE. [facility]
== END ==
LOC: M PAIN 15:20
PROVIDERS: ATTEND Nurse Practitioner Family
DX: M47.816 Spondylosis without myelopathy or radiculopathy, lumbar region (principal); M43.02 Spondylolysis, cervical region; Z79.82 Long term (current) use of aspirin; Z79.891 Long term (current) use of opiate analgesic; Z79.899 Other long term (current) drug therapy; Z88.8 Allergy status to other drugs, medicaments and biological substances; Z88.2 Allergy status to sulfonamides; Z91.013 Allergy to seafood; I11.9 Hypertensive heart disease without heart failure; E03.9 Hypothyroidism, unspecified; K21.9 Gastro-esophageal reflux disease without esophagitis; I50.9 Heart failure, unspecified; I25.10 Atherosclerotic heart disease of native coronary artery without angina pectoris; J30.9 Allergic rhinitis, unspecified; M19.90 Unspecified osteoarthritis, unspecified site; R51 Headache

== ENCOUNTER → 2017-02-24 | Outpatient (CLI) | payer MEDICARE ==
[~2017-02-24] MED LIST changes: -ACET-654 PO; +ACET1TAB17 PO; -BENZ200C44 PO; +BENZ200C53 PO; +CIPR-249 PO; -CIPR500T89 PO; +DEXI60CA2 PO; -MUCI600T34 PO; +MUCI600T37 PO; -PRED10TA PO; +PRED10TA2 PO; +SUCR1SS PO
--- NOTE | 2017-03-08 00:47 | ECWPNPC ---
PATIENT NAME: LORE VALERIO : 1945 GENDER: FEMALE VISIT DATE: 02/24/2017 DISCHARGE DATE: 02/24/17 1139 VISIT LOCKED DATE TIME: PHYSICIAN: DAVEY RAMÍREZ RESOURCE: DAVEY RAMÍREZ REASON FOR APPOINTMENT 1. BACK HISTORY OF PRESENT ILLNESS HISTORY OF PRESENT ILLNESS: HERE FOR F/U OF CHRONIC LOW BACK PAIN.RATING PAIN VAS 10/10.REPORTING AGGREVATION IN PAIN PAST MONTH.DENIES PRECIPITATING EVENT.HISTORY OF COMPRESSION FX L3/4.PAIN IS AGGREVATED BY FLEXION AND EXTENSION OF SPINE. PAIN THE PATIENT DESCRIBES THE PAIN... THE PATIENT DESCRIBES THE PAIN... FALL RISK SCREENING: SCREENING :NO FALLS IN THE PAST YEAR :NO FALLS IN THE PAST YEAR SCREENING :NO FALLS IN THE PAST YEAR :NO FALLS IN THE PAST YEAR CURRENT MEDICATIONS TAKING ASCORBIC ACID ER 1000 MG TABLET EXTENDED RELEASE 1 TABLET ORALLY ONCE A DAY, NOTES: 12/22 8AM TAKING ASPIR-81 81 MG TABLET DELAYED RELEASE 1 TABLET ORALLY ONCE A DAY, NOTES: 12/21 9PM TAKING DIVALPROEX SODIUM 500 MG TABLET DELAYED RELEASE ORALLY , NOTES: 9PM TAKING LEVOTHYROXINE SODIUM 150 MCG TABLET 1 TABLET ON AN EMPTY STOMACH IN THE MORNING ORALLY ONCE A DAY, NOTES: 12/22 6AM TAKING MULTIVITAMIN - TABLET CHEWABLE ORALLY , NOTES: 12/22 8AM TAKING FISH OIL 1000 MG CAPSULE 1 CAPSULE ORALLY ONCE A DAY, NOTES: 12/22 8AM TAKING PANTOPRAZOLE SODIUM 40 MG TABLET DELAYED RELEASE 1 TABLET ORALLY BID, NOTES: 12/22 8AM TAKING PREDNISONE 1 TAB ORAL , NOTES: 12/22 8AM TAKING RANOLAZINE ER 1000 MG TABLET EXTENDED RELEASE 12 HOUR 1 TABLET ORALLY DAILY, NOTES: 12/22 8AM TAKING RANOLAZINE ER 500 MG TABLET EXTENDED RELEASE 12 HOUR 1 TABLET ORALLY QHS, NOTES: 12/21 9PM TAKING FUROSEMIDE 40 MG TABLET 1 TABLET ORALLY ONCE A DAY, NOTES: 12/21 10AM TAKING POTASSIUM CHLORIDE 20 MEQ PACKET ORALLY DAILY, NOTES: 12/21 10AM TAKING ACETAMINOPHEN ER 650 MG TABLET EXTENDED RELEASE 2 TABLETS NEEDED ORALLY EVERY 8 HRS, NOTES: 12/18 10AM TAKING ACETAMINOPHEN-CAFFEINE 500-65 MG TABLET ORALLY TAKING BENZONATATE 200 MG CAPSULE 1 CAPSULE ORALLY THREE TIMES A DAY TAKING HYDROCODONE-ACETAMINOPHEN 5-325 MG TABLET 1 TABLET NEEDED ORALLY EVERY 6 HRS TAKING PREDNISONE 10 MG TABLET 1 TABLET ORALLY ONCE A DAY TAKING CARAFATE 1 GM/10ML SUSPENSION 10 ML ORALLY TWICE A DAY NOT-TAKING ATORVASTATIN CALCIUM 10 MG TABLET 1 TABLET ORALLY ONCE A DAY, NOTES: 12/22 8AM NOT-TAKING TRAMADOL HCL 50 MG TABLET 1 TABLET NEEDED ORALLY EVERY 6 HRS, NOTES: 12/22 8AM NOT-TAKING HYDROCODONE BITARTRATE ER 20 MG TABLET ER 24 HOUR ABUSE-DETERRENT 1 TABLET ORALLY ONCE A DAY, NOTES: 12/22 11AM NOT-TAKING HEPARIN SODIUM (PORCINE) 5000 UNIT/ML SOLUTION INJECTION , NOTES: 12/21 2PM MEDICATION LIST REVIEWED AND RECONCILED WITH THE PATIENT PAST MEDICAL HISTORY PULOMONARY FIBROSIS CHF CAD HYPERTENSION HYPOTHROIDISM SOFY ON BIPAP DLP GERD CHRONIC HEADACHES ALLERGIC RHINITIS OBESITY OSTEOARTHRITIS ALLERGIES GABAPENTIN: RASH: ALLERGY SULFA (FOR ALLERGY USE ONLY): RASH: ALLERGY CELECOXIB: RASH: ALLERGY LEFLUNOMIDE: NAUSEA/VOMITING: ALLERGY SEAFOOD: ANAPHYLAXIS: ALLERGY REVIEW OF SYSTEMS REVIEWED BY: PROVIDER: , DAVEY HAMPTON . CONSTITUTIONAL: ANY CHANGE IN YOUR MEDICAL CONDITION? NO, NO . CHILLS NO, NO . FEVER NO, NO . INFECTION: DO YOU HAVE NEW INFECTIONS? NO, NO . DO YOU HAVE HISTORY OF MRSA? NO, NO . MUSCULOSKELETAL: ANY NEW PATTERNS OF PAIN OR NUMBNESS? NO, NO . GASTROENTEROLOGY: ANY NEW CHANGE IN BOWEL CONTROL? NO, NO . GENITOURINARY: ANY NEW CHANGE IN BLADDER CONTROL? NO, NO . IS THERE A CHANCE YOU COULD BE ? NO, NO . HEMATOLOGY/LYMPH: DO YOU TAKE ANY BLOOD THINNERS? (FOR EXAMPLE- COUMADIN, PLAVIX, AGGRENOX, PLATEL, PRADAXA, OR XARELTO) NO, NO . WHEN WAS YOUR LAST DOSE? DATE: TIME: , DATE: TIME: . NEUROLOGY: HAVE YOU FALLEN IN THE PAST 6 MONTHS? NO, NO . ANY NEW EXTREMITY NUMBNESS OR WEAKNESS? NO, NO . CARDIOLOGY: DO YOU HAVE A PACEMAKER OR DEFIBRILLATOR? NO, NO . RESPIRATORY: HAVE YOU BEEN SICK IN THE PAST WEEK? NO, NO . FEVER NO, NO . FLU LIKE SYMPTOMS? NO, NO . COUGH NO, NO . INTEGUMENTARY: DO YOU HAVE ANY RASHES OR OPEN SORES? NO, NO . ALLERGIC/IMMUNO: ARE YOU ALLERGIC TO SHELLFISH OR IV DYE? NO, NO . ANY NEW ALLERGIES? NO, NO . PSYCHIATRIC: DO YOU HAVE THOUGHTS OF HURTING YOURSELF OR SOMEONE ELSE? NO, NO . ARE YOU ABUSED, NEGLECTED, OR IN AN UNSAFE ENVIRONMENT? NO, NO . ENDOCRINOLOGY: ARE YOU DIABETIC? NO, NO . OTHER: DO YOU NEED ANY PRESCRIPTIONS? NO, NO . IF YES, PLEASE LIST: ____, ____ . ANY NEW PROBLEMS WITH YOUR MEDICATIONS? NO, NO . WHEN DID YOU LAST EAT? ____, ____ . WHEN DID YOU LAST DRINK? ____, ____ . WHAT DID YOU LAST DRINK? ____, ____ . NAME OF PERSON DRIVING YOU HOME? ____, ____ . DO YOU HAVE ANY OTHER QUESTIONS OR CONCERNS NO, NO . VITAL SIGNS WT 265 LBS, HT 62 IN, BMI 48.46 INDEX, BP 128/87 MM HG, HR 74 /MIN, RR 16 /MIN, TEMP 97.5 F, OXYGEN SAT % 96%, NA INITIALS SC 11:11, REVIEWED BY: KG. EXAMINATION GENERAL EXAMINATION: LUNGS:LUNG PETERSEN ARE CLEAR TO AUSCULTATION BILATERALLY. GOOD MOVEMENT OF AIR. HEART:S1, S2 IN A REGULAR RATE AND RHYTHM. NO SIGNIFICANT MURMURS, RUBS OR GALLOPS NOTED. LUMBAR SPINE/LOWER BACK: PALPATION:VERTEBRAL SPINE TENDERNESS.RIGHT SIJ WITH MARKED TENDERNESS WITH PALPATION.SPECIFIC POINT TENDERNESS OVER BILAT.L3/4-L4/5 LUMBAR FACETS BILAT. WITH FACET LOADING.. MOTOR SYSTEM:5/5 BLE. SENSORY EXAM:NORMAL BILATERAL LE. DIAGNOSTIC DATA-CT C SPINE AND L/S SPINE -REVIEWED. ASSESSMENTS LUMBAR SPONDYLOSIS - M47.816 (PRIMARY) TREATMENT LUMBAR SPONDYLOSIS NOTES: BILAT.L3/4-L4/5 THERAPEUTIC FACET BLOCK. PROCEDURE CODES FA211 ESTABILISHED PATIENT [facility] FACILITY CHARGE G9630 PAIN ASSESS POS TOOL F/U PLAN DOC G8427 DOC MEDS VERIFIED W/PT OR RE DISPOSITION & COMMUNICATION FOLLOW UP 2WK POST (REASON: BILAT.L3/4-L4/5 THERAPEUTIC FACET BLOCK) ELECTRONICALLY SIGNED BY BERTA JAMA ON 03/07/2017 AT 03:49 PM EDT DISCLAIMER : THIS IS A VISIT SUMMARY EXTRACTED FROM THE [employer] CHART. IT IS NOT A COPY OF THE [facility]. MTDD
== END ==
LOC: M PAIN 11:00
PROVIDERS: ATTEND Nurse Practitioner Family
DX: G89.29 Other chronic pain (principal); M47.816 Spondylosis without myelopathy or radiculopathy, lumbar region; I10 Essential (primary) hypertension; E03.9 Hypothyroidism, unspecified; G47.33 Obstructive sleep apnea (adult) (pediatric); K21.9 Gastro-esophageal reflux disease without esophagitis; R51 Headache; J30.9 Allergic rhinitis, unspecified; E66.9 Obesity, unspecified; Z68.42 Body mass index [BMI] 45.0-49.9, adult; M19.90 Unspecified osteoarthritis, unspecified site; Z88.8 Allergy status to other drugs, medicaments and biological substances; Z88.2 Allergy status to sulfonamides; Z91.013 Allergy to seafood; Z79.82 Long term (current) use of aspirin; Z79.52 Long term (current) use of systemic steroids; Z79.1 Long term (current) use of non-steroidal anti-inflammatories (NSAID); Z79.899 Other long term (current) drug therapy

== ENCOUNTER → 2017-03-09 | Outpatient (CLI) | payer MEDICARE ==
[~2017-03-09] MED LIST changes: +BUPIVACAINE HCL 0.25% 30 ML VIAL As Ordered ONE; +ISOVUE-M 300 61% 15ML VIAL (Q9967) As Ordered ONE; +LIDOCAINE 1% SDV INJ 30 ML VIAL As Ordered ONE; +TRIAMCINOLONE ACETONIDE SUSP 40 MG/ML VIAL (J3301) As Ordered ONE; +diazePAM 5 MG TAB As Ordered ONE; +diphenhydrAMINE 25 MG CAP As Ordered ONE; +oxyCODONE 5MG TAB As Ordered ONE
--- NOTE | 2017-03-09 12:44 | REP ---
Partial lumbar spine series: Two views . History: Injection procedure for pain. 44 seconds of fluoroscopy time is reported. Findings: A sequence of two fluoroscopically obtained last image hold procedural spot radiographs of the lumbar spine document needle position and contrast injection associated with injection procedure. Signed by Angelo Granda MD 03/09/2017 12:35 P
--- NOTE | 2017-03-19 23:32 | ECWPNPC ---
PATIENT NAME: LORE VALERIO : 1945 GENDER: FEMALE VISIT DATE: 03/09/2017 DISCHARGE DATE: 03/09/17 1246 VISIT LOCKED DATE TIME: PHYSICIAN: MIRIAM CORTEZ RESOURCE: MIRIAM CORTEZ REASON FOR APPOINTMENT 1. BILAT.L3/4-L4/5 THERAPEUTIC FACET BLOCK HISTORY OF PRESENT ILLNESS HISTORY OF PRESENT ILLNESS: PAIN THE PATIENT DESCRIBES THE PAIN... FALL RISK SCREENING: SCREENING :NO FALLS IN THE PAST YEAR CURRENT MEDICATIONS TAKING ASCORBIC ACID ER 1000 MG TABLET EXTENDED RELEASE 1 TABLET ORALLY ONCE A DAY, NOTES: 03/08/17 0800 TAKING ASPIR-81 81 MG TABLET DELAYED RELEASE 1 TABLET ORALLY ONCE A DAY, NOTES: 03/08/17 9PM TAKING DIVALPROEX SODIUM 500 MG TABLET DELAYED RELEASE ORALLY , NOTES: 03/08/17 9PM TAKING LEVOTHYROXINE SODIUM 150 MCG TABLET 1 TABLET ON AN EMPTY STOMACH IN THE MORNING ORALLY ONCE A DAY, NOTES: 0700 TAKING MULTIVITAMIN - TABLET CHEWABLE ORALLY , NOTES: 03/08/17 0800 TAKING FISH OIL 1000 MG CAPSULE 1 CAPSULE ORALLY ONCE A DAY, NOTES: 03/08/17 0800 TAKING PANTOPRAZOLE SODIUM 40 MG TABLET DELAYED RELEASE 1 TABLET ORALLY BID, NOTES: 0700 TAKING PREDNISONE 1 TAB ORAL TAKING RANOLAZINE ER 1000 MG TABLET EXTENDED RELEASE 12 HOUR 1 TABLET ORALLY DAILY, NOTES: 0700 03/09/17 TAKING RANOLAZINE ER 500 MG TABLET EXTENDED RELEASE 12 HOUR 1 TABLET ORALLY QHS TAKING FUROSEMIDE 40 MG TABLET 1 TABLET ORALLY ONCE A DAY, NOTES: 03/08/17 2TAKEN AT 0800 TAKING POTASSIUM CHLORIDE 20 MEQ PACKET ORALLY DAILY, NOTES: 03/08/17 2 TAKEN 0800 TAKING ACETAMINOPHEN ER 650 MG TABLET EXTENDED RELEASE 2 TABLETS NEEDED ORALLY EVERY 8 HRS, NOTES: AWHILE TAKING ACETAMINOPHEN-CAFFEINE 500-65 MG TABLET ORALLY , NOTES: HAVE NOT HAD YET TAKING BENZONATATE 200 MG CAPSULE 1 CAPSULE ORALLY THREE TIMES A DAY, NOTES: AWHILE TAKING HYDROCODONE-ACETAMINOPHEN 5-325 MG TABLET 1 TABLET NEEDED ORALLY EVERY 6 HRS, NOTES: 0300 03/09/17 TAKING PREDNISONE 10 MG TABLET 1 TABLET ORALLY ONCE A DAY, NOTES: 0700 03/09/17 TAKING CARAFATE 1 GM/10ML SUSPENSION 10 ML ORALLY TWICE A DAY, NOTES: 03/08/17 0800 NOT-TAKING ATORVASTATIN CALCIUM 10 MG TABLET 1 TABLET ORALLY ONCE A DAY NOT-TAKING TRAMADOL HCL 50 MG TABLET 1 TABLET NEEDED ORALLY EVERY 6 HRS NOT-TAKING HYDROCODONE BITARTRATE ER 20 MG TABLET ER 24 HOUR ABUSE-DETERRENT 1 TABLET ORALLY ONCE A DAY NOT-TAKING HEPARIN SODIUM (PORCINE) 5000 UNIT/ML SOLUTION INJECTION MEDICATION LIST REVIEWED AND RECONCILED WITH THE PATIENT PAST MEDICAL HISTORY PULOMONARY FIBROSIS CHF CAD HYPERTENSION HYPOTHROIDISM SOFY ON BIPAP DLP GERD CHRONIC HEADACHES ALLERGIC RHINITIS OBESITY OSTEOARTHRITIS ALLERGIES GABAPENTIN: RASH: ALLERGY SULFA (FOR ALLERGY USE ONLY): RASH: ALLERGY CELECOXIB: RASH: ALLERGY LEFLUNOMIDE: NAUSEA/VOMITING: ALLERGY SEAFOOD: ANAPHYLAXIS: ALLERGY SURGICAL HISTORY RIGHT SHOULDER ROTATOR CUFF SURGERY BILATERAL KNEE REPLACEMENT HOSPITALIZATION/MAJOR DIAGNOSTIC PROCEDURE SYNCOPE 11/2016 REVIEW OF SYSTEMS REVIEWED BY: PROVIDER: . CONSTITUTIONAL: ANY CHANGE IN YOUR MEDICAL CONDITION? NO . CHILLS NO . FEVER NO . INFECTION: DO YOU HAVE NEW INFECTIONS? NO . DO YOU HAVE HISTORY OF MRSA? NO . MUSCULOSKELETAL: ANY NEW PATTERNS OF PAIN OR NUMBNESS? NO . GASTROENTEROLOGY: ANY NEW CHANGE IN BOWEL CONTROL? NO . GENITOURINARY: ANY NEW CHANGE IN BLADDER CONTROL? NO . IS THERE A CHANCE YOU COULD BE ? NO . HEMATOLOGY/LYMPH: DO YOU TAKE ANY BLOOD THINNERS? (FOR EXAMPLE- COUMADIN, PLAVIX, AGGRENOX, PLATEL, PRADAXA, OR XARELTO) NO . WHEN WAS YOUR LAST DOSE? DATE: TIME: . NEUROLOGY: HAVE YOU FALLEN IN THE PAST 6 MONTHS? NO . ANY NEW EXTREMITY NUMBNESS OR WEAKNESS? NO . CARDIOLOGY: DO YOU HAVE A PACEMAKER OR DEFIBRILLATOR? NO . RESPIRATORY: HAVE YOU BEEN SICK IN THE PAST WEEK? NO . FEVER NO . FLU LIKE SYMPTOMS? NO . COUGH NO . INTEGUMENTARY: DO YOU HAVE ANY RASHES OR OPEN SORES? NO . ALLERGIC/IMMUNO: ARE YOU ALLERGIC TO SHELLFISH OR IV DYE? SHELLFISH . ANY NEW ALLERGIES? NO . PSYCHIATRIC: DO YOU HAVE THOUGHTS OF HURTING YOURSELF OR SOMEONE ELSE? NO . ARE YOU ABUSED, NEGLECTED, OR IN AN UNSAFE ENVIRONMENT? NO . ENDOCRINOLOGY: ARE YOU DIABETIC? NO . OTHER: DO YOU NEED ANY PRESCRIPTIONS? NO . IF YES, PLEASE LIST: ____ . ANY NEW PROBLEMS WITH YOUR MEDICATIONS? NO . WHEN DID YOU LAST EAT? 7PM LAST NIGHT . WHEN DID YOU LAST DRINK? 7AM TODAY . WHAT DID YOU LAST DRINK? WATER WITH PILLS . NAME OF PERSON DRIVING YOU HOME? ESDRAS . DO YOU HAVE ANY OTHER QUESTIONS OR CONCERNS NO . VITAL SIGNS WT 270.0 LBS, HT 62 IN, BMI 49.38 INDEX, BP 142/83 MM HG, HR 75 /MIN, RR 20 /MIN, TEMP 98.2 F, OXYGEN SAT % 4L/91%, NA INITIALS TL 1030, REVIEWED BY: NLRECHECK OF O2 SAT SHOWS SAT97% ON 4 LIT N/C. STATES SHE IS RELAXED FROM THE MEDS. ASSESSMENTS SPONDYLOSIS WITHOUT MYELOPATHY OR RADICULOPATHY, LUMBAR REGION - M47.816 (PRIMARY) SPONDYLOSIS WITHOUT MYELOPATHY OR RADICULOPATHY, LUMBOSACRAL REGION - M47.817 PROCEDURES PN LUMBAR FACET BLOCK THERAPEUTIC PRE PROCEDURE DIAGNOSIS LUMBAR SPONDYLOSIS, LUMBOSACRAL SPONDYLOSIS POST PROCEDURE DIAGNOSIS LUMBAR SPONDYLOSIS, LUMBOSACRAL SPONDYLOSIS PROCEDURE BILATERAL L4-L5 AND BILATERAL L5-S1 LUMBAR FACET THERAPEUTIC BLOCK SURGEON DR. MIRIAM CORTEZ PLASTIC SURGERY ASSISTANT NONE ANESTHESIA LOCAL PRE PROCEDURE NOTE THE PATIENT HAS A HISTORY OF CHRONIC LOW BACK PAIN. I EVALUATE THE PATIENT AND REVIEWED THE CHART. I WENT OVER THE RISKS, ALTERNATIVES, AND BENEFITS ASSOCIATED WITH THIS PROCEDURE. THE PATIENT WOULD LIKE TO PROCEED AND GIVE CONSENT TO PERFORMED THE PROCEDURE. THE PATIENT DENIES UNEXPLAINABLE WEIGHT LOSS, FEVER, CHILLS, OR NEW CHANGES IN URINARY OR BOWEL CONTROL DESCRIPTION OF PROCEDURE THE PATIENT WAS BROUGHT TO THE PROCEDURE ROOM AND PLACED IN THE PRONE POSITION. THE LUMBOSACRAL AREA WAS CLEANED WITH CHLORAPREP SOLUTION AND DRAPED ASEPTICALLY. THE PROCEDURE WAS DONE UNDER STERILE CONDITIONS. I CHECKED LATERALITY AND THE LEVEL WHERE THE PROCEDURE WAS GOING TO BE PERFORMED WITH THE PATIENT AND THE SUPPORTING STAFF AT THE MOMENT OF THE TIME OUT IN THE PROCEDURE ROOM. UNDER FLUOROSCOPIC GUIDANCE, THE TARGET POINT WAS SELECTED AT THE RIGHT AND LEFT L4-L5 AND RIGHT AND LEFT L5-S1 FACET JOINT. TARGET POINT WAS SELECTED AFTER LATERAL ROTATION AND TILT OF THE MAGNIFIER OF THE C-ARM. LIDOCAINE 0.5% WAS USED TO NUMB THE SKIN AND THE SUBCUTANEOUS TISSUE BELOW IT. SPINAL NEEDLES, 22-GAUGE, WERE ADVANCED UNDER FLUOROSCOPIC GUIDANCE AND FOLLOWING PATIENT FEEDBACK UNTIL THE TARGETS WERE TOUCHED. THE POSITION OF THE NEEDLES WAS VERIFIED WITH AP AND LATERAL VIEWS. AFTER PROPER POSITION OF THE NEEDLES WAS ACHIEVED, ISOVUE-M DYE 30% 0.1 ML WAS INJECTED SHOWING ADEQUATE SPREAD OF THE DYE. THEN A SOLUTION OF 1.9 ML OF BUPIVACAINE 0.125% OF KENALOG 10 MG WAS INJECTED AT EACH SITE. THERE WAS NO EVIDENCE OF BLOOD, PARESTHESIA OR CEREBROSPINAL FLUID DURING THE PROCEDURE. THE PATIENT WAS SENT TO THE RECOVERY ROOM. THE PATIENT WAS MOVING THE EXTREMITIES AND DOING WELL. THERE WAS NO COMPLICATION DURING THE PROCEDURE. FLUOROSCOPY TIME WAS 44 SECONDS POST PROCEDURE NOTE THE PATIENT WILL BE SEEN IN A FOLLOW UP IN THE NEXT FEW WEEKS. INSTRUCTIONS WERE GIVEN, QUESTIONS WERE ANSWERED, AND THE PATIENT EXPRESSED UNDERSTANDING AND AGREES WITH THE PLAN. I, GHADA ALEXANDER, DOCUMENTED THE ABOVE INFORMATION ACTING A SCRIBE FOR DR. CORTEZ. I HAVE REVIEWED THE ABOVE DOCUMENT, WRITTEN BY GHADA GAUTHIER AND I VERIFY THAT IT IS ACCURATE DIAGNOSTIC IMAGING [facility] FACET BLOCK (PAIN)[id number] PROCEDURE CODES 26217 INJ PARAVERT F JNT L/S 1 LEV 62247 INJ PARAVERT F JNT L/S 2 LEV 6045F RADXPS IN END [id number] PXD DISPOSITION & COMMUNICATION FOLLOW UP 3 WEEKS ELECTRONICALLY SIGNED BY MIRIAM CORTEZ MD ON 03/19/2017 AT 08:22 PM EDT DISCLAIMER : THIS IS A VISIT SUMMARY EXTRACTED FROM THE [employer] CHART. IT IS NOT A COPY OF THE [employer] PROGRESS NOTE. MTDD
== END ==
LOC: M PAIN 10:20
PROVIDERS: ATTEND Anesthesiology
DX: G89.29 Other chronic pain (principal); M47.816 Spondylosis without myelopathy or radiculopathy, lumbar region; M47.817 Spondylosis without myelopathy or radiculopathy, lumbosacral region; I10 Essential (primary) hypertension; G47.33 Obstructive sleep apnea (adult) (pediatric); K21.9 Gastro-esophageal reflux disease without esophagitis; E66.9 Obesity, unspecified; Z68.42 Body mass index [BMI] 45.0-49.9, adult; Z79.82 Long term (current) use of aspirin; Z79.51 Long term (current) use of inhaled steroids; Z79.899 Other long term (current) drug therapy
CPT/HCPCS: 64493; 64494; J3301; Q9967

== ENCOUNTER 2017-03-22 14:33 | Inpatient (IN) | payer MEDICARE ==
[~2017-03-22] VITALS: Ht 160 cm; Wt 128.5 kg
[~2017-03-22 14:33] MED LIST changes: -BUPIVACAINE HCL 0.25% 30 ML VIAL As Ordered ONE; -DEXI60CA2 PO; -ISOVUE-M 300 61% 15ML VIAL (Q9967) As Ordered ONE; -LIDOCAINE 1% SDV INJ 30 ML VIAL As Ordered ONE; -SUCR1SS PO; -TRIAMCINOLONE ACETONIDE SUSP 40 MG/ML VIAL (J3301) As Ordered ONE; -diazePAM 5 MG TAB As Ordered ONE; -diphenhydrAMINE 25 MG CAP As Ordered ONE; -oxyCODONE 5MG TAB As Ordered ONE
[2017-03-22] MEDS ORDERED: DEXI60CA2 PO (14:57)
[2017-03-22 16:21] LABS: BASO % 0.2 % (0.0-1.0); EOS % 0.4 % (0.0-3.0); LARGE UNSTAINED CELL # 0.2 K/mm3 (0.0-0.4); LARGE UNSTAINED CELL % 1.5 % (0.0-4.0); LYMPH # 1.2 K/mm3 (1.5-4.5); LYMPH % 9.9 % (24.0-44.0); MEAN CORPUSCULAR HEMOGLOBIN 29.8 pg (27.0-33.0); MEAN CORPUSCULAR HGB CONC 32.2 g/dl (32.0-36.5); MEAN CORPUSCULAR VOLUME 92.6 fl (80.0-96.0); MONO # 0.7 K/mm3 (0.0-0.8); MONO % 6.3 % (0.0-5.0); NEUTROPHILS # 8.6 K/mm3 (1.8-7.7); NEUTROPHILS % 81.6 % (36.0-66.0); PLATELET COUNT, AUTOMATED 183 k/mm3 (150-450); RED CELL DISTRIBUTION WIDTH 14.6 % (11.5-14.5); WHITE BLOOD COUNT 10.6 K/mm3 (4.0-10.0)
[2017-03-22 16:35] LABS: CALCIUM LEVEL 8.3 MG/DL (8.8-10.2); CREATININE FOR GFR 1.09 MG/DL (0.55-1.02); GLOMERULAR FILTRATION RATE 52.4 (>39); POTASSIUM SERUM 4.3 MEQ/L (3.5-5.1)
[2017-03-22 16:42] LABS: ALBUMIN 3.2 GM/DL (3.2-5.2); ALBUMIN/GLOBULIN RATIO 1.28 (1.00-1.93); BILIRUBIN,DIRECT 0.2 MG/DL (0.0-0.2); BILIRUBIN,TOTAL 0.5 MG/DL (0.2-1.0); TOTAL PROTEIN 5.7 GM/DL (6.4-8.2)
[2017-03-22] MEDS: FUROSEMIDE 40 MG/4 ML VIAL (J1940) IV SCH ×2 (17:00→21:08)
[2017-03-22] MEDS ORDERED: FUROSEMIDE 40 MG/4 ML VIAL (J1940) IV ONE (17:00)
--- NOTE | 2017-03-22 17:50 | REP ---
Portable chest, 05:12 p.m., single AP view the patient upright: Comparisons are 12/15/2016, 10/05/2016 and 03/01/2016. There is chronic cardiomegaly and chronic diffuse bilateral interstitial coarsening. There is new focal increased density inferiorly in the right lung suggestive of a superimposed acute right lower lobe infiltrate. No definite pleural effusions. Signed by Riley Atkinson MD 03/22/2017 05:41 P
[2017-03-22] MEDS ORDERED: METO25TA PO (17:54)
[2017-03-22] MEDS ORDERED: ALBUTEROL 90 MCG/ACT 8GM HFA INHALER INH PRN (18:15)
[2017-03-22] MEDS ORDERED: BENZONATATE 100 MG CAP PO PRN (18:15)
--- NOTE | 2017-03-22 18:15 | REP ---
CT of the chest without IV contrast: Comparisons are the chest CT dated 09/23/2015 and portable plain film study performed earlier this evening. There is chronic interstitial coarsening compatible with fibrosis, unchanged from the comparison CT. There is extensive honeycombing in the lower lobes bilaterally compatible with chronic fibrosis, unchanged from the prior studies. No acute infiltrates or effusions are identified. No new masses or nodules are identified. There is no mediastinal or axillary adenopathy. In the absence of IV contrast the study is insensitive for hilar adenopathy. The thoracic aorta is unremarkable. Cardiac size is enlarged. There is no pericardial effusion. In the visualized upper abdomen there is questionably a small gallbladder calculus. The visualized portions of the liver, pancreas and spleen are unremarkable. The adrenals and upper poles of the kidneys are unremarkable. Impression: Chronic fibrotic changes are identified bilaterally, most severe in the lower lobes. No acute cardiopulmonary findings are identified. There is chronic cardiomegaly. There is questionably a small gallbladder calculus identified on the inferior most image only. Signed by Riley Atkinson MD 03/22/2017 06:07 P
--- NOTE | 2017-03-22 20:20 | REPUSA ---
HISTORY: SWELLING LUE. TECHNIQUE: The left upper extremity venous ultrasound examination was performed with high-resolution dickens scale sonography, color flow Doppler imaging, and spectral waveform analysis, with compression a nd augmentation procedures performed. Distal left radial vein and ulnar vein were not evaluated at t his time. FINDINGS: The examination demonstrates normal flow and patency with compression and augmentation demo nstrated in the deep and superficial venous system extending from the jugular vein, subclavian vein, axillary vein, cephalic vein brachial vein, and basilic vein, with no evidence of deep vein thrombosi s. IMPRESSION: Negative left upper extremity venous ultrasound examination with no evidence of deep or s uperficial vein thrombosis or other vascular abnormality identified.
--- NOTE | 2017-03-22 20:30 | REPUSA ---
HISTORY: Follow up CT gallbladder TECHNIQUE: Right upper quadrant ultrasound. LIMITATION: Exam was limited due to bowel gas and body habitus. ULTRASOUND RUQ: Liver: No intrahepatic ductal dilation. Gallbladder: Normally distended and without stones or wall thickening at 2.3 mm. Common bile duct: Nondistended at 3.8 mm. Pancreas: No pancreatic duct dilation. Right kidney: 10 x 4.9 x 4.4 cm. No stones or hydronephrosis. Aorta: Normal caliber. Peritoneum: No free fluid. IMPRESSION: No acute right upper quadrant findings. No findings to suggest cholelithiasis or cholecys titis.
[2017-03-22 20:46] VITALS: BP 175/105
[2017-03-22] MEDS: ASPIRIN 81 MG ENTERIC TAB PO SCH (21:07)
[2017-03-22] MEDS: DIVALPROEX 500MG *ER* TAB PO SCH (21:07)
[2017-03-22] MEDS: HEPARIN SOD (PORCINE) 5000 UNITS/ML VIAL SC SCH (21:07)
[2017-03-22] MEDS: RANOLAZINE 500 MG ER TAB PO SCH (21:08)
[2017-03-22] MEDS: traMADol 50 MG TAB PO PRN (21:10)
[2017-03-22 23:59] VITALS: BP 135/81
[2017-03-23] MEDS: FUROSEMIDE 40 MG/4 ML VIAL (J1940) IV SCH ×6 (00:10→21:07)
[2017-03-23] MEDS: ACETAMINOPHEN TAB 650MG DOSE (2X325MG) PO PRN ×3 (00:37→19:36)
[2017-03-23 04:00] VITALS: BP 183/90
[2017-03-23] MEDS: traMADol 50 MG TAB PO PRN ×4 (04:59→22:17)
[2017-03-23] MEDS: HEPARIN SOD (PORCINE) 5000 UNITS/ML VIAL SC SCH ×3 (05:00→21:07)
[2017-03-23 08:00] VITALS: BP 143/70
[2017-03-23 08:00] LABS: MEAN CORPUSCULAR HEMOGLOBIN 29.4 pg (27.0-33.0); MEAN CORPUSCULAR HGB CONC 31.7 g/dl (32.0-36.5); MEAN CORPUSCULAR VOLUME 92.6 fl (80.0-96.0); RED CELL DISTRIBUTION WIDTH 14.6 % (11.5-14.5); WHITE BLOOD COUNT 9.2 K/mm3 (4.0-10.0)
[2017-03-23 08:20] LABS: CALCIUM LEVEL 8.5 MG/DL (8.8-10.2); CREATININE FOR GFR 1.17 MG/DL (0.55-1.02); GLOMERULAR FILTRATION RATE 48.3 (>39); POTASSIUM SERUM 4.2 MEQ/L (3.5-5.1)
[2017-03-23] MEDS: MULTIVITAMINS/MINERALS THERAP 1 TAB PO SCH (09:27)
[2017-03-23] MEDS: ASCORBIC ACID 500 MG TAB PO SCH (09:27)
[2017-03-23] MEDS: predniSONE 10 MG TAB PO SCH (09:27)
[2017-03-23] MEDS: RANOLAZINE 500 MG ER TAB PO SCH ×2 (09:27→21:06)
[2017-03-23] MEDS: LEVOTHYROXINE 150MCG TABLET (0.15MG) PO SCH (09:28)
--- NOTE | 2017-03-23 10:18 | HPE ---
DATE OF ADMISSION: 03/22/2017 CHIEF COMPLAINT: 72-year-old female coming in complaining of lower extremity and upper extremity swelling. HISTORY OF PRESENT ILLNESS: This is a pleasant 72-year-old female with a significant past medical history of coronary artery disease, normally sees Dr. Benjamin, last known ejection fraction was normal in September of this year, known to have chronic lower extremity swelling and history of pulmonary fibrosis, normally sees Dr. Sánchez and is chronically on prednisone and utilizes 4 liters of nasal cannula at home chronically and CPAP at nighttime with comorbidities of hypertension, hyperlipidemia, hypothyroidism, obstructive sleep apnea, gastroesophageal reflux disease (GERD), chronic headaches, who presents complaining of lower extremity swelling and left upper extremity swelling as well. The patient was seen by Dr. Sánchez, her platform man today, who noted worsening of her lower extremity swelling and therefore was sent to the emergency room for further evaluation and treatment. The patient denies any prodromal illness or precipitating factors, but she does have chronic lower extremity edema that she takes diuretics at home. She does also have a history of having left foot trauma 5 days ago. The patient states that she dropped her shower head on her foot and did cause some bruising on the plantar aspect of her left foot, but the bruising has improved since then. The patient was evaluated in the emergency room and was given Lasix, noted to have elevated BNP and chest x-ray did not show any acute process, but there was chronic cardiomegaly and chronic diffuse bilateral interstitial coarsening. There is new focal increased density inferiorly in the right lung suggestive of a superimposed acute right lower lobe infiltrate. No definite pleural effusion. Surprisingly, the patient does not have clinical symptoms of pneumonia. The patient also did have a CT of the chest, which showed, as per radiology, chronic fibrotic changes are identified bilaterally, most severe in the lower lobes. No acute cardiopulmonary findings are identified. There is a chronic cardiomegaly. There is a questionable small gallbladder calculus identified in the inferior most image only. Again, the CT findings did not show any acute cardiopulmonary finding, although chest x-ray did show possible pneumonia again and clinically not shown pneumonia with no fever and WBC of only 10.6. The patient is being admitted for further evaluation and treatment for bilateral lower extremity edema and left upper extremity edema as well. REVIEW OF SYSTEMS: Ten-point review of systems is negative other than those described in history of present illness. The patient denies any dysuria, able to urinate on her own without difficulty. In terms of past medical history, the patient has a history of pulmonary fibrosis on 4 liters nasal cannula at home 24 hours a day, sleep apnea utilizing a CPAP, normally sees Dr. Sánchez and is on prednisone chronically, congestive heart failure (CHF), coronary artery disease, normally sees Dr. Benjamin as an outpatient, hypertension, hypothyroidism, gastroesophageal reflux disease (GERD), chronic headache. SURGICAL HISTORY: Includes right shoulder rotator cuff surgery, right knee replacement, lung biopsy in the past, hysterectomy, and appendectomy. FAMILY HISTORY: Noncontributory at this time. SOCIAL HISTORY: The patient denies smoking, drinking or drug abuse. ALLERGIES: The patient is allergic to SEAFOOD, CELECOXIB, GABAPENTIN, SULFA, and LEFLUNOMIDE. HOME MEDICATIONS: The patient's home medications are as follows: - acetaminophen/barbital/caffeine one tablet as needed for migraine - acetaminophen 1000 mg every 6 hours as needed for pain - albuterol two puffs four times a day as needed for shortness of breath - ascorbic acid 1000 mg by mouth daily - aspirin 81 mg at night - benzonatate 200 mg by mouth three times a day as needed for cough - Dexilant 60 mg by mouth twice a day - divalproex 1000 mg by mouth at night - furosemide 40 mg by mouth daily as needed - levothyroxine 150 mcg by mouth daily - metolazone 2.5 mg by mouth daily as needed - multivitamin one tablet daily - Nasacort two sprays daily as needed - [place] 3 1000 mg by mouth daily - potassium chloride 10 mEq daily as needed - Lasix - prednisone 10 mg by mouth daily - Ranexa 1000 mg by mouth in the morning - Ranexa 500 mg by mouth at night - Tramadol 50 mg every 8 hours as needed - vitamin D 50,000 units by mouth two times a week on Monday and PHYSICAL EXAMINATION: Her vital signs initially: Temperature 97.7, heart rate of 81, respiratory rate of 18, blood pressure 169/85, saturating 92% on room air, I suspect that this may be related to her being on 4 liters and not on room air. Her last heart rate was 64, blood pressure 186/97, saturating 97% on 4 liters nasal cannula. HEENT: Normocephalic. No trauma. Inspection of the eyes, nose and throat normal. Mucosa is moist. Neck is supple with no tracheal deviation. CARDIAC: S1, S2. Regular rate and rhythm. Pulses present. LUNGS: Equal air entry. Did not hear any wheezes, rales or rhonchi, but difficult to hear due to her body habitus. ABDOMEN: Soft, nontender. No guarding. No rigidity. LOWER EXTREMITIES: The patient does have pitting edema, +2 up to the mid thigh bilaterally. There is a bruise on her left foot located in the plantar aspect of her left foot that the patient states is improving and she does have some minor bruising on her 3rd, 4th and 5th toes. Again, as per patient, improving. UPPER EXTREMITIES: The patient did not seem to have pitting edema on the left upper extremity. Slight pitting on the right upper extremity up to the mid forearm. The patient is currently awake, alert, oriented times three. Cranial nerves grossly intact. Motor and sensory is intact. Normal mood and affect for current situation. Pleasant to speak to. DIAGNOSTIC STUDIES: The patient had again CT of the chest, which showed as per radiology, chronic fibrotic changes that are identified bilaterally, most severe in the lower lobes. No acute cardiopulmonary findings are identified. There is chronic cardiomegaly. There is question of a small gallbladder calculus identified in the inferior most image only. Chest x-ray, as per radiology, showed chronic cardiomegaly and chronic diffuse bilateral interstitial coarsening. There is new focal increased density inferiorly in the right lung suggestive of a superimposed acute right lower lobe infiltrate. No definite pleural effusion. I suspect that it is most likely from the fluid. No overt signs of infection. WBC is 10.6, hemoglobin and hematocrit is within normal. Platelet count is within normal. Complete metabolic profile is within normal except for a BUN of 37 and creatinine of 1.09. In December it was 1.08. Glucose 118, calcium is 8.3, total protein is 5.7, otherwise complete metabolic profile is normal. Lactate is 1.3. Cardiac enzymes times one is within normal. TSH is within normal as well. Her BNP is elevated at 726. No microbiology for me to review at this time. ASSESSMENT AND PLAN: This is a pleasant 72-year-old female with a significant past medical history of pulmonary fibrosis, chronically on prednisone orally, on 4 liters nasal cannula 24 hours a day, utilizing CPAP at nighttime for obstructive sleep apnea and sees Dr. Sánchez as an outpatient and has a comorbidity of coronary artery disease, congestive heart failure (CHF), normally sees Dr. Benjamin as an outpatient, last known ejection fracture in September of this year, as per previous report, normal left ventricular ejection fraction with comorbidities also including hyperlipidemia, hypothyroidism, chronic headache, osteoarthritis, obesity, gastroesophageal reflux disease (GERD), who presents to the emergency room for lower extremity and upper extremity swelling. 1. Extremity edema. The patient is saturating well on her chronic 4 liters nasal cannula. No overt decompensation. Chest x-ray and CT finding shows infiltrative process, most likely from the fluids. The patient will be placed on IV Lasix. We will monitor daily weight, input and output monitoring and close renal function monitoring as well. We will hold oral furosemide and metolazone. We will also obtain upper extremity Doppler of the left arm, as this is nonpitting, but it may be related to chronic steroid use as well. We will rule out DVT on the upper left extremity. Continue 4 liters nasal cannula, CPAP therapy, respiratory treatment as needed. 2. Pulmonary fibrosis. Continue respiratory treatment from home. Continue prednisone. Dr. Sánchez consult as needed. 3. Coronary artery disease. Continue aspirin and Ranexa and statin. 4. Hypertension. Utilize IV Lasix as mentioned above. 5. Hyperlipidemia. 6. Hypothyroidism. Continue levothyroxine. 7. Obstructive sleep apnea. Continue CPAP. The patient may use her home CPAP 8. Chronic headache. Continue divalproex. 9. Osteoarthritis. Continue Tylenol and tramadol as needed. 10. Obesity. 11. Gastroesophageal reflux disease (GERD). The patient is currently not on any medication. Utilize Protonix as needed. 12. Deep vein thrombosis (DVT) prophylaxis with subcutaneous heparin. 13. Abnormal CT finding on the gallbladder with stones. We will further evaluate with ultrasound of the abdomen.
[2017-03-23 12:00] VITALS: BP 170/88
[2017-03-23 16:00] VITALS: BP 128/60
--- NOTE | 2017-03-23 17:38 | IPNPDOC ---
Date Seen The patient was seen on 03/23/17. Progress Note Hospitalist Progress Note Subjective: Patient states that she is still short of breath and has pain in her legs Objective: Physical Exam: Vitals: Vital Sign - Last 24 Hours 03/22/17 03/22/17 03/22/17 03/22/17 17:41 17:56 18:05 18:20 Pulse 82 68 B/P (MAP) 186/97 (126) 189/113 (138) 03/22/17 03/22/17 03/22/17 03/22/17 18:35 18:42 18:50 19:05 Pulse 74 68 88 B/P (MAP) 174/91 (118) Pulse Ox 97 93 03/22/17 03/22/17 03/22/17 03/22/17 19:20 19:35 19:50 19:51 Pulse 68 66 98 B/P (MAP) 158/81 (106) Pulse Ox 97 96 03/22/17 03/22/17 03/22/17 03/22/17 20:02 20:06 20:25 20:46 Temp 97.6 98.1 97.9 Pulse 70 72 Resp 18 20 B/P (MAP) 141/70 (93) 175/105 (128) Pulse Ox 95 96 O2 Delivery Nasal Cannula O2 Flow Rate 4.0 03/22/17 03/22/17 03/23/17 03/23/17 21:10 23:59 00:00 04:00 Temp 97.3 98.5 Pulse 70 58 Resp 22 20 18 B/P (MAP) 135/81 (99) 183/90 (121) Pulse Ox 91 98 O2 Delivery NIPPV (BIPAP/CPAP) BIPAP/CPAP NIPPV (BIPAP/CPAP) O2 Flow Rate 4.0 03/23/17 03/23/17 03/23/17 03/23/17 04:59 05:29 08:00 08:07 Temp 97.0 Pulse 63 Resp 20 16 22 B/P (MAP) 143/70 (94) Pulse Ox 95 O2 Delivery Nasal Cannula Nasal Cannula O2 Flow Rate 4.0 4.0 03/23/17 03/23/17 03/23/17 12:00 14:18 17:21 Temp 98.0 Pulse 69 Resp 20 18 18 B/P (MAP) 170/88 (115) Pulse Ox 96 O2 Delivery Nasal Cannula O2 Flow Rate 4.0 General: Awake, alert, no acute distress HEENT: Normocephalic, atraumatic, moist mucous membranes CV: Regular rate and rhythm Lungs: No wheezes, rhonchi or rales Abd: Soft, nontender nondistended Extremities: 3+ pitting edema to the thighs Neuro: Alert and oriented 3, normal speech Psych: Normal Mood and affect Labs and Imaging: Laboratory Tests 03/23/17 07:30 Red Blood Count 4.81, Mean Corpuscular Volume 92.6, Mean Corpuscular Hemoglobin 29.4, Mean Corpuscular Hemoglobin Concent 31.7 L, Red Cell Distribution Width 14.6 H, Calcium Level 8.5 L, Total Creatine Kinase 41 Assessment and Plan: 72-year-old female with hypertension, hyperlipidemia, hypothyroidism, GERD, chronic headaches, SOFY,, chronic diastolic CHF, CAD, pulmonary fibrosis on 4 L O2 at home as well as chronic prednisone who presented with bilateral lower extremity edema and is admitted with acute on chronic diastolic CHF. 1. Acute on chronic diastolic CHF: Continue to diurese with IV Lasix every 4 hours. Follow daily ins and outs and daily weights. Currently holding home by mouth Lasix and metolazone. Echocardiogram earlier this year showed grade 1 diastolic dysfunction, as well as severe TR and severe pulmonary hypertension. Monitor kidney function closely. 2. SOFY: Continue home CPAP 3. Pulmonary fibrosis: Patient is currently stable on her home 4 L of oxygen. Continue home chronic prednisone, as well as albuterol. 4. Hypertension: No home medications reported other than by mouth Lasix. Continue to monitor. 5. Hyperlipidemia, CAD: Continue home aspirin. No statin or beta mark on home medication list. Holding home omega-3. 6. Hypothyroidism: Continue home Synthroid. 7. Chronic headaches. Continue home Depakote. 8. GERD: Continue home Carafate and PPI. DVT prophylaxis: Heparin Dispo: pending adequate diuresis VS, I&O, 24H, Fishbone Vital Signs/I&O Vital Signs Date Time Temp Pulse Resp B/P (MAP) Pulse Ox O2 Delivery O2 Flow Rate FiO2 03/23/17 17:21 18 03/23/17 12:00 98.0 69 170/88 (115) 96 Nasal Cannula 4.0 I&O- Last 24 Hours up to 6 AM 03/23/17 06:00 Intake Total 220 ml Output Total 4300 ml Balance -4080 ml Laboratory Data 24H LABS Laboratory Tests 2 03/22/17 23:42: Total Creatine Kinase 36, Creatine Kinase MB 1.0, Creatine Kinase MB Relative Index 2.77 03/23/17 07:30: Total Creatine Kinase 41, Creatine Kinase MB 1.0, Creatine Kinase MB Relative Index 2.43, Anion Gap 8, Glomerular Filtration Rate 48.3, Blood Urea Nitrogen 34H, Creatinine 1.17H, Sodium Level 140, Potassium Level 4.2, Chloride Level 96L , Carbon Dioxide Level 36H, Calcium Level 8.5L 03/23/17 15:17: Total Creatine Kinase 29, Creatine Kinase MB 1.0, Creatine Kinase MB Relative Index 3.44 CBC/BMP Laboratory Tests 03/23/17 07:30 Red Blood Count 4.81, Mean Corpuscular Volume 92.6, Mean Corpuscular Hemoglobin 29.4, Mean Corpuscular Hemoglobin Concent 31.7 L, Red Cell Distribution Width 14.6 H, Calcium Level 8.5 L, Total Creatine Kinase 41 ANDRAE [place] Mar 23, 2017 17:38
[2017-03-23] MEDS: SUCRALFATE 1 GM TAB PO SCH ×2 (18:28→21:06)
[2017-03-23 20:00] VITALS: BP 135/76
[2017-03-23] MEDS: DIVALPROEX 500MG *ER* TAB PO SCH (21:06)
[2017-03-23] MEDS: ASPIRIN 81 MG ENTERIC TAB PO SCH (21:06)
[2017-03-23] MEDS: PANTOPRAZOLE 40MG TAB (PROTONIX) PO SCH (21:06)
--- NOTE | 2017-03-23 21:28 | ECGEPIP ---
Stationary ECG Study [facility] - ED Test Date: 2017-03-22 Pat Name: LORE VALERIO Department: Room: - Gender: F Back Padder: SUJATHA : [id number] Requested By: Drew Pang Order Number: [id number] Reading MD: Elena Mcclellan Measurements Intervals [place] Rate: 63 P: 41 MS: 183 QRS: 132 QRSD: 102 T: 23 QT: 406 QTc: 418 Interpretive Statements SINUS RHYTHM PATTERN CONSISTENT WITH PULMONARY DISEASE POSSIBLE RIGHT VENTRICULAR HYPERTROPHY MINIMAL ST DEPRESSION Electronically Signed On 03-23-2017 21:28:15 EDT by Elena Mcclellan
[2017-03-23 23:59] VITALS: BP 155/96
[2017-03-24] MEDS: FUROSEMIDE 40 MG/4 ML VIAL (J1940) IV SCH ×6 (00:30→21:00)
[2017-03-24 04:00] VITALS: BP 139/83
[2017-03-24 05:32] LABS: MEAN CORPUSCULAR HEMOGLOBIN 29.4 pg (27.0-33.0); MEAN CORPUSCULAR HGB CONC 31.8 g/dl (32.0-36.5); MEAN CORPUSCULAR VOLUME 92.6 fl (80.0-96.0); RED CELL DISTRIBUTION WIDTH 14.7 % (11.5-14.5); WHITE BLOOD COUNT 7.8 K/mm3 (4.0-10.0)
[2017-03-24 05:46] LABS: CALCIUM LEVEL 8.3 MG/DL (8.8-10.2); CREATININE FOR GFR 1.19 MG/DL (0.55-1.02); GLOMERULAR FILTRATION RATE 47.3 (>39); MAGNESIUM LEVEL 2.4 MG/DL (1.8-2.4); POTASSIUM SERUM 3.6 MEQ/L (3.5-5.1)
[2017-03-24] MEDS: HEPARIN SOD (PORCINE) 5000 UNITS/ML VIAL SC SCH ×4 (05:58→21:16)
[2017-03-24] MEDS: traMADol 50 MG TAB PO PRN ×2 (05:58→16:12)
[2017-03-24] MEDS: SUCRALFATE 1 GM TAB PO SCH ×4 (07:48→21:10)
[2017-03-24 08:00] VITALS: BP 120/56
[2017-03-24] MEDS: PANTOPRAZOLE 40MG TAB (PROTONIX) PO SCH ×2 (08:57→21:09)
[2017-03-24] MEDS: LEVOTHYROXINE 150MCG TABLET (0.15MG) PO SCH (08:57)
[2017-03-24] MEDS: MULTIVITAMINS/MINERALS THERAP 1 TAB PO SCH (08:57)
[2017-03-24] MEDS: predniSONE 10 MG TAB PO SCH (08:57)
[2017-03-24] MEDS: ASCORBIC ACID 500 MG TAB PO SCH (08:57)
[2017-03-24] MEDS: RANOLAZINE 500 MG ER TAB PO SCH ×2 (10:07→21:09)
[2017-03-24] MEDS ORDERED: SLF 3 ML SYR IV PRN (11:15)
[2017-03-24 12:00] VITALS: BP 134/69
[2017-03-24] MEDS: SLF 3 ML SYR IV SCH ×2 (13:53→21:10)
[2017-03-24 16:00] VITALS: BP 132/75
[2017-03-24] MEDS: ACETAMINOPHEN TAB 650MG DOSE (2X325MG) PO PRN ×2 (16:12→21:19)
--- NOTE | 2017-03-24 16:39 | IPNPDOC ---
Date Seen The patient was seen on 03/24/17. Progress Note Hospitalist Progress Note Subjective: Patient states that she is still short of breath but it is improving ; she is able to walk to the bathroom today Objective: Physical Exam: Vitals: Vital Sign - Last 24 Hours 03/23/17 03/23/17 03/23/17 03/23/17 20:00 20:00 22:17 23:59 Temp 96.0 97.1 Pulse 69 70 Resp 20 18 18 B/P (MAP) 135/76 (95) 155/96 (115) Pulse Ox 99 93 O2 Delivery Nasal Cannula Nasal Cannula NIPPV (BIPAP/CPAP) O2 Flow Rate 4.0 4.0 03/24/17 03/24/17 03/24/17 03/24/17 04:00 05:58 06:28 07:50 Temp 97.4 Pulse 67 Resp 18 16 20 B/P (MAP) 139/83 (101) Pulse Ox 95 O2 Delivery NIPPV (BIPAP/CPAP) Nasal Cannula O2 Flow Rate 6.0 03/24/17 03/24/17 03/24/17 03/24/17 08:00 12:00 12:22 16:00 Temp 98.1 96.1 96.3 Pulse 68 68 73 Resp 18 19 18 B/P (MAP) 120/56 (77) 134/69 (90) 132/75 (94) Pulse Ox 97 99 98 O2 Delivery Nasal Cannula Nasal Cannula Nasal Cannula Nasal Cannula O2 Flow Rate 4.0 4.0 4.0 4.0 03/24/17 16:12 Resp 18 O2 Delivery Nasal Cannula O2 Flow Rate 4.0 General: Awake, alert, no acute distress HEENT: Normocephalic, atraumatic, moist mucous membranes CV: Regular rate and rhythm Lungs: No wheezes, rhonchi or rales Abd: Soft, nontender nondistended Extremities: 3+ pitting edema to the thighs, pitting edema in BUE Neuro: Alert and oriented 3, normal speech Psych: Normal Mood and affect Labs and Imaging: Laboratory Tests 03/23/17 07:30 Red Blood Count 4.81, Mean Corpuscular Volume 92.6, Mean Corpuscular Hemoglobin 29.4, Mean Corpuscular Hemoglobin Concent 31.7 L, Red Cell Distribution Width 14.6 H, Calcium Level 8.5 L, Total Creatine Kinase 41 Assessment and Plan: 72-year-old female with hypertension, hyperlipidemia, hypothyroidism, GERD, chronic headaches, SOFY,, chronic diastolic CHF, CAD, pulmonary fibrosis on 4 L O2 at home as well as chronic prednisone who presented with bilateral lower extremity edema and is admitted with acute on chronic diastolic CHF. 1. Acute on chronic diastolic CHF: Continue to diurese with IV Lasix every 4 hours. Follow daily ins and outs and daily weights. Had a negative balance of 2L yesterday and total weight loss of 3.5kg. Currently holding home by mouth Lasix and metolazone. Echocardiogram earlier this year showed grade 1 diastolic dysfunction, as well as severe TR and severe pulmonary hypertension. Monitor kidney function closely. 2. SOFY: Continue home CPAP 3. Pulmonary fibrosis: Patient is currently stable on her home 4 L of oxygen. Continue home chronic prednisone, as well as albuterol. 4. Hypertension: No home medications reported other than by mouth Lasix. Continue to monitor. Control is adequate. 5. Hyperlipidemia, CAD: Continue home aspirin. No statin or beta mark on home medication list. Holding home omega-3. 6. Hypothyroidism: Continue home Synthroid. 7. Chronic headaches. Continue home Depakote. 8. GERD: Continue home Carafate and PPI. DVT prophylaxis: Heparin Dispo: pending adequate diuresis VS, I&O, 24H, Fishbone Vital Signs/I&O Vital Signs Date Time Temp Pulse Resp B/P (MAP) Pulse Ox O2 Delivery O2 Flow Rate FiO2 03/24/17 16:12 18 Nasal Cannula 4.0 03/24/17 16:00 96.3 73 132/75 (94) 98 I&O- Last 24 Hours up to 6 AM 03/24/17 05:59 Intake Total 1080 ml Output Total 3400 ml Balance -2320 ml Laboratory Data 24H LABS Laboratory Tests 2 03/24/17 04:44: Anion Gap 8, Glomerular Filtration Rate 47.3, Blood Urea Nitrogen 38H, Creatinine 1.19H, Sodium Level 140, Potassium Level 3.6, Chloride Level 97L, Carbon Dioxide Level 35H, Calcium Level 8.3L, Magnesium Level 2.4 CBC/BMP Laboratory Tests 03/24/17 04:44 Red Blood Count 4.82, Mean Corpuscular Volume 92.6, Mean Corpuscular Hemoglobin 29.4, Mean Corpuscular Hemoglobin Concent 31.8 L, Red Cell Distribution Width 14.7 H, Calcium Level 8.3 L ANDRAE [place] Mar 24, 2017 16:39
[2017-03-24 20:00] VITALS: BP 141/68
[2017-03-24] MEDS: ASPIRIN 81 MG ENTERIC TAB PO SCH (21:09)
[2017-03-24] MEDS: DIVALPROEX 500MG *ER* TAB PO SCH (21:09)
[2017-03-25] VITALS: BP 141/74
[2017-03-25] MEDS: FUROSEMIDE 40 MG/4 ML VIAL (J1940) IV SCH ×6 (00:27→21:00)
[2017-03-25 04:00] VITALS: BP 131/71
[2017-03-25 05:27] LABS: MEAN CORPUSCULAR HEMOGLOBIN 30.5 pg (27.0-33.0); MEAN CORPUSCULAR HGB CONC 32.8 g/dl (32.0-36.5); RED CELL DISTRIBUTION WIDTH 14.6 % (11.5-14.5); WHITE BLOOD COUNT 7.4 K/mm3 (4.0-10.0)
[2017-03-25] MEDS: HEPARIN SOD (PORCINE) 5000 UNITS/ML VIAL SC SCH ×3 (05:33→21:32)
[2017-03-25] MEDS: SLF 3 ML SYR IV SCH ×3 (05:35→21:32)
[2017-03-25] MEDS: SUCRALFATE 1 GM TAB PO SCH ×4 (07:44→21:32)
[2017-03-25 08:00] VITALS: BP 149/83
[2017-03-25] MEDS: LEVOTHYROXINE 150MCG TABLET (0.15MG) PO SCH (09:41)
[2017-03-25] MEDS: ASCORBIC ACID 500 MG TAB PO SCH (09:41)
[2017-03-25] MEDS: RANOLAZINE 500 MG ER TAB PO SCH ×2 (09:41→21:31)
[2017-03-25] MEDS: predniSONE 10 MG TAB PO SCH (09:42)
[2017-03-25] MEDS: PANTOPRAZOLE 40MG TAB (PROTONIX) PO SCH ×2 (09:42→21:31)
[2017-03-25] MEDS: MULTIVITAMINS/MINERALS THERAP 1 TAB PO SCH (09:47)
[2017-03-25] MEDS: traMADol 50 MG TAB PO PRN (09:57)
[2017-03-25 10:09] LABS: CALCIUM LEVEL 8.2 MG/DL (8.8-10.2); CREATININE FOR GFR 1.15 MG/DL (0.55-1.02); GLOMERULAR FILTRATION RATE 49.2 (>39); MAGNESIUM LEVEL 2.1 MG/DL (1.8-2.4); POTASSIUM SERUM 3.4 MEQ/L (3.5-5.1)
[2017-03-25 12:00] VITALS: BP 161/86
[2017-03-25] MEDS ORDERED: POTASSIUM CHLORIDE 10 MEQ SR TABLET PO ONE (12:00)
--- NOTE | 2017-03-25 12:02 | IPNPDOC ---
Date Seen The patient was seen on 03/25/17. Progress Note Hospitalist Progress Note Subjective: Patient states that she is still short of breath but it is improving ; however, activity still exerts her significantly Objective: Physical Exam: Vitals: Vital Sign - Last 24 Hours 03/24/17 03/24/17 03/24/17 03/24/17 12:22 16:00 16:12 16:42 Temp 96.3 Pulse 73 Resp 18 18 B/P (MAP) 132/75 (94) Pulse Ox 98 O2 Delivery Nasal Cannula Nasal Cannula Nasal Cannula Nasal Cannula O2 Flow Rate 4.0 4.0 4.0 4.0 03/24/17 03/24/17 03/25/17 03/25/17 20:00 20:00 00:00 00:00 Temp 97.9 97.9 Pulse 71 71 Resp 18 18 B/P (MAP) 141/68 (92) 141/74 (96) Pulse Ox 97 97 O2 Delivery Nasal Cannula Nasal Cannula Nasal Cannula BIPAP/CPAP O2 Flow Rate 4.0 4.0 4.0 4.0 03/25/17 03/25/17 03/25/17 03/25/17 04:00 08:00 09:57 10:27 Temp 97.4 96.6 Pulse 69 72 Resp 18 24 18 18 B/P (MAP) 131/71 (91) 149/83 (105) Pulse Ox 96 97 O2 Delivery Nasal Cannula Nasal Cannula O2 Flow Rate 4.0 4.0 I&O- Last 24 Hours up to 6 AM 03/25/17 06:00 Intake Total 940 ml Output Total 3700 ml Balance -2760 ml General: Awake, alert, no acute distress HEENT: Normocephalic, atraumatic, moist mucous membranes CV: Regular rate and rhythm Lungs: No wheezes, rhonchi or rales Abd: Soft, nontender nondistended Extremities: 3+ pitting edema to the thighs, pitting edema in BUE Neuro: Alert and oriented 3, normal speech Psych: Normal Mood and affect Labs and Imaging: Laboratory Tests 03/25/17 05:07 Red Blood Count 4.68, Mean Corpuscular Volume 93.0, Mean Corpuscular Hemoglobin 30.5, Mean Corpuscular Hemoglobin Concent 32.8, Red Cell Distribution Width 14.6 H 03/25/17 09:32 Calcium Level 8.2 L Assessment and Plan: 72-year-old female with hypertension, hyperlipidemia, hypothyroidism, GERD, chronic headaches, SOFY,, chronic diastolic CHF, CAD, pulmonary fibrosis on 4 L O2 at home as well as chronic prednisone who presented with bilateral lower extremity edema and is admitted with acute on chronic diastolic CHF. 1. Acute on chronic diastolic CHF: Continue to diurese with IV Lasix every 4 hours. Follow daily ins and outs and daily weights. Had a negative balance of 3L yesterday and total weight loss of 4.5kg. Currently holding home by mouth Lasix and metolazone. Echocardiogram earlier this year showed grade 1 diastolic dysfunction, as well as severe TR and severe pulmonary hypertension. Monitor kidney function closely. 2. SOFY: Continue home CPAP 3. Pulmonary fibrosis and Chronic hypoxic respiratory failure: Patient is currently stable on her home 4 L of oxygen. Continue home chronic prednisone, as well as albuterol. 4. Hypertension: No home medications reported other than by mouth Lasix. Continue to monitor. Control is adequate. 5. Hyperlipidemia, CAD: Continue home aspirin. No statin or beta mark on home medication list. Holding home omega-3. 6. Hypothyroidism: Continue home Synthroid. 7. Chronic headaches. Continue home Depakote. 8. GERD: Continue home Carafate and PPI. DVT prophylaxis: Heparin Dispo: pending adequate diuresis VS, I&O, 24H, Jie Vital Signs/I&O Vital Signs Date Time Temp Pulse Resp B/P (MAP) Pulse Ox O2 Delivery O2 Flow Rate FiO2 03/25/17 10:27 18 03/25/17 08:00 96.6 72 149/83 (105) 97 Nasal Cannula 4.0 I&O- Last 24 Hours up to 6 AM 03/25/17 06:00 Intake Total 940 ml Output Total 3700 ml Balance -2760 ml Laboratory Data 24H LABS Laboratory Tests 2 03/25/17 09:32: Anion Gap 13, Glomerular Filtration Rate 49.2, Blood Urea Nitrogen 35H, Creatinine 1.15H, Sodium Level 141, Potassium Level 3.4L, Chloride Level 96L, Carbon Dioxide Level 32, Calcium Level 8.2L, Magnesium Level 2.1 CBC/BMP Laboratory Tests 03/25/17 05:07 Red Blood Count 4.68, Mean Corpuscular Volume 93.0, Mean Corpuscular Hemoglobin 30.5, Mean Corpuscular Hemoglobin Concent 32.8, Red Cell Distribution Width 14.6 H 03/25/17 09:32 Calcium Level 8.2 L ANDRAE [place] Mar 25, 2017 12:02
[2017-03-25 16:00] VITALS: BP 124/72
[2017-03-25 19:37] VITALS: BP 130/69
[2017-03-25] MEDS: DIVALPROEX 500MG *ER* TAB PO SCH (21:32)
[2017-03-25] MEDS: ASPIRIN 81 MG ENTERIC TAB PO SCH (21:32)
[2017-03-25] MEDS: ACETAMINOPHEN TAB 650MG DOSE (2X325MG) PO PRN (21:34)
[2017-03-26] VITALS: BP 120/59
[2017-03-26] MEDS: FUROSEMIDE 40 MG/4 ML VIAL (J1940) IV SCH ×6 (01:00→21:34)
[2017-03-26 04:45] VITALS: BP 141/74
[2017-03-26 05:35] LABS: MEAN CORPUSCULAR HEMOGLOBIN 29.5 pg (27.0-33.0); MEAN CORPUSCULAR HGB CONC 31.4 g/dl (32.0-36.5); MEAN CORPUSCULAR VOLUME 93.8 fl (80.0-96.0); RED CELL DISTRIBUTION WIDTH 14.7 % (11.5-14.5); WHITE BLOOD COUNT 9.2 K/mm3 (4.0-10.0)
[2017-03-26] MEDS: HEPARIN SOD (PORCINE) 5000 UNITS/ML VIAL SC SCH (05:41)
[2017-03-26] MEDS: SLF 3 ML SYR IV SCH ×3 (05:42→22:00)
[2017-03-26 06:31] LABS: CALCIUM LEVEL 8.2 MG/DL (8.8-10.2); CREATININE FOR GFR 1.12 MG/DL (0.55-1.02); GLOMERULAR FILTRATION RATE 50.8 (>39); MAGNESIUM LEVEL 2.2 MG/DL (1.8-2.4); POTASSIUM SERUM 3.3 MEQ/L (3.5-5.1)
[2017-03-26] MEDS: traMADol 50 MG TAB PO PRN ×3 (06:52→23:29)
[2017-03-26 08:00] VITALS: BP 159/82
[2017-03-26] MEDS ORDERED: POTASSIUM CHLORIDE 10 MEQ SR TABLET PO ONE (08:00)
[2017-03-26] MEDS: PANTOPRAZOLE 40MG TAB (PROTONIX) PO SCH ×2 (08:22→21:39)
[2017-03-26] MEDS: MULTIVITAMINS/MINERALS THERAP 1 TAB PO SCH (08:22)
[2017-03-26] MEDS: RANOLAZINE 500 MG ER TAB PO SCH ×2 (08:22→21:39)
[2017-03-26] MEDS: ASCORBIC ACID 500 MG TAB PO SCH (08:23)
[2017-03-26] MEDS: predniSONE 10 MG TAB PO SCH (08:23)
[2017-03-26] MEDS: LEVOTHYROXINE 150MCG TABLET (0.15MG) PO SCH (08:23)
[2017-03-26] MEDS: SUCRALFATE 1 GM TAB PO SCH ×4 (08:23→21:39)
[2017-03-26 12:00] VITALS: BP 133/80
[2017-03-26] MEDS: ACETAMINOPHEN TAB 650MG DOSE (2X325MG) PO PRN (12:25)
--- NOTE | 2017-03-26 13:44 | IPNPDOC ---
Date Seen The patient was seen on 03/26/17. Progress Note Hospitalist Progress Note Subjective: Patient states that she is still short of breath but she is now able to stand up without it exacerbating her breathing; she continues to urinate a lot after each lasix injection Objective: Physical Exam: Vitals: Vital Sign - Last 24 Hours 03/25/17 03/25/17 03/25/17 03/25/17 16:00 16:10 19:34 19:37 Temp 97.4 97.4 Pulse 67 66 Resp 20 20 B/P (MAP) 124/72 (89) 130/69 (89) Pulse Ox 97 98 O2 Delivery Nasal Cannula Nasal Cannula Nasal Cannula Nasal Cannula O2 Flow Rate 4.0 4.0 4.0 4.0 03/25/17 03/26/17 03/26/17 03/26/17 23:59 00:00 00:00 04:00 Temp 97.7 Pulse 70 Resp 20 B/P (MAP) 120/59 (79) Pulse Ox 98 O2 Delivery NIPPV (BIPAP/CPAP) BIPAP/CPAP BIPAP/CPAP O2 Flow Rate 4.0 4.0 03/26/17 03/26/17 03/26/17 03/26/17 04:45 06:52 07:22 08:00 Temp 98.5 98.2 Pulse 68 70 Resp 18 18 20 17 B/P (MAP) 141/74 (96) 159/82 (107) Pulse Ox 97 99 O2 Delivery NIPPV (BIPAP/CPAP) Nasal Cannula NIPPV (BIPAP/CPAP) O2 Flow Rate 3.0 03/26/17 12:00 Temp 97.4 Pulse 70 Resp 18 B/P (MAP) 133/80 (97) Pulse Ox 99 O2 Delivery Nasal Cannula O2 Flow Rate 4.0 I&O- Last 24 Hours up to 6 AM 03/26/17 05:59 Intake Total 750 ml Output Total 3550 ml Balance -2800 ml General: Awake, alert, no acute distress HEENT: Normocephalic, atraumatic, moist mucous membranes CV: Regular rate and rhythm Lungs: No wheezes, rhonchi or rales Abd: Soft, nontender nondistended Extremities: 3+ pitting edema to the thighs, pitting edema in BUE Neuro: Alert and oriented 3, normal speech Psych: Normal Mood and affect Labs and Imaging: Laboratory Tests 8/6/17 05:21 Red Blood Count 4.92, Mean Corpuscular Volume 93.8, Mean Corpuscular Hemoglobin 29.5, Mean Corpuscular Hemoglobin Concent 31.4 L, Red Cell Distribution Width 14.7 H, Calcium Level 8.2 L Assessment and Plan: 72-year-old female with hypertension, hyperlipidemia, hypothyroidism, GERD, chronic headaches, SOFY,, chronic diastolic CHF, CAD, pulmonary fibrosis on 4 L O2 at home as well as chronic prednisone who presented with bilateral lower extremity edema and is admitted with acute on chronic diastolic CHF. 1. Acute on chronic diastolic CHF: Continue to diurese with IV Lasix every 4 hours. Follow daily ins and outs and daily weights. Had a negative balance of almost 3L yesterday and total weight loss of 5.5kg. Currently holding home by mouth Lasix and metolazone. Echocardiogram earlier this year showed grade 1 diastolic dysfunction, as well as severe TR and severe pulmonary hypertension. Monitor kidney function closely. When her pig machine operator is available on Monday, will call them for further guidance. 2. SOFY: Continue home CPAP 3. Pulmonary fibrosis and Chronic hypoxic respiratory failure: Patient is currently stable on her home 4 L of oxygen. Continue home chronic prednisone, as well as albuterol. 4. Hypertension: No home medications reported other than by mouth Lasix. Continue to monitor. Control is adequate. 5. Hyperlipidemia, CAD: Continue home aspirin. No statin or beta mark on home medication list. Holding home omega-3. 6. Hypothyroidism: Continue home Synthroid. 7. Chronic headaches. Continue home Depakote. 8. GERD: Continue home Carafate and PPI. DVT prophylaxis: change from heparin to lovenox as kidney function is adequate and she is having a lot of bruising from the injections Dispo: pending adequate diuresis VS, I&O, 24H, Fishbone Vital Signs/I&O Vital Signs Date Time Temp Pulse Resp B/P (MAP) Pulse Ox O2 Delivery O2 Flow Rate FiO2 03/26/17 12:00 97.4 70 18 133/80 (97) 99 Nasal Cannula 4.0 I&O- Last 24 Hours up to 6 AM 03/26/17 05:59 Intake Total 750 ml Output Total 3550 ml Balance -2800 ml Laboratory Data 24H LABS Laboratory Tests 2 03/26/17 05:21: Anion Gap 9, Glomerular Filtration Rate 50.8, Blood Urea Nitrogen 34H, Creatinine 1.12H, Sodium Level 143, Potassium Level 3.3L, Chloride Level 98, Carbon Dioxide Level 36H, Calcium Level 8.2L, Magnesium Level 2.2 CBC/BMP Laboratory Tests 03/26/17 05:21 Red Blood Count 4.92, Mean Corpuscular Volume 93.8, Mean Corpuscular Hemoglobin 29.5, Mean Corpuscular Hemoglobin Concent 31.4 L, Red Cell Distribution Width 14.7 H, Calcium Level 8.2 L ANDRAE [place] Mar 26, 2017 13:44
[2017-03-26] MEDS: ENOXAPARIN 40 MG/0.4 ML SYRINGE (J1650) SC SCH (14:41)
[2017-03-26 16:00] VITALS: BP 137/85
[2017-03-26 20:00] VITALS: BP 135/78
[2017-03-26] MEDS: DIVALPROEX 500MG *ER* TAB PO SCH (21:39)
[2017-03-26] MEDS: ASPIRIN 81 MG ENTERIC TAB PO SCH (21:39)
[2017-03-27] VITALS: BP 144/78
[2017-03-27] MEDS: FUROSEMIDE 40 MG/4 ML VIAL (J1940) IV SCH ×6 (01:00→20:21)
[2017-03-27] MEDS: ACETAMINOPHEN TAB 650MG DOSE (2X325MG) PO PRN ×2 (02:59→12:29)
[2017-03-27 04:00] VITALS: BP 140/74
[2017-03-27 05:31] LABS: MEAN CORPUSCULAR HEMOGLOBIN 29.7 pg (27.0-33.0); MEAN CORPUSCULAR HGB CONC 32.2 g/dl (32.0-36.5); MEAN CORPUSCULAR VOLUME 92.4 fl (80.0-96.0); RED CELL DISTRIBUTION WIDTH 14.8 % (11.5-14.5); WHITE BLOOD COUNT 7.9 K/mm3 (4.0-10.0)
[2017-03-27 05:46] LABS: CALCIUM LEVEL 8.5 MG/DL (8.8-10.2); CREATININE FOR GFR 1.06 MG/DL (0.55-1.02); GLOMERULAR FILTRATION RATE 54.1 (>39); MAGNESIUM LEVEL 2.3 MG/DL (1.8-2.4); POTASSIUM SERUM 3.6 MEQ/L (3.5-5.1)
[2017-03-27] MEDS: SUCRALFATE 1 GM TAB PO SCH ×4 (05:53→20:20)
[2017-03-27] MEDS: SLF 3 ML SYR IV SCH ×3 (05:53→22:00)
[2017-03-27 08:00] VITALS: BP 142/72
[2017-03-27] MEDS: ASCORBIC ACID 500 MG TAB PO SCH (08:23)
[2017-03-27] MEDS: LEVOTHYROXINE 150MCG TABLET (0.15MG) PO SCH (08:23)
[2017-03-27] MEDS: RANOLAZINE 500 MG ER TAB PO SCH ×2 (08:23→20:20)
[2017-03-27] MEDS: traMADol 50 MG TAB PO PRN ×2 (08:23→20:20)
[2017-03-27] MEDS: MULTIVITAMINS/MINERALS THERAP 1 TAB PO SCH (08:24)
[2017-03-27] MEDS: PANTOPRAZOLE 40MG TAB (PROTONIX) PO SCH ×2 (08:24→20:20)
[2017-03-27] MEDS: predniSONE 10 MG TAB PO SCH (08:24)
[2017-03-27 12:00] VITALS: BP 140/78
--- NOTE | 2017-03-27 14:59 | IPNPDOC ---
Date Seen The patient was seen on 03/27/17. Progress Note Hospitalist Progress Note Subjective: Patient reports continued good UOP but still is SOB with activity Objective: Physical Exam: Vitals: Vital Sign - Last 24 Hours 03/26/17 03/26/17 03/26/17 03/26/17 16:00 20:00 21:34 23:29 Temp 97.3 97.1 97.1 Pulse 70 71 71 Resp 18 20 20 B/P (MAP) 137/85 (102) 135/78 (97) 135/78 Pulse Ox 94 98 98 O2 Delivery Nasal Cannula Nasal Cannula Nasal Cannula Nasal Cannula O2 Flow Rate 4.0 4.0 4.0 4.0 03/26/17 03/27/17 03/27/17 03/27/17 23:59 00:00 04:00 07:45 Temp 97.7 97.7 97.2 Pulse 71 71 69 Resp 18 20 B/P (MAP) 144/78 144/78 (100) 140/74 (96) Pulse Ox 93 93 98 O2 Delivery NIPPV (BIPAP/CPAP) NIPPV (BIPAP/CPAP) Nasal Cannula Nasal Cannula O2 Flow Rate 4.0 4.0 4.0 03/27/17 03/27/17 03/27/17 03/27/17 08:00 08:23 08:53 12:00 Temp 96.2 97.6 Pulse 73 72 Resp 18 20 18 18 B/P (MAP) 142/72 (95) 140/78 (98) Pulse Ox 97 97 O2 Delivery Room Air Room Air I&O- Last 24 Hours up to 6 AM 03/27/17 06:00 Intake Total 1020 ml Output Total 3850 ml Balance -2830 ml General: Awake, alert, no acute distress HEENT: Normocephalic, atraumatic, moist mucous membranes CV: Regular rate and rhythm Lungs: No wheezes, rhonchi or rales Abd: Soft, nontender nondistended Extremities: 3+ pitting edema to the thighs, pitting edema in BUE Neuro: Alert and oriented 3, normal speech Psych: Normal Mood and affect Labs and Imaging: Laboratory Tests 03/27/17 05:17 Red Blood Count 4.67, Mean Corpuscular Volume 92.4, Mean Corpuscular Hemoglobin 29.7, Mean Corpuscular Hemoglobin Concent 32.2, Red Cell Distribution Width 14.8 H, Calcium Level 8.5 L Assessment and Plan: 72-year-old female with hypertension, hyperlipidemia, hypothyroidism, GERD, chronic headaches, SOFY,, chronic diastolic CHF, CAD, pulmonary fibrosis on 4 L O2 at home as well as chronic prednisone who presented with bilateral lower extremity edema and is admitted with acute on chronic diastolic CHF. 1. Acute on chronic diastolic CHF: Continue to diurese with IV Lasix every 4 hours. Follow daily ins and outs and daily weights. Had a negative balance of almost 3L yesterday and total weight loss of 8.3kg. Currently holding home by mouth Lasix and metolazone. Echocardiogram earlier this year showed grade 1 diastolic dysfunction, as well as severe TR and severe pulmonary hypertension. Monitor kidney function closely. Spoke with Dr. Chavez today, who is position classification manager her for employee relation manager Dr. Benjamin, and he recommends staying the course as she continues to have a negative balance daily and kidney function is holding out. 2. SOFY: Continue home CPAP 3. Pulmonary fibrosis and Chronic hypoxic respiratory failure: Patient is currently stable on her home 4 L of oxygen. Continue home chronic prednisone, as well as albuterol. 4. Hypertension: No home medications reported other than by mouth Lasix. Continue to monitor. Control is adequate. 5. Hyperlipidemia, CAD: Continue home aspirin. No statin or beta mark on home medication list. Holding home omega-3. 6. Hypothyroidism: Continue home Synthroid. 7. Chronic headaches. Continue home Depakote. 8. GERD: Continue home Carafate and PPI. DVT prophylaxis: lovenox Dispo: pending adequate diuresis VS, I&O, 24H, Jie Vital Signs/I&O Vital Signs Date Time Temp Pulse Resp B/P (MAP) Pulse Ox O2 Delivery O2 Flow Rate FiO2 03/27/17 12:00 97.6 72 18 140/78 (98) 97 Room Air 03/27/17 07:45 4.0 I&O- Last 24 Hours up to 6 AM 03/27/17 06:00 Intake Total 1020 ml Output Total 3850 ml Balance -2830 ml Laboratory Data 24H LABS Laboratory Tests 2 03/27/17 05:17: Anion Gap 9, Glomerular Filtration Rate 54.1, Blood Urea Nitrogen 33H, Creatinine 1.06H, Sodium Level 141, Potassium Level 3.6, Chloride Level 98, Carbon Dioxide Level 34H, Calcium Level 8.5L, Magnesium Level 2.3 CBC/BMP Laboratory Tests 03/27/17 05:17 Red Blood Count 4.67, Mean Corpuscular Volume 92.4, Mean Corpuscular Hemoglobin 29.7, Mean Corpuscular Hemoglobin Concent 32.2, Red Cell Distribution Width 14.8 H, Calcium Level 8.5 L ANDRAE [place] Mar 27, 2017 14:59
[2017-03-27] MEDS: ENOXAPARIN 40 MG/0.4 ML SYRINGE (J1650) SC SCH (15:02)
[2017-03-27 16:00] VITALS: BP 116/89
[2017-03-27 20:00] VITALS: BP 145/84
[2017-03-27] MEDS: ASPIRIN 81 MG ENTERIC TAB PO SCH (20:18)
[2017-03-27] MEDS: DIVALPROEX 500MG *ER* TAB PO SCH (20:20)
[2017-03-28] VITALS: BP 125/73
[2017-03-28] MEDS: FUROSEMIDE 40 MG/4 ML VIAL (J1940) IV SCH ×3 (01:00→16:55)
[2017-03-28] MEDS: ACETAMINOPHEN TAB 650MG DOSE (2X325MG) PO PRN (02:07)
[2017-03-28 04:00] VITALS: BP 158/78
[2017-03-28 05:38] LABS: MEAN CORPUSCULAR HGB CONC 32.2 g/dl (32.0-36.5); MEAN CORPUSCULAR VOLUME 93.2 fl (80.0-96.0); RED CELL DISTRIBUTION WIDTH 14.8 % (11.5-14.5); WHITE BLOOD COUNT 8.5 K/mm3 (4.0-10.0)
[2017-03-28 05:59] LABS: CALCIUM LEVEL 8.9 MG/DL (8.8-10.2); CREATININE FOR GFR 1.19 MG/DL (0.55-1.02); GLOMERULAR FILTRATION RATE 47.3 (>39); MAGNESIUM LEVEL 2.2 MG/DL (1.8-2.4); POTASSIUM SERUM 3.8 MEQ/L (3.5-5.1)
[2017-03-28] MEDS: SLF 3 ML SYR IV SCH ×3 (06:47→22:00)
[2017-03-28 08:00] VITALS: BP 141/74
[2017-03-28] MEDS: predniSONE 10 MG TAB PO SCH (09:07)
[2017-03-28] MEDS: RANOLAZINE 500 MG ER TAB PO SCH ×2 (09:07→21:28)
[2017-03-28] MEDS: SUCRALFATE 1 GM TAB PO SCH ×4 (09:07→21:29)
[2017-03-28] MEDS: LEVOTHYROXINE 150MCG TABLET (0.15MG) PO SCH (09:07)
[2017-03-28] MEDS: MULTIVITAMINS/MINERALS THERAP 1 TAB PO SCH (09:07)
[2017-03-28] MEDS: PANTOPRAZOLE 40MG TAB (PROTONIX) PO SCH ×2 (09:07→21:29)
[2017-03-28] MEDS: ASCORBIC ACID 500 MG TAB PO SCH (09:08)
[2017-03-28] MEDS: traMADol 50 MG TAB PO PRN ×2 (11:07→21:32)
[2017-03-28 12:00] VITALS: BP 135/75
[2017-03-28] MEDS: ENOXAPARIN 40 MG/0.4 ML SYRINGE (J1650) SC SCH (13:16)
--- NOTE | 2017-03-28 15:46 | IPNPDOC ---
Text Note Date of Service The patient was seen on 03/28/17. NOTE Subjective: Patient states her dyspnea is much improved however she's not back to her baseline. She does have some mild dyspnea on exertion with ambulation. Objective: Vitals: (see below) General: No acute distress, laying comfortably in bed. HEENT: Moist mucous membranes. Neck: No JVD or lymphadenopathy Cardiac: RRR, No murmurs Pulm: Coarse crackles b/l bases. No wheezing, rhonchi Abd: NT/ND + BS Ext: 1-2 + pitting edema BLE. No cyanosis. Distal pulses intact. Labs (see below) Images: RUQ 03/22/17 IMPRESSION: No acute right upper quadrant findings. No findings to suggest cholelithiasis or cholecystitis. LUE doppler u/s 03/22/17 IMPRESSION: Negative left upper extremity venous ultrasound examination with no evidence of deep or superficial vein thrombosis or other vascular abnormality identified. CT Chest 03/22/17 Impression: Chronic fibrotic changes are identified bilaterally, most severe in the lower lobes. No acute cardiopulmonary findings are identified. There is chronic cardiomegaly. There is questionably a small gallbladder calculus identified on the inferior most image only. Assessment/Plan 1. Acute on chronic diastolic heart failure- patient is diuresing well. Bicarbonate is rising, Lasix has been decreased twice a day. CONTINUE to follow I/oh/daily weights. Continues with a negative balance. Has a history of severe pulmonary hypertension as well as severe tricuspid regurg. We'll continue with diuresis. Floater section. 2. Obstructive sleep apnea- continue CPAP 3. Pulmonary fibrosis with chronic hypoxic respiratory failure- on 4 L home oxygen. Continue chronic on prednisone. Nebs. 4. Hypertension- controlled 5. Hyperlipidemia- on statin 6. Hypothyroidism- on Synthroid 7. Chronic migraines- on Depakote 8. GERD- on PPI and Carafate DVT prophy: Lovenox subcutaneous VS,Fishbone, I+O VS, Fishbone, I+O Laboratory Tests 03/28/17 05:17 Red Blood Count 5.08, Mean Corpuscular Volume 93.2, Mean Corpuscular Hemoglobin 30.0, Mean Corpuscular Hemoglobin Concent 32.2, Red Cell Distribution Width 14.8 H, Calcium Level 8.9 Vital Signs Date Time Temp Pulse Resp B/P (MAP) Pulse Ox O2 Delivery O2 Flow Rate FiO2 03/28/17 12:00 97.7 67 18 135/75 (95) 96 03/28/17 11:07 Room Air 03/28/17 08:00 4.0 I&O- Last 24 Hours up to 6 AM 03/28/17 05:59 Intake Total 1250 ml Output Total 4100 ml Balance -2850 ml TAQUERIA KWAN MD Mar 28, 2017 15:46
[2017-03-28 16:00] VITALS: BP 134/67
[2017-03-28 20:00] VITALS: BP 143/87
[2017-03-28] MEDS: ASPIRIN 81 MG ENTERIC TAB PO SCH (21:29)
[2017-03-28] MEDS: DIVALPROEX 500MG *ER* TAB PO SCH (21:29)
[2017-03-29] MEDS: ACETAMINOPHEN TAB 650MG DOSE (2X325MG) PO PRN ×2 (00:43→04:38)
[2017-03-29 06:00] VITALS: BP 154/86
[2017-03-29] MEDS: SLF 3 ML SYR IV SCH ×2 (06:00→14:00)
[2017-03-29 07:31] LABS: MEAN CORPUSCULAR HEMOGLOBIN 29.2 pg (27.0-33.0); MEAN CORPUSCULAR HGB CONC 31.6 g/dl (32.0-36.5); MEAN CORPUSCULAR VOLUME 92.4 fl (80.0-96.0); WHITE BLOOD COUNT 7.1 K/mm3 (4.0-10.0)
[2017-03-29 07:45] LABS: CALCIUM LEVEL 8.7 MG/DL (8.8-10.2); CREATININE FOR GFR 1.02 MG/DL (0.55-1.02); GLOMERULAR FILTRATION RATE 56.6 (>39); MAGNESIUM LEVEL 2.1 MG/DL (1.8-2.4); POTASSIUM SERUM 3.6 MEQ/L (3.5-5.1)
[2017-03-29] MEDS: MULTIVITAMINS/MINERALS THERAP 1 TAB PO SCH (08:14)
[2017-03-29] MEDS: RANOLAZINE 500 MG ER TAB PO SCH (08:14)
[2017-03-29] MEDS: ASCORBIC ACID 500 MG TAB PO SCH (08:14)
[2017-03-29] MEDS: SUCRALFATE 1 GM TAB PO SCH ×2 (08:14→13:24)
[2017-03-29] MEDS: LEVOTHYROXINE 150MCG TABLET (0.15MG) PO SCH (08:14)
[2017-03-29] MEDS: PANTOPRAZOLE 40MG TAB (PROTONIX) PO SCH (08:14)
[2017-03-29] MEDS: FUROSEMIDE 40 MG/4 ML VIAL (J1940) IV SCH (08:15)
[2017-03-29] MEDS: predniSONE 10 MG TAB PO SCH (08:15)
[2017-03-29] MEDS: traMADol 50 MG TAB PO PRN (10:49)
[2017-03-29] MEDS ORDERED: FURO40TA2 PO (12:21)
[2017-03-29 14:00] VITALS: BP 110/69
[2017-03-29] MEDS: ENOXAPARIN 40 MG/0.4 ML SYRINGE (J1650) SC SCH (14:00)
--- NOTE | 2017-03-29 16:15 | DS.PDOC ---
Discharge Summary General Date of Admission Mar 22, 2017 at 18:42 Date of Discharge 03/29/17 Attending Physician: TAQUERIA KWAN MD Discharge Summary PROCEDURES PERFORMED DURING STAY: None. ADMITTING/DISCHARGE DIAGNOSES: 1. Acute on chronic diastolic heart failure 2.Obstructive sleep apnea 3. Pulmonary fibrosis with chronic hypoxic respiratory failure- on 4 L home oxygen 4. Hypertension- controlled 5. Hyperlipidemia- on statin 6. Hypothyroidism- on Synthroid 7. Chronic migraines- on Depakote 8. GERD- on PPI and Carafate COMPLICATIONS/CHIEF COMPLAINT: EDEMA. HISTORY OF PRESENT ILLNESS/HOSPITAL COURSE: . 72-year-old female past medical history of pulmonary fibrosis on 4 L home oxygen diastolic heart failure, coronary artery disease who presents complaining of increased lower extremity edema. Patient was found to be in decompensated diastolic heart failure and was aggressively diuresed. Patient has since then symptomatically improved and is back to her baseline. Patient typically will check a walker and has ambulated today with no significant dyspnea. Patient tolerated therapy well and remained hemodynamically stable. Patient will be discharged home today with Lasix daily. Patient will need to follow-up with her primary care physician as well as assistant finance director and bight maker once 2 weeks. Patient is return to the ED if symptoms worsen. DISCHARGE MEDICATIONS: Please see below. ALLERGIES: Please see below. PHYSICAL EXAMINATION ON DISCHARGE: Vitals: (see below) General: No acute distress, laying comfortably in bed. HEENT: Moist mucous membranes. Neck: No JVD or lymphadenopathy Cardiac: RRR, No murmurs Pulm: Coarse crackles b/l bases. No wheezing, rhonchi Abd: NT/ND + BS Ext: 1-2 + pitting edema BLE. No cyanosis. Distal pulses intact. LABORATORY DATA: Please see below. IMAGING: RUQ 03/22/17 IMPRESSION: No acute right upper quadrant findings. No findings to suggest cholelithiasis or cholecystitis. LUE doppler u/s 03/22/17 IMPRESSION: Negative left upper extremity venous ultrasound examination with no evidence of deep or superficial vein thrombosis or other vascular abnormality identified. CT Chest 03/22/17 Impression: Chronic fibrotic changes are identified bilaterally, most severe in the lower lobes. No acute cardiopulmonary findings are identified. There is chronic cardiomegaly. There is questionably a small gallbladder calculus identified on the inferior most image only. PROGNOSIS: Guarded ACTIVITY: As tolerated. DIET: Low Sodium DISCHARGE PLAN/DISPOSITION: D/c home DISCHARGE INSTRUCTIONS: 1. F/u with PCP, Cardiology, and Pulmonary in 1-2 weeks. DISCHARGE CONDITION: Stable. TIME SPENT ON DISCHARGE: Greater than 30 minutes. Vital Signs/I&Os Vital Signs Date Time Temp Pulse Resp B/P (MAP) Pulse Ox O2 Delivery O2 Flow Rate FiO2 03/29/17 11:19 16 Room Air 03/29/17 10:00 4.0 03/29/17 06:00 97.3 71 154/86 (108) 99 I&O- Last 24 Hours up to 6 AM 03/29/17 06:00 Intake Total 960 ml Output Total 2150 ml Balance -1190 ml Laboratory Data Labs 24H Laboratory Tests 2 03/29/17 07:10: Anion Gap 5L, Glomerular Filtration Rate 56.6, Blood Urea Nitrogen 29H, Creatinine 1.02, Sodium Level 139, Potassium Level 3.6, Chloride Level 95L, Carbon Dioxide Level 39H, Calcium Level 8.7L, Magnesium Level 2.1 CBC/BMP Laboratory Tests 03/29/17 07:10 Red Blood Count 4.93, Mean Corpuscular Volume 92.4, Mean Corpuscular Hemoglobin 29.2, Mean Corpuscular Hemoglobin Concent 31.6 L, Red Cell Distribution Width 15.0 H, Calcium Level 8.7 L Discharge Medications Scheduled (Dexilant) 60 Mg Cap, 60 MG PO BID, (Reported) RECEIVED 5 DAY TRIAL FROM Ascorbic Acid (Vitamin C) 1,000 Mg Tab, 1,000 MG PO DAILY, (Reported) Aspirin (Aspirin 81) 81 Mg Tab, 81 MG PO QHS, (Reported) Divalproex Sodium (Divalproex Sodium ER) 500 Mg Tab, 1,000 MG PO QHS, (Reported) Furosemide (Furosemide) 40 Mg Tab, 40 MG PO DAILY Levothyroxine Sodium (Levoxyl) 150 Mcg Tab, 150 MCG PO DAILY, (Reported) Multivitamins *[facility] STOCKED* (Thera M Plus *[facility] STOCKED*) 1 Tab Tab, 1 TAB PO DAILY, (Reported) Shiro 3 Polyunsat Fatty Acids (Shiro 3 1000 mg) 1 Cap Cap, 1 CAP PO DAILY, ( Reported) Prednisone (Prednisone) 10 Mg Tab, 10 MG PO DAILY, (Reported) Ranolazine (Ranexa) 500 Mg Carol, 1,000 MG PO QAM, (Reported) Ranolazine (Ranexa) 500 Mg Carol, 500 MG PO QHS, (Reported) Vitamin D (Drisdol) 50,000 Unit Cap, 50,000 UNIT PO 2XW, (Reported) SUN & THURS Scheduled PRN (Nasacort Allergy 24Hr) 55 Mcg/Act Spr, 2 SPRAYS NA DAILY PRN for ALLERGIES, ( Reported) Acetamin/Butalbital/Caffeine (Butalbital/Acetaminophen/ 50-325-40 mg) 1 Ea Tab, 1 EA PO PRN PRN for MIGRAINE, (Reported) Acetaminophen (Tylenol Extra Strength) 500 Mg Tab, 1,000 MG PO Q6H PRN for PAIN, (Reported) Albuterol Sulfate (Ventolin Hfa) 200 Puff/8 Gm Aers, 2 PUFF INH QID PRN for SHORTNESS OF BREATH, (Reported) Benzonatate (Benzonatate) 200 Mg Cap, 200 MG PO TID PRN for COUGH, (Reported) Metolazone (Metolazone) 2.5 Mg Tab, 2.5 MG PO DAILY PRN for SWELLING, (Reported) Potassium Chloride (Klor-Con M10) 10 Meq Tabcr, 10 MEQ PO DAILY PRN for WITH LASIX, (Reported) Tramadol HCl (Tramadol HCl) 50 Mg Tab, 50 MG PO Q8H PRN for PAIN, (Reported) Allergies Coded Allergies: SEAFOOD (Verified Allergy, Severe, THROAT TINGLES, DYSPNEA, 11/30/11) Celecoxib (Verified Allergy, Intermediate, RASH, 11/26/12) Gabapentin (Verified Allergy, Intermediate, RASH, BLISTERS, 11/26/12) Sulfa Drugs (Verified Allergy, Intermediate, RASH, 11/26/12) Sulfa Drugs Cross Reactors (Verified Allergy, Intermediate, RASH, 11/26/12) Leflunomide (Verified Adverse Reaction, Mild, UPSET STOMACH, 11/26/12) TAQUERIA KWAN MD Mar 29, 2017 16:15
== END 2017-03-29 16:19 | disposition home or self-care (01) | DRG 292 ==
LOC: M ED 14:33 → OBSVTOIN 18:42 → M ED INP 18:42 → M PCU 20:36 → M MS5PR 03-28 19:05
PROVIDERS: ADMIT Internal Medicine; ATTEND Internal Medicine
DX: I11.0 Hypertensive heart disease with heart failure (principal); J96.11 Chronic respiratory failure with hypoxia; Z68.43 Body mass index [BMI] 50.0-59.9, adult; E66.9 Obesity, unspecified; J84.10 Pulmonary fibrosis, unspecified; K21.9 Gastro-esophageal reflux disease without esophagitis; E03.9 Hypothyroidism, unspecified; E78.5 Hyperlipidemia, unspecified; G47.33 Obstructive sleep apnea (adult) (pediatric); G43.909 Migraine, unspecified, not intractable, without status migrainosus; I50.33 Acute on chronic diastolic (congestive) heart failure; I25.10 Atherosclerotic heart disease of native coronary artery without angina pectoris; Z79.899 Other long term (current) drug therapy; Z79.82 Long term (current) use of aspirin; Z88.2 Allergy status to sulfonamides; Z88.8 Allergy status to other drugs, medicaments and biological substances; Z91.013 Allergy to seafood; Z79.52 Long term (current) use of systemic steroids; M19.90 Unspecified osteoarthritis, unspecified site

== ENCOUNTER 2017-06-20 15:05 | Inpatient (IN) | payer MEDICARE ==
[~2017-06-20] VITALS: Ht 160 cm; Wt 112.4 kg
[~2017-06-20 15:05] MED LIST changes: +DEXI60CA2 PO
[2017-06-20] MEDS ORDERED: SUCR1SS PO (15:29)
[2017-06-20] MEDS ORDERED: PANT40TA2 PO (15:29)
[2017-06-20] MEDS ORDERED: FUROSEMIDE 100 MG/10 ML VIAL (J1940) IV ONE (15:30)
[2017-06-20] MEDS ORDERED: IPRATROPIUM 0.5MG/ALBUTEROL 2.5MG INH SOL UD 3ML (DUONEB)(J7620) NEB PRN (15:30)
[2017-06-20 16:10] LABS: BASO # 0.1 10^3/uL (0.0-0.2); BASO % 0.5 % (0.0-1.0); EOS # 0.1 10^3/uL (0.0-0.50); EOS % 0.7 % (0.0-3.0); IMMATURE GRANULOCYTE % 0.5 % (0-0); LYMPH # 2.9 10^3/uL (1.5-4.5); LYMPH % 25.9 % (24.0-44.0); MEAN CORPUSCULAR HGB CONC 31.8 g/dl (32.0-36.5); MEAN CORPUSCULAR VOLUME 91.2 fl (80.0-96.0); MONO # 1.1 10^3/uL (0.0-0.8); MONO % 9.6 % (0.0-5.0); NEUTROPHILS % 62.8 % (36.0-66.0); PLATELET COUNT, AUTOMATED 248 10^3/uL (150-450); WHITE BLOOD COUNT 11.1 10^3/uL (4.0-10.0)
--- NOTE | 2017-06-20 16:10 | REP ---
Chest one-view HISTORY: Cough Comparison: 03/22/2017 A minimal increase in interstitial markings is present in the lungs consistent with chronic interstitial fibrosis. The cardiac silhouette is enlarged. The pulmonary vasculature is normal in appearance. Impression: 1. Chronic interstitial fibrosis. 2. Cardiomegaly. Signed by Javier Velasquez MD 06/20/2017 04:02 P
[2017-06-20 16:13] LABS: VENOUS BASE EXCESS 4.2 (-2.0-2.0); VENOUS O2 SATURATION 84.6 % (60.0-80.0); VENOUS PARTIAL PRESSURE CO2 50.2 mmHg (38.0-50.0); VENOUS STANDARD HCO3 27.9 MEQ/L; VENOUS TOTAL CO2 31.8 MEQ/L (24.0-28.0)
[2017-06-20 16:20] LABS: INR 0.94
[2017-06-20] MEDS ORDERED: FURO40TA2 PO (16:21)
[2017-06-20 16:30] LABS: ANION GAP 5 MEQ/L (8-16); BLOOD UREA NITROGEN 25 MG/DL (7-18); CALCIUM LEVEL 8.8 MG/DL (8.8-10.2); CARBON DIOXIDE LEVEL 35 MEQ/L (21-32); CHLORIDE LEVEL 96 MEQ/L (98-107); GLOMERULAR FILTRATION RATE > 60.0 (>39); GLUCOSE, FASTING 96 MG/DL (83-110); SODIUM LEVEL 136 MEQ/L (136-145)
[2017-06-20 16:37] LABS: ALBUMIN 3.3 GM/DL (3.2-5.2); ALBUMIN/GLOBULIN RATIO 1.18 (1.00-1.93); BILIRUBIN,DIRECT 0.2 MG/DL (0.0-0.2); BILIRUBIN,TOTAL 0.7 MG/DL (0.2-1.0); TOTAL PROTEIN 6.1 GM/DL (6.4-8.2)
[2017-06-20] MEDS ORDERED: metOLazone 2.5 MG TAB PO PRN (19:00)
[2017-06-20] MEDS ORDERED: BENZONATATE 100 MG CAP PO PRN (19:00)
[2017-06-20] MEDS ORDERED: SUCRALFATE SUSP 1GM/10ML UD PO PRN (19:00)
[2017-06-20] MEDS ORDERED: ALBUTEROL 90 MCG/ACT 8GM HFA INHALER INH PRN (19:00)
[2017-06-20] MEDS: traMADol 50 MG TAB PO PRN (19:18)
[2017-06-20] MEDS: ASPIRIN 81 MG ENTERIC TAB PO SCH (21:42)
[2017-06-20] MEDS: DIVALPROEX 500MG *ER* TAB PO SCH (21:42)
[2017-06-20] MEDS: PANTOPRAZOLE 40MG TAB (PROTONIX) PO SCH (21:42)
--- NOTE | 2017-06-20 21:58 | ECGEPIP ---
Stationary ECG Study [facility] - ED Test Date: 2017-06-20 Pat Name: LORE VALERIO Department: Room: - Gender: F Rn Shift Mgr: joesph : [id number] Requested By: MICHAELA HAMPTON Order Number: [id number] Reading MD: Drew Moreno Measurements Intervals [place]nut Rate: 79 P: 66 FL: 178 QRS: 129 QRSD: 97 T: 41 QT: 363 QTc: 417 Interpretive Statements SINUS RHYTHM POSSIBLE RIGHT VENTRICULAR HYPERTROPHY NSTTW ABNORMALITIES SIMILAR TO 03/22/17 Electronically Signed On 06-20-2017 21:58:39 EDT by Drew Moreno
[2017-06-20] MEDS ORDERED: SLF 3 ML SYR IV PRN (22:00)
--- NOTE | 2017-06-20 22:14 | HPE ---
DATE OF ADMISSION: 06/20/2017 PRIMARY CARE PHYSICIAN: Dr. Gaurav Posada MANAGER MATERIALS MANAGEMENT: Dr. Kris Benjamin INTERPERSONAL COMMUNICATIONS PROFESSOR: Dr. Vishnu Sánchez HOSPITALIST : Dr. Kana Barron CHIEF COMPLAINT: Shortness of breath, lower extremity edema. HISTORY OF PRESENTING ILLNESS: This is a 72-year-old female with history of end-stage pulmonary fibrosis, steroid dependent with chronic hypoxic respiratory failure, 4 liters nasal cannula oxygen chronically, continuous positive airway pressure (CPAP) at home, with history of hypertension, hyperlipidemia, hypothyroidism, right-sided heart failure, cor pulmonale, obstructive sleep apnea, diastolic heart failure, reflux, chronic headaches, presented to the emergency room with a 25 pound weight gain since previous discharge, as well as worsening shortness of breath and lower extremity edema since the patient was discharged home on 03/29/2017. She has been having increasing lower extremity edema and progressive shortness of breath with a 25 pound weight gain despite keeping to a no added salt diet and 2 liter fluid restriction, patient has had worsening symptoms prompting her to present to the emergency room today due to increasing shortness of breath, pain when she ambulates, inability to ambulate more than 10 feet without significant dyspnea. She otherwise denies any fever, cough, or chills. Denies any chest pain, pressure, or tightness. She was found to have 3+ pitting edema to the sacrum. Chest x-ray shows chronic fibrosis and cardiomegaly. Brain natriuretic peptide (BNP) was elevated over 1000. Cardiac markers negative and EKG unremarkable with no ischemic changes, sinus rhythm of 79, and right ventricular hypertrophy (RVH). Hospitalist service was called for admission for congestive heart failure (CHF) exacerbation secondary to right-sided heart failure from end-stage pulmonary fibrosis. Patient denies any dietary or medical noncompliance. She has been taking Lasix 80 mg daily with 25 mg of metolazone. Has been compliant with fluid restriction of 2 liters daily and no added salt at home. She has been monitored by her primary care physician , Dr. Posada, with every month visits and has noted increasing weight and worsening fluid overload prompting the patient to present to the emergency room for diuresis. PAST MEDICAL HISTORY: 1. Pulmonary fibrosis, on chronic prednisone, 4 liters of oxygen. 2. Obstructive sleep apnea, on CPAP at night. 3. Hypertension. 4. Hyperlipidemia. 5. Hypothyroidism. 6. Reflux. 7. Chronic headaches. 8. Diastolic congestive heart failure with preserved systolic function. 9. History of coronary artery disease (CAD), sees Dr. Kris Benjamin. 10. Chronic hypoxic respiratory failure, on 4 liters of oxygen at home. PAST SURGICAL HISTORY: 1. Right shoulder rotator cuff surgery. 2. Right knee replacement. 3. Lung biopsy. 4. Hysterectomy. 5. Appendectomy. FAMILY HISTORY: Noncontributory. SOCIAL HISTORY: Denies smoking, drinking, or drug abuse. ALLERGIES: To seafood, CELECOXIB, GABAPENTIN, SULFA, and LEFLUNOMIDE. HOME MEDICATIONS: - acetaminophen/butalbital/caffeine one tablet as needed for migraine - Tylenol 1 gram by mouth every 6 hours as needed for pain - albuterol 200 puffs/8 grams two puffs inhaled four times a day as needed - vitamin C 1000 mg daily - aspirin 81 mg nightly - benzonatate 200 mg three times a day as needed for cough - valproic acid 500 mg nightly - Lasix 40 mg tablet - levothyroxine 150 mcg daily - metolazone 2.5 mg daily - multivitamin one tablet daily - omega-3 one capsule daily - Protonix 40 mg twice a day - potassium 10 mEq daily - prednisone 10 mg daily - Ranexa 1 gram by mouth in the morning, 500 mg nightly - Carafate 10 mL by mouth four times a day as needed - tramadol 50 mg every 8 hours - vitamin D 50,000 units twice weekly - Nasacort Allergy two sprays nasally daily as needed for allergies REVIEW OF SYSTEMS: Per history of present illness (HPI),12-point system otherwise negative. PHYSICAL EXAMINATION: Temperature 97, pulse 80, respiratory rate 21, blood pressure 154/69, 98% on 4 liters nasal cannula. GENERALLY: Patient is awake, alert, oriented times three, answering questions appropriately. No respiratory distress, use of respiratory accessory muscles, cyanosis, jaundice, or icterus. Moist mucous membranes. Neck is supple, no tracheal deviation. HEART: S1, S2, sinus rhythm. No murmurs, rubs, or gallops. LUNGS: Equal air entry bilaterally. No wheezing or rales or rhonchi noted. ABDOMEN: Obese, soft, nontender. No rebound or guarding. EXTREMITIES: 3+ pitting edema to the sacrum. EKG sinus rhythm, ventricular rate of 97, right ventricular hypertrophy. White count 11.1, hemoglobin 14.8, hematocrit 46.5, platelet count 248. Sodium 136, potassium 4, chloride 96, bicarbonate 35, BUN 25, creatinine 0.9, glucose of 96, calcium 8.8, total bilirubin 0.7, direct bilirubin 0.2, AST 37, ALT 32, alkaline phosphatase of 190, proBNP 6416, total protein 6.1, albumin 3.3, TSH 2.72, T4 of 9. Chest x-ray 06/20/2017, chronic interstitial fibrosis and cardiomegaly. ASSESSMENT AND PLAN: This is a 72-year-old female with history of obstructive sleep apnea on continuous positive airway pressure (CPAP), chronic pulmonary fibrosis with chronic hypoxic respiratory failure on 4 liters of oxygen at home, steroid dependent on 10 mg of prednisone daily, hypertension, obesity, hypothyroidism, hyperlipidemia, reflux disease, chronic headaches, history of coronary artery disease (CAD), migraines, follows with Dr. Benjamin for coronary artery disease (CAD), previously admitted on 03/22/2017, for right-sided heart failure with cor pulmonale and had increasing worsening shortness of breath and lower extremity edema with a 25 pound weight gain. Patient will be admitted as an inpatient for exacerbation of congestive heart failure/cor pulmonale. IMPRESSION: 1. Acute on chronic diastolic congestive heart failure (CHF)/cor pulmonale, right-sided heart failure. Currently on Lasix 40 mg every 6 hours, 2 liter fluid restriction, strict intake and output and daily weights. Cardiac rehabilitation as outpatient. Patient is chronically on 4 liters of oxygen which we will continue for saturations greater than 90-92%. Cycle cardiac markers every 8 hours. Recent echo shows diastolic dysfunction with preserved systolic function. If persistent lower extremity edema and tenderness despite diuresis, consider bilateral lower extremity dopplers to rule out DVT. 2. History of coronary artery disease (CAD). Continue on Ranexa, aspirin. 3. History of reflux. Continue on Carafate and Protonix twice a day. 4. Chronic pulmonary fibrosis, on prednisone and home oxygen. Patient has an outpatient followup with Dr. Sánchez next week. 5. Hypercholesterolemia. Continue on omega-3. Check lipid profile in the morning. 6. Obstructive sleep apnea. Continue on home settings of continuous positive airway pressure (CPAP). 7. Morbid obesity, body mass index (BMI) 47.8, complicating acute issues. 8. History of migraines, on Depakote ER. 9. Hypothyroidism. Continue on levothyroxine and check a thyroid stimulating hormone (TSH). Patient will be assigned to Dr. Kana Barron at 10 p.m. on 06/20/2017. MANAN
[2017-06-20] MEDS: RANOLAZINE 500 MG ER TAB PO SCH (22:33)
[2017-06-20] MEDS: SLF 3 ML SYR IV SCH (22:33)
[2017-06-20] MEDS: FUROSEMIDE 40 MG/4 ML VIAL (J1940) IV SCH (23:32)
[2017-06-20 23:46] VITALS: BP 138/59
[2017-06-21] VITALS (8 sets, daily range): BP systolic 117–145; BP diastolic 55–84
[2017-06-21] MEDS: ACETAMINOPHEN 500 MG TAB PO PRN ×2 (00:46→15:45)
[2017-06-21] MEDS ORDERED: traMADol 50 MG TAB PO ONE (02:15)
[2017-06-21] MEDS: traMADol 50 MG TAB PO PRN ×3 (02:16→17:37)
[2017-06-21] MEDS: FUROSEMIDE 40 MG/4 ML VIAL (J1940) IV SCH ×3 (06:10→17:38)
[2017-06-21] MEDS: LEVOTHYROXINE 150MCG TABLET (0.15MG) PO SCH (06:10)
[2017-06-21] MEDS: SLF 3 ML SYR IV SCH ×3 (06:11→21:34)
[2017-06-21 07:30] LABS: MEAN CORPUSCULAR HEMOGLOBIN 29.1 pg (27.0-33.0); MEAN CORPUSCULAR HGB CONC 31.6 g/dl (32.0-36.5); MEAN CORPUSCULAR VOLUME 92.2 fl (80.0-96.0); PLATELET COUNT, AUTOMATED 238 10^3/uL (150-450); RED CELL DISTRIBUTION WIDTH 17.2 % (11.5-14.5); WHITE BLOOD COUNT 11.2 10^3/uL (4.0-10.0)
[2017-06-21 07:57] LABS: CALCIUM LEVEL 8.5 MG/DL (8.8-10.2); CREATININE FOR GFR 1.07 MG/DL (0.55-1.02); GLOMERULAR FILTRATION RATE 53.5 (>39); MAGNESIUM LEVEL 1.7 MG/DL (1.8-2.4); POTASSIUM SERUM 3.4 MEQ/L (3.5-5.1)
[2017-06-21] MEDS ORDERED: POTASSIUM CHLORIDE 10 MEQ SR TABLET PO ONE (08:45)
[2017-06-21] MEDS: MULTIVITAMINS/MINERALS THERAP 1 TAB PO SCH (08:55)
[2017-06-21] MEDS: OMEGA-3 1050MG CAPSULE PO SCH (08:55)
[2017-06-21] MEDS: predniSONE 10 MG TAB PO SCH (08:55)
[2017-06-21] MEDS: ASCORBIC ACID 500 MG TAB PO SCH (08:55)
[2017-06-21] MEDS: PANTOPRAZOLE 40MG TAB (PROTONIX) PO SCH ×2 (08:56→21:31)
[2017-06-21] MEDS: RANOLAZINE 500 MG ER TAB PO SCH ×2 (08:56→21:31)
[2017-06-21] MEDS: ENOXAPARIN 40 MG/0.4 ML SYRINGE (J1650) SC SCH (08:56)
[2017-06-21] MEDS ORDERED: MAG SULF 1GM/100ML (MAG RUN) 1 GM in APPROPRIATE DILUENT 1 EA IV ONE (09:00)
[2017-06-21] MEDS: POTASSIUM CHLORIDE 10 MEQ SR TABLET PO SCH (10:06)
[2017-06-21] MEDS: LACTOBACILLUS ACIDOPHILUS CAP (BACID) PO SCH ×2 (10:06→21:32)
[2017-06-21] MEDS ORDERED: VANCOMYCIN HCL 1,000 MG, VIAL MATE ADAPTER 1 EACH in D5W 250 ML IV ONE (13:00)
--- NOTE | 2017-06-21 13:36 | PHACANCOPD ---
PHARMACY VANCOMYCIN DOSING Pt Demographics Demographics Patient Age:72 , Weight:123.600 , Gender: female Adjusted Body Weight Date: 06/21/17, Adjusted Body Weight: Kg Events Past 24 Hours Events Past 24 Hours: YES: Elevation in WBC, NO: Dialysis, Diuretic Therapy, Change in CrCl, Fever, Pending Diagnostics, Pending Procedures, Other Vancomycin Vancomycin Target Ranges: 15-20 mcg/ml Vancomycin Load Y/N: Yes Load Dose Date Time Vancomycin Load Dose: 1G@1300 &1900 - TOTAL 2G Date: 06/21/17 Time: Vancomycin Dose Date: 06/21/17. Current Vancomycin Dose: [1G Q12H @1900] Intermittent Dosing?: No Labs Labs Vital Signs Label Value Date Time Patient Temperature 98.2 degrees F 06/21/17 0400 Temperature Source Temporal 06/21/17 0400 Patient Temperature 96.4 degrees F 06/21/17 0800 Temperature Source Temporal 06/21/17 0800 Patient Temperature 96.6 degrees F 06/21/17 1200 Temperature Source Temporal 06/21/17 1200 Item Value Date Time White Blood Count 11.1 10^3/uL H 06/20/17 1557 White Blood Count 11.2 10^3/uL H 06/21/17 0557 Creatinine 0.90 MG/DL 06/20/17 1557 Creatinine 1.07 MG/DL H 06/21/17 0557 Blood Culture Received 06/21/17 1242 Blood Venous Pending Micro Microbiology 06/21/17 Blood Culture, Received Pending Creatinine Clearance Date:06/21/17. Creatinine Clearance: . Assessment and Plan Maintaining Current Dose?: Yes Reason for dose change: No Dose Change Pharmacist Note Pharmacist Note Date: 06/21/17. Pharmacist note: Pt. is a 72 year old female who presented to the ED with increased edema and SOB. Pt. is being admitted to treat CHF exacerbation. Pt's past history is significant for obesity, (-)mrsa, (-)vanco at our facility. We have been consulted to dose Vancomycin to treat cellulitis. Pt. received 1G of Vanco @1300, followed by 1G Q12H@1900 to complete the loading dose. I have scheduled a trough to be drawn before the 4th dose. We will continue to monitor and adjust dose as needed. WILLOW HERNANDEZ PHARMAC[facility] Jun 21, 2017 13:36
--- NOTE | 2017-06-21 14:04 | IPNPDOC ---
Text Note Date of Service The patient was seen on 06/21/17. NOTE Subjective: Patient is 72 years old female with PMH of end stage pulmonary fibrosis, chronic hypoxic respiratory failure and steroid dependent on 4L NC O2 24 hours a day at home, SOFY on CPAP, morbid obesity, HTN, hyperlipidemia, hypothyroidism , right sided heart failure, cor pulmonale, diastolic heart failure, GERD, chronic headache presented for SOB and lower extremity swelling. Patient was seen and examined at bedside. Patient stated she is breathing better. Still admits to swelling in lower extremities. Patient stated she was complaint with her medications at home, which was recently started back in March when she had her previous CHF exacerbation. Denies any fever/chills, chest pain, sob, abdominal pain, nausea, vomiting, diarrhea, constipation, problems with urination. Denies any other current new complaints. Objective: Vitals (See below) General: Obese elderly female, lying in bed, no acute distress, comfortable, AAOx3 HEENT: NC, AT CVS: RRR, + Systolic murmur, difficult to auscultation due to increased AP diameter and body habitus Lungs: Reduced breathing sound b/l, some rales b/l Abdomen: Soft, Epigastric pain, no peritoneal signs, obese Extremities: 3 + pitting edema b/l extending to buttocks, erythema to ankle b/l and warm to touch Assessment and plan: Acute decompensated heart failure with history of right sided heart failure and cor pulmonale - c/w lasix 40 mg IV q 6h, metalazone 2.5 mg prn - Strict Ins/Outs - f/u Echo result Acute on chronic hypoxic respiratory failure possibly due to pulmonary edema - C/w steroid - C/w O2 - C/w Nebulizer Cellulitis of lower extremities - Started on Vanco Day 1, 06/21/17 - f/u blood cultures SOFY on CPAP - C/w home CPAP Morbid obesity - Complicates care HTN - Lasix, metolazone hyperlipidemia - Not on any medication at home - Will check lipid panel hypothyroidism - c/w Synthroid Epigastric pain likely PUD - Continue PPI, Carafate, Zantac Hypokalemia - replete Hypomagesemia - replete GERD - PPI chronic headache - Depakote DVT prophylaxis - c/w Lovenox Fluid, electrolytes, nutrition: No IVF, replete K to 4, 2 L Fluid restriction, Na restriction Disposition: - c/w Antibiotics and lasix Patient has been discussed with attending Dr. Barron. GME ATTESTATION My preceptor for this patient encounter was physically present in the building during the encounter and was fully available. As needed, all aspects of the patient interview, examination, medical decision making process, and medical care plan development were reviewed and approved by the preceptor. Preceptor is aware and concurs with the plan as stated in the body of this note and will attest to such by his/her cosignature. VS,Fishbone, I+O VS, Fishbone, I+O Laboratory Tests 06/20/17 15:57 Red Blood Count 5.10, Mean Corpuscular Volume 91.2, Mean Corpuscular Hemoglobin 29.0, Mean Corpuscular Hemoglobin Concent 31.8 L, Red Cell Distribution Width 17.0 H, Neutrophils (%) (Auto) 62.8, Lymphocytes (%) (Auto) 25.9, Monocytes (%) (Auto) 9.6 H, Eosinophils (%) (Auto) 0.7, Basophils (%) (Auto) 0.5, Neutrophils # (Auto) 7.0, Lymphocytes # (Auto) 2.9, Monocytes # (Auto) 1.1 H, Eosinophils # (Auto) 0.1, Basophils # (Auto) 0.1, Calcium Level 8.8, Total Creatine Kinase 38 06/21/17 05:57 Red Blood Count 4.77, Mean Corpuscular Volume 92.2, Mean Corpuscular Hemoglobin 29.1, Mean Corpuscular Hemoglobin Concent 31.6 L, Red Cell Distribution Width 17.2 H Vital Signs Date Time Temp Pulse Resp B/P (MAP) Pulse Ox O2 Delivery O2 Flow Rate FiO2 06/21/17 12:00 96.6 74 18 134/72 (92) 96 Nasal Cannula 4.0 I&O- Last 24 Hours up to 6 AM 06/22/17 06:00 Intake Total 360 ml Output Total 550 ml Balance -190 ml AYSE CAMEJO DO Jun 21, 2017 14:04
[2017-06-21] MEDS: raNITIdine SYRUP 150 MG/10 ML UDC PO SCH ×2 (14:28→21:31)
[2017-06-21] MEDS: VANCOMYCIN HCL 1,000 MG, VIAL MATE ADAPTER 1 EACH in D5W 250 ML IV SCH (18:23)
--- NOTE | 2017-06-21 21:16 | ECHO ---
DATE OF PROCEDURE: 06/21/2017 REFERRING PHYSICIAN: Beatrice Roger MD PATIENT LOCATION: Room 3228 REASON FOR ECHOCARDIOGRAM: Heart failure, diastolic, acute on chronic. 2D MEASUREMENTS: IVS: 1.2 cm LV: 3.6 cm LVPW: 1.1 cm LA: 4.0 cm Aorta: 2.7 cm IVC: 3.0 cm DOPPLER MEASUREMENTS: Peak velocity across the aortic valve: 1.5 m/s Mitral E: 0.4, Mitral A: 0.6 with a ratio of 0.7 Maximum tricuspid valve velocity: 3.7 m/s Mild pulmonic regurgitation also detected. 2D COMMENTS: 1. Normal left ventricular size and wall thickness. Left ventricular systolic function is normal, estimated at 50 to 65%. 2. The left atrium appeared to be borderline enlarged. Dilated right atrium and right ventricle. The right ventricle free wall is hypokinetic. There is also mildly increased left ventricular wall thickness noted at the level of the right ventricle. Right ventricular systolic function appeared to be depressed. 3. Normal aortic root. 4. No significant pericardial effusion noted. 5. Minimally calcified aortic valve with normal leaflet excursion. Mildly calcified mitral annulus with normal anterior mitral valve leaflet motion. Normal tricuspid valve and pulmonic valve. The proximal pulmonary artery branches was not well visualized. 6. The inferior vena cava was dilated, central venous pressure is most likely elevated. 7. It detects moderately severe mitral regurgitation and moderate tricuspid regurgitation. The calculated pulmonary artery systolic pressure is between 60 to 70 mmHg. Abnormal relaxation pattern was noted across the mitral valve leaflets and mitral valve annulus consistent with a delayed relaxation. IMPRESSION: 1. Normal global left ventricular systolic function. There are features of left ventricular diastolic dysfunction, grade 1. 2. Aortic valve sclerosis without stenosis or aortic regurgitation. 3. Mitral annulus calcification with borderline enlarged left atrium and moderately severe mitral regurgitation. 4. Moderate tricuspid regurgitation with severe pulmonary hypertension. The right atrium and the right ventricle is enlarged with right ventricular free wall hypokinesis noted. There was a G-shape appearance of the ventricular septum noted in both diastole and systole consistent with severe pulmonary hypertension.
[2017-06-21] MEDS: DIVALPROEX 500MG *ER* TAB PO SCH (21:32)
[2017-06-21] MEDS: ASPIRIN 81 MG ENTERIC TAB PO SCH (21:32)
[2017-06-21] MEDS: ONDANSETRON 4MG/2ML VIAL (J2405) IV PRN (23:49)
[2017-06-22] MEDS: FUROSEMIDE 40 MG/4 ML VIAL (J1940) IV SCH ×4 (00:01→18:07)
[2017-06-22] MEDS: traMADol 50 MG TAB PO PRN ×2 (01:47→15:53)
[2017-06-22 04:19] VITALS: BP 144/87
[2017-06-22 05:20] LABS: MEAN CORPUSCULAR HEMOGLOBIN 28.4 pg (27.0-33.0); MEAN CORPUSCULAR VOLUME 91.8 fl (80.0-96.0); PLATELET COUNT, AUTOMATED 221 10^3/uL (150-450); RED CELL DISTRIBUTION WIDTH 17.2 % (11.5-14.5); WHITE BLOOD COUNT 9.9 10^3/uL (4.0-10.0)
[2017-06-22 05:43] LABS: CALCIUM LEVEL 8.4 MG/DL (8.8-10.2); CREATININE FOR GFR 1.45 MG/DL (0.55-1.02); GLOMERULAR FILTRATION RATE 37.7 (>39); POTASSIUM SERUM 3.9 MEQ/L (3.5-5.1)
[2017-06-22 06:39] VITALS: BP 135/77
[2017-06-22] MEDS: SLF 3 ML SYR IV SCH ×3 (06:40→21:00)
[2017-06-22] MEDS: LEVOTHYROXINE 150MCG TABLET (0.15MG) PO SCH (06:40)
[2017-06-22] MEDS: VANCOMYCIN HCL 1,000 MG, VIAL MATE ADAPTER 1 EACH in D5W 250 ML IV SCH ×2 (07:05→18:07)
[2017-06-22 08:00] VITALS: BP 122/67
[2017-06-22] MEDS ORDERED: SODIUM CHLORIDE 0.9% 1000 ML IV ONE (08:45)
[2017-06-22 09:12] VITALS: BP 134/93
[2017-06-22] MEDS: raNITIdine SYRUP 150 MG/10 ML UDC PO SCH ×2 (09:44→20:58)
[2017-06-22] MEDS: RANOLAZINE 500 MG ER TAB PO SCH ×2 (09:45→20:59)
[2017-06-22] MEDS: LACTOBACILLUS ACIDOPHILUS CAP (BACID) PO SCH ×2 (09:46→20:59)
[2017-06-22] MEDS: ENOXAPARIN 40 MG/0.4 ML SYRINGE (J1650) SC SCH (09:46)
[2017-06-22] MEDS: predniSONE 10 MG TAB PO SCH (09:46)
[2017-06-22] MEDS: POTASSIUM CHLORIDE 10 MEQ SR TABLET PO SCH (09:47)
[2017-06-22] MEDS: ASCORBIC ACID 500 MG TAB PO SCH (09:47)
[2017-06-22] MEDS: MULTIVITAMINS/MINERALS THERAP 1 TAB PO SCH (09:47)
[2017-06-22] MEDS: OMEGA-3 1050MG CAPSULE PO SCH (09:47)
[2017-06-22] MEDS: PANTOPRAZOLE 40MG TAB (PROTONIX) PO SCH ×2 (09:48→20:59)
[2017-06-22 10:00] LABS: CALCIUM LEVEL 8.4 MG/DL (8.8-10.2); CREATININE FOR GFR 1.19 MG/DL (0.55-1.02); GLOMERULAR FILTRATION RATE 47.3 (>39); POTASSIUM SERUM 3.8 MEQ/L (3.5-5.1)
--- NOTE | 2017-06-22 11:38 | IPNPDOC ---
Text Note Date of Service The patient was seen on 06/22/17. NOTE Subjective: Patient is 72 years old female with PMH of end stage pulmonary fibrosis, chronic hypoxic respiratory failure and steroid dependent on 4L NC O2 24 hours a day at home, SOFY on CPAP, morbid obesity, HTN, hyperlipidemia, hypothyroidism , right sided heart failure, cor pulmonale, diastolic heart failure, GERD, chronic headache presented for SOB and lower extremity swelling. Patient was seen and examined at bedside. Patient stated she is breathing better. Still admits to less swelling in lower extremities. Denies any fever/ chills, chest pain, sob, abdominal pain, nausea, vomiting, diarrhea, constipation, problems with urination. Denies any other current new complaints. Objective: Vitals (See below) General: Obese elderly female, lying in bed, no acute distress, comfortable, AAOx3 HEENT: NC, AT CVS: RRR, + Systolic murmur, difficult to auscultation due to increased AP diameter and body habitus Lungs: Reduced breathing sound b/l, some rales b/l Abdomen: Soft, Epigastric pain, no peritoneal signs, obese Extremities: 3 + pitting edema b/l extending to buttocks, erythema to ankle b/l and warm to touch Assessment and plan: Acute decompensated heart failure with history of right sided heart failure and cor pulmonale - HOLDing metalazone 2.5 mg prn - Continue Lasix 40mg IV q6h - Strict Ins/Outs - Echo 06/21/17 showed grade 1 dystolic dysfunction, moderately severe mitral regurgitation, and tricuspid regurgitation, severe pulmonary hypertension, right atrium and right ventricle is enlarged and right ventricular free wall hypokinesis. Severe pulmonary hypertension. Acute on chronic hypoxic respiratory failure possibly due to pulmonary edema - C/w steroid - C/w O2 - C/w Nebulizer Cellulitis of lower extremities - Started on Vanco Day 2, 06/21/17 - f/u blood cultures ASHWIN possible from Prerenal azotemia vs. from drug -Cr was elevated on 06/22/17, repeat was better - UA, Urine lytes ordered, will follow - Small bolus of NS 250 ml given - Recheck renal function after bolus - Possible holding Vanco if patient's renal function doesn't improve with holding diuretics SOFY on CPAP - C/w home CPAP Morbid obesity - Complicates care HTN - Lasix hyperlipidemia - Not on any medication at home - Will check lipid panel hypothyroidism - c/w Synthroid Epigastric pain likely PUD - Continue PPI, Carafate, Zantac Hypokalemia - replete Hypomagesemia - replete GERD - PPI chronic headache - Depakote DVT prophylaxis - c/w Lovenox Fluid, electrolytes, nutrition: No IVF, replete K to 4, 2 L Fluid restriction, Na restriction Disposition: - c/w Antibiotics and lasix Patient has been discussed with attending Dr. Barron. GME ATTESTATION My preceptor for this patient encounter was physically present in the building during the encounter and was fully available. As needed, all aspects of the patient interview, examination, medical decision making process, and medical care plan development were reviewed and approved by the preceptor. Preceptor is aware and concurs with the plan as stated in the body of this note and will attest to such by his/her cosignature. VS,Fishbone, I+O VS, Fishbone, I+O Laboratory Tests 06/22/17 04:47 Red Blood Count 5.10, Mean Corpuscular Volume 91.8, Mean Corpuscular Hemoglobin 28.4, Mean Corpuscular Hemoglobin Concent 31.0 L, Red Cell Distribution Width 17.2 H Vital Signs Date Time Temp Pulse Resp B/P (MAP) Pulse Ox O2 Delivery O2 Flow Rate FiO2 06/22/17 07:57 Nasal Cannula 4.0 06/22/17 06:39 135/77 (96) 06/22/17 04:19 97.5 76 24 93 I&O- Last 24 Hours up to 6 AM 06/23/17 06:00 Output Total 200 ml Balance -200 ml AYSE CAMEJO DO Jun 22, 2017 08:38
[2017-06-22 12:00] VITALS: BP 136/76
--- NOTE | 2017-06-22 13:41 | PHACANCOPD ---
PHARMACY VANCOMYCIN DOSING Pt Demographics Demographics Patient Age:72 , Weight:124.300 , Gender: female Adjusted Body Weight Date: 06/21/17, Adjusted Body Weight: Kg Vancomycin Vancomycin Target Ranges: 15-20 mcg/ml Vancomycin Load Y/N: Yes Load Dose Date Time Vancomycin Load Dose: 1G@1300 &1900 - TOTAL 2G Date: 06/21/17 Time: Vancomycin Dose Date: 06/21/17. Current Vancomycin Dose: [1G Q12H @1900] Intermittent Dosing?: No Labs Micro Microbiology 06/21/17 Blood Culture, Received Pending 06/21/17 Blood Culture - Preliminary, Resulted No growth after 24 hours . All specim... Creatinine Clearance Date:06/21/17. Creatinine Clearance: . Assessment and Plan Maintaining Current Dose?: Yes Reason for dose change: No Dose Change Pharmacist Note Pharmacist Note 06/22/17: Scr elevated this morning at 1.45. Repeated scr today resulted at 1.19. I have re-timed the trough to be drawn today at 1800 to ensure that the level is therapeutic. We will continue to monitor and make dose adjustments if needed. Date: 06/21/17. Pharmacist note: Pt. is a 72 year old female who presented to the ED with increased edema and SOB. Pt. is being admitted to treat CHF exacerbation. Pt's past history is significant for obesity, (-)mrsa, (-)vanco at our facility. We have been consulted to dose Vancomycin to treat cellulitis. Pt. received 1G of Vanco @1300, followed by 1G Q12H@1900 to complete the loading dose. I have scheduled a trough to be drawn before the 4th dose. We will continue to monitor and adjust dose as needed. REBECCA GUY [facility]ARM[facility] Jun 22, 2017 13:41
--- NOTE | 2017-06-22 14:37 | REP ---
Bilateral lower extremity Duplex Doppler venous ultrasound: Real time compression and duplex Doppler interrogation of the bilateral lower extremity deep venous system is performed. Bilaterally, the common femoral, superficial femoral and popliteal veins are fully compressible with transducer pressure and demonstrate normal spontaneous and phasic flow, without evidence of deep venous thrombosis. Impression: No evidence of deep venous thrombosis of the bilateral lower extremity femoral popliteal venous system. Signed by Riley Rowan MD 06/22/2017 02:28 P
[2017-06-22 15:48] LABS: OSMOLALITY URINE 438 MOSM/KG (500-800)
[2017-06-22 15:59] LABS: UREA NITROGEN RANDOM URINE 737 MG/DL
[2017-06-22 20:23] VITALS: BP 137/80
[2017-06-22] MEDS: DIVALPROEX 500MG *ER* TAB PO SCH (20:59)
[2017-06-22] MEDS: ASPIRIN 81 MG ENTERIC TAB PO SCH (20:59)
[2017-06-23] VITALS (7 sets, daily range): BP systolic 125–168; BP diastolic 67–80
[2017-06-23] MEDS: FUROSEMIDE 40 MG/4 ML VIAL (J1940) IV SCH ×4 (01:02→20:34)
[2017-06-23] MEDS: SLF 3 ML SYR IV SCH ×3 (05:29→21:02)
[2017-06-23] MEDS: LEVOTHYROXINE 150MCG TABLET (0.15MG) PO SCH (05:29)
[2017-06-23] MEDS: VANCOMYCIN HCL 1,000 MG, VIAL MATE ADAPTER 1 EACH in D5W 250 ML IV SCH ×2 (06:18→18:44)
[2017-06-23 06:58] LABS: MEAN CORPUSCULAR HEMOGLOBIN 28.6 pg (27.0-33.0); MEAN CORPUSCULAR HGB CONC 30.3 g/dl (32.0-36.5); MEAN CORPUSCULAR VOLUME 94.4 fl (80.0-96.0); PLATELET COUNT, AUTOMATED 183 10^3/uL (150-450); RED CELL DISTRIBUTION WIDTH 17.2 % (11.5-14.5); WHITE BLOOD COUNT 10.2 10^3/uL (4.0-10.0)
[2017-06-23 07:24] LABS: CALCIUM LEVEL 8.7 MG/DL (8.8-10.2); CREATININE FOR GFR 1.1 MG/DL (0.55-1.02); GLOMERULAR FILTRATION RATE 51.8 (>39); MAGNESIUM LEVEL 1.8 MG/DL (1.8-2.4); POTASSIUM SERUM 3.4 MEQ/L (3.5-5.1)
[2017-06-23] MEDS: ASCORBIC ACID 500 MG TAB PO SCH (07:50)
[2017-06-23] MEDS: MULTIVITAMINS/MINERALS THERAP 1 TAB PO SCH (07:50)
[2017-06-23] MEDS: raNITIdine SYRUP 150 MG/10 ML UDC PO SCH ×2 (07:50→20:34)
[2017-06-23] MEDS: PANTOPRAZOLE 40MG TAB (PROTONIX) PO SCH ×2 (07:50→20:34)
[2017-06-23] MEDS: LACTOBACILLUS ACIDOPHILUS CAP (BACID) PO SCH ×2 (07:50→20:34)
[2017-06-23] MEDS: OMEGA-3 1050MG CAPSULE PO SCH (07:50)
[2017-06-23] MEDS: RANOLAZINE 500 MG ER TAB PO SCH ×2 (07:51→20:34)
[2017-06-23] MEDS: POTASSIUM CHLORIDE 10 MEQ SR TABLET PO SCH (07:51)
[2017-06-23] MEDS: predniSONE 10 MG TAB PO SCH (07:51)
[2017-06-23] MEDS: traMADol 50 MG TAB PO PRN ×2 (07:52→17:09)
[2017-06-23] MEDS: ENOXAPARIN 40 MG/0.4 ML SYRINGE (J1650) SC SCH (07:52)
[2017-06-23] MEDS ORDERED: POTASSIUM CHLORIDE 10 MEQ SR TABLET PO ONE (09:00)
[2017-06-23] MEDS ORDERED: FUROSEMIDE 40 MG/4 ML VIAL (J1940) IV SCH (11:00)
[2017-06-23] MEDS: ACETAMINOPHEN 500 MG TAB PO PRN (11:30)
--- NOTE | 2017-06-23 16:25 | ECGEPIP ---
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
[2017-06-23] MEDS: DIVALPROEX 500MG *ER* TAB PO SCH (20:34)
[2017-06-23] MEDS: ASPIRIN 81 MG ENTERIC TAB PO SCH (20:34)
[2017-06-24] MEDS: FUROSEMIDE 40 MG/4 ML VIAL (J1940) IV SCH ×7 (00:03→23:43)
[2017-06-24] MEDS: traMADol 50 MG TAB PO PRN ×2 (02:05→20:20)
--- NOTE | 2017-06-24 03:25 | IPNPDOC ---
Text Note Date of Service The patient was seen on 06/23/17. NOTE Subjective: Patient is 72 years old female with PMH of end stage pulmonary fibrosis, chronic hypoxic respiratory failure and steroid dependent on 4L NC O2 24 hours a day at home, SOFY on CPAP, morbid obesity, HTN, hyperlipidemia, hypothyroidism , right sided heart failure, cor pulmonale, diastolic heart failure, GERD, chronic headache presented for SOB and lower extremity swelling. Patient was seen and examined at bedside. Patient stated she is feeling better. Lower extremity swelling improved. Denies any fever/chills, chest pain, sob, abdominal pain, nausea, vomiting, diarrhea, constipation, problems with urination. Denies any other current new complaints. Objective: Vitals (See below) General: Obese elderly female, lying in bed, no acute distress, comfortable, AAOx3 HEENT: NC, AT CVS: RRR, + Systolic murmur, difficult to auscultation due to increased AP diameter and body habitus Lungs: Reduced breathing sound b/l, some rales b/l Abdomen: Soft, Epigastric pain, no peritoneal signs, obese Extremities: 2 + pitting edema b/l extending to upper thigh improved from day before, erythema around ankle improved as well Assessment and plan: Acute decompensated heart failure with history of right sided heart failure and cor pulmonale - HOLDing metalazone 2.5 mg prn - increased Lasix 40mg IV q4h - Strict Ins/Outs - Echo 06/21/17 showed grade 1 dystolic dysfunction, moderately severe mitral regurgitation, and tricuspid regurgitation, severe pulmonary hypertension, right atrium and right ventricle is enlarged and right ventricular free wall hypokinesis. Severe pulmonary hypertension. Acute on chronic hypoxic respiratory failure possibly due to pulmonary edema - C/w steroid - C/w O2 - C/w Nebulizer Cellulitis of lower extremities - Started on Vanco Day 3, 06/21/17 - f/u blood cultures ASHWIN possible from Prerenal azotemia vs. from drug -Cr was elevated on 06/22/17, repeat was better - UA, Urine lytes ordered, will follow - Small bolus of NS 250 ml given - Recheck renal function after bolus - Possible holding Vanco if patient's renal function doesn't improve with holding diuretics SOFY on CPAP - C/w home CPAP Morbid obesity - Complicates care HTN - Lasix hyperlipidemia - Not on any medication at home - Will check lipid panel hypothyroidism - c/w Synthroid Epigastric pain likely PUD - Continue PPI, Carafate, Zantac Hypokalemia - replete Hypomagesemia - replete GERD - PPI chronic headache - Depakote DVT prophylaxis - c/w Lovenox Fluid, electrolytes, nutrition: No IVF, replete K to 4, 2 L Fluid restriction, Na restriction Disposition: - c/w Antibiotics and lasix, downgraded patient to med/surge 06/23/17 Patient has been discussed with attending Dr. Barron. GME ATTESTATION My preceptor for this patient encounter was physically present in the building during the encounter and was fully available. As needed, all aspects of the patient interview, examination, medical decision making process, and medical care plan development were reviewed and approved by the preceptor. Preceptor is aware and concurs with the plan as stated in the body of this note and will attest to such by his/her cosignature. VS,Fishbone, I+O VS, Fishbone, I+O Laboratory Tests 06/23/17 06:30 Red Blood Count 5.00, Mean Corpuscular Volume 94.4, Mean Corpuscular Hemoglobin 28.6, Mean Corpuscular Hemoglobin Concent 30.3 L, Red Cell Distribution Width 17.2 H, Calcium Level 8.7 L Vital Signs Date Time Temp Pulse Resp B/P (MAP) Pulse Ox O2 Delivery O2 Flow Rate FiO2 06/23/17 08:22 17 Nasal Cannula 4.0 06/23/17 08:00 96.8 77 143/67 (92) 96 I&O- Last 24 Hours up to 6 AM 06/24/17 06:00 Intake Total 360 ml Output Total 650 ml Balance -290 ml AYSE CAMEJO DO Jun 23, 2017 10:39
[2017-06-24 04:00] VITALS: BP 136/73
[2017-06-24 05:43] LABS: MEAN CORPUSCULAR HEMOGLOBIN 29.2 pg (27.0-33.0); MEAN CORPUSCULAR HGB CONC 31.4 g/dl (32.0-36.5); MEAN CORPUSCULAR VOLUME 92.8 fl (80.0-96.0); PLATELET COUNT, AUTOMATED 202 10^3/uL (150-450); RED CELL DISTRIBUTION WIDTH 16.7 % (11.5-14.5); WHITE BLOOD COUNT 14.5 10^3/uL (4.0-10.0)
[2017-06-24 05:56] LABS: CALCIUM LEVEL 8.7 MG/DL (8.8-10.2); CREATININE FOR GFR 1.05 MG/DL (0.55-1.02); GLOMERULAR FILTRATION RATE 54.7 (>39); MAGNESIUM LEVEL 1.7 MG/DL (1.8-2.4)
[2017-06-24] MEDS: LEVOTHYROXINE 150MCG TABLET (0.15MG) PO SCH (06:09)
[2017-06-24] MEDS: VANCOMYCIN HCL 1,000 MG, VIAL MATE ADAPTER 1 EACH in D5W 250 ML IV SCH ×2 (06:09→18:31)
[2017-06-24] MEDS: SLF 3 ML SYR IV SCH ×3 (06:09→21:11)
[2017-06-24] MEDS ORDERED: POTASSIUM CHLORIDE 10 MEQ SR TABLET PO ONE ×2 (06:30→09:00)
[2017-06-24] MEDS ORDERED: MAG SULF 1GM/100ML (MAG RUN) 1 GM in APPROPRIATE DILUENT 1 EA IV ONE ×2 (06:30→09:00)
[2017-06-24 08:00] VITALS: BP 148/64
[2017-06-24] MEDS: POTASSIUM CHLORIDE 10 MEQ SR TABLET PO SCH (09:19)
[2017-06-24] MEDS: OMEGA-3 1050MG CAPSULE PO SCH (09:20)
[2017-06-24] MEDS: PANTOPRAZOLE 40MG TAB (PROTONIX) PO SCH ×2 (09:20→20:21)
[2017-06-24] MEDS: MULTIVITAMINS/MINERALS THERAP 1 TAB PO SCH (09:20)
[2017-06-24] MEDS: predniSONE 10 MG TAB PO SCH (09:20)
[2017-06-24] MEDS: LACTOBACILLUS ACIDOPHILUS CAP (BACID) PO SCH ×2 (09:21→20:20)
[2017-06-24] MEDS: ASCORBIC ACID 500 MG TAB PO SCH (09:21)
[2017-06-24] MEDS: RANOLAZINE 500 MG ER TAB PO SCH ×2 (09:21→20:21)
[2017-06-24] MEDS: raNITIdine SYRUP 150 MG/10 ML UDC PO SCH ×2 (09:22→20:21)
[2017-06-24] MEDS: ENOXAPARIN 40 MG/0.4 ML SYRINGE (J1650) SC SCH (09:22)
[2017-06-24] MEDS: ACETAMINOPHEN 500 MG TAB PO PRN (10:58)
[2017-06-24 11:48] VITALS: BP 123/59
[2017-06-24 12:44] LABS: CALCIUM LEVEL 8.5 MG/DL (8.8-10.2); CREATININE FOR GFR 1.06 MG/DL (0.55-1.02); GLOMERULAR FILTRATION RATE 54.1 (>39); POTASSIUM SERUM 3.4 MEQ/L (3.5-5.1)
--- NOTE | 2017-06-24 15:08 | IPNPDOC ---
Text Note Date of Service The patient was seen on 06/24/17. NOTE Subjective: Patient states her dyspnea is improving. Continues to work with physical therapy. Objective: Vitals: (see below) General: No acute distress, laying comfortably in bed. HEENT: Moist mucous membranes. Neck: No JVD or lymphadenopathy Cardiac: RRR, No murmurs Pulm: Coarse crackles at the bases bilaterally. B/l. No wheezing, rhonchi Abd: NT/ND + BS Ext: 1-2+ edema bilateral lower extremities. No cyanosis. Erythema improving. Labs (see below) Images: Assessment/Plan 1. Acute decompensated diastolic heart failure with cor pulmonale- continue on Lasix IV, diuresing well. Does have moderate to severe mitral regurgitation, tricuspid regurg, severe pulmonary hypertension, enlargement of the right atrium /ventricle. 2. Cellulitis bilateral lower extremities on vancomycin. Blood cultures negative. Improving. 3. Acute kidney injury/prerenal azotemia- creatinine stable at this time. We'll diurese the patient gently. Vancomycin levels dosed performance. 4. SOFY- is encouraged to use her CPAP however his reluctance to do so. 5. Morbid obesity 6. Hypothyroidism on Synthroid 7. Epigastric discomfort- on PPI/Carafate 8. Hypertension- continue current meds 9. Chronic migraines- continue Depakote DVT prophy: Lovenox Prognosis guarded. VS,Fishbone, I+O VS, Fishbone, I+O Laboratory Tests 06/24/17 05:02 Red Blood Count 5.11, Mean Corpuscular Volume 92.8, Mean Corpuscular Hemoglobin 29.2, Mean Corpuscular Hemoglobin Concent 31.4 L, Red Cell Distribution Width 16.7 H, Calcium Level 8.7 L 06/24/17 12:01 Calcium Level 8.5 L Vital Signs Date Time Temp Pulse Resp B/P (MAP) Pulse Ox O2 Delivery O2 Flow Rate FiO2 06/24/17 11:48 97.8 74 20 123/59 (80) 95 Nasal Cannula 4.0 I&O- Last 24 Hours up to 6 AM 06/25/17 06:00 Intake Total 580 ml Output Total 1075 ml Balance -495 ml TAQUERIA KWAN MD Jun 24, 2017 15:08
[2017-06-24 16:00] VITALS: BP 148/76
[2017-06-24 20:00] VITALS: BP 148/65
[2017-06-24] MEDS: DIVALPROEX 500MG *ER* TAB PO SCH (20:21)
[2017-06-24] MEDS: ASPIRIN 81 MG ENTERIC TAB PO SCH (20:21)
[2017-06-25] VITALS (7 sets, daily range): BP systolic 128–156; BP diastolic 63–88
[2017-06-25] MEDS: ACETAMINOPHEN 500 MG TAB PO PRN ×2 (01:40→17:16)
[2017-06-25] MEDS: ONDANSETRON 4MG/2ML VIAL (J2405) IV PRN (03:34)
[2017-06-25] MEDS: traMADol 50 MG TAB PO PRN ×3 (03:34→22:18)
[2017-06-25] MEDS: FUROSEMIDE 40 MG/4 ML VIAL (J1940) IV SCH ×5 (04:28→21:36)
[2017-06-25] MEDS: LEVOTHYROXINE 150MCG TABLET (0.15MG) PO SCH (06:20)
[2017-06-25] MEDS: SLF 3 ML SYR IV SCH ×3 (06:20→21:37)
[2017-06-25 06:51] LABS: MEAN CORPUSCULAR HEMOGLOBIN 28.9 pg (27.0-33.0); MEAN CORPUSCULAR HGB CONC 31.4 g/dl (32.0-36.5); MEAN CORPUSCULAR VOLUME 92.1 fl (80.0-96.0); PLATELET COUNT, AUTOMATED 218 10^3/uL (150-450); RED CELL DISTRIBUTION WIDTH 16.9 % (11.5-14.5); WHITE BLOOD COUNT 8.3 10^3/uL (4.0-10.0)
[2017-06-25 07:15] LABS: CALCIUM LEVEL 8.4 MG/DL (8.8-10.2); CREATININE FOR GFR 1.06 MG/DL (0.55-1.02); GLOMERULAR FILTRATION RATE 54.1 (>39); POTASSIUM SERUM 3.3 MEQ/L (3.5-5.1)
[2017-06-25] MEDS: VANCOMYCIN HCL 1,000 MG, VIAL MATE ADAPTER 1 EACH in D5W 250 ML IV SCH ×2 (07:26→18:43)
[2017-06-25] MEDS: LACTOBACILLUS ACIDOPHILUS CAP (BACID) PO SCH ×2 (09:02→21:36)
[2017-06-25] MEDS: RANOLAZINE 500 MG ER TAB PO SCH ×2 (09:02→21:36)
[2017-06-25] MEDS: MULTIVITAMINS/MINERALS THERAP 1 TAB PO SCH (09:02)
[2017-06-25] MEDS: raNITIdine SYRUP 150 MG/10 ML UDC PO SCH ×2 (09:02→21:35)
[2017-06-25] MEDS: SPIRONOLACTONE 12.5MG PER 1/2 TABLET PO SCH (09:02)
[2017-06-25] MEDS: PANTOPRAZOLE 40MG TAB (PROTONIX) PO SCH ×2 (09:02→21:36)
[2017-06-25] MEDS: ASCORBIC ACID 500 MG TAB PO SCH (09:02)
[2017-06-25] MEDS: ENOXAPARIN 40 MG/0.4 ML SYRINGE (J1650) SC SCH (09:03)
[2017-06-25] MEDS: POTASSIUM CHLORIDE 10 MEQ SR TABLET PO SCH ×2 (09:03→14:14)
[2017-06-25] MEDS: predniSONE 10 MG TAB PO SCH (09:03)
[2017-06-25] MEDS: OMEGA-3 1050MG CAPSULE PO SCH (09:03)
[2017-06-25] MEDS: metOLazone 2.5 MG TAB PO SCH (11:53)
--- NOTE | 2017-06-25 16:29 | ECGEPIP ---
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
--- NOTE | 2017-06-25 17:35 | IPNPDOC ---
Text Note Date of Service The patient was seen on 06/25/17. NOTE Subjective: Patient is 72 years old female with PMH of end stage pulmonary fibrosis, chronic hypoxic respiratory failure and steroid dependent on 4L NC O2 24 hours a day at home, SOFY on CPAP, morbid obesity, HTN, hyperlipidemia, hypothyroidism , right sided heart failure, cor pulmonale, diastolic heart failure, GERD, chronic headache presented for SOB and lower extremity swelling. Patient was seen and examined at bedside. She is still having some chest pain and it was worse this morning. She lower extremity swelling improved slightly. She complaint of increased dizziness when she tries to get up from bed. Denies any fever/chills, sob, abdominal pain, nausea, vomiting, diarrhea, constipation , problems with urination. Denies any other current new complaints. Objective: Vitals (See below) General: Obese elderly female, lying in bed, no acute distress, comfortable, AAOx3 HEENT: NC, AT CVS: RRR, + Systolic murmur, difficult to auscultation due to increased AP diameter and body habitus Lungs: Reduced breathing sound b/l, some rales b/l Abdomen: Soft, Epigastric pain, no peritoneal signs, obese Extremities: 2 + pitting edema b/l extending to upper thigh improved from day before, erythema around ankle improved as well Assessment and plan: Acute decompensated heart failure with history of right sided heart failure and cor pulmonale - restart metolazone 2.5 mg home dose 06/25/17, patient was using it prn at home - increased Lasix 40mg IV q4h - Strict Ins/Outs - Echo 06/21/17 showed grade 1 diastolic dysfunction, moderately severe mitral regurgitation, and tricuspid regurgitation, severe pulmonary hypertension, right atrium and right ventricle is enlarged and right ventricular free wall hypokinesis. Severe pulmonary hypertension. Angina likely from heart failure vs CAD - Stat EKG was ordered, didn't show any different from before Hypokalemia - Started low dose spironolactone Acute on chronic hypoxic respiratory failure possibly due to pulmonary edema - C/w steroid - C/w O2 - C/w Nebulizer Cellulitis of lower extremities - Started on Vanco Day 5, 06/21/17 - f/u blood cultures ASHWIN possible from Prerenal azotemia vs. from drug - resolved SOFY on CPAP - C/w home CPAP Morbid obesity - Complicates care HTN - Lasix hyperlipidemia - Not on any medication at home - Will check lipid panel hypothyroidism - c/w Synthroid Epigastric pain likely PUD - Continue PPI, Carafate, Zantac Hypokalemia - replete Hypomagesemia - replete GERD - PPI chronic headache - Depakote DVT prophylaxis - c/w Lovenox Fluid, electrolytes, nutrition: No IVF, replete K to 4, 1.6 L Fluid restriction , Na restriction Disposition: - c/w Antibiotics and Lasix, downgraded patient to med/surge 06/23/17 Patient has been discussed with attending Dr. Barron. GME ATTESTATION My preceptor for this patient encounter was physically present in the building during the encounter and was fully available. As needed, all aspects of the patient interview, examination, medical decision making process, and medical care plan development were reviewed and approved by the preceptor. Preceptor is aware and concurs with the plan as stated in the body of this note and will attest to such by his/her cosignature. VS,Fishbone, I+O VS, Fishbone, I+O Laboratory Tests 06/24/17 12:01 Calcium Level 8.5 L 06/25/17 06:13 Calcium Level 8.4 L, Red Blood Count 4.67, Mean Corpuscular Volume 92.1, Mean Corpuscular Hemoglobin 28.9, Mean Corpuscular Hemoglobin Concent 31.4 L, Red Cell Distribution Width 16.9 H Vital Signs Date Time Temp Pulse Resp B/P (MAP) Pulse Ox O2 Delivery O2 Flow Rate FiO2 06/25/17 08:00 Nasal Cannula 4.0 06/25/17 07:35 98.1 72 22 156/83 (107) 97 AYSE CAMEJO DO Jun 25, 2017 10:49
[2017-06-25] MEDS: DIVALPROEX 500MG *ER* TAB PO SCH (21:36)
[2017-06-25] MEDS: ASPIRIN 81 MG ENTERIC TAB PO SCH (21:36)
[2017-06-26] MEDS: FUROSEMIDE 40 MG/4 ML VIAL (J1940) IV SCH ×7 (00:05→23:51)
[2017-06-26] MEDS: ACETAMINOPHEN 500 MG TAB PO PRN ×2 (03:43→23:56)
[2017-06-26 04:00] VITALS: BP 116/59
[2017-06-26 05:25] LABS: BASO % 0.4 % (0.0-1.0); EOS # 0.1 10^3/uL (0.0-0.50); EOS % 1.5 % (0.0-3.0); IMMATURE GRANULOCYTE % 0.3 % (0-0); LYMPH # 2.2 10^3/uL (1.5-4.5); LYMPH % 24.3 % (24.0-44.0); MEAN CORPUSCULAR HEMOGLOBIN 28.8 pg (27.0-33.0); MEAN CORPUSCULAR HGB CONC 31.4 g/dl (32.0-36.5); MEAN CORPUSCULAR VOLUME 91.8 fl (80.0-96.0); MONO # 1.3 10^3/uL (0.0-0.8); MONO % 14.4 % (0.0-5.0); NEUTROPHILS # 5.4 10^3/uL (1.8-7.7); NEUTROPHILS % 59.1 % (36.0-66.0); PLATELET COUNT, AUTOMATED 221 10^3/uL (150-450); RED CELL DISTRIBUTION WIDTH 16.6 % (11.5-14.5); WHITE BLOOD COUNT 9.1 10^3/uL (4.0-10.0)
[2017-06-26 05:39] LABS: CALCIUM LEVEL 8.6 MG/DL (8.8-10.2); CREATININE FOR GFR 1.16 MG/DL (0.55-1.02); GLOMERULAR FILTRATION RATE 48.8 (>39); MAGNESIUM LEVEL 1.8 MG/DL (1.8-2.4)
[2017-06-26] MEDS ORDERED: POTASSIUM CHLORIDE 10 MEQ SR TABLET PO ONE ×2 (06:30→08:45)
[2017-06-26] MEDS ORDERED: MAG SULF 1GM/100ML (MAG RUN) 1 GM in APPROPRIATE DILUENT 1 EA IV ONE (06:30)
[2017-06-26] MEDS: SLF 3 ML SYR IV SCH ×3 (06:42→21:36)
[2017-06-26] MEDS: LEVOTHYROXINE 150MCG TABLET (0.15MG) PO SCH (06:42)
[2017-06-26] MEDS: raNITIdine SYRUP 150 MG/10 ML UDC PO SCH ×2 (07:55→20:32)
[2017-06-26] MEDS: OMEGA-3 1050MG CAPSULE PO SCH (07:55)
[2017-06-26] MEDS: VANCOMYCIN HCL 1,000 MG, VIAL MATE ADAPTER 1 EACH in D5W 250 ML IV SCH (07:55)
[2017-06-26] MEDS: RANOLAZINE 500 MG ER TAB PO SCH ×2 (07:55→20:32)
[2017-06-26] MEDS: LACTOBACILLUS ACIDOPHILUS CAP (BACID) PO SCH ×2 (07:56→20:32)
[2017-06-26] MEDS: MULTIVITAMINS/MINERALS THERAP 1 TAB PO SCH (07:56)
[2017-06-26] MEDS: ASCORBIC ACID 500 MG TAB PO SCH (07:56)
[2017-06-26] MEDS: metOLazone 2.5 MG TAB PO SCH (07:56)
[2017-06-26] MEDS: predniSONE 10 MG TAB PO SCH (07:56)
[2017-06-26] MEDS: SPIRONOLACTONE 12.5MG PER 1/2 TABLET PO SCH (07:56)
[2017-06-26] MEDS: PANTOPRAZOLE 40MG TAB (PROTONIX) PO SCH ×2 (07:56→20:33)
[2017-06-26 08:00] VITALS: BP 136/73
[2017-06-26] MEDS: traMADol 50 MG TAB PO PRN ×2 (08:11→18:03)
[2017-06-26 12:00] VITALS: BP 136/62
[2017-06-26] MEDS: DOXYCYCLINE HYCLATE 100 MG TAB PO SCH ×2 (15:50→20:32)
[2017-06-26] MEDS: ENOXAPARIN 40 MG/0.4 ML SYRINGE (J1650) SC SCH (15:51)
--- NOTE | 2017-06-26 15:55 | IPNPDOC ---
Text Note Date of Service The patient was seen on 06/26/17. NOTE Subjective: Patient is 72 years old female with PMH of end stage pulmonary fibrosis, chronic hypoxic respiratory failure and steroid dependent on 4L NC O2 24 hours a day at home, SOFY on CPAP, morbid obesity, HTN, hyperlipidemia, hypothyroidism , right sided heart failure, cor pulmonale, diastolic heart failure, GERD, chronic headache presented for SOB and lower extremity swelling. Patient was seen and examined at bedside. Admits to feeling better. Denies any fever/chills, sob, abdominal pain, nausea, vomiting, diarrhea, constipation, problems with urination. Denies any other current new complaints. Objective: Vitals (See below) General: Obese elderly female, lying in bed, no acute distress, comfortable, AAOx3 HEENT: NC, AT CVS: RRR, + Systolic murmur, difficult to auscultation due to increased AP diameter and body habitus Lungs: Reduced breathing sound b/l, some rales b/l Abdomen: Soft, Epigastric pain, no peritoneal signs, obese Extremities: 2 + pitting edema b/l extending to upper thigh improved from day before, erythema around ankle improved slightly as well Assessment and plan: Acute decompensated heart failure with history of right sided heart failure and cor pulmonale - restart metolazone 2.5 mg home dose 06/25/17, patient was using it prn at home - increased Lasix 40mg IV q4h - Strict Ins/Outs - Echo 06/21/17 showed grade 1 diastolic dysfunction, moderately severe mitral regurgitation, and tricuspid regurgitation, severe pulmonary hypertension, right atrium and right ventricle is enlarged and right ventricular free wall hypokinesis. Severe pulmonary hypertension. Angina likely from heart failure vs CAD - Stat EKG was ordered, didn't show any different from before Hypokalemia - Started low dose spironolactone - continue to replete Acute on chronic hypoxic respiratory failure possibly due to pulmonary edema - C/w steroid - C/w O2 - C/w Nebulizer Cellulitis of lower extremities - s/p Vanco Day 5, 06/21/17 - Started Doxy 06/26/17 - f/u blood cultures ASHWIN possible from Prerenal azotemia vs. from drug - resolved SOFY on CPAP - C/w home CPAP Morbid obesity - Complicates care HTN - Lasix hyperlipidemia - Not on any medication at home - Will check lipid panel hypothyroidism - c/w Synthroid Epigastric pain likely PUD - Continue PPI, Carafate, Zantac Hypokalemia - replete Hypomagesemia - replete GERD - PPI chronic headache - Depakote DVT prophylaxis - c/w Lovenox Fluid, electrolytes, nutrition: No IVF, replete K to 4, 1.6 L Fluid restriction , Na restriction Disposition: - c/w Antibiotics and Lasix, downgraded patient to med/surge 06/23/17, waiting for clinical improvement Patient has been discussed with attending Dr. Barron. GME ATTESTATION My preceptor for this patient encounter was physically present in the building during the encounter and was fully available. As needed, all aspects of the patient interview, examination, medical decision making process, and medical care plan development were reviewed and approved by the preceptor. Preceptor is aware and concurs with the plan as stated in the body of this note and will attest to such by his/her cosignature. VS,Fishbone, I+O VS, Fishbone, I+O Laboratory Tests 06/26/17 04:42 Red Blood Count 4.89, Mean Corpuscular Volume 91.8, Mean Corpuscular Hemoglobin 28.8, Mean Corpuscular Hemoglobin Concent 31.4 L, Red Cell Distribution Width 16.6 H, Neutrophils (%) (Auto) 59.1, Lymphocytes (%) (Auto) 24.3, Monocytes (%) (Auto) 14.4 H, Eosinophils (%) (Auto) 1.5, Basophils (%) (Auto) 0.4, Neutrophils # (Auto) 5.4, Lymphocytes # (Auto) 2.2, Monocytes # (Auto) 1.3 H, Eosinophils # (Auto) 0.1, Basophils # (Auto) 0.0, Calcium Level 8.6 L Vital Signs Date Time Temp Pulse Resp B/P (MAP) Pulse Ox O2 Delivery O2 Flow Rate FiO2 06/26/17 12:00 96.8 72 18 136/62 (86) 95 Nasal Cannula 4.0 I&O- Last 24 Hours up to 6 AM 06/27/17 06:00 Intake Total 970 ml Output Total 875 ml Balance 95 ml AYSE CAMEJO DO Jun 26, 2017 15:55
[2017-06-26 16:00] VITALS: BP 137/77
[2017-06-26 20:00] VITALS: BP 129/60
[2017-06-26] MEDS: DIVALPROEX 500MG *ER* TAB PO SCH (20:32)
[2017-06-26] MEDS: ASPIRIN 81 MG ENTERIC TAB PO SCH (20:32)
[2017-06-26 23:50] VITALS: BP 132/66
[2017-06-27] MEDS: FUROSEMIDE 40 MG/4 ML VIAL (J1940) IV SCH (03:01)
[2017-06-27] MEDS: traMADol 50 MG TAB PO PRN ×2 (03:01→16:25)
[2017-06-27 03:18] VITALS: BP 124/62
[2017-06-27] MEDS: LEVOTHYROXINE 150MCG TABLET (0.15MG) PO SCH (05:36)
[2017-06-27] MEDS: SLF 3 ML SYR IV SCH ×3 (05:37→20:40)
[2017-06-27 06:19] LABS: BASO # 0.1 10^3/uL (0.0-0.2); BASO % 0.5 % (0.0-1.0); EOS # 0.2 10^3/uL (0.0-0.50); EOS % 1.7 % (0.0-3.0); IMMATURE GRANULOCYTE % 0.3 % (0-0); LYMPH # 2.9 10^3/uL (1.5-4.5); MEAN CORPUSCULAR HEMOGLOBIN 28.4 pg (27.0-33.0); MEAN CORPUSCULAR HGB CONC 31.6 g/dl (32.0-36.5); MONO # 1.5 10^3/uL (0.0-0.8); MONO % 14.1 % (0.0-5.0); NEUTROPHILS % 56.4 % (36.0-66.0); PLATELET COUNT, AUTOMATED 239 10^3/uL (150-450); RED CELL DISTRIBUTION WIDTH 16.6 % (11.5-14.5); WHITE BLOOD COUNT 10.7 10^3/uL (4.0-10.0)
[2017-06-27 06:39] LABS: CALCIUM LEVEL 9.1 MG/DL (8.8-10.2); CREATININE FOR GFR 1.37 MG/DL (0.55-1.02); GLOMERULAR FILTRATION RATE 40.2 (>39); POTASSIUM SERUM 3.2 MEQ/L (3.5-5.1)
[2017-06-27] MEDS ORDERED: POTASSIUM CHLORIDE 10 MEQ SR TABLET PO ONE ×2 (07:30→12:00)
[2017-06-27 08:00] VITALS: BP 142/72
[2017-06-27] MEDS: DOXYCYCLINE HYCLATE 100 MG TAB PO SCH ×2 (08:27→20:40)
[2017-06-27] MEDS: MULTIVITAMINS/MINERALS THERAP 1 TAB PO SCH (08:27)
[2017-06-27] MEDS: ASCORBIC ACID 500 MG TAB PO SCH (08:27)
[2017-06-27] MEDS: raNITIdine SYRUP 150 MG/10 ML UDC PO SCH ×2 (08:27→20:39)
[2017-06-27] MEDS: SPIRONOLACTONE 12.5MG PER 1/2 TABLET PO SCH (08:27)
[2017-06-27] MEDS: LACTOBACILLUS ACIDOPHILUS CAP (BACID) PO SCH ×2 (08:27→20:39)
[2017-06-27] MEDS: PANTOPRAZOLE 40MG TAB (PROTONIX) PO SCH ×2 (08:27→20:40)
[2017-06-27] MEDS: predniSONE 10 MG TAB PO SCH (08:27)
[2017-06-27] MEDS: OMEGA-3 1050MG CAPSULE PO SCH (08:28)
[2017-06-27] MEDS: RANOLAZINE 500 MG ER TAB PO SCH ×2 (08:28→20:40)
[2017-06-27] MEDS: metOLazone 2.5 MG TAB PO SCH (08:28)
[2017-06-27] MEDS: ENOXAPARIN 40 MG/0.4 ML SYRINGE (J1650) SC SCH (08:29)
[2017-06-27] MEDS: ACETAMINOPHEN 500 MG TAB PO PRN (08:35)
[2017-06-27] MEDS: ONDANSETRON 4MG/2ML VIAL (J2405) IV PRN (09:27)
[2017-06-27 12:00] VITALS: BP 138/80
[2017-06-27 16:00] VITALS: BP 134/69
--- NOTE | 2017-06-27 16:46 | IPNPDOC ---
Text Note Date of Service The patient was seen on 06/27/17. NOTE Subjective: Patient is 72 years old female with PMH of end stage pulmonary fibrosis, chronic hypoxic respiratory failure and steroid dependent on 4L NC O2 24 hours a day at home, SOFY on CPAP, morbid obesity, HTN, hyperlipidemia, hypothyroidism , right sided heart failure, cor pulmonale, diastolic heart failure, GERD, chronic headache presented for SOB and lower extremity swelling. Patient was seen and examined at bedside. She was feeling nauseas during the interview. Per patient she would get nausea every day when she first get out of bed. BP was checked it was in 120s systolic. Patient still complaint of some chronic chest pain. Denies any fever/chills, sob, abdominal pain, diarrhea, constipation, problems with urination. Denies any other current new complaints. Objective: Vitals (See below) General: Obese elderly female, lying in bed, no acute distress, comfortable, AAOx3 HEENT: NC, AT CVS: RRR, + Systolic murmur, difficult to auscultation due to increased AP diameter and body habitus Lungs: Reduced breathing sound b/l, some rales b/l Abdomen: Soft, Epigastric pain, no peritoneal signs, obese Extremities: 2 + pitting edema b/l extending to upper thigh improved from day before, erythema around ankle improved slightly as well Assessment and plan: Acute decompensated heart failure with history of right sided heart failure and cor pulmonale - restart metolazone 2.5 mg home dose 06/25/17, patient was using it prn at home - HOLDing Lasix 40mg IV q4h - Strict Ins/Outs - Echo 06/21/17 showed grade 1 diastolic dysfunction, moderately severe mitral regurgitation, and tricuspid regurgitation, severe pulmonary hypertension, right atrium and right ventricle is enlarged and right ventricular free wall hypokinesis. Severe pulmonary hypertension. Angina likely from heart failure vs CAD - Stat EKG was ordered, didn't show any acute changes compared to prior Hypokalemia - c/w spironolactone (low dose) - continue to replete Acute on chronic hypoxic respiratory failure possibly due to pulmonary edema - C/w steroid - C/w O2 - C/w Nebulizer Cellulitis of lower extremities - c/w Doxycyclien (06/26), s/p Vanco (06/21); Currently on antibiotic day #7 - f/u blood cultures ASHWIN possible from Prerenal azotemia vs. from drug - elevation in Cr - likely 2/2 diuresis - will hold diuretics currently SOFY on CPAP - C/w home CPAP Morbid obesity - Complicates care HTN - Lasix hyperlipidemia - Not on any medication at home - Will check lipid panel hypothyroidism - c/w Synthroid Epigastric pain likely PUD - Continue PPI, Carafate, Zantac Hypokalemia - replete Hypomagesemia - replete GERD - PPI chronic headache - Depakote DVT prophylaxis - c/w Lovenox Fluid, electrolytes, nutrition: No IVF, replete K to 4, 1.6 L Fluid restriction , Na restriction Disposition: - c/w Antibiotics and Lasix, downgraded patient to med/surge 06/23/17, waiting for clinical improvement GME ATTESTATION My preceptor for this patient encounter was physically present in the building during the encounter and was fully available. As needed, all aspects of the patient interview, examination, medical decision making process, and medical care plan development were reviewed and approved by the preceptor. Preceptor is aware and concurs with the plan as stated in the body of this note and will attest to such by his/her cosignature. ATTENDING NOTE I, Regina Guevara, have both independently examined this patient as well as reviewed the documentation. I have discussed in detail with the resident the findings and plan of treatment as documented in the residents documentation. I will continue to follow the patient and offer further guidance to the patients care as necessary during this hospital stay. VS,Jie, I+O VS, [place], I+O Laboratory Tests 06/27/17 05:36 Red Blood Count 5.31, Mean Corpuscular Volume 90.0, Mean Corpuscular Hemoglobin 28.4, Mean Corpuscular Hemoglobin Concent 31.6 L, Red Cell Distribution Width 16.6 H, Neutrophils (%) (Auto) 56.4, Lymphocytes (%) (Auto) 27.0, Monocytes (%) (Auto) 14.1 H, Eosinophils (%) (Auto) 1.7, Basophils (%) (Auto) 0.5, Neutrophils # (Auto) 6.0, Lymphocytes # (Auto) 2.9, Monocytes # (Auto) 1.5 H, Eosinophils # (Auto) 0.2, Basophils # (Auto) 0.1, Calcium Level 9.1 Vital Signs Date Time Temp Pulse Resp B/P (MAP) Pulse Ox O2 Delivery O2 Flow Rate FiO2 06/27/17 16:25 17 Nasal Cannula 4.0 06/27/17 12:00 97.2 75 138/80 (99 92 97.2 I&O- Last 24 Hours up to 6 AM 06/28/17 06:00 Intake Total 360 ml Balance 360 ml AYSE CAMEJO DO Jun 27, 2017 16:46 REGINA GUEVARA MD Jun 27, 2017 18:31
[2017-06-27 20:00] VITALS: BP 130/72
--- NOTE | 2017-06-27 20:39 | ECGEPIP ---
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 Electronically Signed On 06-27-2017 20:39:02 EST by Faizan Chavez
[2017-06-27] MEDS: DIVALPROEX 500MG *ER* TAB PO SCH (20:40)
[2017-06-27] MEDS: ASPIRIN 81 MG ENTERIC TAB PO SCH (20:40)
[2017-06-28] VITALS: BP_SYST 107; BP_SYST 151; BP_DIAS 54; BP_DIAS 73
[2017-06-28 04:00] VITALS: BP 147/72
[2017-06-28] MEDS: traMADol 50 MG TAB PO PRN ×2 (04:17→16:17)
[2017-06-28] MEDS: SLF 3 ML SYR IV SCH ×3 (06:00→20:30)
[2017-06-28] MEDS: LEVOTHYROXINE 150MCG TABLET (0.15MG) PO SCH (06:05)
[2017-06-28 06:10] LABS: BASO % 0.4 % (0.0-1.0); EOS # 0.1 10^3/uL (0.0-0.50); EOS % 1.3 % (0.0-3.0); IMMATURE GRANULOCYTE % 0.5 % (0-0); LYMPH # 2.3 10^3/uL (1.5-4.5); LYMPH % 21.4 % (24.0-44.0); MEAN CORPUSCULAR HEMOGLOBIN 28.7 pg (27.0-33.0); MEAN CORPUSCULAR HGB CONC 31.1 g/dl (32.0-36.5); MEAN CORPUSCULAR VOLUME 92.2 fl (80.0-96.0); MONO # 1.4 10^3/uL (0.0-0.8); MONO % 13.4 % (0.0-5.0); NEUTROPHILS # 6.8 10^3/uL (1.8-7.7); PLATELET COUNT, AUTOMATED 228 10^3/uL (150-450); RED CELL DISTRIBUTION WIDTH 16.6 % (11.5-14.5); WHITE BLOOD COUNT 10.8 10^3/uL (4.0-10.0)
[2017-06-28 06:33] LABS: CREATININE FOR GFR 1.19 MG/DL (0.55-1.02); GLOMERULAR FILTRATION RATE 47.3 (>39); POTASSIUM SERUM 3.4 MEQ/L (3.5-5.1)
[2017-06-28 08:00] VITALS: BP 129/72
[2017-06-28] MEDS ORDERED: POTASSIUM CHLORIDE 10 MEQ SR TABLET PO ONE (08:15)
[2017-06-28 08:27] LABS: MAGNESIUM LEVEL 1.9 MG/DL (1.8-2.4)
[2017-06-28] MEDS: FUROSEMIDE 40 MG/4 ML VIAL (J1940) IV SCH ×3 (08:49→23:38)
[2017-06-28] MEDS: raNITIdine SYRUP 150 MG/10 ML UDC PO SCH (08:50)
[2017-06-28] MEDS: ASCORBIC ACID 500 MG TAB PO SCH (08:50)
[2017-06-28] MEDS: RANOLAZINE 500 MG ER TAB PO SCH ×2 (08:50→20:28)
[2017-06-28] MEDS: ENOXAPARIN 40 MG/0.4 ML SYRINGE (J1650) SC SCH (08:50)
[2017-06-28] MEDS: SPIRONOLACTONE 12.5MG PER 1/2 TABLET PO SCH (08:50)
[2017-06-28] MEDS: metOLazone 2.5 MG TAB PO SCH (08:51)
[2017-06-28] MEDS: MULTIVITAMINS/MINERALS THERAP 1 TAB PO SCH (08:51)
[2017-06-28] MEDS: PANTOPRAZOLE 40MG TAB (PROTONIX) PO SCH ×2 (08:51→20:28)
[2017-06-28] MEDS: predniSONE 10 MG TAB PO SCH (08:51)
[2017-06-28] MEDS: OMEGA-3 1050MG CAPSULE PO SCH (08:51)
[2017-06-28] MEDS: LACTOBACILLUS ACIDOPHILUS CAP (BACID) PO SCH ×2 (08:51→20:28)
[2017-06-28] MEDS: DOXYCYCLINE HYCLATE 100 MG TAB PO SCH ×2 (08:51→20:29)
--- NOTE | 2017-06-28 10:49 | IPN ---
DATE: 06/28/2017 Sandrine is a 72-year-old female that was admitted on 06/20/2017 for increasing edema. She states her lower extremity edema got so bad that when she walked it would burst fluid from her legs. She came in with a 25 pound weight gain. 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 She states she also needed a new mask as the seal was wearing out and she did not call her provider. She is having intermittent chest discomfort. She does have a history of coronary artery disease. Currently, she is being diuresed. Approximately 30 minutes was used in discussing advanced directives with the patient. She is concerned about dying at home alone and does not want to place a burden on her children. She is looking to have palliative care, but wants to discuss this with her children. I believe she is considering palliative care in a placement such as an adult living facility versus residential versus hospice home. PHYSICAL EXAMINATION: Vital Signs: Temperature is 97.7, pulse is 76, respiratory rate is 20, blood pressure is 129/72 with a mean arterial pressure of 91, oxygen saturation 95% on 4 liters. Ins and Outs: She is net negative 490 yesterday, net negative 1.8 liters the day before, and negative 2 liters the day before that. She has had a significant diuresis since she has been here. Awake, alert and oriented. Affect and mood appropriate. Nutrition and hygiene are good. Mucous membranes are moist. Tongue is midline. Pulmonary: Decreased breath sounds, but no prolongation of the expiratory phase. There are fine bibasilar rales on inspiration. No wheeze or rhonchi. No accessory muscle use. Abdomen is obese. Extremities: Pitting dependent edema with venous stasis changes. The edema goes to the level of at least the knee. Skin: Minimal bruising on the hands. LABORATORY EVALUATION: Shows a sodium of 137, potassium 3.4, chloride 86, bicarb of 44, BUN of 22, creatinine of 1.19. Her BNP on arrival was 6416. Chest x-ray on admission on 06/20/2017 shows cardiomegaly, minimal increased vascular changes, some blunting of the diaphragms bilaterally, but no significant effusion. IMPRESSIONS: 1. Pulmonary fibrosis with chronic hypoxic respiratory failure. 2. Congestive heart failure with pulmonary hypertension. The majority of my visit was used discussing end of life care over 30 minutes. The patient has been a DO NOT RESUSCITATE (DNR) for some time and I have filled out DNR paperwork in the office previously. She wishes to remain DNR. She is considering converting to palliative care only; however, is nervous about dying at home. She wishes to have discussions with her family after our discussion to determine where she will be leaving to and whether or not she would be considering a residential or returning to home. At this point in time, I do not believe she is yet ready for Hospice House; however, this may be an option in the near future. The patient states she does not want to place a burden on her family and does not want to at home and therefore I do not believe home hospice would be the best option for her unless she changes her mind. I will continue to follow the patient both inpatient outpatient; however, not on a daily basis. Please feel free to call with any questions or concerns.
[2017-06-28 11:30] VITALS: BP 156/68
--- NOTE | 2017-06-28 11:35 | IPNPDOC ---
Text Note Date of Service The patient was seen on 06/28/17. NOTE Subjective: Patient is 72 years old female with PMH of end stage pulmonary fibrosis, chronic hypoxic respiratory failure and steroid dependent on 4L NC O2 24 hours a day at home, SOFY on CPAP, morbid obesity, HTN, hyperlipidemia, hypothyroidism , right sided heart failure, cor pulmonale, diastolic heart failure, GERD, chronic headache presented for SOB and lower extremity swelling. Patient was seen and examined at bedside. She stated she was nauseated all night long and she was not wearing her home BIPAP. She is feeling about the same during the day. Denies any fever/chills, sob, abdominal pain, diarrhea, constipation, problems with urination. Denies any other current new complaints. Objective: Vitals (See below) General: Obese elderly female, lying in bed, no acute distress, comfortable, AAOx3 HEENT: NC, AT CVS: RRR, + Systolic murmur, difficult to auscultation due to increased AP diameter and body habitus Lungs: Reduced breathing sound b/l, bilateral crackles at bases Abdomen: Soft, Epigastric pain, no peritoneal signs, obese Extremities: 2 + pitting edema b/l extending to upper thigh improved from day before, erythema around ankle improved slightly as well Assessment and plan: Acute on Chronic hypoxic respiratory failure - likely 2/2 Decompensated Diastolic CHF / Cor Pulmonale 2/2 Severe Pulmonary Hypertension 2/2 Pulmonary Fibrosis - Continues to have some shortness of breath and LE edema - Physical with crackles at bilateral lung bases and pitting edema - ECHO 06/21: Grade 1 DD, Moderately severe MR, TR, Severe Pulm HTN, RA/RV enlarged, - Strict Ins/Outs, Daily weights - c/w Supplemental oxygen - c/w Spirolactone, Metolazone, and Lasix 60mg IV q8h for net negative 1.5 L in 24 hour - c/w Nebulizer and Prednisone 10 daily Cellulitis of lower extremities - Blood cultures 06/21: Negative after 5 days - c/w Doxycycline (06/26), s/p Vancomycin (06/21); Currently on antibiotic day #7 Angina - likely 2/2 underlying CAD - EKG without any acute changes compared to prior 06/27/18 Hypokalemia - Supplemented ASHWIN - likely 2/2 prerenal azotemia - Elevation in Cr - likely 2/2 diuresis - Has improved; restarted Lasix SOFY on BIPAP - c/w Home BIPAP use Morbid obesity - Complicating medical care HTN - Lasix DLP - not on any medications Hypothyroidism - c/w Levothyroxine s/p Hypomagnesemia GERD / PUD - PPI, Carafate, Zantac Chronic migraine headache - c/w Depakote DVT prophylaxis - c/w Lovenox Fluid, electrolytes, nutrition: No IVF, replete K to 4, 1.6 L Fluid restriction , Na restriction Disposition: - c/w Antibiotics and Lasix GME ATTESTATION My preceptor for this patient encounter was physically present in the building during the encounter and was fully available. As needed, all aspects of the patient interview, examination, medical decision making process, and medical care plan development were reviewed and approved by the preceptor. Preceptor is aware and concurs with the plan as stated in the body of this note and will attest to such by his/her cosignature. ATTENDING NOTE I, Regina Guevara, have both independently examined this patient as well as reviewed the documentation. I have discussed in detail with the resident the findings and plan of treatment as documented in the residents documentation. I will continue to follow the patient and offer further guidance to the patients care as necessary during this hospital stay. VS,Jie, I+O VSJie, I+O Laboratory Tests 06/28/17 05:54 Red Blood Count 4.88, Mean Corpuscular Volume 92.2, Mean Corpuscular Hemoglobin 28.7, Mean Corpuscular Hemoglobin Concent 31.1 L, Red Cell Distribution Width 16.6 H, Neutrophils (%) (Auto) 63.0, Lymphocytes (%) (Auto) 21.4 L, Monocytes (% ) (Auto) 13.4 H, Eosinophils (%) (Auto) 1.3, Basophils (%) (Auto) 0.4, Neutrophils # (Auto) 6.8, Lymphocytes # (Auto) 2.3, Monocytes # (Auto) 1.4 H, Eosinophils # (Auto) 0.1, Basophils # (Auto) 0.0, Calcium Level 9.0 Vital Signs Date Time Temp Pulse Resp B/P (MAP) Pulse Ox O2 Delivery O2 Flow Rate FiO2 06/28/17 08:00 97.7 76 20 129/72 (68) 95 Nasal Cannula 4.0 I&O- Last 24 Hours up to 6 AM 06/29/17 06:00 Intake Total 120 ml Output Total 200 ml Balance -80 ml AYSE CAMEJO DO Jun 28, 2017 11:35 REGINA GUEVARA MD Jun 28, 2017 15:40
[2017-06-28 16:00] VITALS: BP 148/62
[2017-06-28 20:00] VITALS: BP 113/61
[2017-06-28] MEDS: FAMOTIDINE 20 MG TAB PO SCH (20:28)
[2017-06-28] MEDS: DIVALPROEX 500MG *ER* TAB PO SCH (20:29)
[2017-06-28] MEDS: ASPIRIN 81 MG ENTERIC TAB PO SCH (20:30)
[2017-06-29] VITALS: BP 141/67
[2017-06-29] MEDS: traMADol 50 MG TAB PO PRN ×3 (00:25→18:12)
[2017-06-29] MEDS: ACETAMINOPHEN 500 MG TAB PO PRN (03:55)
[2017-06-29 04:00] VITALS: BP 139/65
[2017-06-29] MEDS: LEVOTHYROXINE 150MCG TABLET (0.15MG) PO SCH (06:08)
[2017-06-29 06:09] LABS: BASO # 0.1 10^3/uL (0.0-0.2); BASO % 0.6 % (0.0-1.0); EOS # 0.1 10^3/uL (0.0-0.50); EOS % 1.4 % (0.0-3.0); IMMATURE GRANULOCYTE % 0.6 % (0-0); LYMPH # 2.7 10^3/uL (1.5-4.5); LYMPH % 26.1 % (24.0-44.0); MEAN CORPUSCULAR HEMOGLOBIN 28.8 pg (27.0-33.0); MEAN CORPUSCULAR HGB CONC 31.6 g/dl (32.0-36.5); MONO % 10.2 % (0.0-5.0); NEUTROPHILS # 6.2 10^3/uL (1.8-7.7); NEUTROPHILS % 61.1 % (36.0-66.0); PLATELET COUNT, AUTOMATED 237 10^3/uL (150-450); RED CELL DISTRIBUTION WIDTH 16.3 % (11.5-14.5); WHITE BLOOD COUNT 10.2 10^3/uL (4.0-10.0)
[2017-06-29] MEDS: SLF 3 ML SYR IV SCH ×3 (06:09→21:50)
[2017-06-29 06:27] LABS: CALCIUM LEVEL 9.2 MG/DL (8.8-10.2); CREATININE FOR GFR 1.25 MG/DL (0.55-1.02); GLOMERULAR FILTRATION RATE 44.7 (>39); MAGNESIUM LEVEL 1.7 MG/DL (1.8-2.4)
[2017-06-29] MEDS ORDERED: MAG SULF 1GM/100ML (MAG RUN) 1 GM in APPROPRIATE DILUENT 1 EA IV ONE (07:30)
[2017-06-29 08:00] VITALS: BP 114/57
[2017-06-29] MEDS: FUROSEMIDE 40 MG/4 ML VIAL (J1940) IV SCH ×2 (08:08→18:07)
[2017-06-29] MEDS: PANTOPRAZOLE 40MG TAB (PROTONIX) PO SCH ×2 (08:09→20:23)
[2017-06-29] MEDS: ASCORBIC ACID 500 MG TAB PO SCH (08:09)
[2017-06-29] MEDS: FAMOTIDINE 20 MG TAB PO SCH ×2 (08:09→20:23)
[2017-06-29] MEDS: MULTIVITAMINS/MINERALS THERAP 1 TAB PO SCH (08:09)
[2017-06-29] MEDS: predniSONE 10 MG TAB PO SCH (08:09)
[2017-06-29] MEDS: OMEGA-3 1050MG CAPSULE PO SCH (08:09)
[2017-06-29] MEDS: LACTOBACILLUS ACIDOPHILUS CAP (BACID) PO SCH ×2 (08:09→20:23)
[2017-06-29] MEDS: SPIRONOLACTONE 12.5MG PER 1/2 TABLET PO SCH (08:10)
[2017-06-29] MEDS: DOXYCYCLINE HYCLATE 100 MG TAB PO SCH (08:11)
[2017-06-29] MEDS: POTASSIUM CHLORIDE 10 MEQ SR TABLET PO SCH ×2 (08:11→20:24)
[2017-06-29] MEDS: RANOLAZINE 500 MG ER TAB PO SCH ×2 (08:11→20:24)
[2017-06-29] MEDS: ENOXAPARIN 40 MG/0.4 ML SYRINGE (J1650) SC SCH (08:12)
[2017-06-29] MEDS: metOLazone 2.5 MG TAB PO SCH (08:13)
[2017-06-29 12:00] VITALS: BP 159/70
[2017-06-29] MEDS: CEFTAROLINE FOSAMIL 600 MG in D5W 50 ML IV SCH (12:34)
[2017-06-29 16:00] VITALS: BP 134/80
[2017-06-29] MEDS: SODIUM CHLORIDE 0.9% INJ 10 ML SYR IV SCH (18:08)
[2017-06-29 20:00] VITALS: BP 117/72
--- NOTE | 2017-06-29 20:14 | IPNPDOC ---
Text Note Date of Service The patient was seen on 06/29/17. NOTE Subjective: Patient is 72 years old female with PMH of end stage pulmonary fibrosis, chronic hypoxic respiratory failure and steroid dependent on 4L NC O2 24 hours a day at home, SOFY on CPAP, morbid obesity, HTN, hyperlipidemia, hypothyroidism , right sided heart failure, cor pulmonale, diastolic heart failure, GERD, chronic headache presented for SOB and lower extremity swelling. Patient was seen and examined at bedside. She is still nauseas. Didn't use BIPAP last night due to she stated it was not comfortable and too noisy. She is feeling about the same during the day. Denies any fever/chills, sob, abdominal pain, diarrhea, constipation, problems with urination. Denies any other current new complaints. Objective: Vitals (See below) General: Obese elderly female, lying in bed, no acute distress, comfortable, AAOx3 HEENT: NC, AT CVS: RRR, + Systolic murmur, difficult to auscultation due to increased AP diameter and body habitus Lungs: Reduced breathing sound b/l, bilateral crackles at bases Abdomen: Soft, Epigastric pain, no peritoneal signs, obese Extremities: 2 + pitting edema b/l extending to upper thigh improved from day before, erythema around ankle improved slightly as well Assessment and plan: Acute on Chronic hypoxic respiratory failure - likely 2/2 Decompensated Diastolic CHF / Cor Pulmonale 2/2 Severe Pulmonary Hypertension 2/2 Pulmonary Fibrosis - Continues to have some shortness of breath and LE edema - Physical with crackles at bilateral lung bases and pitting edema - ECHO 06/21: Grade 1 DD, Moderately severe MR, TR, Severe Pulm HTN, RA/RV enlarged, - Strict Ins/Outs, Daily weights - c/w Supplemental oxygen - c/w Spirolactone, Metolazone, and Lasix 60mg IV q8h for net negative 1.5 L in 24 hour - c/w Nebulizer and Prednisone 10 daily Cellulitis of lower extremities - Blood cultures 06/21: Negative after 5 days - c/w Doxycycline (06/26), s/p Vancomycin (06/21); Currently on antibiotic day #8 Angina - likely 2/2 underlying CAD - EKG without any acute changes compared to prior 06/27/18 Hypokalemia - Supplemented ASHWIN - likely 2/2 prerenal azotemia - Elevation in Cr - likely 2/2 diuresis - Has improved; restarted Lasix SOFY on BIPAP - c/w Home BIPAP use Morbid obesity - Complicating medical care HTN - Lasix DLP - not on any medications Hypothyroidism - c/w Levothyroxine s/p Hypomagnesemia GERD / PUD - PPI, Carafate, Zantac Chronic migraine headache - c/w Depakote DVT prophylaxis - c/w Lovenox Fluid, electrolytes, nutrition: No IVF, replete K to 4, 1.6 L Fluid restriction , Na restriction Disposition: - c/w Antibiotics and Lasix, patient is still deciding palliative care vs. DIRECTOR OF DISTRIBUTION GME ATTESTATION My preceptor for this patient encounter was physically present in the building during the encounter and was fully available. As needed, all aspects of the patient interview, examination, medical decision making process, and medical care plan development were reviewed and approved by the preceptor. Preceptor is aware and concurs with the plan as stated in the body of this note and will attest to such by his/her cosignature. VS,Fishbone, I+O VS, Fishbone, I+O Laboratory Tests 06/29/17 05:46 Red Blood Count 5.11, Mean Corpuscular Volume 91.0, Mean Corpuscular Hemoglobin 28.8, Mean Corpuscular Hemoglobin Concent 31.6 L, Red Cell Distribution Width 16.3 H, Neutrophils (%) (Auto) 61.1, Lymphocytes (%) (Auto) 26.1, Monocytes (%) (Auto) 10.2 H, Eosinophils (%) (Auto) 1.4, Basophils (%) (Auto) 0.6, Neutrophils # (Auto) 6.2, Lymphocytes # (Auto) 2.7, Monocytes # (Auto) 1.0 H, Eosinophils # (Auto) 0.1, Basophils # (Auto) 0.1, Calcium Level 9.2 Vital Signs Date Time Temp Pulse Resp B/P (MAP) Pulse Ox O2 Delivery O2 Flow Rate FiO2 06/29/17 19:18 18 06/29/17 16:00 96.4 82 134/80 (98) 92 Nasal Cannula 4.0 I&O- Last 24 Hours up to 6 AM 06/30/17 06:00 Intake Total 980 ml Output Total 800 ml Balance 180 ml AYSE CAMEJO DO Jun 29, 2017 20:14
[2017-06-29] MEDS: DIVALPROEX 500MG *ER* TAB PO SCH (20:23)
[2017-06-29] MEDS: ASPIRIN 81 MG ENTERIC TAB PO SCH (20:23)
[2017-06-30] VITALS (7 sets, daily range): BP systolic 116–141; BP diastolic 56–81
[2017-06-30] MEDS: CEFTAROLINE FOSAMIL 600 MG in D5W 50 ML IV SCH ×2 (00:42→12:07)
[2017-06-30] MEDS: FUROSEMIDE 40 MG/4 ML VIAL (J1940) IV SCH ×3 (00:42→15:14)
[2017-06-30] MEDS: LEVOTHYROXINE 150MCG TABLET (0.15MG) PO SCH (05:01)
[2017-06-30] MEDS: SODIUM CHLORIDE 0.9% INJ 10 ML SYR IV SCH ×2 (05:01→17:17)
[2017-06-30] MEDS: SLF 3 ML SYR IV SCH ×2 (05:02→13:47)
[2017-06-30 05:19] LABS: BASO # 0.1 10^3/uL (0.0-0.2); BASO % 0.6 % (0.0-1.0); EOS # 0.2 10^3/uL (0.0-0.50); EOS % 1.6 % (0.0-3.0); IMMATURE GRANULOCYTE % 0.5 % (0-0); LYMPH # 2.8 10^3/uL (1.5-4.5); LYMPH % 27.2 % (24.0-44.0); MEAN CORPUSCULAR HEMOGLOBIN 28.9 pg (27.0-33.0); MEAN CORPUSCULAR HGB CONC 31.4 g/dl (32.0-36.5); MEAN CORPUSCULAR VOLUME 91.8 fl (80.0-96.0); MONO # 1.2 10^3/uL (0.0-0.8); MONO % 11.1 % (0.0-5.0); NEUTROPHILS # 6.1 10^3/uL (1.8-7.7); PLATELET COUNT, AUTOMATED 236 10^3/uL (150-450); RED CELL DISTRIBUTION WIDTH 16.2 % (11.5-14.5); WHITE BLOOD COUNT 10.4 10^3/uL (4.0-10.0)
[2017-06-30 05:37] LABS: CALCIUM LEVEL 8.8 MG/DL (8.8-10.2); CREATININE FOR GFR 1.39 MG/DL (0.55-1.02); GLOMERULAR FILTRATION RATE 39.6 (>39); MAGNESIUM LEVEL 1.7 MG/DL (1.8-2.4); POTASSIUM SERUM 3.2 MEQ/L (3.5-5.1)
[2017-06-30] MEDS ORDERED: POTASSIUM CHLORIDE 10 MEQ SR TABLET PO ONE (06:30)
[2017-06-30] MEDS ORDERED: MAG SULF 1GM/100ML (MAG RUN) 1 GM in APPROPRIATE DILUENT 1 EA IV ONE ×2 (06:30→08:00)
[2017-06-30] MEDS ORDERED: METOCLOPRAMIDE INJ 10MG/2ML VIAL (J2765) IV PRN (08:45)
[2017-06-30] MEDS: OMEGA-3 1050MG CAPSULE PO SCH ×2 (09:00→09:15)
[2017-06-30] MEDS: SPIRONOLACTONE 12.5MG PER 1/2 TABLET PO SCH ×2 (09:00→09:16)
[2017-06-30] MEDS: PANTOPRAZOLE 40MG TAB (PROTONIX) PO SCH ×3 (09:00→22:27)
[2017-06-30] MEDS: ASCORBIC ACID 500 MG TAB PO SCH ×2 (09:00→09:16)
[2017-06-30] MEDS: FAMOTIDINE 20 MG TAB PO SCH ×3 (09:00→22:26)
[2017-06-30] MEDS: MULTIVITAMINS/MINERALS THERAP 1 TAB PO SCH ×2 (09:00→09:15)
[2017-06-30] MEDS: ENOXAPARIN 40 MG/0.4 ML SYRINGE (J1650) SC SCH (09:15)
[2017-06-30] MEDS: POTASSIUM CHLORIDE 10 MEQ SR TABLET PO SCH ×2 (09:15→22:26)
[2017-06-30] MEDS: metOLazone 2.5 MG TAB PO SCH (09:16)
[2017-06-30] MEDS: predniSONE 10 MG TAB PO SCH (09:16)
[2017-06-30] MEDS: RANOLAZINE 500 MG ER TAB PO SCH ×2 (09:16→22:25)
[2017-06-30] MEDS: LACTOBACILLUS ACIDOPHILUS CAP (BACID) PO SCH ×2 (09:16→22:27)
--- NOTE | 2017-06-30 13:25 | REP ---
Procedure: PICC line insertion with Aramis-Shahida The procedure was performed under the direct supervision of Dr. Granda. The risks and benefits of the procedure were explained to the patient and informed consent was obtained. The right basilic vein was localized using ultrasound guidance. The skin was prepped and draped in a sterile fashion. 2% lidocaine was used as a local anesthetic. Using ultrasound guidance the basilic vein was cannulated and a 0.018 guidewire was inserted and advanced to the SVC using fluoroscopic guidance. The needle was removed and a 4.5 [place] dilator and peel-away sheath was inserted over the guide wire. A 4.5 [place] single lumen catheter was cut to length of 46 cm. The dilator was removed and the catheter was inserted over the guide wire with the tip ending in the SVC. The peel-away sheath was removed and the catheter was flushed with heparinized saline as per Hospital protocol. The catheter was affixed to the skin and a sterile dressing was applied. The the patient tolerated the procedure well and there were no immediate complications. 0.3 minutes of fluoro time was utilized for this procedure. Reviewed by CLINT Fonseca 06/29/2017 05:49 PSigned by Angelo Granda MD 06/30/2017 01:16 P
[2017-06-30] MEDS: traMADol 50 MG TAB PO PRN ×2 (13:47→22:26)
--- NOTE | 2017-06-30 18:24 | IPNPDOC ---
Text Note Date of Service The patient was seen on 06/30/17. NOTE Subjective: Patient is 72 years old female with PMH of end stage pulmonary fibrosis, chronic hypoxic respiratory failure and steroid dependent on 4L NC O2 24 hours a day at home, SOFY on CPAP, morbid obesity, HTN, hyperlipidemia, hypothyroidism , right sided heart failure, cor pulmonale, diastolic heart failure, GERD, chronic headache presented for SOB and lower extremity swelling. Patient was seen and examined at bedside. Patient still admits to nausea and chest pain, patient appears to be depressed, however, refuses any depression medication. Patient stated she will call her children to come in and the would consider palliative care versus hospice. Denies any fever/chills, sob, abdominal pain, diarrhea, constipation, problems with urination. Denies any other current new complaints. Objective: Vitals (See below) General: Obese elderly female, lying in bed, no acute distress, comfortable, AAOx3 HEENT: NC, AT CVS: RRR, + Systolic murmur, difficult to auscultation due to increased AP diameter and body habitus Lungs: Reduced breathing sound b/l, bilateral crackles at bases Abdomen: Soft, Epigastric pain, no peritoneal signs, obese Extremities: 2 + pitting edema b/l extending to upper thigh improved from day before, erythema around ankle improved slightly as well Assessment and plan: Acute on Chronic hypoxic respiratory failure - likely 2/2 Decompensated Diastolic CHF / Cor Pulmonale 2/2 Severe Pulmonary Hypertension 2/2 Pulmonary Fibrosis - Continues to have some shortness of breath and LE edema - Physical with crackles at bilateral lung bases has improved - ECHO 06/21: Grade 1 DD, Moderately severe MR, TR, Severe Pulm HTN, RA/RV enlarged, - Strict Ins/Outs, Daily weights - c/w Supplemental oxygen - c/w Spirolactone, Metolazone, and Lasix 60mg IV q8h for net negative 1.5 L in 24 hour - c/w Nebulizer and Prednisone 10 daily Cellulitis of lower extremities - Blood cultures 06/21: Negative after 5 days - c/w Ceftaroline (Day #2), s/p Doxycycline (06/26), s/p Vancomycin (06/21); Currently on antibiotic day #8 Angina - likely 2/2 underlying CAD - EKG without any acute changes compared to prior 06/27/18 Hypokalemia - Supplemented ASHWIN - likely 2/2 prerenal azotemia - Elevation in Cr - likely 2/2 diuresis - Has improved; restarted Lasix SOFY on BIPAP - c/w Home BIPAP use Morbid obesity - Complicating medical care HTN - Lasix DLP - not on any medications Hypothyroidism - c/w Levothyroxine s/p Hypomagnesemia GERD / PUD - PPI, Carafate, Zantac Chronic migraine headache - c/w Depakote DVT prophylaxis - c/w Lovenox Fluid, electrolytes, nutrition: No IVF, replete K to 4, 1.6 L Fluid restriction , Na restriction Disposition: - c/w Antibiotics and Lasix, patient is still thinking about hospice at daughter 's place GME ATTESTATION My preceptor for this patient encounter was physically present in the building during the encounter and was fully available. As needed, all aspects of the patient interview, examination, medical decision making process, and medical care plan development were reviewed and approved by the preceptor. Preceptor is aware and concurs with the plan as stated in the body of this note and will attest to such by his/her cosignature. ATTENDING NOTE I have both independently examined this patient as well as reviewed the H&P. I have discussed in detail with the resident the findings and plan of treatment as documented in the residents note. I will continue to follow the patient and offer further guidance to the patients care as necessary during this hospital stay. VS,Fishbone, I+O VS, Fishbone, I+O Laboratory Tests 06/30/17 05:03 Red Blood Count 4.99, Mean Corpuscular Volume 91.8, Mean Corpuscular Hemoglobin 28.9, Mean Corpuscular Hemoglobin Concent 31.4 L, Red Cell Distribution Width 16.2 H, Neutrophils (%) (Auto) 59.0, Lymphocytes (%) (Auto) 27.2, Monocytes (%) (Auto) 11.1 H, Eosinophils (%) (Auto) 1.6, Basophils (%) (Auto) 0.6, Neutrophils # (Auto) 6.1, Lymphocytes # (Auto) 2.8, Monocytes # (Auto) 1.2 H, Eosinophils # (Auto) 0.2, Basophils # (Auto) 0.1, Calcium Level 8.8 Vital Signs Date Time Temp Pulse Resp B/P (MAP) Pulse Ox O2 Delivery O2 Flow Rate FiO2 06/30/17 15:46 Nasal Cannula 4.0 06/30/17 14:17 17 06/30/17 12:00 98.5 83 133/81 (98) 96 I&O- Last 24 Hours up to 6 AM 07/01/17 06:00 Intake Total 600 ml Output Total 800 ml Balance -200 ml AYSE CAMEJO DO Jun 30, 2017 18:24 NADINE GUEVARA MD Jul 01, 2017 14:57
[2017-06-30] MEDS: ASPIRIN 81 MG ENTERIC TAB PO SCH (22:26)
[2017-06-30] MEDS: DIVALPROEX 500MG *ER* TAB PO SCH (22:27)
[2017-07-01] MEDS: CEFTAROLINE FOSAMIL 600 MG in D5W 50 ML IV SCH ×3 (00:12→23:35)
[2017-07-01] MEDS: FUROSEMIDE 40 MG/4 ML VIAL (J1940) IV SCH (00:12)
[2017-07-01 03:43] VITALS: BP 122/58
[2017-07-01] MEDS: LEVOTHYROXINE 150MCG TABLET (0.15MG) PO SCH (05:11)
[2017-07-01] MEDS: SODIUM CHLORIDE 0.9% INJ 10 ML SYR IV SCH ×2 (05:11→17:54)
[2017-07-01 05:38] LABS: CREATININE FOR GFR 1.07 MG/DL (0.55-1.02); GLOMERULAR FILTRATION RATE 53.5 (>39); MAGNESIUM LEVEL 1.4 MG/DL (1.8-2.4)
[2017-07-01 06:07] LABS: CALCIUM LEVEL 6.9 MG/DL (8.8-10.2); POTASSIUM SERUM 2.2 MEQ/L (3.5-5.1)
[2017-07-01] MEDS: KCL 10MEQ IN 100ML SWI (KRUN) 10 MEQ in APPROPRIATE DILUENT 1 EA IV SCH ×8 (06:25→09:58)
[2017-07-01] MEDS ORDERED: POTASSIUM CHLORIDE 10 MEQ SR TABLET PO ONE (06:45)
[2017-07-01] MEDS: traMADol 50 MG TAB PO PRN ×2 (07:00→15:54)
[2017-07-01 07:02] LABS: ALBUMIN 2.5 GM/DL (3.2-5.2)
[2017-07-01 07:56] VITALS: BP 124/74
[2017-07-01] MEDS: metOLazone 2.5 MG TAB PO SCH (08:57)
[2017-07-01] MEDS: FAMOTIDINE 20 MG TAB PO SCH ×2 (08:57→20:05)
[2017-07-01] MEDS: SPIRONOLACTONE 12.5MG PER 1/2 TABLET PO SCH (08:57)
[2017-07-01] MEDS: MULTIVITAMINS/MINERALS THERAP 1 TAB PO SCH (08:58)
[2017-07-01] MEDS: OMEGA-3 1050MG CAPSULE PO SCH (08:58)
[2017-07-01] MEDS: LACTOBACILLUS ACIDOPHILUS CAP (BACID) PO SCH ×2 (08:58→20:05)
[2017-07-01] MEDS: ASCORBIC ACID 500 MG TAB PO SCH (08:59)
[2017-07-01] MEDS: PANTOPRAZOLE 40MG TAB (PROTONIX) PO SCH ×2 (08:59→20:05)
[2017-07-01] MEDS: predniSONE 10 MG TAB PO SCH (08:59)
[2017-07-01] MEDS: RANOLAZINE 500 MG ER TAB PO SCH ×2 (09:00→20:06)
[2017-07-01] MEDS: ENOXAPARIN 40 MG/0.4 ML SYRINGE (J1650) SC SCH (09:00)
[2017-07-01] MEDS: MAG SULF 1GM/100ML (MAG RUN) 1 GM in APPROPRIATE DILUENT 1 EA IV SCH ×3 (10:52→13:04)
[2017-07-01 11:49] VITALS: BP 130/78
--- NOTE | 2017-07-01 11:57 | IPNPDOC ---
Text Note Date of Service The patient was seen on 07/01/17. NOTE Subjective: Patient is 72 years old female with PMH of end stage pulmonary fibrosis, chronic hypoxic respiratory failure and steroid dependent on 4L NC O2 24 hours a day at home, SOFY on CPAP, morbid obesity, HTN, hyperlipidemia, hypothyroidism , right sided heart failure, cor pulmonale, diastolic heart failure, GERD, chronic headache presented for SOB and lower extremity swelling. Patient was seen and examined at bedside. Patient notes that she feels "lousy" today, but did not define anything specific. I have advised her that we will hold off on lasix until her electrolytes correct. She has also been informed that Hospice will come to see her today. Objective: Vitals (See below) General: Obese elderly female, lying in bed, no acute distress, comfortable, AAOx3 HEENT: NC, AT CVS: RRR, + Systolic murmur, Lungs: Reduced breathing sound b/l, improvement in crackles bilaterally Abdomen: Soft, Epigastric pain, no peritoneal signs, obese Extremities: 2+ pitting edema b/l extending to upper thigh improved from day before, erythema around ankle improved slightly as well Assessment and plan: Acute on Chronic hypoxic respiratory failure - likely 2/2 Decompensated Diastolic CHF / Cor Pulmonale 2/2 Severe Pulmonary Hypertension 2/2 Pulmonary Fibrosis - Continues to have some shortness of breath and LE edema - Physical with crackles at bilateral lung bases has improved - ECHO 06/21: Grade 1 DD, Moderately severe MR, TR, Severe Pulm HTN, RA/RV enlarged, - Strict Ins/Outs, Daily weights - c/w Supplemental oxygen - c/w Nebulizer and Prednisone 10 daily - c/w Spirolactone and Metolazone - Will hold Lasix (re: electrolyte abnormalities) Cellulitis of lower extremities - Blood cultures 06/21: Negative after 5 days - c/w Ceftaroline (Day # 3 / Total Antibiotic Day #9), s/p Doxycycline, s/p Vancomycin Electrolytes abnormalities - Hypokalemia and Hypomagnesemia - Will supplement via PO and IV routes - Repeat CMP, Mg and Phos at 12pm Angina - likely 2/2 underlying CAD - EKG without any acute changes compared to prior 06/27/18 s/p ASHWIN - likely 2/2 prerenal azotemia - Elevation in Cr - likely 2/2 diuresis SOFY on BIPAP - c/w Home BIPAP use Morbid obesity - Complicating medical care HTN - Lasix DLP - not on any medications Hypothyroidism - c/w Levothyroxine GERD / PUD - PPI, Carafate, Zantac Chronic migraine headache - c/w Depakote DVT prophylaxis - c/w Lovenox Disposition: - c/w Antibiotics - Correct electrolytes - Hold Lasix - Hospice evaluation VS,Lovelye, I+O VS, Perrybone, I+O Laboratory Tests 07/01/17 05:11 Calcium Level 6.9 #L Vital Signs Date Time Temp Pulse Resp B/P (MAP) Pulse Ox O2 Delivery O2 Flow Rate FiO2 07/01/17 11:49 96.8 80 18 130/78 (95) 94 Nasal Cannula 4.0 I&O- Last 24 Hours up to 6 AM 07/02/17 06:00 Intake Total 1170 ml Output Total 200 ml Balance 970 ml NADINE GUEVARA MD Jul 01, 2017 11:57
[2017-07-01] MEDS: SODIUM CHLORIDE 0.9% INJ 10 ML SYR IV PRN ×2 (14:03→15:53)
[2017-07-01 14:14] LABS: MEAN CORPUSCULAR HEMOGLOBIN 28.7 pg (27.0-33.0); MEAN CORPUSCULAR HGB CONC 31.3 g/dl (32.0-36.5); MEAN CORPUSCULAR VOLUME 91.9 fl (80.0-96.0); PLATELET COUNT, AUTOMATED 244 10^3/uL (150-450); RED CELL DISTRIBUTION WIDTH 16.1 % (11.5-14.5); WHITE BLOOD COUNT 9.6 10^3/uL (4.0-10.0)
[2017-07-01 14:34] LABS: BILIRUBIN,TOTAL 0.6 MG/DL (0.2-1.0); CREATININE FOR GFR 1.43 MG/DL (0.55-1.02); GLOMERULAR FILTRATION RATE 38.3 (>39); MAGNESIUM LEVEL 3.4 MG/DL (1.8-2.4); TOTAL PROTEIN 6.2 GM/DL (6.4-8.2)
[2017-07-01 15:19] LABS: ALBUMIN/GLOBULIN RATIO 1.21 (1.00-1.93)
[2017-07-01 15:34] LABS: POTASSIUM SERUM 3.9 MEQ/L (3.5-5.1)
[2017-07-01 15:35] LABS: ALBUMIN 3.4 GM/DL (3.2-5.2); CALCIUM LEVEL 8.8 MG/DL (8.8-10.2)
[2017-07-01 16:00] VITALS: BP 164/80
[2017-07-01 20:00] VITALS: BP 141/65
[2017-07-01] MEDS: ASPIRIN 81 MG ENTERIC TAB PO SCH (20:05)
[2017-07-01] MEDS: POTASSIUM CHLORIDE 10 MEQ SR TABLET PO SCH (20:05)
[2017-07-01] MEDS: DIVALPROEX 500MG *ER* TAB PO SCH (20:05)
[2017-07-01 23:59] VITALS: BP 137/70
[2017-07-02] MEDS: LEVOTHYROXINE 150MCG TABLET (0.15MG) PO SCH (04:54)
[2017-07-02] MEDS: SODIUM CHLORIDE 0.9% INJ 10 ML SYR IV SCH ×2 (04:54→17:24)
[2017-07-02 05:02] VITALS: BP 143/81
[2017-07-02 05:21] LABS: BASO # 0.1 10^3/uL (0.0-0.2); BASO % 0.5 % (0.0-1.0); EOS # 0.2 10^3/uL (0.0-0.50); EOS % 1.6 % (0.0-3.0); IMMATURE GRANULOCYTE % 0.5 % (0-0); LYMPH # 2.8 10^3/uL (1.5-4.5); LYMPH % 30.1 % (24.0-44.0); MEAN CORPUSCULAR HEMOGLOBIN 28.5 pg (27.0-33.0); MEAN CORPUSCULAR HGB CONC 31.1 g/dl (32.0-36.5); MEAN CORPUSCULAR VOLUME 91.6 fl (80.0-96.0); MONO # 1.1 10^3/uL (0.0-0.8); MONO % 12.2 % (0.0-5.0); NEUTROPHILS # 5.2 10^3/uL (1.8-7.7); NEUTROPHILS % 55.1 % (36.0-66.0); PLATELET COUNT, AUTOMATED 237 10^3/uL (150-450); WHITE BLOOD COUNT 9.4 10^3/uL (4.0-10.0)
[2017-07-02] MEDS: traMADol 50 MG TAB PO PRN (05:35)
[2017-07-02 05:40] LABS: ALBUMIN 3.2 GM/DL (3.2-5.2); ALBUMIN/GLOBULIN RATIO 1.14 (1.00-1.93); BILIRUBIN,TOTAL 0.7 MG/DL (0.2-1.0); CALCIUM LEVEL 9.2 MG/DL (8.8-10.2); CREATININE FOR GFR 1.29 MG/DL (0.55-1.02); GLOMERULAR FILTRATION RATE 43.1 (>39); MAGNESIUM LEVEL 2.4 MG/DL (1.8-2.4); PHOSPHORUS LEVEL 3.6 MG/DL (2.5-4.9)
[2017-07-02 08:00] VITALS: BP 135/83
[2017-07-02] MEDS: ASCORBIC ACID 500 MG TAB PO SCH (08:53)
[2017-07-02] MEDS: ENOXAPARIN 40 MG/0.4 ML SYRINGE (J1650) SC SCH (08:53)
[2017-07-02] MEDS: SPIRONOLACTONE 12.5MG PER 1/2 TABLET PO SCH (08:53)
[2017-07-02] MEDS: LACTOBACILLUS ACIDOPHILUS CAP (BACID) PO SCH ×2 (08:53→22:06)
[2017-07-02] MEDS: PANTOPRAZOLE 40MG TAB (PROTONIX) PO SCH ×2 (08:54→22:05)
[2017-07-02] MEDS: OMEGA-3 1050MG CAPSULE PO SCH (08:54)
[2017-07-02] MEDS: metOLazone 2.5 MG TAB PO SCH (08:54)
[2017-07-02] MEDS: predniSONE 10 MG TAB PO SCH (08:54)
[2017-07-02] MEDS: POTASSIUM CHLORIDE 10 MEQ SR TABLET PO SCH ×2 (08:54→22:07)
[2017-07-02] MEDS: FAMOTIDINE 20 MG TAB PO SCH ×2 (08:54→22:05)
[2017-07-02] MEDS: MULTIVITAMINS/MINERALS THERAP 1 TAB PO SCH (08:54)
[2017-07-02] MEDS: RANOLAZINE 500 MG ER TAB PO SCH ×2 (08:54→22:06)
--- NOTE | 2017-07-02 10:18 | IPNPDOC ---
Text Note Date of Service The patient was seen on 07/02/17. NOTE Subjective: Patient is 72 years old female with PMH of end stage pulmonary fibrosis, chronic hypoxic respiratory failure and steroid dependent on 4L NC O2 24 hours a day at home, SOFY on CPAP, morbid obesity, HTN, hyperlipidemia, hypothyroidism , right sided heart failure, cor pulmonale, diastolic heart failure, GERD, chronic headache presented for SOB and lower extremity swelling. Patient was seen and examined at bedside. Patient felt about the same as yesterday, still has nausea in the morning and doesn't feel well. She still admits to constant chest pressure since a few days ago. Still refuses to wear BiPAP at night. No abdominal pain, nausea, vomiting, diarrhea, constipation, problems with urinations. Denies any other current new complaints. Objective: Vitals (See below) General: Obese elderly female, lying in bed, no acute distress, comfortable, AAOx3 HEENT: NC, AT CVS: RRR, + Systolic murmur, Lungs: Reduced breathing sound b/l however it was clear to auscultation b/l Abdomen: Soft, Epigastric pain, no peritoneal signs, obese Extremities: 2+ pitting edema b/l extending to upper thigh improved from admission, erythema around ankle improved slightly as well Assessment and plan: Acute on Chronic hypoxic respiratory failure - likely 2/2 Decompensated Diastolic CHF / Cor Pulmonale 2/2 Severe Pulmonary Hypertension 2/2 Pulmonary Fibrosis - Continues to have some shortness of breath and LE edema - Physical with crackles at bilateral lung bases has improved - ECHO 06/21: Grade 1 DD, Moderately severe MR, TR, Severe Pulm HTN, RA/RV enlarged, - Strict Ins/Outs, Daily weights - c/w Supplemental oxygen - c/w Nebulizer and Prednisone 10 daily - c/w Spirolactone and Metolazone - Restarted Lasix yesterday after electrolyte abnormalities corrected Cellulitis of lower extremities - Blood cultures 06/21: Negative - c/w Ceftaroline (Day # 4 / Total Antibiotic Day #10), s/p Doxycycline, s/p Vancomycin s/p Electrolytes abnormalities - Hypokalemia and Hypomagnesemia - Will supplement as needed Angina - likely 2/2 underlying CAD - EKG without any acute changes compared to prior 06/27/18 s/p ASHWIN - likely 2/2 prerenal azotemia - Elevation in Cr - likely 2/2 diuresis - Lasix restarted SOFY on BIPAP - c/w Home BIPAP use patient is not using stated it was not comfortable even after respiratory adjustment Morbid obesity - Complicating medical care HTN - Lasix DLP - not on any medications Hypothyroidism - c/w Levothyroxine GERD / PUD - PPI, Carafate, Zantac Chronic migraine headache - c/w Depakote DVT prophylaxis - c/w Lovenox Disposition: - c/w Antibiotics - Restarted Lasix - Hospice evaluation GME ATTESTATION My preceptor for this patient encounter was physically present in the building during the encounter and was fully available. As needed, all aspects of the patient interview, examination, medical decision making process, and medical care plan development were reviewed and approved by the preceptor. Preceptor is aware and concurs with the plan as stated in the body of this note and will attest to such by his/her cosignature. ATTENDING NOTE I, Regina Guevara, have both independently examined this patient as well as reviewed the documentation. I have discussed in detail with the resident the findings and plan of treatment as documented in the residents documentation. I will continue to follow the patient and offer further guidance to the patients care as necessary during this hospital stay. VS,Lovelye, I+O VS, Perrybone, I+O Laboratory Tests 07/01/17 14:02 Red Blood Count 4.94, Mean Corpuscular Volume 91.9, Mean Corpuscular Hemoglobin 28.7, Mean Corpuscular Hemoglobin Concent 31.3 L, Red Cell Distribution Width 16.1 H, Calcium Level 8.8 #, Phosphorus Level 4.0, Aspartate Amino Transf (AST/ SGOT) 27, Alanine Aminotransferase (ALT/SGPT) 27, Alkaline Phosphatase 121 H, Total Bilirubin 0.6, Total Protein 6.2 L, Albumin 3.4 # 07/02/17 05:04 Red Blood Count 4.91, Mean Corpuscular Volume 91.6, Mean Corpuscular Hemoglobin 28.5, Mean Corpuscular Hemoglobin Concent 31.1 L, Red Cell Distribution Width 16.0 H, Calcium Level 9.2, Phosphorus Level 3.6, Aspartate Amino Transf (AST/ SGOT) 18, Alanine Aminotransferase (ALT/SGPT) 25, Alkaline Phosphatase 88, Total Bilirubin 0.7, Total Protein 6.0 L, Albumin 3.2, Neutrophils (%) (Auto) 55.1, Lymphocytes (%) (Auto) 30.1, Monocytes (%) (Auto) 12.2 H, Eosinophils (%) (Auto) 1.6, Basophils (%) (Auto) 0.5, Neutrophils # (Auto) 5.2, Lymphocytes # ( Auto) 2.8, Monocytes # (Auto) 1.1 H, Eosinophils # (Auto) 0.2, Basophils # (Auto ) 0.1 Vital Signs Date Time Temp Pulse Resp B/P (MAP) Pulse Ox O2 Delivery O2 Flow Rate FiO2 07/02/17 08:00 Nasal Cannula 4.0 07/02/17 08:00 97.0 69 18 135/83 (100) 95 I&O- Last 24 Hours up to 6 AM 07/03/17 06:00 Intake Total 360 ml Balance 360 ml AYSE CAMEJO DO Jul 02, 2017 10:18 REGINA GUEVARA MD Jul 02, 2017 12:03
[2017-07-02] MEDS ORDERED: CYCLOBENZAPRINE 5MG TABLET PO ONE (10:30)
[2017-07-02 12:00] VITALS: BP 130/73
[2017-07-02] MEDS: CEFTAROLINE FOSAMIL 600 MG in D5W 50 ML IV SCH (12:23)
[2017-07-02 16:00] VITALS: BP 122/80
[2017-07-02] MEDS: FUROSEMIDE 40 MG/4 ML VIAL (J1940) IV SCH (17:23)
[2017-07-02 20:07] VITALS: BP 119/69
[2017-07-02] MEDS: ASPIRIN 81 MG ENTERIC TAB PO SCH (22:06)
[2017-07-02] MEDS: DIVALPROEX 500MG *ER* TAB PO SCH (22:07)
[2017-07-03] MEDS: CEFTAROLINE FOSAMIL 600 MG in D5W 50 ML IV SCH ×3 (00:45→23:49)
[2017-07-03] MEDS: FUROSEMIDE 40 MG/4 ML VIAL (J1940) IV SCH ×3 (00:46→23:49)
[2017-07-03 00:52] VITALS: BP 133/62
[2017-07-03] MEDS: traMADol 50 MG TAB PO PRN ×2 (04:20→21:09)
[2017-07-03] MEDS: SODIUM CHLORIDE 0.9% INJ 10 ML SYR IV SCH ×2 (04:33→18:35)
[2017-07-03 04:40] VITALS: BP 132/64
[2017-07-03 04:55] LABS: BASO # 0.1 10^3/uL (0.0-0.2); BASO % 0.7 % (0.0-1.0); EOS # 0.1 10^3/uL (0.0-0.50); EOS % 1.2 % (0.0-3.0); IMMATURE GRANULOCYTE % 0.7 % (0-0); LYMPH # 2.8 10^3/uL (1.5-4.5); LYMPH % 31.3 % (24.0-44.0); MEAN CORPUSCULAR HEMOGLOBIN 28.5 pg (27.0-33.0); MEAN CORPUSCULAR VOLUME 92.1 fl (80.0-96.0); MONO % 11.6 % (0.0-5.0); NEUTROPHILS # 4.8 10^3/uL (1.8-7.7); NEUTROPHILS % 54.5 % (36.0-66.0); PLATELET COUNT, AUTOMATED 244 10^3/uL (150-450); RED CELL DISTRIBUTION WIDTH 16.2 % (11.5-14.5); WHITE BLOOD COUNT 8.9 10^3/uL (4.0-10.0)
[2017-07-03] MEDS: LEVOTHYROXINE 150MCG TABLET (0.15MG) PO SCH (05:24)
[2017-07-03 05:28] LABS: ALBUMIN 3.4 GM/DL (3.2-5.2); ALBUMIN/GLOBULIN RATIO 1.21 (1.00-1.93); BILIRUBIN,TOTAL 0.6 MG/DL (0.2-1.0); CALCIUM LEVEL 8.9 MG/DL (8.8-10.2); CREATININE FOR GFR 1.43 MG/DL (0.55-1.02); GLOMERULAR FILTRATION RATE 38.3 (>39); MAGNESIUM LEVEL 2.1 MG/DL (1.8-2.4); PHOSPHORUS LEVEL 3.8 MG/DL (2.5-4.9); POTASSIUM SERUM 3.6 MEQ/L (3.5-5.1); TOTAL PROTEIN 6.2 GM/DL (6.4-8.2)
[2017-07-03 07:25] VITALS: BP 160/86
[2017-07-03] MEDS: LACTOBACILLUS ACIDOPHILUS CAP (BACID) PO SCH ×2 (10:34→21:09)
[2017-07-03] MEDS: POTASSIUM CHLORIDE 10 MEQ SR TABLET PO SCH ×2 (10:35→21:08)
[2017-07-03] MEDS: RANOLAZINE 500 MG ER TAB PO SCH ×2 (10:36→21:09)
[2017-07-03] MEDS: SPIRONOLACTONE 12.5MG PER 1/2 TABLET PO SCH (10:36)
[2017-07-03] MEDS: MULTIVITAMINS/MINERALS THERAP 1 TAB PO SCH (10:38)
[2017-07-03] MEDS: ASCORBIC ACID 500 MG TAB PO SCH (10:38)
[2017-07-03] MEDS: PANTOPRAZOLE 40MG TAB (PROTONIX) PO SCH ×2 (10:39→21:10)
[2017-07-03] MEDS: OMEGA-3 1050MG CAPSULE PO SCH (10:40)
[2017-07-03] MEDS: predniSONE 10 MG TAB PO SCH (10:40)
[2017-07-03] MEDS: metOLazone 2.5 MG TAB PO SCH (10:41)
[2017-07-03] MEDS: FAMOTIDINE 20 MG TAB PO SCH ×2 (10:41→21:09)
[2017-07-03] MEDS: ENOXAPARIN 40 MG/0.4 ML SYRINGE (J1650) SC SCH (10:44)
--- NOTE | 2017-07-03 10:57 | IPNPDOC ---
Text Note Date of Service The patient was seen on 07/03/17. NOTE Subjective: Patient is 72 years old female with PMH of end stage pulmonary fibrosis, chronic hypoxic respiratory failure and steroid dependent on 4L NC O2 24 hours a day at home, SOFY on CPAP, morbid obesity, HTN, hyperlipidemia, hypothyroidism , right sided heart failure, cor pulmonale, diastolic heart failure, GERD, chronic headache presented for SOB and lower extremity swelling. Patient was seen and examined at bedside. Patient remains unchanged from yesterday. She denies any new problems. She does not that she can walk a little better without pain. She still experience leg redness and tenderness to touch. She is schedule to have a discussion with Hospice today. Objective: Vitals (See below) General: Obese elderly female, lying in bed, no acute distress, comfortable, AAOx3 HEENT: NC, AT CVS: RRR, + Systolic murmur, Lungs: Fair air entry b/l, no appreciable wheezing / rales / rhonchi Abdomen: Soft, Epigastric pain, no peritoneal signs, obese Extremities: 2+ pitting edema b/l, erythema extending from ankles to inferior aspect of knee b/l, tenderness diffusely Assessment and plan: Acute on Chronic hypoxic respiratory failure - likely 2/2 Decompensated Diastolic CHF / Cor Pulmonale 2/2 Severe Pulmonary Hypertension 2/2 Pulmonary Fibrosis - Breathing is at baseline; LE edema perists - ECHO 06/21: Grade 1 DD, Moderately severe MR, TR, Severe Pulm HTN, RA/RV enlarged, - Strict Ins/Outs, Daily weights - c/w Supplemental oxygen - c/w Nebulizer and Prednisone 10 daily - c/w Spirolactone and Metolazone - c/w adjusted dose Lasix - Will discuss with Hospice and family today about goals of care Cellulitis of lower extremities - Blood cultures 06/21: Negative - c/w Ceftaroline (Day # 5), s/p Doxycycline, s/p Vancomycin s/p Electrolytes abnormalities - Hypokalemia and Hypomagnesemia - Will supplement as needed Angina - likely 2/2 underlying CAD - EKG without any acute changes compared to prior 06/27/18 s/p ASHWIN - likely 2/2 prerenal azotemia - Elevation in Cr - likely 2/2 diuresis - Lasix restarted SOFY on BIPAP - c/w Home BIPAP use patient is not using stated it was not comfortable even after respiratory adjustment Morbid obesity - Complicating medical care HTN - Lasix DLP - not on any medications Hypothyroidism - c/w Levothyroxine GERD / PUD - PPI, Carafate, Zantac Chronic migraine headache - c/w Depakote DVT prophylaxis - c/w Lovenox Disposition: - c/w Antibiotic and Lasix - Hospice evaluation today VS,Fishbone, I+O VS, Fishbone, I+O Laboratory Tests 07/03/17 04:29 Red Blood Count 5.05, Mean Corpuscular Volume 92.1, Mean Corpuscular Hemoglobin 28.5, Mean Corpuscular Hemoglobin Concent 31.0 L, Red Cell Distribution Width 16.2 H, Neutrophils (%) (Auto) 54.5, Lymphocytes (%) (Auto) 31.3, Monocytes (%) (Auto) 11.6 H, Eosinophils (%) (Auto) 1.2, Basophils (%) (Auto) 0.7, Neutrophils # (Auto) 4.8, Lymphocytes # (Auto) 2.8, Monocytes # (Auto) 1.0 H, Eosinophils # (Auto) 0.1, Basophils # (Auto) 0.1, Calcium Level 8.9, Phosphorus Level 3.8, Aspartate Amino Transf (AST/SGOT) 18, Alanine Aminotransferase (ALT/ SGPT) 24, Alkaline Phosphatase 93, Total Bilirubin 0.6, Total Protein 6.2 L, Albumin 3.4 Vital Signs Date Time Temp Pulse Resp B/P (MAP) Pulse Ox O2 Delivery O2 Flow Rate FiO2 07/03/17 07:25 97.2 71 20 160/86 (110) 98 Nasal Cannula 4.0 I&O- Last 24 Hours up to 6 AM 07/04/17 06:00 Intake Total 240 ml Output Total 150 ml Balance 90 ml NADINE GUEVARA MD Jul 03, 2017 10:57
[2017-07-03 12:00] VITALS: BP 134/70
[2017-07-03] MEDS: SODIUM CHLORIDE 0.9% INJ 10 ML SYR IV PRN (13:06)
[2017-07-03 16:00] VITALS: BP 119/68
[2017-07-03 20:00] VITALS: BP 124/66
[2017-07-03] MEDS: DIVALPROEX 500MG *ER* TAB PO SCH (21:08)
[2017-07-03] MEDS: ASPIRIN 81 MG ENTERIC TAB PO SCH (21:10)
[2017-07-04] VITALS: BP 136/73
[2017-07-04 04:00] VITALS: BP 136/70
[2017-07-04] MEDS: LEVOTHYROXINE 150MCG TABLET (0.15MG) PO SCH (05:39)
[2017-07-04] MEDS: SODIUM CHLORIDE 0.9% INJ 10 ML SYR IV SCH (05:40)
[2017-07-04 05:58] LABS: BASO % 0.4 % (0.0-1.0); EOS # 0.1 10^3/uL (0.0-0.50); EOS % 1.1 % (0.0-3.0); IMMATURE GRANULOCYTE % 0.6 % (0-0); LYMPH # 2.6 10^3/uL (1.5-4.5); LYMPH % 26.4 % (24.0-44.0); MEAN CORPUSCULAR HEMOGLOBIN 28.9 pg (27.0-33.0); MEAN CORPUSCULAR HGB CONC 31.3 g/dl (32.0-36.5); MEAN CORPUSCULAR VOLUME 92.4 fl (80.0-96.0); MONO # 1.2 10^3/uL (0.0-0.8); NEUTROPHILS # 5.9 10^3/uL (1.8-7.7); NEUTROPHILS % 59.5 % (36.0-66.0); PLATELET COUNT, AUTOMATED 230 10^3/uL (150-450); RED CELL DISTRIBUTION WIDTH 16.1 % (11.5-14.5)
[2017-07-04 06:22] LABS: ALBUMIN 3.2 GM/DL (3.2-5.2); ALBUMIN/GLOBULIN RATIO 1.28 (1.00-1.93); BILIRUBIN,TOTAL 0.6 MG/DL (0.2-1.0); CALCIUM LEVEL 8.7 MG/DL (8.8-10.2); CREATININE FOR GFR 1.22 MG/DL (0.55-1.02); MAGNESIUM LEVEL 1.9 MG/DL (1.8-2.4); PHOSPHORUS LEVEL 3.9 MG/DL (2.5-4.9); POTASSIUM SERUM 3.5 MEQ/L (3.5-5.1); TOTAL PROTEIN 5.7 GM/DL (6.4-8.2)
[2017-07-04] MEDS ORDERED: HYOS125TA PO (07:36)
[2017-07-04] MEDS ORDERED: LORA0.5T11 PO (07:36)
[2017-07-04] MEDS ORDERED: MORP20SO3 PO (07:36)
[2017-07-04 08:00] VITALS: BP 157/74
[2017-07-04] MEDS: RANOLAZINE 500 MG ER TAB PO SCH (09:26)
[2017-07-04] MEDS: ENOXAPARIN 40 MG/0.4 ML SYRINGE (J1650) SC SCH ×2 (09:26→09:39)
[2017-07-04] MEDS: SPIRONOLACTONE 12.5MG PER 1/2 TABLET PO SCH (09:26)
[2017-07-04] MEDS: POTASSIUM CHLORIDE 10 MEQ SR TABLET PO SCH (09:26)
[2017-07-04] MEDS: predniSONE 10 MG TAB PO SCH (09:27)
[2017-07-04] MEDS: ASCORBIC ACID 500 MG TAB PO SCH (09:27)
[2017-07-04] MEDS: OMEGA-3 1050MG CAPSULE PO SCH (09:27)
[2017-07-04] MEDS: PANTOPRAZOLE 40MG TAB (PROTONIX) PO SCH (09:27)
[2017-07-04] MEDS: metOLazone 2.5 MG TAB PO SCH (09:27)
[2017-07-04] MEDS: MULTIVITAMINS/MINERALS THERAP 1 TAB PO SCH (09:27)
[2017-07-04] MEDS: LACTOBACILLUS ACIDOPHILUS CAP (BACID) PO SCH (09:27)
[2017-07-04] MEDS: FAMOTIDINE 20 MG TAB PO SCH (09:27)
--- NOTE | 2017-07-04 13:44 | DSES ---
DATE OF ADMISSION: 06/20/2017 DATE OF DISCHARGE: 07/04/2017 The patient is discharged home with hospice. Comfort measures only. PRIMARY DISCHARGE DIAGNOSES: 1. Acute on chronic hypoxic respiratory failure secondary to decompensating diastolic heart failure and cor pulmonale and right-sided heart failure. 2. Severe pulmonary hypertension secondary to pulmonary fibrosis. 3. Chronic lower extremity cellulitis. 4. Electrolyte abnormalities with hypokalemia and hypermagnesemia. 5. Angina secondary to underlying coronary artery disease (CAD). 6. Prerenal azotemia with acute kidney injury. 7. Obstructive sleep apnea on BiPAP. 8. Morbid obesity. 9. Hypertension. 10. Hyperlipidemia. 11. Hypothyroidism. 12. Reflux. 13. Chronic migraines. DISCHARGE MEDICATIONS: - Roxanol 0.25 to 1 mL every 2 as needed for pain and dyspnea, maximum daily dose 12 mL. Dispense 30 mL. - lorazepam 0.5 every 4 hours as needed anxiety and agitation, maximum daily dose 3 mg, dispense 30 tablets. - high dose thiamine sulfate 0.25 mg sublingually every 4 as needed for terminal secretions, maximum daily dose of six tablets, dispense 15 tablets. - acetaminophen butalbital caffeine as needed for migraines. - acetaminophen 1 gram by mouth every 6 as needed - albuterol two puffs four times a day as needed - ascorbic acid 1 gram by mouth daily - aspirin 81 - benzonatate 200 mg three times a day as needed for cough - valproic acid 500 nightly - Lasix 40 daily - Levoxyl 150 mcg daily - metolazone 2.5 daily as needed - multivitamin one tablet daily - Nasacort allergy 24 hour two sprays daily as needed - omega 3 one capsule daily - Protonix 40 twice a day - potassium chloride 10 mEq daily - prednisone 10 daily - Ranexa 1 gram every morning. - Ranexa 500 nightly - Carafate 10 mL by mouth four times a day as needed - tramadol 50 every 8 hours - vitamin D 50,000 units twice weekly HOSPITAL COURSE: This is a 72-year-old female who presented to the emergency room with progressive shortness of breath as well as ongoing lower extremity edema, erythema. The patient was treated for cor pulmonale secondary to severe pulmonary hypertension with pulmonary fibrosis. She has moderate severe MR, TRs for pulmonary hypertension with wide atrial and right ventricular enlargement, status post Lasix, spironolactone, metolazone. The patient continues to have respiratory distress. She was given ceftaroline 5 days status post doxycycline and vancomycin. Blood cultures were negative for lower extremity cellulitis. The patient had electrolyte abnormalities due to Lasix diuresis, was given supplementation for potassium magnesium. The patient did develop prerenal azotemia secondary to diuresis, which improved and currently restarted back on Lasix. She was kept on her BiPAP for obstructive sleep apnea. Due to endstage lung disease, she was seen by her field placement director, Dr. Sánchez, who recommended hospice due to severe pulmonary hypertension. The patient is discharged home with hospice currently. Time spent on discharge: 30 minutes. MANAN
== END 2017-07-04 12:00 | disposition hospice, home (50) | DRG 291 ==
LOC: M ED 15:05 → M ED INP 17:08 → M PCU 21:15
PROVIDERS: ADMIT General Practice; ATTEND General Practice
PROC: 02HV33Z Insertion of Infusion Device into Superior Vena Cava, Percutaneous Approach (ICD-10-PCS; principal; 2017-06-29)
DX: I11.0 Hypertensive heart disease with heart failure (principal); J96.21 Acute and chronic respiratory failure with hypoxia; Z68.42 Body mass index [BMI] 45.0-49.9, adult; N17.9 Acute kidney failure, unspecified; L03.115 Cellulitis of right lower limb; L03.116 Cellulitis of left lower limb; I50.33 Acute on chronic diastolic (congestive) heart failure; I27.81 Cor pulmonale (chronic); I50.813 Acute on chronic right heart failure; E66.01 Morbid (severe) obesity due to excess calories; J84.10 Pulmonary fibrosis, unspecified; E78.5 Hyperlipidemia, unspecified; E03.9 Hypothyroidism, unspecified; K21.9 Gastro-esophageal reflux disease without esophagitis; G47.33 Obstructive sleep apnea (adult) (pediatric); E87.6 Hypokalemia; E83.41 Hypermagnesemia; I25.10 Atherosclerotic heart disease of native coronary artery without angina pectoris; G43.909 Migraine, unspecified, not intractable, without status migrainosus; Z79.82 Long term (current) use of aspirin; Z79.899 Other long term (current) drug therapy; Z79.52 Long term (current) use of systemic steroids; Z96.651 Presence of right artificial knee joint; Z88.2 Allergy status to sulfonamides; Z88.8 Allergy status to other drugs, medicaments and biological substances; Z91.013 Allergy to seafood; E78.00 Pure hypercholesterolemia, unspecified

== ENCOUNTER 2017-07-22 18:35 | Emergency (ER) | payer MEDICARE, OTHER ==
[~2017-07-22] VITALS: Ht 160 cm; Wt 120.5 kg
[~2017-07-22 18:35] MED LIST changes: +HYOS125TA PO; +LORA0.5T11 PO; +MORP20SO3 PO; +SUCR1SS PO
[2017-07-22 20:02] VITALS: BP 175/85
== END 2017-07-22 20:04 | disposition home or self-care (01) ==
LOC: M ED 18:35
DX: R04.0 Epistaxis (principal); I27.20 Pulmonary hypertension, unspecified; J84.10 Pulmonary fibrosis, unspecified; I51.9 Heart disease, unspecified; K21.9 Gastro-esophageal reflux disease without esophagitis; E66.01 Morbid (severe) obesity due to excess calories; Z79.82 Long term (current) use of aspirin; Z79.899 Other long term (current) drug therapy; Z88.0 Allergy status to penicillin; Z88.8 Allergy status to other drugs, medicaments and biological substances; Z88.6 Allergy status to analgesic agent; Z91.013 Allergy to seafood